=== PATIENT | male | born 1960 | race Caucasian/White ===

== ENCOUNTER 2016-07-10 14:58 | Inpatient (IN) | payer MEDICAID, OTHER ==
--- NOTE | 2016-07-10 15:39 | ER Document Report ---
ED Medical Screen (RME) - General Chief Complaint: General Weakness Stated Complaint: WEAKNESS Notes: warrant out for arrest so today at detention, collapsed, awake the entire time. witnessed by officer -h/i, -LOC COPD, h/o seizures on medications but has been noncompliant diarrhea for 7 days, no evidence of blood COPD: not on O2 at home but should be tobacco use, etoh use 40x2 daily EMS had to use a nasal airway vitals stable, 92% on room air stable I have greeted and performed a rapid initial assessment of this patient. A comprehensive ED assessment and evaluation of the patient, analysis of test results and completion of the medical decision making process will be conducted by additional ED providers. TRAVEL OUTSIDE OF THE [place] IN LAST 30 DAYS: No - Related Data Allergies/Adverse Reactions: albuterol Allergy (Verified 07/10/16 15:31) fluoxetine [From Prozac] Allergy (Verified 07/10/16 15:31) lisinopril Allergy (Verified 07/10/16 15:31) paliperidone [From Invega] Allergy (Verified 07/10/16 15:31) Past Medical History - Social History Chew tobacco use (# tins/day): Yes - 1 pk Frequency of alcohol use: Heavy Drug Abuse: None - Past Medical History Cardiac Medical History: Reports: Hx Hypertension Renal/ Medical History: Denies: Hx Peritoneal Dialysis Psychiatric Medical History: Reports: Hx Attention Deficit Hyperactivity Disorder, Hx Bipolar Disorder
--- NOTE | 2016-07-10 17:09 | ER Document Report ---
ED Seizure - General Mode of Arrival: Medic Information source: Patient, Law Enforcement - HPI Patient complains to provider of: History of seizures <VIVEK BIANCHI - Last Filed: 07/10/16 17:36> <JOSEF GALLEGO - Last Filed: 07/10/16 23:04> - General Chief Complaint: Probable Seizure Stated Complaint: possible seizure Notes: Patient is a 55 year old male, with a past medical history including bipolar disorder and seizures, who presents to the emergency department from senior living for a fall secondary to a possible seizure. Patient reports that he has been weak recently and falling a lot. Patient believes the fall today was due to a seizure. Patient reports he does take seizure medication and knows the dose is 60mg but does not recall the actual drug. Patient also complains of loss of appetite and low fluid intake. Patient is alcohol dependent and his last beverage was this morning. PCP: Dr. Gerber (VIVEK BIANCHI) - Related Data Allergies/Adverse Reactions: albuterol Allergy (Verified 07/10/16 15:31) fluoxetine [From Prozac] Allergy (Verified 07/10/16 15:31) lisinopril Allergy (Verified 07/10/16 15:31) paliperidone [From Invega] Allergy (Verified 07/10/16 15:31) Past Medical History - General Information source: Patient - Social History Smoking Status: Current Every Day Smoker Chew tobacco use (# tins/day): Yes - 1 pk Frequency of alcohol use: Heavy Drug Abuse: None Family History: Reviewed & Not Pertinent - Past Medical History Cardiac Medical History: Reports: Hx DVT, Hx Hypertension Neurological Medical History: Reports: Hx Seizures GI Medical History: Reports: Hx Cirrhosis Psychiatric Medical History: Reports: Hx Attention Deficit Hyperactivity Disorder, Hx Bipolar Disorder - Immunizations Hx Pneumococcal Vaccination: 06/07/13 <VIVEK BIANCHI - Last Filed: 07/10/16 17:36> Review of Systems - Review of Systems Constitutional: See HPI, Weakness EENT: No symptoms reported Cardiovascular: No symptoms reported Respiratory: No symptoms reported Gastrointestinal: See HPI, Poor appetite, Poor fluid intake Genitourinary: No symptoms reported Male Genitourinary: No symptoms reported Musculoskeletal: No symptoms reported Skin: No symptoms reported Hematologic/Lymphatic: No symptoms reported Neurological/Psychological: See HPI, Seizure - possible -: Yes All other systems reviewed and negative <VIVEK BIANCHI - Last Filed: 07/10/16 17:36> Physical Exam - Vital signs Interpretation: Tachypneic - General General appearance: Appears well, Alert - HEENT Head: Abrasions - 4cm linear abrasion that looks a day old over forehead Mouth/Lips: Other - Very poor dentition, missing top teeth. Ketone odor on breath - Respiratory Respiratory status: No respiratory distress, Tachypnea Chest status: Nontender Breath sounds: Rhonchi, Wheezing Chest palpation: Normal - Cardiovascular Rhythm: Regular Heart sounds: Normal auscultation Murmur: No - Abdominal Inspection: Other - Bruise on right upper quadrant of abdomen and inferior ribs going toward the right flank that appears a few days old Distension: No distension Bowel sounds: Normal Tenderness: Nontender Organomegaly: No organomegaly - Extremities General upper extremity: Normal inspection General lower extremity: Normal inspection. No: Edema - Neurological Neuro grossly intact: Yes Cognition: Normal Orientation: AAOx4 [place] Coma Scale Eye Opening: Spontaneous [place] Coma Scale Verbal: Oriented [place] Coma Scale Motor: Obeys Commands [place] Coma Scale Total: 15 Speech: Normal - Psychological Associated symptoms: Normal affect, Normal mood - Skin Skin Temperature: Warm Skin Moisture: Dry Skin Color: Normal <VIVEK BIANCHI - Last Filed: 07/10/16 17:36> Course - Laboratory Result Diagrams: 07/10/16 17:05 07/10/16 17:05 <VIVEK BIANCHI - Last Filed: 07/10/16 17:36> - Laboratory Result Diagrams: 07/10/16 20:34 07/10/16 17:05 - Diagnostic Test Radiology reviewed: Image reviewed, Reports reviewed - CT scan shows chronic maxillary sinusitis with left greater than right, no acute process. Chest x-ray shows some hyperinflation with no acute process. - EKG Interpretation by Md EKG shows normal: Sinus rhythm, [place], Intervals, QRS Complexes, ST-T Waves Rate: Tachycardia - 101 Napoleon/QRS: IVCD P Waves: ELSI - Consults Dr. Alford Time consulted: 23:00 Consulted provider: will come to ER <JOSEF GALLEGO - Last Filed: 07/10/16 23:04> - Re-evaluation Re-evalutation: 07/10/16 22:40 The patient reports he is feeling much better at this time. He is completely alert and requesting to be tested for hepatitis C. The patient's blood pressure has remained around the 90-100 systolic range. When he was here 3 years ago his blood pressure was in the 140-150 systolic range. (JOSEF GALLEGO) - Vital Signs Vital signs: Temp Pulse Resp BP Pulse Ox 98.8 F 106 H 19 99/61 L 97 07/10/16 22:00 07/10/16 17:00 07/10/16 22:01 07/10/16 22:01 07/10/16 22:01 (JOSEF GALLEGO) - Laboratory Laboratory results interpreted by ma: 07/10/16 07/10/16 07/10/16 17:05 17:05 17:05 WBC RBC Hgb Hct Plt Count Seg Neuts % (Manual) Band Neutrophils % Lymphocytes % (Manual) Abs Neuts (Manual) Abs Lymphs (Manual) VBG pH 7.25 L Sodium 132.0 L Chloride 86 L Anion Gap 23 H Calcium 8.0 L Total Bilirubin 3.5 H Direct Bilirubin 1.2 H AST 530 H ALT 196 H Alkaline Phosphatase 195 H Creatine Kinase 461 H CK-MB (CK-2) 14.80 H Albumin 3.2 L 07/10/16 20:34 WBC 14.4 H RBC 3.25 L Hgb 10.7 L Hct 31.7 L Plt Count 49 L Seg Neuts % (Manual) 80 H Band Neutrophils % 14 H Lymphocytes % (Manual) 0 L Abs Neuts (Manual) 13.5 H Abs Lymphs (Manual) 0.0 L VBG pH Sodium Chloride Anion Gap Calcium Total Bilirubin Direct Bilirubin AST ALT Alkaline Phosphatase Creatine Kinase CK-MB (CK-2) Albumin (JOSEF GALLEGO) Discharge <VIVEK BIANCHI - Last Filed: 07/10/16 17:36> - Discharge Admitting Provider: Hospitalist Unit Admitted: Telemetry <JOSEF GALLEGO - Last Filed: 07/10/16 23:04> - Discharge Condition: Good Disposition: ADMITTED OBSERVATION Scribe Documentation - Scribe Written by Scribe:: danny Hammer, 07/10/16, [id number] acting as scribe for :: Mini <VIVEK BIANCHI - Last Filed: 07/10/16 17:36>
[2016-07-10 17:27] LABS: ADD ON TESTING BLD IN LAB ACKNOWLEDGE
[2016-07-10 17:40] LABS: VENOUS BLOOD HCO3 24.3 mmol/L (20-32); VENOUS BLOOD PCO2 56.6 mmHg (35-63); VENOUS BLOOD PH 7.25 (7.30-7.42)
[2016-07-10 17:42] LABS: PROTHROMBIN TIME 13.4 SEC (11.4-15.4)
[2016-07-10 17:58] LABS: ALANINE AMINOTRANSFERASE 196 U/L (21-72); ALBUMIN 3.2 g/dL (3.5-5.0); ALKALINE PHOSPHATASE 195 U/L (38-126); ASPARTATE AMINO TRANSFERASE 530 U/L (17-59); BILIRUBIN,DIRECT 1.2 mg/dL (0.0-0.3); BILIRUBIN,TOTAL 3.5 mg/dL (0.2-1.3); BLOOD UREA NITROGEN 17 mg/dL (7-20); CREATINE KINASE 461 U/L (55-170); GLUCOSE 90 mg/dL (75-110); MAGNESIUM 2.3 mg/dL (1.6-2.3); TOTAL PROTEIN 6.3 g/dL (6.3-8.2)
[2016-07-10 18:00] LABS: ALCOHOL < 10 mg/dL (NONE DETECTED)
[2016-07-10 18:07] LABS: CARBON DIOXIDE 23 mmol/L (22-30); CHLORIDE 86 mmol/L (98-107); POTASSIUM 3.6 mmol/L (3.6-5.0)
[2016-07-10 18:09] LABS: CREATINE KINASE MB 14.8 ng/mL (<4.55)
[2016-07-10 18:13] LABS: ANION GAP 23 (5-19)
[2016-07-10 18:24] LABS: TROPONIN I 0.067 ng/mL
[2016-07-10] MEDS ORDERED: THIAMINE HCL INJ 200 MG/2 ML VIAL IV ONE (18:40)
[2016-07-10] MEDS ORDERED: DEXTROSE 5%-LACTATED RINGERS 1,000 ML IV ONE ×2 (18:41→22:41)
[2016-07-10] MEDS ORDERED: PHENYTOIN SODIUM INJ/PF 250 MG/5 ML SDV IV ONE (18:41)
[2016-07-10 20:46] LABS: HEMATOCRIT 31.7 % (37.9-51.0); HEMOGLOBIN 10.7 g/dL (13.5-17.0); HGB HCT DIFFERENCE 0.4; MEAN CORPUSCULAR HEMOGLOBIN 32.8 pg (27.0-33.4); MEAN CORPUSCULAR HGB CONC 33.6 g/dL (32.0-36.0); MEAN CORPUSCULAR VOLUME 97 fl (80-97); RED BLOOD COUNT 3.25 10^6/uL (4.35-5.55); WHITE BLOOD COUNT 14.4 10^3/uL (4.0-10.5)
[2016-07-10 21:26] LABS: BASOPHILS % (MANUAL) 0 % (0-2); EOSINOPHILS % (MANUAL) 0 % (0-6); LYMPHOCYTES % (MANUAL) 0 % (13-45); TOTAL CELLS COUNTED 100
[2016-07-10 21:29] LABS: TOXIC GRANULATION 3+
[2016-07-10 21:30] LABS: ANISOCYTOSIS SLIGHT; POLYCHROMASIA SLIGHT; SMUDGE CELLS PRESENT
[2016-07-10 21:38] LABS: BAND NEUTROPHILS % (MANUAL) 14 % (3-5)
[2016-07-10] MEDS ORDERED: NORMAL SALINE 1000 ML 1,000 ML IV ONE (21:41)
--- NOTE | 2016-07-10 21:49 | EKG REPORT ---
SEVERITY:- ABNORMAL ECG - SINUS TACHYCARDIA RIGHT ATRIAL ABNORMALITY NONSPECIFIC INTRAVENTRICULAR CONDUCTION DELAY : Confirmed by: Ericka Bennett 10-Jul-2016 21:48:08
[2016-07-10] MEDS ORDERED: IPRATROPIUM BROMIDE 0.02% NEB 0.5 MG/2.5 ML AMPUL NEB ONE (21:55)
[2016-07-10] MEDS ORDERED: CIPROFLOXACIN 400 MG/D5W RTU 400 MG/200 ML RTUPB IV ONE (23:00)
[2016-07-10] MEDS ORDERED: LORAZEPAM INJ 2 MG/1 ML VIAL IV PRN (23:26)
[2016-07-10] MEDS ORDERED: HYDRALAZINE HCL INJ/PF 20 MG/1 ML SDV IV PRN (23:28)
[2016-07-10] MEDS ORDERED: ACETAMINOPHEN 325 MG TABLET PO PRN (23:32)
[2016-07-10] MEDS ORDERED: IPRATROPIUM/ALBUTEROL 0.5-2.5 MG/3 ML AMPUL NEB PRN (23:32)
[2016-07-10] MEDS ORDERED: ATENOLOL 50 MG TABLET PO SCH (23:45)
[2016-07-10] MEDS ORDERED: NORMAL SALINE 1000 ML 1,000 ML IV SCH (23:45)
[2016-07-10] MEDS ORDERED: DILTIAZEM HCL 60 MG TABLET PO SCH (23:45)
[2016-07-11 00:50] LABS: CREATINE KINASE MB 55.6 ng/mL (<4.55)
[2016-07-11 00:54] LABS: TROPONIN I 0.029 ng/mL
[2016-07-11] MEDS ORDERED: LOPERAMIDE HCL 2 MG CAPSULE PO ONE (00:57)
[2016-07-11] MEDS: CIPROFLOXACIN 400 MG/D5W RTU 400 MG/200 ML RTUPB IV SCH ×2 (00:57→22:27)
[2016-07-11] MEDS: IPRATROPIUM/ALBUTEROL 0.5-2.5 MG/3 ML AMPUL NEB SCH ×4 (00:57→23:21)
[2016-07-11] MEDS ORDERED: NORMAL SALINE 1000 ML 1,000 ML IV ONE (01:27)
[2016-07-11] MEDS: LORAZEPAM INJ 2 MG/1 ML VIAL IV SCH ×2 (01:34→11:20)
[2016-07-11] MEDS: METRONIDAZOLE 500 MG TABLET PO SCH ×2 (02:33→06:37)
[2016-07-11] MEDS ORDERED: HEPARIN SOD (PORCINE) 5,000 UNIT/ML 1 ML SYRINGE SUBCUT SCH (06:00)
[2016-07-11 06:51] LABS: ALANINE AMINOTRANSFERASE 135 U/L (21-72); ALBUMIN 1.8 g/dL (3.5-5.0); ALKALINE PHOSPHATASE 132 U/L (38-126); ANION GAP 8 (5-19); ASPARTATE AMINO TRANSFERASE 305 U/L (17-59); BILIRUBIN,DIRECT 0.2 mg/dL (0.0-0.3); BILIRUBIN,TOTAL 2.1 mg/dL (0.2-1.3); BLOOD UREA NITROGEN 18 mg/dL (7-20); CARBON DIOXIDE 29 mmol/L (22-30); CHLORIDE 97 mmol/L (98-107); CREATINE KINASE 861 U/L (55-170); CREATININE RESULT 0.67 mg/dL (0.52-1.25); GLUCOSE 79 mg/dL (75-110); POTASSIUM 3.1 mmol/L (3.6-5.0); SODIUM 133.6 mmol/L (137-145); TOTAL PROTEIN 4.6 g/dL (6.3-8.2)
[2016-07-11 06:52] LABS: HEMATOCRIT 27.7 % (37.9-51.0); HEMOGLOBIN 9.4 g/dL (13.5-17.0); HGB HCT DIFFERENCE 0.5; MEAN CORPUSCULAR HEMOGLOBIN 33.2 pg (27.0-33.4); MEAN CORPUSCULAR HGB CONC 33.9 g/dL (32.0-36.0); MEAN CORPUSCULAR VOLUME 98 fl (80-97); RED BLOOD COUNT 2.83 10^6/uL (4.35-5.55); WHITE BLOOD COUNT 12.3 10^3/uL (4.0-10.5)
[2016-07-11 07:01] LABS: CREATINE KINASE MB 29.1 ng/mL (<4.55); TROPONIN I 0.036 ng/mL
[2016-07-11 07:18] LABS: CALCIUM 6.8 mg/dL (8.4-10.2)
[2016-07-11] MEDS ORDERED: FLUMAZENIL INJ 0.5 MG/5 ML VIAL IV ONE (07:37)
[2016-07-11] MEDS ORDERED: ALBUMIN HUMAN 100 ML IV ONE (07:37)
[2016-07-11] MEDS ORDERED: HYDROCORTISONE SOD SUCCINATE INJ/PF 100 MG/2 ML SDV ONE (07:45)
[2016-07-11 07:52] LABS: BASOPHILS % (MANUAL) 0 % (0-2); EOSINOPHILS % (MANUAL) 0 % (0-6); LYMPHOCYTES % (MANUAL) 8 % (13-45); TOTAL CELLS COUNTED 100
[2016-07-11 07:53] LABS: ANISOCYTOSIS SLIGHT; OVALOCYTES SLIGHT; TOXIC GRANULATION 1+
[2016-07-11] MEDS ORDERED: NOREPINEPHRINE BITARTRATE INJ/PF 4 MG/4 ML SDV IV ONE (08:08)
[2016-07-11] MEDS ORDERED: DEXTROSE 5%-WATER 250 ML with NOREPINEPHRINE BITARTRATE 4 MG IV PRN ×2 (08:20)
[2016-07-11] MEDS ORDERED: THIAMINE HCL 100 MG, FOLIC ACID 1 MG in NORMAL SALINE 50 ML IV SCH (10:00)
[2016-07-11] MEDS ORDERED: RIVAROXABAN 10 MG TABLET PO SCH (10:00)
[2016-07-11] MEDS ORDERED: PALIPERIDONE 9 MG PO SCH (10:00)
[2016-07-11] MEDS: NORMAL SALINE 1000 ML 1,000 ML IV PRN ×2 (10:21→16:24)
[2016-07-11] MEDS ORDERED: PHENYLEPHRINE HCL INJ/PF 10 MG/1 ML SDV ONE (10:50)
--- NOTE | 2016-07-11 11:02 | PDOC PROGRESS REPORT ---
Subjective Progress Note for:: 07/11/16 Subjective:: The patient was transferred from the emergency room to the [facility] [place] floor. Patient had received 4 mg of Ativan because of withdrawal seizures. The patient became unresponsive and a rapid response was called. The patient was noted to be hypotensive with blood pressure in the 70s as well as hypoxic. He was placed on nonrebreather and IV fluids were started. The patient was then given Romazicon 3 mg with improvement in his mental status but continued to have problems with hypotension. Because of this he was moved to the intensive care unit and was started on levofed. His pressures have failed to improve in spite of fluid boluses and is being started also on Anirudh-Synephrine. He will open his eyes when asked but otherwise is unresponsive. And he is being put on BiPAP to help with some apnea he is having. Physical Exam Vital Signs: Temp Pulse Resp BP Pulse Ox 97.6 F 59 L 18 88/66 L 97 07/11/16 10:32 07/11/16 10:32 07/11/16 10:32 07/11/16 10:32 07/11/16 10:32 General appearance: PRESENT: severe distress Eye exam: PRESENT: conjunctiva pink. ABSENT: scleral icterus Mouth exam: PRESENT: dry mucosa Neck exam: ABSENT: carotid bruit, JVD, lymphadenopathy, thyromegaly Respiratory exam: PRESENT: rhonchi - Course right lower lobe rhonchi. Cardiovascular exam: PRESENT: RRR. ABSENT: diastolic murmur, rubs, systolic murmur GI/Abdominal exam: PRESENT: normal bowel sounds, soft. ABSENT: distended, guarding, mass, organolmegaly, rebound, tenderness Extremities exam: ABSENT: calf tenderness, clubbing, pedal edema Neurological exam: PRESENT: other - Able to open his eyes to command but does not do anything else. Psychiatric exam: PRESENT: other - Unable to assess Skin exam: PRESENT: other - Multiple contusions on his upper and lower body. Results Laboratory Results: 07/11/16 06:16 07/11/16 06:16 07/11/16 07/11/16 07/11/16 00:09 06:16 06:16 WBC 12.3 H RBC 2.83 L Hgb 9.4 L Hct 27.7 L MCV 98 H MCH 33.2 MCHC 33.9 RDW 14.0 Plt Count 44 L Seg Neutrophils % Not Reportable Lymphocytes % Not Reportable Monocytes % Not Reportable Eosinophils % Not Reportable Basophils % Not Reportable Absolute Neutrophils Not Reportable Absolute Lymphocytes Not Reportable Absolute Monocytes Not Reportable Absolute Eosinophils Not Reportable Absolute Basophils Not Reportable Sodium 133.6 L Potassium 3.1 L Chloride 97 L Carbon Dioxide 29 Anion Gap 8 BUN 18 Creatinine 0.67 Est GFR ( Amer) > 60 Est GFR (Non-Af Amer) > 60 Glucose 79 Calcium 6.8 L* Phosphorus 3.0 Total Bilirubin 2.1 H AST 305 H ALT 135 H Alkaline Phosphatase 132 H Total Protein 4.6 L Albumin 1.8 L Lipase 265.2 07/11/16 07/11/16 07/11/16 00:09 00:09 06:16 Creatine Kinase 1054 H 861 H CK-MB (CK-2) 55.60 H Troponin I 0.029 07/11/16 06:16 Creatine Kinase CK-MB (CK-2) 29.10 H Troponin I 0.036 Impressions: Chest X-Ray 07/10/16 15:43 IMPRESSION: NO ACUTE RADIOGRAPHIC FINDING IN THE CHEST. Head CT 07/10/16 17:07 IMPRESSION: No acute intracranial findings. Chronic maxillary sinusitis, left greater than right. Assessment & Plan - Diagnosis (1) Alcohol withdrawal seizure with complication Is this a current diagnosis for this admission?: YesPlan: Patient was given Ativan emergency room and had difficulty respiratory tinoco. He was given Romazicon and improved and mental status however he did continue to have hypotension and was moved to the intensive care unit. The patient had a head CT at when he first presented and there was no evidence for any type of acute abnormality. (2) COPD with exacerbation Is this a current diagnosis for this admission?: YesPlan: Patient was given IV Solu-Medrol when he became hypotensive. We'll use nebulizers as needed. (3) Diverticulitis Is this a current diagnosis for this admission?: YesPlan: Patient had some abdominal pain when he presented. Patient is on Cipro and Flagyl. (4) Hypertension Is this a current diagnosis for this admission?: YesPlan: The patient has a history of hypertension but has been hypotensive for the last several hours. He has been getting IV fluids as well as levo fed and now we are adding on Anirudh-Synephrine. I'm concerned that this patient may have aspirated may have early sepsis as the cause for his hypotension. Patient is on Cipro and Flagyl. (5) DVT (deep venous thrombosis) Is this a current diagnosis for this admission?: YesPlan: Patient has been on Xarelto. He is unable to take any oral medications at this time and tomorrow we will start him on heparin drip. (6) Schizophrenia Is this a current diagnosis for this admission?: YesPlan: We'll give Haldol as needed. (7) Bipolar disorder Is this a current diagnosis for this admission?: YesPlan: This diagnosis is from a previous admission 2013. Continue with Haldol. (8) Respiratory failure Is this a current diagnosis for this admission?: YesPlan: The patient most likely has an aspiration on the right. We will continue with oxygen and we'll start him on a BiPAP for now. - Time Critical Time spent with patient: 25-34 minutes - Inpatient Certification Medical Necessity: Need Close Monitoring Due to Risk of Patient Decompensation, Need For IV Fluids, Need for IV Antibiotics - Plan Summary Plan Summary: Patient has been transferred to the intensive care unit.
[2016-07-11] MEDS: DEXTROSE 5%-WATER 250 ML with PHENYLEPHRINE HCL 40 MG IV PRN ×6 (11:12→19:50)
[2016-07-11] MEDS ORDERED: DEXTROSE 5%-WATER 250 ML with PHENYLEPHRINE HCL 40 MG IV PRN ×2 (11:15)
[2016-07-11] MEDS: DOCUSATE SODIUM 100 MG CAPSULE PO SCH ×2 (11:20→17:12)
[2016-07-11 11:52] LABS: APPEARANCE,URINE CLEAR; BILIRUBIN,URINE NEGATIVE (NEGATIVE); GLUCOSE, URINE NEGATIVE (NEGATIVE); KETONES,URINE 20 mg/dL (NEGATIVE); LEUKOCYTE ESTERASE,URINE NEGATIVE (NEGATIVE); NITRITE,URINE NEGATIVE (NEGATIVE); PROTEIN,URINE NEGATIVE (NEGATIVE); URINE SPECIFIC GRAVITY 1.008
[2016-07-11 12:28] LABS: URINE BARBITURATES SCREEN NEGATIVE; URINE METHADONE SCREEN NEGATIVE; URINE OPIATES LOW NEGATIVE; URINE PHENCYCLIDINE SCREEN NEGATIVE
[2016-07-11] MEDS: METRONIDAZOLE 500 MG/NS RTU 100 ML IV SCH ×3 (12:43→23:39)
[2016-07-11 13:23] LABS: CREATINE KINASE MB 21.4 ng/mL (<4.55); TROPONIN I 0.026 ng/mL
[2016-07-11 15:48] LABS: ARTERIAL BLOOD BASE EXCESS -0.4 mmol/L
[2016-07-11] MEDS: LORAZEPAM INJ 2 MG/1 ML VIAL IV PRN ×2 (16:24→22:00)
[2016-07-11] MEDS: THIAMINE HCL 100 MG, FOLIC ACID 1 MG in NORMAL SALINE 50 ML IV SCH ×2 (17:12→18:25)
[2016-07-11] MEDS: HALOPERIDOL LACTATE INJ 5 MG/1 ML VIAL IV PRN (19:26)
[2016-07-12] MEDS: HALOPERIDOL LACTATE INJ 5 MG/1 ML VIAL IV PRN ×4 (01:10→19:27)
[2016-07-12] MEDS: DEXTROSE 5%-WATER 250 ML with PHENYLEPHRINE HCL 40 MG IV PRN ×8 (03:51→19:59)
[2016-07-12] MEDS: LORAZEPAM INJ 2 MG/1 ML VIAL IV PRN ×4 (04:59→23:24)
[2016-07-12] MEDS: METRONIDAZOLE 500 MG/NS RTU 100 ML IV SCH ×4 (05:04→23:24)
[2016-07-12 05:18] LABS: HEMATOCRIT 33.1 % (37.9-51.0); HEMOGLOBIN 11.2 g/dL (13.5-17.0); HGB HCT DIFFERENCE 0.5; MEAN CORPUSCULAR HEMOGLOBIN 32.7 pg (27.0-33.4); MEAN CORPUSCULAR HGB CONC 33.8 g/dL (32.0-36.0); MEAN CORPUSCULAR VOLUME 97 fl (80-97); RED BLOOD COUNT 3.42 10^6/uL (4.35-5.55); RED CELL DISTRIBUTION WIDTH 13.8 % (11.5-14.0); WHITE BLOOD COUNT 11.9 10^3/uL (4.0-10.5)
[2016-07-12 05:25] LABS: ANION GAP 6 (5-19); BLOOD UREA NITROGEN 6 mg/dL (7-20); CALCIUM 7.1 mg/dL (8.4-10.2); CARBON DIOXIDE 36 mmol/L (22-30); CHLORIDE 94 mmol/L (98-107); CREATININE RESULT 0.49 mg/dL (0.52-1.25); GLUCOSE 117 mg/dL (75-110); SODIUM 136.2 mmol/L (137-145)
[2016-07-12 05:37] LABS: BAND NEUTROPHILS % (MANUAL) 8 % (3-5); BASOPHILS % (MANUAL) 0 % (0-2); EOSINOPHILS % (MANUAL) 0 % (0-6); LYMPHOCYTES % (MANUAL) 6 % (13-45); TOTAL CELLS COUNTED 100
[2016-07-12] MEDS ORDERED: POTASSIUM CHLORIDE 20 MEQ/15 ML UDCUP PO ONE (05:38)
[2016-07-12 05:41] LABS: POIKILOCYTOSIS SLIGHT; TARGET CELLS SLIGHT; TOXIC GRANULATION 1+; TOXIC VACUOLATION PRESENT
[2016-07-12] MEDS: POTASSI CL 20 MEQ/50 ML RIDER 20 MEQ/50 ML RTUPB IV SCH ×8 (06:04→23:23)
[2016-07-12] MEDS: IPRATROPIUM/ALBUTEROL 0.5-2.5 MG/3 ML AMPUL NEB SCH ×2 (07:58→15:48)
[2016-07-12] MEDS: CIPROFLOXACIN 400 MG/D5W RTU 400 MG/200 ML RTUPB IV SCH ×2 (09:04→21:00)
[2016-07-12] MEDS ORDERED: MAGNESIUM SULFATE 4 GM/100 ML RTUPB IV ONE (10:15)
--- NOTE | 2016-07-12 10:17 | PDOC PROGRESS REPORT ---
Subjective Progress Note for:: 07/12/16 Subjective:: The patient is confused and is in delirium tremens. His blood pressure has improved however he is still requiring Anirudh-Synephrine for blood pressure support. He has tested positive for Clostridium difficile. Physical Exam Vital Signs: Temp Pulse Resp BP Pulse Ox 99.2 F 91 24 H 118/89 H 100 07/12/16 09:35 07/12/16 09:35 07/12/16 09:35 07/12/16 09:35 07/12/16 09:35 Intake & Output 07/11/16 07/12/16 07/13/16 06:59 06:59 06:59 Intake Total 6202 Output Total 6740 795 Balance -518 -795 Weight 62.8 kg General appearance: PRESENT: mild distress Eye exam: PRESENT: conjunctiva pink. ABSENT: scleral icterus Mouth exam: PRESENT: moist, tongue midline Neck exam: ABSENT: JVD Respiratory exam: PRESENT: rhonchi - Coarse rhonchi bilaterally. Cardiovascular exam: PRESENT: RRR. ABSENT: diastolic murmur, rubs, systolic murmur GI/Abdominal exam: PRESENT: normal bowel sounds, soft. ABSENT: distended, guarding, mass, organolmegaly, rebound, tenderness Extremities exam: ABSENT: calf tenderness, clubbing, pedal edema Neurological exam: PRESENT: altered Psychiatric exam: PRESENT: agitated Results Laboratory Results: 07/12/16 04:31 07/12/16 04:31 07/11/16 07/11/16 07/12/16 11:36 15:20 04:31 WBC 11.9 H RBC 3.42 L Hgb 11.2 L Hct 33.1 L MCV 97 MCH 32.7 MCHC 33.8 RDW 13.8 Plt Count 88 L Seg Neutrophils % Not Reportable Lymphocytes % Not Reportable Monocytes % Not Reportable Eosinophils % Not Reportable Basophils % Not Reportable Absolute Neutrophils Not Reportable Absolute Lymphocytes Not Reportable Absolute Monocytes Not Reportable Absolute Eosinophils Not Reportable Absolute Basophils Not Reportable Carbonic Acid 1.13 HCO3/H2CO3 Ratio 21:1 ABG pH 7.42 ABG pCO2 37.6 ABG pO2 89.8 ABG HCO3 23.8 ABG O2 Saturation 97.0 ABG Base Excess -0.4 FiO2 30% Sodium Potassium Chloride Carbon Dioxide Anion Gap BUN Creatinine Est GFR ( Amer) Est GFR (Non-Af Amer) Glucose Calcium Magnesium Urine Color YELLOW Urine Appearance CLEAR Urine pH 6.0 Ur Specific [place] 1.008 Urine Protein NEGATIVE Urine Glucose (UA) NEGATIVE Urine Ketones 20 H Urine Blood SMALL H Urine Nitrite NEGATIVE Ur Leukocyte Esterase NEGATIVE Urine WBC (Auto) 1 Urine RBC (Auto) 0 07/12/16 07/12/16 04:31 04:31 WBC RBC Hgb Hct MCV MCH MCHC RDW Plt Count Seg Neutrophils % Lymphocytes % Monocytes % Eosinophils % Basophils % Absolute Neutrophils Absolute Lymphocytes Absolute Monocytes Absolute Eosinophils Absolute Basophils Carbonic Acid HCO3/H2CO3 Ratio ABG pH ABG pCO2 ABG pO2 ABG HCO3 ABG O2 Saturation ABG Base Excess FiO2 Sodium 136.2 L Potassium 2.0 L* D Chloride 94 L Carbon Dioxide 36 H Anion Gap 6 BUN 6 L Creatinine 0.49 L Est GFR ( Amer) > 60 Est GFR (Non-Af Amer) > 60 Glucose 117 H Calcium 7.1 L Magnesium 1.5 L Urine Color Urine Appearance Urine pH Ur Specific [place] Urine Protein Urine Glucose (UA) Urine Ketones Urine Blood Urine Nitrite Ur Leukocyte Esterase Urine WBC (Auto) Urine RBC (Auto) 07/11/16 07/11/16 07/11/16 00:09 00:09 06:16 Creatine Kinase 1054 H 861 H CK-MB (CK-2) 55.60 H Troponin I 0.029 07/11/16 07/11/16 07/11/16 06:16 12:35 12:35 Creatine Kinase 803 H CK-MB (CK-2) 29.10 H 21.40 H Troponin I 0.036 0.026 Impressions: Chest X-Ray 07/10/16 15:43 IMPRESSION: NO ACUTE RADIOGRAPHIC FINDING IN THE CHEST. Head CT 07/10/16 17:07 IMPRESSION: No acute intracranial findings. Chronic maxillary sinusitis, left greater than right. Assessment & Plan - Diagnosis (1) Alcohol withdrawal seizure with complication Is this a current diagnosis for this admission?: YesPlan: Patient is still confused. We'll continue with the Ativan when necessary. (2) COPD with exacerbation Is this a current diagnosis for this admission?: YesPlan: Patient was given IV Solu-Medrol initially. He is now positive for C. difficile hasn't to give any more steroids was necessary. We'll use nebulizers as needed. He is still requiring BiPAP. (3) Diverticulitis Is this a current diagnosis for this admission?: YesPlan: Patient had some abdominal pain when he presented. He now tests positive for C. difficile. Patient is on Cipro and Flagyl. (4) Hypertension Is this a current diagnosis for this admission?: YesPlan: The patient has a history of hypertension but has been hypotensive. He has been getting IV fluids as well as Anirudh-Synephrine he is no longer requiring levo fed.. I was initially concerned that this patient may have aspirated may have early sepsis as the cause for his hypotension however now that we have a positive C. difficile test that is most likely the cause for his sepsis.. Patient is on Cipro and Flagyl. (5) DVT (deep venous thrombosis) Is this a current diagnosis for this admission?: YesPlan: Patient has been on Xarelto previously. His platelets are however low and we will hold off on starting heparin at this time. (6) Schizophrenia Is this a current diagnosis for this admission?: YesPlan: We'll give Haldol as needed. (7) Bipolar disorder Is this a current diagnosis for this admission?: YesPlan: This diagnosis is from a previous admission 2013. Continue with Haldol. (8) Respiratory failure Is this a current diagnosis for this admission?: YesPlan: The patient most likely has an aspiration on the right. We will continue with oxygen and BiPAP for now. (9) Hypokalemia Is this a current diagnosis for this admission?: YesPlan: Patient is getting potassium replacement. We'll repeat a Chem-7 at 1400 today. (10) Hypomagnesemia Is this a current diagnosis for this admission?: YesPlan: We'll continue with IV replacement and monitor. - Time Time Spent with patient: 25-34 minutes - Inpatient Certification Medical Necessity: Need Close Monitoring Due to Risk of Patient Decompensation, Need For IV Fluids, Need for IV Antibiotics
[2016-07-12] MEDS: DOCUSATE SODIUM 100 MG CAPSULE PO SCH ×2 (10:38→19:29)
[2016-07-12] MEDS: NORMAL SALINE 1000 ML 1,000 ML IV PRN ×2 (14:35→17:39)
[2016-07-12 15:07] LABS: ANION GAP 7 (5-19); BLOOD UREA NITROGEN 3 mg/dL (7-20); CALCIUM 7.2 mg/dL (8.4-10.2); CARBON DIOXIDE 38 mmol/L (22-30); CHLORIDE 91 mmol/L (98-107); CREATININE RESULT 0.44 mg/dL (0.52-1.25); GLUCOSE 113 mg/dL (75-110); SODIUM 135.6 mmol/L (137-145)
[2016-07-12 15:13] LABS: POTASSIUM 2.2 mmol/L (3.6-5.0)
[2016-07-13] MEDS: HALOPERIDOL LACTATE INJ 5 MG/1 ML VIAL IV PRN ×4 (01:30→21:11)
[2016-07-13] MEDS: LORAZEPAM INJ 2 MG/1 ML VIAL IV PRN ×3 (04:15→20:22)
[2016-07-13 06:32] LABS: ABSOLUTE EOSINOPHILS # (AUTO) 0.1 10^3/uL (0.0-0.6); ABSOLUTE LYMPHOCYTES (AUTO) 0.8 10^3/uL (0.5-4.7); ABSOLUTE MONOCYTES (AUTO) 1.1 10^3/uL (0.1-1.4); ABSOLUTE NEUT (AUTO) 6.1 10^3/uL (1.7-8.2); BASOPHILS % (AUTO) 0.6 % (0-2); BLOOD UREA NITROGEN 2 mg/dL (7-20); CREATININE RESULT 0.36 mg/dL (0.52-1.25); EOSINOPHILS % (AUTO) 0.9 % (0-6); GLUCOSE 83 mg/dL (75-110); HEMATOCRIT 29.3 % (37.9-51.0); HGB HCT DIFFERENCE 0.7; LYMPHOCYTES % (AUTO) 9.9 % (13-45); MAGNESIUM 1.7 mg/dL (1.6-2.3); MEAN CORPUSCULAR HEMOGLOBIN 33.4 pg (27.0-33.4); MEAN CORPUSCULAR HGB CONC 34.3 g/dL (32.0-36.0); MEAN CORPUSCULAR VOLUME 97 fl (80-97); MONOCYTES % (AUTO) 13.4 % (3-13); RED BLOOD COUNT 3.01 10^6/uL (4.35-5.55); RED CELL DISTRIBUTION WIDTH 13.7 % (11.5-14.0); SEGMENTED NEUTROPHILS % (AUTO) 75.2 % (42-78); WHITE BLOOD COUNT 8.2 10^3/uL (4.0-10.5)
[2016-07-13] MEDS: METRONIDAZOLE 500 MG/NS RTU 100 ML IV SCH ×4 (06:47→23:11)
[2016-07-13 06:50] LABS: CARBON DIOXIDE 39 mmol/L (22-30); CHLORIDE 93 mmol/L (98-107); SODIUM 135.6 mmol/L (137-145)
[2016-07-13 06:53] LABS: ARTERIAL BLOOD BASE EXCESS 11.5 mmol/L; ARTERIAL BLOOD O2 SATURATION 95.6 % (94-98)
[2016-07-13 07:02] LABS: CALCIUM 7.1 mg/dL (8.4-10.2)
[2016-07-13 07:27] LABS: POTASSIUM 2.3 mmol/L (3.6-5.0)
[2016-07-13 07:28] LABS: ANION GAP 4 (5-19)
[2016-07-13] MEDS: IPRATROPIUM/ALBUTEROL 0.5-2.5 MG/3 ML AMPUL NEB SCH ×3 (08:17→16:30)
[2016-07-13] MEDS: NORMAL SALINE 1000 ML 1,000 ML IV PRN (08:58)
[2016-07-13] MEDS: CIPROFLOXACIN 400 MG/D5W RTU 400 MG/200 ML RTUPB IV SCH ×2 (09:00→21:11)
[2016-07-13] MEDS: POTASSI CL 20 MEQ/50 ML RIDER 50 ML IV SCH ×4 (09:01→15:46)
[2016-07-13] MEDS: DOCUSATE SODIUM 100 MG CAPSULE PO SCH ×2 (09:10→17:03)
--- NOTE | 2016-07-13 11:02 | PDOC PROGRESS REPORT ---
Subjective Progress Note for:: 07/13/16 Subjective:: 55-year-old alcoholic who presented with alcohol withdrawal seizure as well as abdominal pain felt to initially be diverticulitis. The patient since then was started on Cipro and Flagyl however has tested positive for C. difficile. The patient also was in early delirium tremens when he presented and was given Ativan IV and then he became unresponsive and apneic. The patient was given Romazicon with improvement in his respiratory status however he was hypotensive and was transferred to the intensive care unit. The patient may have aspirated during this episode as he did have some very coarse rhonchi on the right. Patient is felt to most likely have sepsis secondary to his C. difficile and that was the reason for his hypotension. The patient has improved and is currently just receiving Anirudh-Synephrine. He initially required both Anirudh- Synephrine and leave that. The patient's respiratory status has been stable on BiPAP. He also does have delirium tremens and is still confused. Patient today is unable to answer any questions. Physical Exam Vital Signs: Temp Pulse Resp BP Pulse Ox 98.3 F 76 19 98/63 L 97 07/13/16 06:00 07/13/16 08:17 07/13/16 08:17 07/13/16 06:30 07/13/16 08:17 Intake & Output 07/12/16 07/13/16 07/14/16 06:59 06:59 06:59 Intake Total 6202 4914 Output Total 6720 4965 Balance -518 -51 Weight 62.8 kg 62.7 kg General appearance: PRESENT: mild distress Eye exam: PRESENT: conjunctiva pink. ABSENT: scleral icterus Mouth exam: PRESENT: moist, tongue midline Neck exam: ABSENT: JVD Respiratory exam: PRESENT: rhonchi - Coarse rhonchi bilaterally. Cardiovascular exam: PRESENT: RRR. ABSENT: diastolic murmur, rubs, systolic murmur GI/Abdominal exam: PRESENT: normal bowel sounds, soft. ABSENT: distended, guarding, mass, organolmegaly, rebound, tenderness Extremities exam: ABSENT: calf tenderness, clubbing, pedal edema Neurological exam: PRESENT: altered, other - Patient is following all 4 extremities, But will not follow commands. Psychiatric exam: PRESENT: agitated Skin exam: PRESENT: vesicles - A she has vesicles on his perineum as well as up his back and sacral area. Results Laboratory Results: 07/13/16 05:35 07/13/16 05:35 07/12/16 07/13/16 07/13/16 14:03 05:35 05:35 WBC 8.2 RBC 3.01 L Hgb 10.0 L Hct 29.3 L MCV 97 MCH 33.4 MCHC 34.3 RDW 13.7 Plt Count 84 L Seg Neutrophils % 75.2 Lymphocytes % 9.9 L Monocytes % 13.4 H Eosinophils % 0.9 Basophils % 0.6 Absolute Neutrophils 6.1 Absolute Lymphocytes 0.8 Absolute Monocytes 1.1 Absolute Eosinophils 0.1 Absolute Basophils 0.0 Carbonic Acid HCO3/H2CO3 Ratio ABG pH ABG pCO2 ABG pO2 ABG HCO3 ABG O2 Saturation ABG Base Excess FiO2 Sodium 135.6 L 135.6 L Potassium 2.2 L* 2.3 L* Chloride 91 L 93 L Carbon Dioxide 38 H 39 H Anion Gap 7 4 L BUN 3 L 2 L Creatinine 0.44 L 0.36 L Est GFR ( Amer) > 60 > 60 Est GFR (Non-Af Amer) > 60 > 60 Glucose 113 H 83 Calcium 7.2 L 7.1 L Magnesium 1.7 07/13/16 06:40 WBC RBC Hgb Hct MCV MCH MCHC RDW Plt Count Seg Neutrophils % Lymphocytes % Monocytes % Eosinophils % Basophils % Absolute Neutrophils Absolute Lymphocytes Absolute Monocytes Absolute Eosinophils Absolute Basophils Carbonic Acid 1.63 H HCO3/H2CO3 Ratio 22:1 ABG pH 7.46 H ABG pCO2 54.0 H ABG pO2 76.2 L ABG HCO3 37.1 H ABG O2 Saturation 95.6 ABG Base Excess 11.5 FiO2 30% Sodium Potassium Chloride Carbon Dioxide Anion Gap BUN Creatinine Est GFR ( Amer) Est GFR (Non-Af Amer) Glucose Calcium Magnesium 07/11/16 07/11/16 07/11/16 00:09 00:09 06:16 Creatine Kinase 1054 H 861 H CK-MB (CK-2) 55.60 H Troponin I 0.029 07/11/16 07/11/16 07/11/16 06:16 12:35 12:35 Creatine Kinase 803 H CK-MB (CK-2) 29.10 H 21.40 H Troponin I 0.036 0.026 Impressions: Chest X-Ray 07/10/16 15:43 IMPRESSION: NO ACUTE RADIOGRAPHIC FINDING IN THE CHEST. Head CT 07/10/16 17:07 IMPRESSION: No acute intracranial findings. Chronic maxillary sinusitis, left greater than right. Assessment & Plan - Diagnosis (1) Alcohol withdrawal seizure with complication Is this a current diagnosis for this admission?: YesPlan: Patient is still confused. We'll continue with the Ativan when necessary. (2) COPD with exacerbation Is this a current diagnosis for this admission?: YesPlan: Patient was given IV Solu-Medrol initially. He is now positive for C. difficile and will try to avoid any more steroids unless necessary. He does not have much wheezing on exam today. We'll use nebulizers as needed. He is still requiring BiPAP. (3) Diverticulitis Is this a current diagnosis for this admission?: YesPlan: Patient had some abdominal pain when he presented. He now tests positive for C. difficile. Patient is on Cipro and Flagyl. Treating for presumptive C. difficile as well as possibly diverticulitis. (4) Hypertension Is this a current diagnosis for this admission?: YesPlan: The patient has a history of hypertension but has been hypotensive. He has been getting IV fluids as well as Anirudh-Synephrine. He has a positive C. difficile test and that is most likely the cause for his sepsis. Patient is on Cipro and Flagyl. (5) DVT (deep venous thrombosis) Is this a current diagnosis for this admission?: YesPlan: Patient has been on Xarelto previously. His platelets are however low and we will hold off on starting heparin at this time. (6) Schizophrenia Is this a current diagnosis for this admission?: YesPlan: We'll give Haldol as needed. (7) Bipolar disorder Is this a current diagnosis for this admission?: YesPlan: This diagnosis is from a previous admission 2013. Continue with Haldol. (8) Respiratory failure Is this a current diagnosis for this admission?: YesPlan: The patient most likely has an aspiration on the right. We will continue with oxygen and BiPAP for now. (9) Hypokalemia Is this a current diagnosis for this admission?: YesPlan: Patient is getting potassium replacement. (10) Hypomagnesemia Is this a current diagnosis for this admission?: YesPlan: Resolved. (11) Zoster Is this a current diagnosis for this admission?: YesPlan: The patient has some vesicle lesions on his perineum and back. I'm concerned that this may represent zoster. The patient rash is not entirely in a dermatomal pattern however. We will cover with IV acyclovir. - Time Time Spent with patient: 35 or more minutes - Inpatient Certification Medical Necessity: Need For IV Fluids, Need for IV Antibiotics
[2016-07-13 15:13] LABS: PATH REVIEW PATHOLOGIST REVIEWED
[2016-07-13] MEDS: ACYCLOVIR SODIUM 500 MG in NORMAL SALINE 100 ML IV SCH (17:02)
[2016-07-13] MEDS: THIAMINE HCL 100 MG, FOLIC ACID 1 MG in NORMAL SALINE 50 ML IV SCH (17:03)
[2016-07-13 20:50] LABS: ANION GAP 7 (5-19); BLOOD UREA NITROGEN 5 mg/dL (7-20); CALCIUM 7.2 mg/dL (8.4-10.2); CARBON DIOXIDE 36 mmol/L (22-30); CHLORIDE 92 mmol/L (98-107); CREATININE RESULT 0.36 mg/dL (0.52-1.25); GLUCOSE 69 mg/dL (75-110); POTASSIUM 3.1 mmol/L (3.6-5.0); SODIUM 135.4 mmol/L (137-145)
[2016-07-13] MEDS ORDERED: POTASSIUM CHLORIDE 20 MEQ/15 ML UDCUP PO ONE (21:30)
[2016-07-13] MEDS: POTASSI CL 20 MEQ/50 ML RIDER 20 MEQ/50 ML RTUPB IV SCH (21:43)
[2016-07-13] MEDS: MAGNESIUM SULFATE/D5W 1 GM/100 ML RTUPB IV SCH ×2 (21:46→23:11)
[2016-07-14] MEDS: IPRATROPIUM/ALBUTEROL 0.5-2.5 MG/3 ML AMPUL NEB SCH ×3 (00:21→15:59)
[2016-07-14] MEDS: POTASSI CL 20 MEQ/50 ML RIDER 20 MEQ/50 ML RTUPB IV SCH (00:31)
[2016-07-14] MEDS: POTASSI CL 20 MEQ/D5-1/2NS 1L 1,000 ML IV PRN ×2 (00:48→11:32)
[2016-07-14] MEDS: LORAZEPAM INJ 2 MG/1 ML VIAL IV PRN ×3 (00:51→18:17)
[2016-07-14] MEDS: ACYCLOVIR SODIUM 500 MG in NORMAL SALINE 100 ML IV SCH ×3 (03:54→17:59)
[2016-07-14 05:42] LABS: ANION GAP 6 (5-19); BLOOD UREA NITROGEN 5 mg/dL (7-20); CALCIUM 7.2 mg/dL (8.4-10.2); CARBON DIOXIDE 32 mmol/L (22-30); CHLORIDE 95 mmol/L (98-107); CREATININE RESULT 0.36 mg/dL (0.52-1.25); GLUCOSE 133 mg/dL (75-110); MAGNESIUM 2.1 mg/dL (1.6-2.3); POTASSIUM 3.5 mmol/L (3.6-5.0); SODIUM 133.4 mmol/L (137-145)
[2016-07-14 06:16] LABS: ABSOLUTE BASOPHILS # (AUTO) 0.1 10^3/uL (0.0-0.2); ABSOLUTE LYMPHOCYTES (AUTO) 0.7 10^3/uL (0.5-4.7); ABSOLUTE MONOCYTES (AUTO) 1.3 10^3/uL (0.1-1.4); ABSOLUTE NEUT (AUTO) 5.5 10^3/uL (1.7-8.2); BASOPHILS % (AUTO) 0.9 % (0-2); EOSINOPHILS % (AUTO) 0.5 % (0-6); HEMATOCRIT 30.1 % (37.9-51.0); HEMOGLOBIN 10.3 g/dL (13.5-17.0); HGB HCT DIFFERENCE 0.8; MEAN CORPUSCULAR HEMOGLOBIN 33.2 pg (27.0-33.4); MEAN CORPUSCULAR HGB CONC 34.3 g/dL (32.0-36.0); MEAN CORPUSCULAR VOLUME 97 fl (80-97); MONOCYTES % (AUTO) 16.6 % (3-13); RED CELL DISTRIBUTION WIDTH 13.5 % (11.5-14.0); WHITE BLOOD COUNT 7.6 10^3/uL (4.0-10.5)
[2016-07-14] MEDS: METRONIDAZOLE 500 MG/NS RTU 100 ML IV SCH ×4 (07:00→23:07)
[2016-07-14] MEDS: CIPROFLOXACIN 400 MG/D5W RTU 400 MG/200 ML RTUPB IV SCH (10:09)
[2016-07-14] MEDS: DOCUSATE SODIUM 100 MG CAPSULE PO SCH ×2 (10:15→18:00)
--- NOTE | 2016-07-14 11:12 | PDOC PROGRESS REPORT ---
Subjective Progress Note for:: 07/14/16 Subjective:: Patient still with altered mental status. Blood pressure has improved and off vasopressor. Patient BiPAP due to respiratory failure and hypoxia likely from aspiration. No reported temperature spikes or worsening respiratory distress. Has diarrhea that was positive for Clostridium difficile toxin. On restraints as the patient keeps him pulling IV off as well as the BiPAP. No reported seizure. Physical Exam Vital Signs: Temp Pulse Resp BP Pulse Ox 98.4 F 104 H 19 115/75 96 07/14/16 08:11 07/14/16 09:33 07/14/16 09:33 07/14/16 08:11 07/14/16 09:33 Intake & Output 07/13/16 07/14/16 07/15/16 06:59 06:59 06:59 Intake Total 4914 2347 Output Total 4902 2610 Balance -51 -263 Weight 62.7 kg 63.4 kg General appearance: PRESENT: no acute distress, other - on BiPAP Head exam: PRESENT: normocephalic Eye exam: PRESENT: conjunctiva pink Mouth exam: PRESENT: moist, neck supple Neck exam: ABSENT: JVD Respiratory exam: PRESENT: rhonchi - Right-sided on the lower lung stewart. ABSENT: wheezes Cardiovascular exam: PRESENT: RRR, +S1, +S2. ABSENT: gallop GI/Abdominal exam: PRESENT: hypoactive bowel sounds, soft. ABSENT: distended Extremities exam: ABSENT: pedal edema Neurological exam: PRESENT: altered Psychiatric exam: ABSENT: agitated Focused psych exam: ABSENT: restlessness Skin exam: PRESENT: dry, warm. ABSENT: cyanosis Results Laboratory Results: 07/14/16 04:31 07/14/16 04:31 07/13/16 07/14/16 07/14/16 20:25 04:31 04:31 WBC 7.6 RBC 3.10 L Hgb 10.3 L Hct 30.1 L MCV 97 MCH 33.2 MCHC 34.3 RDW 13.5 Plt Count 91 L Seg Neutrophils % 73.0 Lymphocytes % 9.0 L Monocytes % 16.6 H Eosinophils % 0.5 Basophils % 0.9 Absolute Neutrophils 5.5 Absolute Lymphocytes 0.7 Absolute Monocytes 1.3 Absolute Eosinophils 0.0 Absolute Basophils 0.1 Sodium 135.4 L 133.4 L Potassium 3.1 L 3.5 L Chloride 92 L 95 L Carbon Dioxide 36 H 32 H Anion Gap 7 6 BUN 5 L 5 L Creatinine 0.36 L 0.36 L Est GFR ( Amer) > 60 > 60 Est GFR (Non-Af Amer) > 60 > 60 Glucose 69 L 133 H Calcium 7.2 L 7.2 L Magnesium 2.1 07/11/16 07/11/16 07/11/16 00:09 00:09 06:16 Creatine Kinase 1054 H 861 H CK-MB (CK-2) 55.60 H Troponin I 0.029 07/11/16 07/11/16 07/11/16 06:16 12:35 12:35 Creatine Kinase 803 H CK-MB (CK-2) 29.10 H 21.40 H Troponin I 0.036 0.026 Impressions: Chest X-Ray 07/10/16 15:43 IMPRESSION: NO ACUTE RADIOGRAPHIC FINDING IN THE CHEST. Head CT 07/10/16 17:07 IMPRESSION: No acute intracranial findings. Chronic maxillary sinusitis, left greater than right. Assessment & Plan - Diagnosis (1) Respiratory failure Qualifiers: Chronicity: acute Respiratory failure complication: unspecified whether with hypoxia or hypercapnia Qualified Code(s): J96.00 - Acute respiratory failure, unspecified whether with hypoxia or hypercapnia Is this a current diagnosis for this admission?: Yes (2) Aspiration pneumonia Qualifiers: Aspiration pneumonia type: unspecified Lung location: unspecified part of lung Is this a current diagnosis for this admission?: Yes (3) Alcohol withdrawal seizure with complication Qualifiers: Complication of substance-induced condition: with unspecified complication Qualified Code(s): F10.239 - Alcohol dependence with withdrawal, unspecified; R56.9 - Unspecified convulsions Is this a current diagnosis for this admission?: Yes (4) COPD with exacerbation Is this a current diagnosis for this admission?: Yes (5) Diverticulitis Qualifiers: Diverticulitis site: unspecified part of intestinal tract Diverticulitis complication: without perforation or abscess Is this a current diagnosis for this admission?: Yes (6) Clostridium difficile colitis Is this a current diagnosis for this admission?: Yes (7) Zoster Qualifiers: Herpes zoster complications: without complications Qualified Code(s) : B02.9 - Zoster without complications Is this a current diagnosis for this admission?: Yes (8) Thrombocytopenia Is this a current diagnosis for this admission?: Yes (9) Hypokalemia Is this a current diagnosis for this admission?: Yes (10) Bipolar disorder Qualifiers: Active/Remission status: remission status unspecified Qualified Code (s): F31.9 - Bipolar disorder, unspecified Is this a current diagnosis for this admission?: Yes (11) DVT (deep venous thrombosis) Qualifiers: DVT location: lower extremity Affected thrombotic vein of extremity: unspecified vein of extremity Laterality: unspecified laterality Chronicity: chronic Qualified Code(s): I82.509 - Chronic embolism and thrombosis of unspecified deep veins of unspecified lower extremity Is this a current diagnosis for this admission?: Yes (12) Hypertension Qualifiers: Hypertension type: essential hypertension Qualified Code(s): I10 - Essential (primary) hypertension Is this a current diagnosis for this admission?: Yes (13) Schizophrenia Qualifiers: Schizophrenia type: unspecified Qualified Code(s): F20.9 - Schizophrenia, unspecified Is this a current diagnosis for this admission?: Yes - Time Time Spent with patient: 25-34 minutes - Plan Summary Plan Summary: We will add lactobacillus. Continue ventilatory support for now. Continue current intravenous antibiotic. Continue dextrose containing IV fluid with potassium supplement and discontinue normal saline. Continue antiviral medication as well. Continue supportive care. Monitor electrolytes.
[2016-07-14 14:36] LABS: ARTERIAL BLOOD BASE EXCESS 7.9 mmol/L
[2016-07-14] MEDS: LACTOBACILLUS ACIDOPHILUS 250 MG TAB PO SCH (18:00)
[2016-07-14] MEDS: THIAMINE HCL 100 MG, FOLIC ACID 1 MG in NORMAL SALINE 50 ML IV SCH (20:48)
[2016-07-15] MEDS: IPRATROPIUM/ALBUTEROL 0.5-2.5 MG/3 ML AMPUL NEB SCH ×2 (00:04→08:00)
[2016-07-15] MEDS: CIPROFLOXACIN 400 MG/D5W RTU 400 MG/200 ML RTUPB IV SCH ×2 (00:45→12:29)
[2016-07-15] MEDS: LORAZEPAM INJ 2 MG/1 ML VIAL IV PRN ×2 (00:46→04:52)
[2016-07-15] MEDS: ACYCLOVIR SODIUM 500 MG in NORMAL SALINE 100 ML IV SCH ×3 (02:00→20:59)
[2016-07-15] MEDS: POTASSI CL 20 MEQ/D5-1/2NS 1L 1,000 ML IV PRN ×2 (02:01→18:26)
[2016-07-15] MEDS: METRONIDAZOLE 500 MG/NS RTU 100 ML IV SCH ×3 (05:46→20:58)
[2016-07-15 06:51] LABS: ARTERIAL BLOOD BASE EXCESS 2.8 mmol/L; ARTERIAL BLOOD O2 SATURATION 96.8 % (94-98)
[2016-07-15 08:03] LABS: ABSOLUTE BASOPHILS # (AUTO) 0.1 10^3/uL (0.0-0.2); ABSOLUTE EOSINOPHILS # (AUTO) 0.1 10^3/uL (0.0-0.6); ABSOLUTE LYMPHOCYTES (AUTO) 0.7 10^3/uL (0.5-4.7); ABSOLUTE MONOCYTES (AUTO) 1.8 10^3/uL (0.1-1.4); ABSOLUTE NEUT (AUTO) 6.5 10^3/uL (1.7-8.2); BASOPHILS % (AUTO) 0.8 % (0-2); EOSINOPHILS % (AUTO) 0.7 % (0-6); HEMATOCRIT 31.3 % (37.9-51.0); HEMOGLOBIN 10.7 g/dL (13.5-17.0); HGB HCT DIFFERENCE 0.8; LYMPHOCYTES % (AUTO) 8.1 % (13-45); MEAN CORPUSCULAR HEMOGLOBIN 33.3 pg (27.0-33.4); MEAN CORPUSCULAR HGB CONC 34.2 g/dL (32.0-36.0); MEAN CORPUSCULAR VOLUME 97 fl (80-97); MONOCYTES % (AUTO) 19.4 % (3-13); RED BLOOD COUNT 3.21 10^6/uL (4.35-5.55); RED CELL DISTRIBUTION WIDTH 13.8 % (11.5-14.0); WHITE BLOOD COUNT 9.1 10^3/uL (4.0-10.5)
[2016-07-15 08:25] LABS: ANION GAP 8 (5-19); BLOOD UREA NITROGEN 3 mg/dL (7-20); CALCIUM 7.4 mg/dL (8.4-10.2); CARBON DIOXIDE 28 mmol/L (22-30); CHLORIDE 96 mmol/L (98-107); CREATININE RESULT 0.39 mg/dL (0.52-1.25); GLUCOSE 84 mg/dL (75-110); MAGNESIUM 1.7 mg/dL (1.6-2.3); POTASSIUM 3.3 mmol/L (3.6-5.0); SODIUM 131.6 mmol/L (137-145)
[2016-07-15] MEDS ORDERED: LEVALBUTEROL HCL NEB 1.25 MG/3 ML AMPUL NEB PRN (10:11)
--- NOTE | 2016-07-15 10:26 | PDOC PROGRESS REPORT ---
Subjective Progress Note for:: 07/15/16 Subjective:: Patient still with altered mental status but more awake and responsive today. He is getting a little bit tachycardic. Patient BiPAP due to respiratory failure and hypoxia likely from aspiration. No reported temperature spikes or worsening respiratory distress. Has diarrhea that was positive for Clostridium difficile toxin. On restraints as the patient keeps him pulling IV off as well as the BiPAP. No reported seizure. Physical Exam Vital Signs: Temp Pulse Resp BP Pulse Ox 98.5 F 115 H 22 H 118/74 100 07/15/16 08:18 07/15/16 08:18 07/15/16 05:00 07/15/16 08:18 07/15/16 08:18 Intake & Output 07/14/16 07/15/16 07/16/16 06:59 06:59 06:59 Intake Total 2347 2670 Output Total 2610 3380 Balance -263 -710 Weight 63.4 kg 62.5 kg General appearance: PRESENT: no acute distress, cooperative, other - On BiPAP Head exam: PRESENT: normocephalic Eye exam: PRESENT: EOMI Mouth exam: PRESENT: moist, neck supple Neck exam: ABSENT: JVD Respiratory exam: PRESENT: rhonchi - Occasional, unlabored. ABSENT: wheezes Cardiovascular exam: PRESENT: RRR. ABSENT: gallop GI/Abdominal exam: PRESENT: soft. ABSENT: distended, tenderness Neurological exam: PRESENT: alert, awake Skin exam: PRESENT: dry, warm. ABSENT: cyanosis Results Laboratory Results: 07/15/16 07:27 07/15/16 07:27 07/14/16 07/15/16 07/15/16 14:10 06:25 07:27 WBC 9.1 RBC 3.21 L Hgb 10.7 L Hct 31.3 L MCV 97 MCH 33.3 MCHC 34.2 RDW 13.8 Plt Count 131 L Seg Neutrophils % 71.0 Lymphocytes % 8.1 L Monocytes % 19.4 H Eosinophils % 0.7 Basophils % 0.8 Absolute Neutrophils 6.5 Absolute Lymphocytes 0.7 Absolute Monocytes 1.8 H Absolute Eosinophils 0.1 Absolute Basophils 0.1 Carbonic Acid 1.27 1.09 HCO3/H2CO3 Ratio 25:1 24:1 ABG pH 7.50 H 7.48 H ABG pCO2 42.1 36.2 ABG pO2 74.9 L 82.2 ABG HCO3 31.9 H 26.3 H ABG O2 Saturation 96.0 96.8 ABG Base Excess 7.9 2.8 FiO2 28% 28% Sodium Potassium Chloride Carbon Dioxide Anion Gap BUN Creatinine Est GFR ( Amer) Est GFR (Non-Af Amer) Glucose Calcium Magnesium 07/15/16 07:27 WBC RBC Hgb Hct MCV MCH MCHC RDW Plt Count Seg Neutrophils % Lymphocytes % Monocytes % Eosinophils % Basophils % Absolute Neutrophils Absolute Lymphocytes Absolute Monocytes Absolute Eosinophils Absolute Basophils Carbonic Acid HCO3/H2CO3 Ratio ABG pH ABG pCO2 ABG pO2 ABG HCO3 ABG O2 Saturation ABG Base Excess FiO2 Sodium 131.6 L Potassium 3.3 L Chloride 96 L Carbon Dioxide 28 Anion Gap 8 BUN 3 L Creatinine 0.39 L Est GFR ( Amer) > 60 Est GFR (Non-Af Amer) > 60 Glucose 84 Calcium 7.4 L Magnesium 1.7 07/11/16 07/11/16 07/11/16 00:09 00:09 06:16 Creatine Kinase 1054 H 861 H CK-MB (CK-2) 55.60 H Troponin I 0.029 07/11/16 07/11/16 07/11/16 06:16 12:35 12:35 Creatine Kinase 803 H CK-MB (CK-2) 29.10 H 21.40 H Troponin I 0.036 0.026 Impressions: Chest X-Ray 07/10/16 15:43 IMPRESSION: NO ACUTE RADIOGRAPHIC FINDING IN THE CHEST. Head CT 07/10/16 17:07 IMPRESSION: No acute intracranial findings. Chronic maxillary sinusitis, left greater than right. Assessment & Plan - Diagnosis (1) Respiratory failure Qualifiers: Chronicity: acute Respiratory failure complication: unspecified whether with hypoxia or hypercapnia Qualified Code(s): J96.00 - Acute respiratory failure, unspecified whether with hypoxia or hypercapnia Is this a current diagnosis for this admission?: Yes (2) Aspiration pneumonia Qualifiers: Aspiration pneumonia type: unspecified Lung location: unspecified part of lung Is this a current diagnosis for this admission?: Yes (3) Alcohol withdrawal seizure with complication Qualifiers: Complication of substance-induced condition: with unspecified complication Qualified Code(s): F10.239 - Alcohol dependence with withdrawal, unspecified; R56.9 - Unspecified convulsions Is this a current diagnosis for this admission?: Yes (4) COPD with exacerbation Is this a current diagnosis for this admission?: Yes (5) Diverticulitis Qualifiers: Diverticulitis site: unspecified part of intestinal tract Diverticulitis complication: without perforation or abscess Is this a current diagnosis for this admission?: Yes (6) Clostridium difficile colitis Is this a current diagnosis for this admission?: Yes (7) Zoster Qualifiers: Herpes zoster complications: without complications Qualified Code(s) : B02.9 - Zoster without complications Is this a current diagnosis for this admission?: Yes (8) Thrombocytopenia Is this a current diagnosis for this admission?: Yes (9) Hypokalemia Is this a current diagnosis for this admission?: Yes (10) Bipolar disorder Qualifiers: Active/Remission status: remission status unspecified Qualified Code (s): F31.9 - Bipolar disorder, unspecified Is this a current diagnosis for this admission?: Yes (11) DVT (deep venous thrombosis) Qualifiers: DVT location: lower extremity Affected thrombotic vein of extremity: unspecified vein of extremity Laterality: unspecified laterality Chronicity: chronic Qualified Code(s): I82.509 - Chronic embolism and thrombosis of unspecified deep veins of unspecified lower extremity Is this a current diagnosis for this admission?: Yes (12) Hypertension Qualifiers: Hypertension type: essential hypertension Qualified Code(s): I10 - Essential (primary) hypertension Is this a current diagnosis for this admission?: Yes (13) Schizophrenia Qualifiers: Schizophrenia type: unspecified Qualified Code(s): F20.9 - Schizophrenia, unspecified Is this a current diagnosis for this admission?: Yes - Time Time Spent with patient: 25-34 minutes - Plan Summary Plan Summary: We will replace potassium and monitor electrolytes. We will restart his metoprolol back. We will discontinue albuterol and switch it to Xopenex. We will have speech therapy evaluate the patient for swallowing safety. We will wean the patient off from BiPAP. Continue other medications and supportive care.
[2016-07-15] MEDS: LACTOBACILLUS ACIDOPHILUS 250 MG TAB PO SCH ×2 (10:34→18:31)
[2016-07-15] MEDS: DOCUSATE SODIUM 100 MG CAPSULE PO SCH ×2 (10:35→18:31)
[2016-07-15] MEDS: POTASSI CL 20 MEQ/50 ML RIDER 20 MEQ/50 ML RTUPB IV SCH ×3 (13:41→18:27)
[2016-07-15] MEDS: METOPROLOL SUCCINATE 25 MG TAB.SR.24H PO SCH (14:00)
[2016-07-15] MEDS: IPRATROPIUM BROMIDE 0.02% NEB 0.5 MG/2.5 ML AMPUL NEB SCH (15:43)
[2016-07-15] MEDS: LEVALBUTEROL HCL NEB 1.25 MG/3 ML AMPUL NEB SCH (15:44)
[2016-07-15] MEDS: THIAMINE HCL 100 MG, FOLIC ACID 1 MG in NORMAL SALINE 50 ML IV SCH (18:31)
[2016-07-16] MEDS: METRONIDAZOLE 500 MG/NS RTU 100 ML IV SCH ×2 (00:06→05:16)
[2016-07-16] MEDS: IPRATROPIUM BROMIDE 0.02% NEB 0.5 MG/2.5 ML AMPUL NEB SCH ×3 (01:22→16:14)
[2016-07-16] MEDS: LEVALBUTEROL HCL NEB 1.25 MG/3 ML AMPUL NEB SCH ×3 (01:23→16:14)
[2016-07-16] MEDS: ACYCLOVIR SODIUM 500 MG in NORMAL SALINE 100 ML IV SCH ×3 (02:16→19:06)
[2016-07-16 06:48] LABS: ANION GAP 10 (5-19); BLOOD UREA NITROGEN 8 mg/dL (7-20); CALCIUM 7.2 mg/dL (8.4-10.2); CARBON DIOXIDE 25 mmol/L (22-30); CHLORIDE 100 mmol/L (98-107); CREATININE RESULT 0.42 mg/dL (0.52-1.25); GLUCOSE 91 mg/dL (75-110); POTASSIUM 3.9 mmol/L (3.6-5.0); SODIUM 134.6 mmol/L (137-145)
[2016-07-16] MEDS: LACTOBACILLUS ACIDOPHILUS 250 MG TAB PO SCH ×2 (10:33→17:54)
[2016-07-16] MEDS: DOCUSATE SODIUM 100 MG CAPSULE PO SCH ×2 (10:33→17:55)
[2016-07-16] MEDS ORDERED: TRAMADOL HCL 50 MG TABLET PO PRN (10:57)
--- NOTE | 2016-07-16 11:10 | PDOC PROGRESS REPORT ---
Subjective Progress Note for:: 07/16/16 Subjective:: Patient now more awake and responsive. Tachycardia improved. Tolerated nasal cannula oxygen well. No reported temperature spikes or worsening respiratory distress. Has diarrhea that was positive for Clostridium difficile toxin but diarrhea has improved. No seizure episode noted. Now able to swallow better. Speech therapy evaluated the patient. Physical Exam Vital Signs: Temp Pulse Resp BP Pulse Ox 98.7 F 113 H 18 104/68 100 07/16/16 04:26 07/16/16 08:00 07/16/16 08:00 07/16/16 04:26 07/16/16 08:00 Intake & Output 07/15/16 07/16/16 07/17/16 06:59 06:59 06:59 Intake Total 2670 6296 Output Total 3380 3120 Balance -710 3176 Weight 62.5 kg 63.5 kg General appearance: PRESENT: no acute distress, cooperative Head exam: PRESENT: normocephalic Eye exam: PRESENT: EOMI Mouth exam: PRESENT: moist, neck supple Neck exam: ABSENT: JVD Respiratory exam: PRESENT: clear to auscultation alexandrea, unlabored. ABSENT: rhonchi, wheezes Cardiovascular exam: PRESENT: RRR. ABSENT: gallop GI/Abdominal exam: PRESENT: normal bowel sounds, soft. ABSENT: distended, tenderness Extremities exam: ABSENT: pedal edema Neurological exam: PRESENT: alert, awake, oriented to situation Skin exam: PRESENT: dry, warm. ABSENT: cyanosis Results Laboratory Results: 07/15/16 07:27 07/16/16 05:37 07/16/16 05:37 Sodium 134.6 L Potassium 3.9 Chloride 100 Carbon Dioxide 25 Anion Gap 10 BUN 8 Creatinine 0.42 L Est GFR ( Amer) > 60 Est GFR (Non-Af Amer) > 60 Glucose 91 Calcium 7.2 L 07/11/16 10:20 Blood Blood Culture - Final NO GROWTH IN 5 DAYS 07/11/16 10:05 Blood Blood Culture - Final NO GROWTH IN 5 DAYS 07/11/16 07/11/16 07/11/16 00:09 00:09 06:16 Creatine Kinase 1054 H 861 H CK-MB (CK-2) 55.60 H Troponin I 0.029 07/11/16 07/11/16 07/11/16 06:16 12:35 12:35 Creatine Kinase 803 H CK-MB (CK-2) 29.10 H 21.40 H Troponin I 0.036 0.026 Impressions: Chest X-Ray 07/10/16 15:43 IMPRESSION: NO ACUTE RADIOGRAPHIC FINDING IN THE CHEST. Head CT 07/10/16 17:07 IMPRESSION: No acute intracranial findings. Chronic maxillary sinusitis, left greater than right. Assessment & Plan - Diagnosis (1) Respiratory failure Qualifiers: Chronicity: acute Respiratory failure complication: unspecified whether with hypoxia or hypercapnia Qualified Code(s): J96.00 - Acute respiratory failure, unspecified whether with hypoxia or hypercapnia Is this a current diagnosis for this admission?: Yes (2) Aspiration pneumonia Qualifiers: Aspiration pneumonia type: unspecified Lung location: unspecified part of lung Is this a current diagnosis for this admission?: Yes (3) Alcohol withdrawal seizure with complication Qualifiers: Complication of substance-induced condition: with unspecified complication Qualified Code(s): F10.239 - Alcohol dependence with withdrawal, unspecified; R56.9 - Unspecified convulsions Is this a current diagnosis for this admission?: Yes (4) COPD with exacerbation Is this a current diagnosis for this admission?: Yes (5) Diverticulitis Qualifiers: Diverticulitis site: unspecified part of intestinal tract Diverticulitis complication: without perforation or abscess Is this a current diagnosis for this admission?: Yes (6) Clostridium difficile colitis Is this a current diagnosis for this admission?: Yes (7) Zoster Qualifiers: Herpes zoster complications: without complications Qualified Code(s) : B02.9 - Zoster without complications Is this a current diagnosis for this admission?: Yes (8) Thrombocytopenia Is this a current diagnosis for this admission?: Yes (9) Hypokalemia Is this a current diagnosis for this admission?: Yes (10) Bipolar disorder Qualifiers: Active/Remission status: remission status unspecified Qualified Code (s): F31.9 - Bipolar disorder, unspecified Is this a current diagnosis for this admission?: Yes (11) DVT (deep venous thrombosis) Qualifiers: DVT location: lower extremity Affected thrombotic vein of extremity: unspecified vein of extremity Laterality: unspecified laterality Chronicity: chronic Qualified Code(s): I82.509 - Chronic embolism and thrombosis of unspecified deep veins of unspecified lower extremity Is this a current diagnosis for this admission?: Yes (12) Hypertension Qualifiers: Hypertension type: essential hypertension Qualified Code(s): I10 - Essential (primary) hypertension Is this a current diagnosis for this admission?: Yes (13) Schizophrenia Qualifiers: Schizophrenia type: unspecified Qualified Code(s): F20.9 - Schizophrenia, unspecified Is this a current diagnosis for this admission?: Yes - Time Time Spent with patient: 25-34 minutes - Plan Summary Plan Summary: We will decrease intravenous fluids. Begin diet. Switch to oral antibiotics over for Clostridium difficile colitis and aspiration pneumonia with Levaquin and Flagyl. We will begin physical therapy. Continue supportive care. Patient reports that he bruised his back several weeks ago prior to being admitted here and sometimes it hurts. We will try the patient on Ultram.
[2016-07-16] MEDS ORDERED: LEVOFLOXACIN 750 MG TABLET PO ONE (12:00)
[2016-07-16] MEDS: POTASSI CL 20 MEQ/D5-1/2NS 1L 1,000 ML IV PRN ×2 (12:28→22:41)
[2016-07-16] MEDS: METOPROLOL SUCCINATE 25 MG TAB.SR.24H PO SCH (14:12)
[2016-07-16] MEDS ORDERED: NORMAL SALINE 500 ML IV ONE (14:15)
[2016-07-16] MEDS: METRONIDAZOLE 500 MG TABLET PO SCH ×2 (14:16→22:37)
[2016-07-16] MEDS: THIAMINE HCL 100 MG, FOLIC ACID 1 MG in NORMAL SALINE 50 ML IV SCH (17:54)
[2016-07-17] MEDS: IPRATROPIUM BROMIDE 0.02% NEB 0.5 MG/2.5 ML AMPUL NEB SCH ×3 (00:07→16:26)
[2016-07-17] MEDS: LEVALBUTEROL HCL NEB 1.25 MG/3 ML AMPUL NEB SCH ×3 (00:07→16:27)
[2016-07-17] MEDS: ACYCLOVIR SODIUM 500 MG in NORMAL SALINE 100 ML IV SCH (02:32)
[2016-07-17] MEDS: METRONIDAZOLE 500 MG TABLET PO SCH ×3 (05:12→22:00)
--- NOTE | 2016-07-17 09:02 | PDOC PROGRESS REPORT ---
Subjective Progress Note for:: 07/17/16 Subjective:: Patient now more awake and responsive. Tolerated nasal cannula oxygen well. No reported temperature spikes or worsening respiratory distress. Still Has diarrhea but less. No seizure episode noted. Tolerating oral intake well. Speech therapy evaluated the patient. Physical Exam Vital Signs: Temp Pulse Resp BP Pulse Ox 98.9 F 101 H 16 93/51 L 100 07/17/16 05:47 07/17/16 08:15 07/17/16 08:15 07/17/16 05:47 07/17/16 08:15 Intake & Output 07/16/16 07/17/16 07/18/16 06:59 06:59 06:59 Intake Total 6296 3433 Output Total 3120 1300 Balance 3176 2133 Weight 63.5 kg 60.4 kg General appearance: PRESENT: no acute distress, cooperative Head exam: PRESENT: normocephalic Eye exam: PRESENT: EOMI Mouth exam: PRESENT: moist, neck supple Neck exam: ABSENT: JVD Respiratory exam: PRESENT: rhonchi - few on right, unlabored. ABSENT: wheezes Cardiovascular exam: PRESENT: RRR. ABSENT: gallop GI/Abdominal exam: PRESENT: hyperactive bowel sounds, soft. ABSENT: distended, tenderness Extremities exam: ABSENT: pedal edema Neurological exam: PRESENT: alert, awake, oriented to situation Skin exam: PRESENT: dry, warm. ABSENT: cyanosis Results Laboratory Results: 07/15/16 07:27 07/16/16 05:37 07/11/16 10:20 Blood Blood Culture - Final NO GROWTH IN 5 DAYS 07/11/16 10:05 Blood Blood Culture - Final NO GROWTH IN 5 DAYS 07/11/16 07/11/16 07/11/16 00:09 00:09 06:16 Creatine Kinase 1054 H 861 H CK-MB (CK-2) 55.60 H Troponin I 0.029 07/11/16 07/11/16 07/11/16 06:16 12:35 12:35 Creatine Kinase 803 H CK-MB (CK-2) 29.10 H 21.40 H Troponin I 0.036 0.026 Impressions: Chest X-Ray 07/10/16 15:43 IMPRESSION: NO ACUTE RADIOGRAPHIC FINDING IN THE CHEST. Head CT 07/10/16 17:07 IMPRESSION: No acute intracranial findings. Chronic maxillary sinusitis, left greater than right. Assessment & Plan - Diagnosis (1) Respiratory failure Qualifiers: Chronicity: acute Respiratory failure complication: unspecified whether with hypoxia or hypercapnia Qualified Code(s): J96.00 - Acute respiratory failure, unspecified whether with hypoxia or hypercapnia Is this a current diagnosis for this admission?: Yes (2) Aspiration pneumonia Qualifiers: Aspiration pneumonia type: unspecified Lung location: unspecified part of lung Is this a current diagnosis for this admission?: Yes (3) Alcohol withdrawal seizure with complication Qualifiers: Complication of substance-induced condition: with unspecified complication Qualified Code(s): F10.239 - Alcohol dependence with withdrawal, unspecified; R56.9 - Unspecified convulsions Is this a current diagnosis for this admission?: Yes (4) COPD with exacerbation Is this a current diagnosis for this admission?: Yes (5) Diverticulitis Qualifiers: Diverticulitis site: unspecified part of intestinal tract Diverticulitis complication: without perforation or abscess Is this a current diagnosis for this admission?: Yes (6) Clostridium difficile colitis Is this a current diagnosis for this admission?: Yes (7) Zoster Qualifiers: Herpes zoster complications: without complications Qualified Code(s) : B02.9 - Zoster without complications Is this a current diagnosis for this admission?: Yes (8) Thrombocytopenia Is this a current diagnosis for this admission?: Yes (9) Hypokalemia Is this a current diagnosis for this admission?: Yes (10) Bipolar disorder Qualifiers: Active/Remission status: remission status unspecified Qualified Code (s): F31.9 - Bipolar disorder, unspecified Is this a current diagnosis for this admission?: Yes (11) DVT (deep venous thrombosis) Qualifiers: DVT location: lower extremity Affected thrombotic vein of extremity: unspecified vein of extremity Laterality: unspecified laterality Chronicity: chronic Qualified Code(s): I82.509 - Chronic embolism and thrombosis of unspecified deep veins of unspecified lower extremity Is this a current diagnosis for this admission?: Yes (12) Hypertension Qualifiers: Hypertension type: essential hypertension Qualified Code(s): I10 - Essential (primary) hypertension Is this a current diagnosis for this admission?: Yes (13) Schizophrenia Qualifiers: Schizophrenia type: unspecified Qualified Code(s): F20.9 - Schizophrenia, unspecified Is this a current diagnosis for this admission?: Yes - Time Time Spent with patient: 15-24 minutes - Plan Summary Plan Summary: Discontinue Zovirax. Continue oral antibiotics. Continue supportive care. Discontinue Browne catheter. Increase mobility. If patient is stable possibly can be discharged in the morning.
[2016-07-17] MEDS: LEVOFLOXACIN 750 MG TABLET PO SCH (11:05)
[2016-07-17] MEDS: LACTOBACILLUS ACIDOPHILUS 250 MG TAB PO SCH ×2 (11:05→17:54)
[2016-07-17] MEDS: DOCUSATE SODIUM 100 MG CAPSULE PO SCH ×2 (11:05→17:55)
[2016-07-17] MEDS: METOPROLOL SUCCINATE 25 MG TAB.SR.24H PO SCH (11:07)
[2016-07-17] MEDS: VALACYCLOVIR HCL 500 MG TABLET PO SCH ×2 (13:57→22:00)
[2016-07-17] MEDS: THIAMINE HCL 100 MG, FOLIC ACID 1 MG in NORMAL SALINE 50 ML IV SCH (17:54)
[2016-07-18] MEDS: LEVALBUTEROL HCL NEB 1.25 MG/3 ML AMPUL NEB SCH (00:36)
[2016-07-18] MEDS: IPRATROPIUM BROMIDE 0.02% NEB 0.5 MG/2.5 ML AMPUL NEB SCH (00:36)
[2016-07-18] MEDS: POTASSI CL 20 MEQ/D5-1/2NS 1L 1,000 ML IV PRN (03:43)
[2016-07-18] MEDS: VALACYCLOVIR HCL 500 MG TABLET PO SCH (06:05)
[2016-07-18] MEDS: METRONIDAZOLE 500 MG TABLET PO SCH (06:05)
[2016-07-18] MEDS: DOCUSATE SODIUM 100 MG CAPSULE PO SCH (09:44)
[2016-07-18] MEDS: LEVOFLOXACIN 750 MG TABLET PO SCH (10:40)
[2016-07-18] MEDS: LACTOBACILLUS ACIDOPHILUS 250 MG TAB PO SCH (10:40)
[2016-07-18] MEDS: METOPROLOL SUCCINATE 25 MG TAB.SR.24H PO SCH (12:08)
[2016-07-18 12:43] VITALS: BP 112/65
--- NOTE | 2016-07-18 17:37 | PDOC DISCHARGE SUMMARY ---
General - Admit/Disc Date/PCP Admission Date/Primary Care Provider: 07/10/16 23:32 Discharge Date: 07/18/16 - Discharge Diagnosis (1) Respiratory failure Is this a current diagnosis for this admission?: Yes (2) Aspiration pneumonia Is this a current diagnosis for this admission?: Yes (3) Alcohol withdrawal seizure with complication Is this a current diagnosis for this admission?: Yes (4) COPD with exacerbation Is this a current diagnosis for this admission?: Yes (5) Diverticulitis Is this a current diagnosis for this admission?: Yes (6) Clostridium difficile colitis Is this a current diagnosis for this admission?: Yes (7) Zoster Is this a current diagnosis for this admission?: Yes (8) Thrombocytopenia Is this a current diagnosis for this admission?: Yes (9) Hypokalemia Is this a current diagnosis for this admission?: Yes (10) Bipolar disorder Is this a current diagnosis for this admission?: Yes (11) DVT (deep venous thrombosis) Is this a current diagnosis for this admission?: Yes (12) Hypertension Is this a current diagnosis for this admission?: Yes (13) Schizophrenia Is this a current diagnosis for this admission?: Yes - Additional Information Resuscitation Status: Full Code Home Medications: Albuterol Sulfate [Proair HFA Inhalation Aerosol 8.5 gm MDI] 1 inh PO ASDIR PRN 07/11/16 Aspirin [Aspirin 325 mg Tablet] 325 mg PO DAILY 07/11/16 Buspirone HCl [Buspar 10 mg Tablet] 10 mg PO TID PRN 07/11/16 Levalbuterol Tartrate [Xopenex Hfa] 1 inh PO BID 07/11/16 Lisinopril [Prinivil] 20 mg PO DAILY 07/11/16 Metoprolol Succinate [Toprol Xl 25 mg Tab.sr] 25 mg PO DAILY 07/11/16 Primidone [Mysoline 50 mg Tablet] 50 mg PO QHS 07/11/16 Acidoph/L.bulg/Bif.b/S.thermop [Bacid Caplet] 1 each PO BID #28 tablet 07/18/16 Metronidazole [Flagyl 500 mg Tablet] 500 mg PO Q8 #42 tablet 07/18/16 Valacyclovir HCl [Valtrex 500 mg Tablet] 1,000 mg PO Q8 #6 tablet 07/18/16 Additional Information: Patient left the hospital AGAINST MEDICAL ADVICE, prescription for lactobacillus , Flagyl, and Valtrex were given. History of Present Illness Patient complains of: Possible seizure History of Present Illness: DEO CORTÉS is a 55 year old male Hospital Course Hospital Course: The patient was admitted to telemetry. The patient seizure may be related to hold withdrawal. The patient was treated with as needed Ativan for withdrawal symptoms and supplemental vitamins with folic acid as well as thiamine. IV hydration with normal saline was given. His course was complicated by aspiration with mental status change, requiring BiPAP as well as antibiotic administration. Patient also was noted to have diarrhea for a Clostridium difficile toxin was positive. The patient was given Flagyl and lactobacillus. Bronchodilators were given. Eventually the patient was successfully weaned from the BiPAP. Patient's initial confusion resolved and was able to tolerate oral intake. Course was also noted for bruises and ecchymosis on the back and likewise rash with a possibility of zoster. Patient was tried initially on acyclovir intravenously and once patient's mental status improved and patient is awake it was shifted to oral Valtrex. During the course patient is also started to develop fever, although his diarrhea started to improve. He decided to leave the hospital AGAINST MEDICAL ADVICE. He was tried to be counseled but he refused. He stated that he has some bills to take care of and home issues that he has to address. He left the hospital AGAINST MEDICAL ADVICE. Physical Exam Vital Signs: Temp Pulse Resp BP Pulse Ox 98.1 F 93 18 112/65 94 07/18/16 11:05 07/18/16 11:05 07/18/16 11:05 07/18/16 11:05 07/18/16 11:05 Intake & Output 07/17/16 07/18/16 07/19/16 06:59 06:59 06:59 Intake Total 3433 2252 Output Total 1300 700 Balance 2133 1552 Weight 60.4 kg 60.5 kg Exam: Patient left the hospital AGAINST MEDICAL ADVICE Results Laboratory Results: 07/15/16 07:27 07/16/16 05:37 07/13/16 12:50 Blood Blood Culture - Final NO GROWTH IN 5 DAYS 07/13/16 11:50 Blood Blood Culture - Final NO GROWTH IN 5 DAYS 07/11/16 07/11/16 07/11/16 00:09 00:09 06:16 Creatine Kinase 1054 H 861 H CK-MB (CK-2) 55.60 H Troponin I 0.029 07/11/16 07/11/16 07/11/16 06:16 12:35 12:35 Creatine Kinase 803 H CK-MB (CK-2) 29.10 H 21.40 H Troponin I 0.036 0.026 Impressions: Chest X-Ray 07/10/16 15:43 IMPRESSION: NO ACUTE RADIOGRAPHIC FINDING IN THE CHEST. Head CT 07/10/16 17:07 IMPRESSION: No acute intracranial findings. Chronic maxillary sinusitis, left greater than right. Qualifiers PATEINT BEING DISCHARGED WITH ANY OF THE FOLLOWING DIAGNOSIS?: No Plan Discharge Plan: Patient left the hospital AGAINST MEDICAL ADVICE. He was told to see his primary physician as soon as possible. Time Spent: Less than 30 Minutes
--- NOTE | 2016-08-07 06:34 | PDOC H&P ---
History of Present Illness Admission Date/PCP: 07/10/16 23:32 Patient complains of: Seizure History of Present Illness: DEO CORTÉS is a 55 year old male alcohol dependence, alcohol withdrawal DTs , COPD, tobacco dependence, schizophrenia and polysubstance abuse. Who is been in his usual state of health until approximately, 1 hour prior to presentation. Patient had been incarcerated for 24 hours found by law enforcement with seizure activity and laceration to the left forehead and brought to the emergency room for evaluation. He is received Ativan as well as thiamine folate and loaded with Dilantin. He subsequently complains of left lower quadrant abdominal pain and diarrhea. His last seizure was within the last 6 months associated with alcohol withdrawal. Past Medical History Cardiac Medical History: Reports: DVT, Hypertension Pulmonary Medical History: Reports: Chronic Obstructive Pulmonary Disease (COPD) Neurological Medical History: Reports: Seizures GI Medical History: Reports: Cirrhosis Psychiatric Medical History: Reports: Alcohol Dependency, Attention Deficit Hyperactivity Disorder, Bipolar Disorder, Substance Abuse, Tobacco Dependency Social History Smoking Status: Current Every Day Smoker Cigarettes Packs Per Day: 1 Number of Years Smokin Frequency of Alcohol Use: Heavy Hx Recreational Drug Use: Yes Drugs: Cocaine, Marijuana Hx Prescription Drug Abuse: No - Advance Directive Resuscitation Status: Full Code Family History Family History: COPD, Hypertension Parental Family History Reviewed: Yes Children Family History Reviewed: Yes Sibling(s) Family History Reviewed.: Yes Medication/Allergy Home Medications: Bisoprolol Fumarate [Zebeta 10 mg Tablet] 10 mg PO DAILY 07/08/13 Doxepin HCl [Zonalon] 75 mg PO QHS 07/08/13 Fluoxetine HCl [Prozac 20 mg Capsule] 20 mg PO DAILY 07/08/13 Paliperidone [Invega] 9 mg PO DAILY 07/08/13 Rivaroxaban [Xarelto 10 mg Tablet] 20 mg PO DAILY 07/08/13 Allergies/Adverse Reactions: albuterol Allergy (Verified 07/10/16 15:31) fluoxetine [From Prozac] Allergy (Verified 07/10/16 15:31) lisinopril Allergy (Verified 07/10/16 15:31) paliperidone [From Invega] Allergy (Verified 07/10/16 15:31) rivaroxaban [From Xarelto] Allergy (Verified 07/11/16 01:11) Review of Systems ROS unobtainable: Due to mental status - Postictal Physical Exam Vital Signs: Temp Pulse Resp BP Pulse Ox 98.8 F 106 H 15 141/122 H 100 07/10/16 22:00 07/10/16 17:00 07/11/16 03:00 07/11/16 05:18 07/11/16 05:18 General appearance: PRESENT: cooperative, disheveled, mild distress, thin Head exam: PRESENT: other - Left forehead laceration without erythema or exudate Eye exam: PRESENT: conjunctiva pink, EOMI, PERRLA. ABSENT: scleral icterus Ear exam: PRESENT: normal external ear exam Mouth exam: PRESENT: dry mucosa Teeth exam: PRESENT: dental caries, poor dentation Neck exam: ABSENT: carotid bruit, JVD, lymphadenopathy, thyromegaly Respiratory exam: PRESENT: crackles, prolonged expiratory phas. ABSENT: accessory muscle use, rales, retraction, rhonchi, stridor, symmetrical, tachypnea Cardiovascular exam: PRESENT: RRR. ABSENT: diastolic murmur, rubs, systolic murmur Pulses: PRESENT: normal dorsalis pedis pul Vascular exam: PRESENT: normal capillary refill GI/Abdominal exam: PRESENT: distended, hyperactive bowel sounds, tenderness - Left lower quadrant. ABSENT: guarding, hernia, rebound Rectal exam: PRESENT: deferred Extremities exam: PRESENT: other - Severe peripheral vascular disease with chronic skin changes no open ulcer Neurological exam: PRESENT: altered, awake, oriented to person, oriented to place, oriented to time, oriented to situation, CN II-XII grossly intact, other - Postictal confusion. ABSENT: motor sensory deficit Psychiatric exam: PRESENT: anxious, unusual affect Focused psych exam: PRESENT: internal stimuli, restlessness Skin exam: PRESENT: dry. ABSENT: cyanosis, erythema, jaundice, petechiae Results Laboratory Results: 07/11/16 00:09 Lipase 265.2 07/11/16 07/11/16 00:09 00:09 Creatine Kinase 1054 H CK-MB (CK-2) 55.60 H Troponin I 0.029 Impressions: Chest X-Ray 07/10/16 15:43 IMPRESSION: NO ACUTE RADIOGRAPHIC FINDING IN THE CHEST. Head CT 07/10/16 17:07 IMPRESSION: No acute intracranial findings. Chronic maxillary sinusitis, left greater than right. Assessment & Plan - Diagnosis (1) Alcohol withdrawal seizure with complication Plan: Thiamine folate, Ativan and seizure precautions with supportive measures (2) COPD with exacerbation Plan: Albuterol Atrovent incentive spirometry (3) Diverticulitis Is this a current diagnosis for this admission?: YesPlan: IV fluids IV Cipro and Flagyl symptomatic management consider imaging if not improved follow-up labs (4) Schizophrenia Is this a current diagnosis for this admission?: YesPlan: Outpatient regiment of antipsychotic as tolerated
--- NOTE | 2016-08-11 08:16 | Progress Note ---
Provider Note Provider Note: Addendum to final diagnoses: Sepsis probably related to Clostridium difficile colitis.
== END 2016-07-18 13:11 | disposition left against medical advice (07) | DRG 871 ==
LOC: ER 14:58 → EH 23:31 → OBSVTOIN 23:31 → INTOOBSV 23:31 → UNDOADMOB 23:31 → OBSVTOIN 23:32 → EH 23:32 → 3S 07-11 07:11 → EH 07-11 07:59 → 4N 07-14 02:04
PROVIDERS: ADMIT Internal Medicine; ATTEND Internal Medicine
PROC: 5A09557 Assistance with Respiratory Ventilation, Greater than 96 Consecutive Hours, Continuous Positive Airway Pressure (ICD-10-PCS; 2016-07-10)
PROC: 5A09557 Assistance with Respiratory Ventilation, Greater than 96 Consecutive Hours, Continuous Positive Airway Pressure (ICD-10-PCS; principal; 2016-07-11)
DX: A41.9 Sepsis, unspecified organism (principal); J69.0 Pneumonitis due to inhalation of food and vomit; J96.01 Acute respiratory failure with hypoxia; F10.231 Alcohol dependence with withdrawal delirium; G40.509 Epileptic seizures related to external causes, not intractable, without status epilepticus; J44.1 Chronic obstructive pulmonary disease with (acute) exacerbation; A04.7 Enterocolitis due to Clostridium difficile; K57.92 Diverticulitis of intestine, part unspecified, without perforation or abscess without bleeding; F31.9 Bipolar disorder, unspecified; F17.210 Nicotine dependence, cigarettes, uncomplicated; Z86.718 Personal history of other venous thrombosis and embolism; F90.9 Attention-deficit hyperactivity disorder, unspecified type; B02.9 Zoster without complications; F19.10 Other psychoactive substance abuse, uncomplicated; E83.42 Hypomagnesemia; I10 Essential (primary) hypertension; D69.59 Other secondary thrombocytopenia; E87.6 Hypokalemia; F20.9 Schizophrenia, unspecified; S00.81XA Abrasion of other part of head, initial encounter; J44.9 Chronic obstructive pulmonary disease, unspecified; K74.60 Unspecified cirrhosis of liver; Z82.49 Family history of ischemic heart disease and other diseases of the circulatory system; Z88.8 Allergy status to other drugs, medicaments and biological substances; Z78.1 Physical restraint status; R29.6 Repeated falls; S30.0XXA Contusion of lower back and pelvis, initial encounter; S30.1XXA Contusion of abdominal wall, initial encounter; W19.XXXA Unspecified fall, initial encounter; Y92.89 Other specified places as the place of occurrence of the external cause; Z53.21 Procedure and treatment not carried out due to patient leaving prior to being seen by health care provider
CPT/HCPCS: 36415; 36600; 70450; 71010; 80048; 80053; 80307; 81001; 82550; 82553; 82803; 82962; 83605; 83690; 83735; 84100; 84484; 85025; 85610; 87040; 87493; 93005; 93010; 94640; 94660; 96361; 96365; 96366; 96367; 96375; 99285; J0133; J0744; J1165; J1630; J2060; J2370; J3411; J3475; J3480; J3490; J7030; J7040; J7060; J7620

== ENCOUNTER 2016-07-29 09:32 | Inpatient (IN) | payer MEDICAID, OTHER ==
[2016-07-29] MEDS ORDERED: NORMAL SALINE 1000 ML 1,000 ML IV PRN ×2 (10:16→12:13)
--- NOTE | 2016-07-29 10:23 | ER Document Report ---
ED General - General Chief Complaint: Diarrhea Stated Complaint: NAUSEA Time seen by provider: 10:23 Mode of Arrival: Medic Information source: Patient Notes: This is a 56-year-old man with a history of alcohol abuse, tobacco abuse and a recent hospitalization for acute alcohol which were all. That hospitalization was complicated by respiratory failure and the development of C. difficile colitis. The patient was sent home on oral Flagyl. He is brought in today by EMS because of increased weakness, fever, abdominal pain, worsening fecal incontinence, worsening diarrhea. The patient does state that he had recently fallen at home. TRAVEL OUTSIDE OF THE [place] IN LAST 30 DAYS: No - HPI Onset: Last week Onset/Duration: Gradual Quality of pain: Dull Severity: Moderate Pain Level: 3 Associated symptoms: Chills, Fever, Shortness of breath Exacerbated by: Denies Relieved by: Denies Similar symptoms previously: Yes Recently seen / treated by doctor: Yes - Related Data Allergies/Adverse Reactions: albuterol Allergy (Verified 07/29/16 10:06) fluoxetine [From Prozac] Allergy (Verified 07/29/16 10:06) lisinopril Allergy (Verified 07/29/16 10:06) paliperidone [From Invega] Allergy (Verified 07/29/16 10:06) rivaroxaban [From Xarelto] Allergy (Verified 07/29/16 10:06) Past Medical History - General Information source: Patient - Social History Smoking Status: Current Every Day Smoker Cigarette use (# per day): Yes Chew tobacco use (# tins/day): No - 1 pack per day Smoking Education Provided: Yes - 3-5 minutes Frequency of alcohol use: Heavy Drug Abuse: None Lives with: Family Family History: COPD, Hypertension - Past Medical History Cardiac Medical History: Reports: Hx DVT, Hx Hypertension Pulmonary Medical History: Reports: Hx COPD Neurological Medical History: Reports: Hx Seizures Renal/ Medical History: Denies: Hx Peritoneal Dialysis GI Medical History: Reports: Hx Cirrhosis Psychiatric Medical History: Reports: Hx Attention Deficit Hyperactivity Disorder, Hx Bipolar Disorder - Immunizations Hx Diphtheria, Pertussis, Tetanus Vaccination: - unk Hx Pneumococcal Vaccination: 06/07/13 Review of Systems - Review of Systems Constitutional: Chills, Fever, Weakness EENT: No symptoms reported Cardiovascular: No symptoms reported Respiratory: See HPI Gastrointestinal: See HPI Genitourinary: No symptoms reported Male Genitourinary: No symptoms reported Musculoskeletal: No symptoms reported Skin: See HPI Hematologic/Lymphatic: No symptoms reported Neurological/Psychological: No symptoms reported Physical Exam - Vital signs Vitals: Temp Pulse Resp BP Pulse Ox 99.7 F 125 H 18 101/64 93 07/29/16 10:00 07/29/16 10:00 07/29/16 10:00 07/29/16 10:00 07/29/16 10:00 Notes: Physical exam: GENERAL: 56-year-old man, alert and oriented 3, appears very weak, temperature 101.7 rectally. He is ill-appearing. HEAD: Atraumatic, normocephalic. EYES: Pupils equal round and reactive to light, extraocular movements intact, sclera anicteric, conjunctiva are normal. ENT: TMs normal, nares patent, oropharynx clear without exudates. Moist mucous membranes. NECK: Normal range of motion, supple without lymphadenopathy or JVD. LUNGS: Bilateral rhonchi and diffuse wheezing. HEART: Tachycardic. ABDOMEN: Soft, normoactive bowel sounds. He does have left lower quadrant tenderness without rebound or guarding. No masses appreciated. He does have left flank ecchymoses after a recent fall. Rectum: Patient has diffuse excoriation from repeated episodes of diarrhea. He does have some tenderness and induration in the right preineum concerning for early abscess. There is no pus drainage. The scrotum is mildly excoriated, without induration/tenderness/fluctuance or swelling. EXTREMITIES: Normal range of motion, no pitting or edema. No clubbing or cyanosis. NEUROLOGICAL: Cranial nerves II through XII grossly intact. Normal speech, normal gait. PSYCH: Normal mood, normal affect. SKIN: As mentioned above Course - Re-evaluation Re-evalutation: 07/29/16 13:47 I discussed case with Dr. Street of medicine. The patient is presenting with sepsis given his tachycardia, fever, elevated white count in the setting of C. difficile colitis. IV Flagyl, vancomycin have been initiated. The patient has received 30 mL of saline bolus. Lactic acid is pending at this time. There is an issue of early consolidation of the left lung but the patient has not had any cough. He does have some wheezing which cleared after albuterol nebulizers (he does have a significant smoking history). CT also shows a perirectal abscess. I have discussed with Dr. Ojeda of surgery for consultation. Obviously, the patient has a very complicated medical history and has multiple things going on. She has repeatedly left AMA in the past, therefore, at this point in time we will continue with supportive therapy, IV fluids, IV antibiotics, admission to the [facility] with surgery consultation. The patient has thus far agreed for admission here today. - Vital Signs Vital signs: Temp Pulse Resp BP Pulse Ox 98.5 F 125 H 23 H 109/67 98 07/29/16 17:01 07/29/16 10:00 07/29/16 18:05 07/29/16 18:05 07/29/16 18:21 - Laboratory Result Diagrams: 07/29/16 10:15 07/29/16 10:15 Laboratory results interpreted by me: 07/29/16 07/29/16 07/29/16 10:15 10:15 11:15 WBC 17.5 H RBC 3.10 L Hgb 10.4 L Hct 31.5 L MCV 102 H D MCH 33.6 H RDW 14.5 H Seg Neuts % (Manual) 89 H Lymphocytes % (Manual) 1 L Abs Neuts (Manual) 16.1 H Abs Lymphs (Manual) 0.4 L Sodium 135.4 L Potassium 2.5 L* Chloride 94 L Carbon Dioxide 33 H Creatinine 0.41 L Glucose 137 H Calcium 7.3 L Alkaline Phosphatase 143 H Total Protein 6.2 L Albumin 2.5 L Stool for White Cells MANY H - Diagnostic Test Radiology reviewed: Image reviewed, Reports reviewed - I discussed CAT scan findings with Dr. Schmid: He does have 2 rib fractures on the left side with some atelectasis underneath (possible early consolidation). He does have a diffuse colitis. He does have a perirectal abscess. Critical Care Note - Critical Care Note Total time excluding time spent on procedures (mins): 90 Discharge - Discharge Clinical Impression: sepsis, C. difficile colitis, perirectal abscess, early pneumonia, fractures status post fall Condition: Serious Disposition: ADMITTED INPATIENT Unit Admitted: [facility]
[2016-07-29 11:07] LABS: PROTHROMBIN TIME 14.9 SEC (11.4-15.4)
[2016-07-29 11:18] LABS: HEMATOCRIT 31.5 % (37.9-51.0); HEMOGLOBIN 10.4 g/dL (13.5-17.0); HGB HCT DIFFERENCE -0.3; MEAN CORPUSCULAR HEMOGLOBIN 33.6 pg (27.0-33.4); MEAN CORPUSCULAR HGB CONC 33.1 g/dL (32.0-36.0); RED CELL DISTRIBUTION WIDTH 14.5 % (11.5-14.0); WHITE BLOOD COUNT 17.5 10^3/uL (4.0-10.5)
[2016-07-29 11:24] LABS: ALANINE AMINOTRANSFERASE 23 U/L (21-72); ALBUMIN 2.5 g/dL (3.5-5.0); ALKALINE PHOSPHATASE 143 U/L (38-126); ANION GAP 8 (5-19); ASPARTATE AMINO TRANSFERASE 34 U/L (17-59); BILIRUBIN,TOTAL 1.1 mg/dL (0.2-1.3); BLOOD UREA NITROGEN 8 mg/dL (7-20); CALCIUM 7.3 mg/dL (8.4-10.2); CARBON DIOXIDE 33 mmol/L (22-30); CHLORIDE 94 mmol/L (98-107); CREATININE RESULT 0.41 mg/dL (0.52-1.25); GLUCOSE 137 mg/dL (75-110); SODIUM 135.4 mmol/L (137-145); TOTAL PROTEIN 6.2 g/dL (6.3-8.2)
[2016-07-29 11:27] LABS: POTASSIUM 2.5 mmol/L (3.6-5.0)
[2016-07-29 11:50] LABS: MEAN CORPUSCULAR VOLUME 102 fl (80-97)
[2016-07-29 11:59] LABS: BAND NEUTROPHILS % (MANUAL) 3 % (3-5); BASOPHILS % (MANUAL) 0 % (0-2); EOSINOPHILS % (MANUAL) 0 % (0-6); LYMPHOCYTES % (MANUAL) 1 % (13-45); TOTAL CELLS COUNTED 100
[2016-07-29 12:00] LABS: ANISOCYTOSIS SLIGHT; ROULEAUX 1+; TOXIC GRANULATION 1+; TOXIC VACUOLATION PRESENT
[2016-07-29] MEDS ORDERED: POTASSIUM CHLORIDE 20 MEQ/15 ML UDCUP PO ONE ×3 (12:14→13:19)
[2016-07-29] MEDS ORDERED: ACETAMINOPHEN 325 MG TABLET PO ONE (13:13)
[2016-07-29] MEDS ORDERED: METRONIDAZOLE 500 MG/NS RTU 100 ML IV ONE ×2 (13:17→22:00)
[2016-07-29] MEDS ORDERED: VANCOMYCIN HCL INJ 500 MG VIAL PO ONE (13:18)
[2016-07-29] MEDS ORDERED: VANCOMYCIN HCL INJ 1000 MG VIAL IV ONE (13:42)
[2016-07-29] MEDS ORDERED: ONDANSETRON 4 MG TAB.RAPDIS PO PRN (16:31)
[2016-07-29] MEDS ORDERED: ACETAMINOPHEN 325 MG TABLET PO PRN (16:31)
[2016-07-29] MEDS ORDERED: ENOXAPARIN SODIUM INJ 40 MG/0.4 ML DISP.SYRIN SUBCUT ONE (16:45)
--- NOTE | 2016-07-29 17:15 | PDOC H&P ---
History of Present Illness Admission Date/PCP: 07/29/16 15:23 Patient complains of: Generalized weakness History of Present Illness: DEO CORTÉS is a 56 year old male, with alcohol abuse who now drinks once every week apparently came to the hospital due to progressive generalized weakness. The patient was hospitalized earlier this month after the patient sustained a fall and had diarrhea. In the hospital the patient had alcohol withdrawal and alcohol related withdrawal seizures. The patient subsequently developed aspiration pneumonia and respiratory failure requiring BiPAP and broad -spectrum antibiotic. The initial diarrhea thought to be due to a diverticulitis but turned out to be Clostridium difficile colitis. Patient improved at that time and signed out AGAINST MEDICAL ADVICE as he had several errands to attend to at home. He was given prescriptions for Clostridium difficile colitis and to complete treatment for aspiration pneumonia. His course at that time was also noted for shingles. Overall since he left the hospital he feels generally weak and has not improved. He denies falling this time. His diarrhea persisted. He stated that he takes the medication but unable to comply regularly. He denies having fever. He denies any melena or hematochezia. He feels lightheaded but no dizziness. He has easy fatigability and shortness of breath on exertion and therefore he decides to come to the hospital where he was found to have pancolitis on CT scan with a question of a perirectal abscess. Likewise there is noted consolidation on the lower lobe questionable atelectasis versus infiltrate. The patient was then referred for admission. Past Medical History Past Medical History: Medication reconciliation pending verification from the patient's pharmacist Cardiac Medical History: Reports: DVT, Hypertension Pulmonary Medical History: Reports: Chronic Obstructive Pulmonary Disease (COPD) Neurological Medical History: Reports: Seizures GI Medical History: Reports: Cirrhosis Psychiatric Medical History: Reports: Attention Deficit Hyperactivity Disorder, Bipolar Disorder, Substance Abuse - Alcohol Infectious Medical History: Reports: Other - Shingles Past Surgical History Past Surgical History: Reports: None Social History Information Source: Patient Smoking Status: Current Every Day Smoker Frequency of Alcohol Use: Heavy Hx Recreational Drug Use: Yes Drugs: Cocaine, Marijuana Hx Prescription Drug Abuse: No Family History Family History: CAD, COPD, Hypertension, Other - Blood clots Parental Family History Reviewed: Yes Children Family History Reviewed: Yes Sibling(s) Family History Reviewed.: Yes Medication/Allergy Home Medications: Albuterol Sulfate [Proair HFA Inhalation Aerosol 8.5 gm MDI] 1 inh PO ASDIR PRN 07/11/16 Aspirin [Aspirin 325 mg Tablet] 325 mg PO DAILY 07/11/16 Acidoph/L.bulg/Bif.b/S.thermop [Bacid Caplet] 1 each PO BID #28 tablet 07/18/16 Metronidazole [Flagyl 500 mg Tablet] 500 mg PO Q8 #42 tablet 07/18/16 Valacyclovir HCl [Valtrex 500 mg Tablet] 1,000 mg PO Q8 #6 tablet 07/18/16 Allergies/Adverse Reactions: albuterol Allergy (Verified 07/29/16 10:06) fluoxetine [From Prozac] Allergy (Verified 07/29/16 10:06) lisinopril Allergy (Verified 07/29/16 10:06) paliperidone [From Invega] Allergy (Verified 07/29/16 10:06) rivaroxaban [From Xarelto] Allergy (Verified 07/29/16 10:06) Review of Systems Constitutional: PRESENT: weakness - Generalized, weight loss - Unquantified. ABSENT: chills, fever(s), headache(s), weight gain Eyes: ABSENT: visual disturbances Ears: ABSENT: hearing changes Nose, Mouth, and Throat: ABSENT: headache(s), mouth pain, sore throat Cardiovascular: PRESENT: dyspnea on exertion. ABSENT: chest pain, edema, orthropnea, palpitations Respiratory: PRESENT: cough - Intermittently but not worse. ABSENT: hemoptysis , sputum Gastrointestinal: PRESENT: abdominal pain - Crampy, diarrhea. ABSENT: constipation, dysphagia, hematemesis, hematochezia, melena, nausea, vomiting Genitourinary: ABSENT: difficulty urinating, dysuria, hematuria Musculoskeletal: ABSENT: joint swelling Integumentary: PRESENT: rash - Improved on the back. ABSENT: pruritus, wounds Neurological: ABSENT: abnormal gait, abnormal speech, confusion, dizziness, focal weakness, syncope Psychiatric: ABSENT: anxiety, depression, homidical ideation, suicidal ideation Endocrine: ABSENT: cold intolerance, heat intolerance, polydipsia, polyuria Hematologic/Lymphatic: ABSENT: easy bleeding, easy bruising Physical Exam Vital Signs: Temp Pulse Resp BP Pulse Ox 99.7 F 125 H 17 107/73 100 07/29/16 10:00 07/29/16 10:00 07/29/16 16:02 07/29/16 16:02 07/29/16 16:02 General appearance: PRESENT: no acute distress, cooperative, thin Head exam: PRESENT: atraumatic, normocephalic Eye exam: PRESENT: conjunctiva pale, EOMI, PERRLA. ABSENT: scleral icterus Ear exam: PRESENT: normal external ear exam. ABSENT: drainage Mouth exam: PRESENT: dry mucosa, neck supple, tongue midline Throat exam: ABSENT: post pharyngeal erythema, tonsillar erythema Neck exam: ABSENT: carotid bruit, JVD, lymphadenopathy, thyromegaly Respiratory exam: PRESENT: clear to auscultation alexandrea, rhonchi - Scattered bilateral, unlabored, wheezes - Mild bilateral. ABSENT: rales Cardiovascular exam: PRESENT: RRR, +S1, +S2. ABSENT: diastolic murmur, gallop, rubs, systolic murmur Pulses: PRESENT: normal dorsalis pedis pul Vascular exam: PRESENT: normal capillary refill GI/Abdominal exam: PRESENT: hyperactive bowel sounds, soft, tenderness - Minimal diffusely. ABSENT: distended, guarding, mass, organolmegaly, rebound Rectal exam: PRESENT: deferred Extremities exam: PRESENT: full ROM, other - Mild edema on the left. ABSENT: calf tenderness, clubbing Neurological exam: PRESENT: alert, awake, oriented to person, oriented to place , oriented to time, oriented to situation Psychiatric exam: PRESENT: appropriate affect, normal mood. ABSENT: homicidal ideation, suicidal ideation Focused psych exam: ABSENT: restlessness Skin exam: PRESENT: dry, intact - But with redness noted on the sacrum and buttocks. Previous ecchymosis and rash on the chest wall on the left significantly improved., warm. ABSENT: cyanosis, rash Results Impressions: Abdomen/Pelvis CT 07/29/16 12:15 IMPRESSION: Pancolitis Perirectal abscess Left lower lobe consolidation atelectasis versus pneumonia. Adjacent posterior left 9th and 10th ribs acute fractures. Assessment & Plan - Diagnosis (1) Clostridium difficile colitis Is this a current diagnosis for this admission?: Yes (2) COPD with exacerbation Is this a current diagnosis for this admission?: Yes (3) Hypokalemia Is this a current diagnosis for this admission?: Yes (4) Perirectal abscess Is this a current diagnosis for this admission?: Yes (5) Rib fractures Qualifiers: Encounter type: initial encounter Rib fracture type: multiple ribs Fracture type: closed Laterality: left Qualified Code(s): S22.42XA - Multiple fractures of ribs, left side, initial encounter for closed fracture Is this a current diagnosis for this admission?: Yes (6) Hypertension Qualifiers: Hypertension type: essential hypertension Qualified Code(s): I10 - Essential (primary) hypertension Is this a current diagnosis for this admission?: Yes (7) Schizophrenia Qualifiers: Schizophrenia type: unspecified Qualified Code(s): F20.9 - Schizophrenia, unspecified Is this a current diagnosis for this admission?: Yes (8) Zoster Qualifiers: Herpes zoster complications: without complications Qualified Code(s) : B02.9 - Zoster without complications Is this a current diagnosis for this admission?: No (9) Anemia of chronic disease Is this a current diagnosis for this admission?: Yes (10) Bipolar 1 disorder Is this a current diagnosis for this admission?: Yes (11) Alcohol abuse Is this a current diagnosis for this admission?: Yes (12) Fatty liver Is this a current diagnosis for this admission?: Yes - Time Time Spent: 50 to 70 Minutes - Inpatient Certification Based on my medical assessment, after consideration of the patient's comorbidities, presenting symptoms, or acuity I expect that the services needed warrant INPATIENT care.: Yes I certify that my determination is in accordance with my understanding of Medicare's requirements for reasonable and necessary INPATIENT services [42 CFR 412.3e].: Yes Medical Necessity: Significant Comorbidiites Make Outpatient Treatment Too Risky , Need Close Monitoring Due to Risk of Patient Decompensation, Need For IV Fluids, Risk of Complication if Not Cared For in Hospital, Risk of Diagnosis Which Will Require Inpatient Eval/Care/Monitoring Post Hospital Care: D/C Clinical Program Consultant Documentation - Plan Summary Plan Summary: The patient will be admitted to [facility]. We will hydrate the patient with normal saline replace electrolytes and monitor. We will begin intravenous Flagyl and lactobacillus. In the meantime the perirectal abscess may just be related to his current condition. We will hold any broad-spectrum antibiotic at this time and consult surgery for further evaluation and management. We will begin intravenous steroids and bronchodilators. DVT prophylaxis with Lovenox will be given. Patient will be on supplemental oxygen. Further testing depends on the initial evaluation and per specialty recommendation as outlined above.
[2016-07-29] MEDS: LANSOPRAZOLE 30 MG TAB.RAP.DR PO SCH (17:31)
[2016-07-29] MEDS: LACTOBACILLUS ACIDOPHILUS 250 MG TAB PO SCH (17:31)
[2016-07-29] MEDS: TRAMADOL HCL 50 MG TABLET PO PRN (17:37)
[2016-07-29] MEDS ORDERED: METRONIDAZOLE 500 MG/NS RTU 100 ML IV SCH (18:00)
[2016-07-29] MEDS: LORAZEPAM INJ 2 MG/1 ML VIAL IV PRN (18:00)
[2016-07-29] MEDS: METHYLPREDNISOLONE INJ 125 MG/2 ML SDV IV SCH (18:00)
[2016-07-29] MEDS: POTASSI CL 20 MEQ/50 ML RIDER 20 MEQ/50 ML RTUPB IV SCH ×2 (18:27→21:55)
[2016-07-29] MEDS: LEVALBUTEROL HCL NEB 1.25 MG/3 ML AMPUL NEB SCH (20:52)
[2016-07-29] MEDS: IPRATROPIUM BROMIDE 0.02% NEB 0.5 MG/2.5 ML AMPUL NEB SCH (20:52)
[2016-07-29] MEDS ORDERED: LIDOCAINE 1% INJ-PF (10 MG/ML) 30 ML SDV ONE (23:08)
--- NOTE | 2016-07-30 00:37 | PDOC CONSULTATION ---
History of Present Illness Admission Date/PCP: 07/29/16 16:26 History of Present Illness: 56-year-old white male with history of alcohol abuse, tobacco abuse, 2 hospitalizations earlier this month, both of which he left AMA. Poor historian , some history is gleaned from the medical record. He was admitted on 2016 after having a fall and suffering seizures. He signed out the next day, , AGAINST MEDICAL ADVICE (AMA). He was then readmitted on 07/10/2016. This time thought he had a seizure which then caused him to fall. At that time also had respiratory failure was placed on BiPAP. He was also diagnosed with C. difficile colitis as well as shingles. He signed out AMA on the 07/18/2016. He presents this time with dizziness ever since his last discharge, diarrhea of one months duration, no strength for 2 weeks, pneumonia, having fallen again today, having tremors, reports bumps on his anus of unknown duration, mild epigastric pain of unknown duration. He had a CT scan which showed broken displaced left lower ribs 9 and 10,, left lower lobe pneumonia, diffusely inflamed colon consistent with pancolitis, perianal abscess. He reports his abdominal pain is intermittent, minimal/mild in severity, achy in nature, unknown induration. He reports the 'bumps' on his anus do not causing significant pain. He is unsure when they first appeared. After being informed that he has a perianal abscess, he reports that he had one before and drained it himself after came to a head. Reports he has fecal incontinence and urinary incontinence and has been wearing diapers 'for a long time'. Review of systems: Psoriasis rash, chronic. Cough, present for years. Dizziness since previous discharge on 07/18/2016. Diarrhea one month. No strength/fatigue 2 weeks. Pneumonia unknown duration. Multiple falls recently. Tremors, worse in his right arm. Bumps on anus unknown duration. Mild epigastric pain intermittently, unknown duration. Previous left leg DVT with subsequent left lower leg swelling, occurred years ago. Denies blood in stools, blood in urine. The chart list multiple allergies. The patient reports only an allergy to Xarelto. He reports that he is currently taking several of the other medications listed as allergies; I suspect some of these have been entered erroneously. Although he is a poor historian, he seems to report this accurately. Past Medical History Cardiac Medical History: Reports: DVT, Hypertension Pulmonary Medical History: Reports: Chronic Obstructive Pulmonary Disease (COPD) Neurological Medical History: Reports: Seizures GI Medical History: Reports: Other - Early stage liver disease, paraphrasing, he 'does not have cirrhosis yet but it is headed that way.' Skin Medical History: Reports: Psoriasis Psychiatric Medical History: Reports: Alcohol Dependency, Attention Deficit Hyperactivity Disorder, Bipolar Disorder, Schizoaffective Disorder, Tobacco Dependency Infectious Medical History: Reports: Other - Shingles Past Surgical History Past Surgical History: Reports: None Social History Information Source: Patient Smoking Status: Current Every Day Smoker Cigarettes Packs Per Day: 1 Frequency of Alcohol Use: Heavy Hx Recreational Drug Use: Yes - denies drug use to me, but chart reports earlier drug use. Drugs: Cocaine, Marijuana Hx Prescription Drug Abuse: No - Advance Directive Resuscitation Status: Full Code Family History Family History: CAD, DM, Other - Alcohol abuse Parental Family History Reviewed: Yes Children Family History Reviewed: Yes Sibling(s) Family History Reviewed.: Yes Medication/Allergy Home Medications: Albuterol Sulfate [Proair HFA Inhalation Aerosol 8.5 gm MDI] 1 inh PO ASDIR PRN 07/11/16 Aspirin [Aspirin 325 mg Tablet] 325 mg PO DAILY 07/11/16 Acidoph/L.bulg/Bif.b/S.thermop [Bacid Caplet] 1 each PO BID #28 tablet 07/18/16 Metronidazole [Flagyl 500 mg Tablet] 500 mg PO Q8 #42 tablet 07/18/16 Valacyclovir HCl [Valtrex 500 mg Tablet] 1,000 mg PO Q8 #6 tablet 07/18/16 Allergies/Adverse Reactions: albuterol Allergy (Verified 07/29/16 10:06) fluoxetine [From Prozac] Allergy (Verified 07/29/16 10:06) lisinopril Allergy (Verified 07/29/16 10:06) paliperidone [From Invega] Allergy (Verified 07/29/16 10:06) rivaroxaban [From Xarelto] Allergy (Verified 07/29/16 10:06) Review of Systems All systems: reviewed and no additional remarkable complaints except as stated Physical Exam Vital Signs: Temp Pulse Resp BP Pulse Ox 98.5 F 93 22 H 109/67 98 07/29/16 17:01 07/29/16 20:52 07/29/16 20:52 07/29/16 18:05 07/29/16 20:52 General appearance: PRESENT: no acute distress, disheveled, thin Head exam: PRESENT: atraumatic Eye exam: PRESENT: EOMI Mouth exam: PRESENT: moist, tongue midline Teeth exam: PRESENT: other - Edentulous on the uppers, very poor dentition lowers. Neck exam: ABSENT: JVD, lymphadenopathy, tenderness, thyromegaly Respiratory exam: PRESENT: other - Coarse breath sounds bilaterally Cardiovascular exam: PRESENT: RRR GI/Abdominal exam: PRESENT: distended - Mild distention, soft, other - Surprisingly, his abdomen and his left flank are not tender, despite C. difficile colitis and 2 broken ribs on the left. His left flank and back have bruising. However, his right flank is very tender. This is in the area of his shingles rash.. ABSENT: guarding, rebound, tenderness Rectal exam: PRESENT: tenderness, other - Perianal abscess, on the right side, at least 4-5 cm in the anterior-posterior dimension, approximately 2 cm in the radial dimension. Also appears to extend proximally on the CT scan although this is not well appreciated on rectal exam. His entire anal margin, perineum and genitals are erythematous and he is having active liquid, mucousy, incontinent diarrhea.. ABSENT: black stool, bloody stool, fecal impaction, hemorrhoids, mass Gentrourinary exam: PRESENT: other - see 'other' in rectal exam section Extremities exam: PRESENT: pedal edema - On the left. Neurological exam: PRESENT: awake, oriented to person, other - Some confusion about timing or duration of the events and symptoms. Tremor. Psychiatric exam: PRESENT: unusual affect Skin exam: ABSENT: jaundice Results Impressions: Abdomen/Pelvis CT 07/29/16 12:15 IMPRESSION: Pancolitis Perirectal abscess Left lower lobe consolidation atelectasis versus pneumonia. Adjacent posterior left 9th and 10th ribs acute fractures. Status: Image reviewed by me Assessment & Plan - Diagnosis (1) Diverticulosis Qualifiers: Diverticulosis site: diverticulosis of large intestine Diverticulosis bleeding: diverticulosis without bleeding Qualified Code(s): K57.30 - Diverticulosis of large intestine without perforation or abscess without bleeding Is this a current diagnosis for this admission?: YesPlan: Diverticulosis without signs of diverticulitis. (2) Perianal abscess Is this a current diagnosis for this admission?: YesPlan: We discussed incision and drainage of a perianal abscess. We discussed the procedure including risks, benefits and alternatives. Risks discussed included but not limited to bleeding, infection, damage to surrounding structures, recurrence, reaction to local anesthetic. We did discussed the risk of incontinence, but I pointed out the fact that he is already incontinent feces and urine. Understands and wishes to proceed. The antimicrobial coverage for his C. difficile colitis should provide reasonable coverage for his perianal abscess. In any case, the primary treatment is I&D which we will proceed with. (3) Alcohol abuse Is this a current diagnosis for this admission?: Yes (4) Anemia of chronic disease Is this a current diagnosis for this admission?: Yes (5) Fatty liver Is this a current diagnosis for this admission?: YesPlan: I discussed the CT scan results and discussed fatty liver/early liver disease with him. I offered him a copy of the CT scan results, which he said he did not want. (6) Perirectal abscess Is this a current diagnosis for this admission?: Yes (7) Rib fractures Qualifiers: Encounter type: initial encounter Rib fracture type: multiple ribs Fracture type: closed Laterality: left Qualified Code(s): S22.42XA - Multiple fractures of ribs, left side, initial encounter for closed fracture Is this a current diagnosis for this admission?: YesPlan: Recommend pain control and pulmonary toilet. (8) Alcohol withdrawal seizure with complication Qualifiers: Complication of substance-induced condition: with unspecified complication Qualified Code(s): F10.239 - Alcohol dependence with withdrawal, unspecified; R56.9 - Unspecified convulsions Is this a current diagnosis for this admission?: Yes (9) Aspiration pneumonia Qualifiers: Aspiration pneumonia type: unspecified Laterality: left Lung location: lower lobe of lung Qualified Code(s): J69.0 - Pneumonitis due to inhalation of food and vomit Is this a current diagnosis for this admission?: YesPlan: Pneumonia of the left lower lobe. Presumed to be aspiration given his history of alcoholism and falls. May be multifactorial, also related to his lower left side rib fractures. per medicine. (10) Bipolar disorder Qualifiers: Active/Remission status: remission status unspecified Qualified Code (s): F31.9 - Bipolar disorder, unspecified Is this a current diagnosis for this admission?: Yes (11) COPD with exacerbation Is this a current diagnosis for this admission?: Yes (12) Clostridium difficile colitis Is this a current diagnosis for this admission?: YesPlan: Agree with vancomycin and Flagyl. (13) DVT (deep venous thrombosis) Qualifiers: DVT location: lower extremity Affected thrombotic vein of extremity: unspecified vein of extremity Laterality: left Chronicity: chronic Qualified Code(s): I82.502 - Chronic embolism and thrombosis of unspecified deep veins of left lower extremity Is this a current diagnosis for this admission?: Yes (14) Hypertension Qualifiers: Hypertension type: essential hypertension Qualified Code(s): I10 - Essential (primary) hypertension Is this a current diagnosis for this admission?: Yes (15) Hypokalemia Is this a current diagnosis for this admission?: Yes (16) Schizophrenia Qualifiers: Schizophrenia type: unspecified Qualified Code(s): F20.9 - Schizophrenia, unspecified Is this a current diagnosis for this admission?: Yes (17) Zoster Qualifiers: Herpes zoster complications: without complications Qualified Code(s) : B02.9 - Zoster without complications Is this a current diagnosis for this admission?: YesPlan: Per medicine.
--- NOTE | 2016-07-30 00:42 | Operative Report ---
Operative Report DATE OF SURGERY: 07/29/16 PREOPERATIVE DIAGNOSIS: Perianal abscess POSTOPERATIVE DIAGNOSIS: Perianal abscess OPERATION: Incision and drainage of perianal abscess SURGEON: MIRANDA DIEGO ANESTHESIA: Local TISSUE REMOVED OR ALTERED: Purulent fluid from the abscess cavity sent for culture/micro-biology. COMPLICATIONS: None noted ESTIMATED BLOOD LOSS: minimal INTRAOPERATIVE FINDINGS: Right-sided perianal abscess. Patient was incontinent of mucousy liquid diarrhea multiple before, during and after the procedure. PROCEDURE: Time out was performed. The patient was prepped and draped in the normal sterile fashion. He continued to be incontinent of mucousy, liquid diarrhea before, during and after the procedure. The skin over the abscess cavity was infiltrated with local anesthetic. A 15 blade was used to excise a modoc of skin. There was copious return of purulent material. A culture was taken and sent to lab for analysis. The cavity was probed with swabs as well as a finger. The tract anteriorly posteriorly and proximally. It was irrigated with copious amount of hydrogen peroxide . The cavity was packed with quarter- inch iodoform gauze. Dressing was placed over that. Patient tolerated the procedure well. All sharps were counted for and disposed of properly.
[2016-07-30] MEDS ORDERED: NORMAL SALINE 1000 ML 1,000 ML IV ONE (00:52)
[2016-07-30] MEDS ORDERED: LIDOCAINE 1% INJ (10 MG/ML) 10 ML MDV INJ ONE (01:00)
[2016-07-30] MEDS: NORMAL SALINE 1000 ML 1,000 ML with POTASSIUM CHLORIDE 20 MEQ, MAGNESIUM SULFATE 8 MEQ,... IV PRN ×5 (01:08)
--- NOTE | 2016-07-30 01:22 | Progress Note ---
Provider Note Provider Note: Was called by Dr. Rodarte, informing me that the nurse had called him about Mr. Jones with a low blood pressure. Systolic was in the 70s. The I&D had progressed uneventfully. After getting off the phone with Dr. Rodarte, I went upstairs and assessed the patient. He was sleeping but easily arousable. He was in his normal mental state, unable to relate to me where he grew up, what his father did for a living, etc. He denied any pain, lightheadedness, shortness of breath. His I&D site has minimal drainage. His abdomen is nontender. He is receiving a bolus of crystalloid as well as a banana bag. His pressures had improved to systolic in the 80s. I will defer further management to Dr. Rodarte.
[2016-07-30] MEDS: LEVALBUTEROL HCL NEB 1.25 MG/3 ML AMPUL NEB SCH ×4 (02:29→20:34)
[2016-07-30] MEDS: IPRATROPIUM BROMIDE 0.02% NEB 0.5 MG/2.5 ML AMPUL NEB SCH ×4 (02:29→20:34)
[2016-07-30] MEDS: METHYLPREDNISOLONE INJ 125 MG/2 ML SDV IV SCH ×3 (02:30→18:55)
[2016-07-30] MEDS: METRONIDAZOLE 500 MG/NS RTU 100 ML IV SCH ×4 (03:53→23:49)
[2016-07-30] MEDS: NORMAL SALINE 1000 ML 1,000 ML IV PRN (03:54)
[2016-07-30] MEDS: LANSOPRAZOLE 30 MG TAB.RAP.DR PO SCH ×2 (05:55→18:54)
[2016-07-30 08:03] LABS: HEMATOCRIT 26.7 % (37.9-51.0); HEMOGLOBIN 8.9 g/dL (13.5-17.0); MEAN CORPUSCULAR HEMOGLOBIN 33.8 pg (27.0-33.4); MEAN CORPUSCULAR HGB CONC 33.1 g/dL (32.0-36.0); MEAN CORPUSCULAR VOLUME 102 fl (80-97); RED BLOOD COUNT 2.62 10^6/uL (4.35-5.55); RED CELL DISTRIBUTION WIDTH 14.2 % (11.5-14.0); WHITE BLOOD COUNT 7.7 10^3/uL (4.0-10.5)
[2016-07-30 08:20] LABS: ANION GAP 7 (5-19); BLOOD UREA NITROGEN 3 mg/dL (7-20); CARBON DIOXIDE 28 mmol/L (22-30); CHLORIDE 101 mmol/L (98-107); GLUCOSE 128 mg/dL (75-110); MAGNESIUM 1.6 mg/dL (1.6-2.3); PHOSPHORUS 2.3 mg/dL (2.5-4.5); SODIUM 135.5 mmol/L (137-145)
[2016-07-30 08:29] LABS: CALCIUM 6.8 mg/dL (8.4-10.2)
[2016-07-30 08:30] LABS: POTASSIUM 2.5 mmol/L (3.6-5.0)
[2016-07-30 08:38] LABS: BASOPHILS % (MANUAL) 0 % (0-2); EOSINOPHILS % (MANUAL) 0 % (0-6); LYMPHOCYTES % (MANUAL) 5 % (13-45); TOTAL CELLS COUNTED 100
[2016-07-30 08:41] LABS: ANISOCYTOSIS 1+; HYPOCHROMASIA 1+; POIKILOCYTOSIS SLIGHT; POLYCHROMASIA SLIGHT; TARGET CELLS SLIGHT
[2016-07-30] MEDS: ENOXAPARIN SODIUM INJ 40 MG/0.4 ML DISP.SYRIN SUBCUT SCH (09:45)
[2016-07-30] MEDS: LACTOBACILLUS ACIDOPHILUS 250 MG TAB PO SCH ×2 (09:46→18:54)
[2016-07-30] MEDS: POTASSIUM CHLORIDE 20 MEQ/50 ML RTU IV SCH ×2 (09:46→13:47)
--- NOTE | 2016-07-30 10:20 | PDOC PROGRESS REPORT ---
Subjective Progress Note for:: 07/30/16 Subjective:: Patient feels much better after undergoing drainage of perianal abscess. Patient is having A lot of loose stools Physical Exam Vital Signs: Temp Pulse Resp BP Pulse Ox 98.2 F 95 18 101/64 98 07/30/16 07:29 07/30/16 08:51 07/30/16 08:51 07/30/16 07:29 07/30/16 08:51 Intake & Output 07/29/16 07/30/16 07/31/16 06:59 06:59 06:59 Intake Total 2350 Balance 2350 Weight 56.8 kg General appearance: PRESENT: no acute distress Rectal exam: PRESENT: other - Patient examined in the left lateral Cubist position. He is actively stooling liquid feces. The right role perianal abscess cavity is examined, all packing removed. There is no foul smell or drainage. Skin is intact. Wound irrigated and repacked with a small portion of gauze. Results Laboratory Results: 07/30/16 07:36 07/30/16 07:36 07/30/16 07/30/16 07:36 07:36 WBC 7.7 RBC 2.62 L Hgb 8.9 L Hct 26.7 L MCV 102 H MCH 33.8 H MCHC 33.1 RDW 14.2 H Plt Count 132 L Seg Neutrophils % Not Reportable Lymphocytes % Not Reportable Monocytes % Not Reportable Eosinophils % Not Reportable Basophils % Not Reportable Absolute Neutrophils Not Reportable Absolute Lymphocytes Not Reportable Absolute Monocytes Not Reportable Absolute Eosinophils Not Reportable Absolute Basophils Not Reportable Sodium 135.5 L Potassium 2.5 L* Chloride 101 Carbon Dioxide 28 Anion Gap 7 BUN 3 L Creatinine 0.30 L Est GFR ( Amer) > 60 Est GFR (Non-Af Amer) > 60 Glucose 128 H Calcium 6.8 L* Phosphorus 2.3 L Magnesium 1.6 Impressions: Abdomen/Pelvis CT 07/29/16 12:15 IMPRESSION: Pancolitis Perirectal abscess Left lower lobe consolidation atelectasis versus pneumonia. Adjacent posterior left 9th and 10th ribs acute fractures. Assessment & Plan - Diagnosis (1) Perianal abscess Is this a current diagnosis for this admission?: YesPlan: One day status post operative drainage with excellent postoperative. Plan: 1. Repack wound-done today 2. Agree with dual control bag and drainage system per nursing staff to deploy 3. We'll check wound tomorrow, likely remove packing and start sitz baths. (2) Alcohol withdrawal seizure with complication Qualifiers: Complication of substance-induced condition: with unspecified complication Qualified Code(s): F10.239 - Alcohol dependence with withdrawal, unspecified; R56.9 - Unspecified convulsions Is this a current diagnosis for this admission?: Yes
--- NOTE | 2016-07-30 12:27 | PDOC PROGRESS REPORT ---
Subjective Progress Note for:: 07/30/16 Subjective:: The patient reports feeling better in terms of diarrhea and abdominal discomfort. Denies any chills or fever. Status post incision and drainage of perirectal abscess. Patient started to develop some tremors. No agitation reported nor respiratory distress. Patient denies any chest pain or shortness of breath. Physical Exam Vital Signs: Temp Pulse Resp BP Pulse Ox 98.2 F 95 18 101/64 98 07/30/16 07:29 07/30/16 08:51 07/30/16 08:51 07/30/16 07:29 07/30/16 08:51 Intake & Output 07/29/16 07/30/16 07/31/16 06:59 06:59 06:59 Intake Total 2350 Balance 2350 Weight 56.8 kg General appearance: PRESENT: no acute distress, cooperative Head exam: PRESENT: normocephalic Eye exam: PRESENT: EOMI Mouth exam: PRESENT: moist, neck supple Respiratory exam: PRESENT: clear to auscultation alexandrea Cardiovascular exam: PRESENT: RRR. ABSENT: gallop GI/Abdominal exam: PRESENT: hyperactive bowel sounds, soft Extremities exam: ABSENT: pedal edema Neurological exam: PRESENT: alert, awake, other - Positive tremors bilaterally Psychiatric exam: ABSENT: agitated Focused psych exam: ABSENT: restlessness Skin exam: PRESENT: dry, warm. ABSENT: cyanosis Results Laboratory Results: 07/30/16 07:36 07/30/16 07:36 07/30/16 07/30/16 07:36 07:36 WBC 7.7 RBC 2.62 L Hgb 8.9 L Hct 26.7 L MCV 102 H MCH 33.8 H MCHC 33.1 RDW 14.2 H Plt Count 132 L Seg Neutrophils % Not Reportable Lymphocytes % Not Reportable Monocytes % Not Reportable Eosinophils % Not Reportable Basophils % Not Reportable Absolute Neutrophils Not Reportable Absolute Lymphocytes Not Reportable Absolute Monocytes Not Reportable Absolute Eosinophils Not Reportable Absolute Basophils Not Reportable Sodium 135.5 L Potassium 2.5 L* Chloride 101 Carbon Dioxide 28 Anion Gap 7 BUN 3 L Creatinine 0.30 L Est GFR ( Amer) > 60 Est GFR (Non-Af Amer) > 60 Glucose 128 H Calcium 6.8 L* Phosphorus 2.3 L Magnesium 1.6 Impressions: Abdomen/Pelvis CT 07/29/16 12:15 IMPRESSION: Pancolitis Perirectal abscess Left lower lobe consolidation atelectasis versus pneumonia. Adjacent posterior left 9th and 10th ribs acute fractures. Assessment & Plan - Diagnosis (1) Clostridium difficile colitis Is this a current diagnosis for this admission?: Yes (2) COPD with exacerbation Is this a current diagnosis for this admission?: Yes (3) Hypokalemia Is this a current diagnosis for this admission?: Yes (4) Perirectal abscess Is this a current diagnosis for this admission?: Yes (5) Alcohol withdrawal Qualifiers: Complication of substance-induced condition: with unspecified complication Qualified Code(s): F10.239 - Alcohol dependence with withdrawal, unspecified Is this a current diagnosis for this admission?: Yes (6) Rib fractures Qualifiers: Encounter type: initial encounter Rib fracture type: multiple ribs Fracture type: closed Laterality: left Qualified Code(s): S22.42XA - Multiple fractures of ribs, left side, initial encounter for closed fracture Is this a current diagnosis for this admission?: Yes (7) Hypertension Qualifiers: Hypertension type: essential hypertension Qualified Code(s): I10 - Essential (primary) hypertension Is this a current diagnosis for this admission?: Yes (8) Schizophrenia Qualifiers: Schizophrenia type: unspecified Qualified Code(s): F20.9 - Schizophrenia, unspecified Is this a current diagnosis for this admission?: Yes (9) Zoster Qualifiers: Herpes zoster complications: without complications Qualified Code(s) : B02.9 - Zoster without complications Is this a current diagnosis for this admission?: Yes (10) Anemia of chronic disease Is this a current diagnosis for this admission?: Yes (11) Bipolar 1 disorder Is this a current diagnosis for this admission?: Yes (12) Alcohol abuse Is this a current diagnosis for this admission?: Yes (13) Fatty liver Is this a current diagnosis for this admission?: Yes - Time Time Spent with patient: 25-34 minutes - Plan Summary Plan Summary: We are going to begin scheduled Ativan. Continue the when necessary Ativan. Continue current antibiotics, blood culture growing some gram positive cocci in chains, we will add intravenous vancomycin to the treatment regimen.
[2016-07-30] MEDS ORDERED: LORAZEPAM 1 MG TABLET PO ONE (13:15)
[2016-07-30] MEDS: LORAZEPAM INJ 2 MG/1 ML VIAL IV PRN (13:41)
[2016-07-30] MEDS ORDERED: VANCOMYCIN HCL 1,000 MG in DEXTROSE 5%-WATER 250 ML IV ONE (14:00)
[2016-07-30] MEDS: LORAZEPAM 1 MG TABLET PO SCH ×2 (18:54→23:50)
[2016-07-30] MEDS ORDERED: POTASSIUM CHLORIDE 20 MEQ/50 ML RTU IV ONE (21:45)
[2016-07-30] MEDS: VANCOMYCIN HCL 750 MG in DEXTROSE 5%-WATER 250 ML IV SCH (22:51)
[2016-07-31] MEDS: METHYLPREDNISOLONE INJ 125 MG/2 ML SDV IV SCH ×3 (01:16→18:38)
[2016-07-31] MEDS: LORAZEPAM INJ 2 MG/1 ML VIAL IV PRN ×3 (01:16→13:38)
[2016-07-31] MEDS: LEVALBUTEROL HCL NEB 1.25 MG/3 ML AMPUL NEB SCH ×4 (01:34→20:21)
[2016-07-31] MEDS: IPRATROPIUM BROMIDE 0.02% NEB 0.5 MG/2.5 ML AMPUL NEB SCH ×4 (01:34→20:21)
[2016-07-31] MEDS: METRONIDAZOLE 500 MG/NS RTU 100 ML IV SCH ×4 (04:51→20:25)
[2016-07-31 06:59] LABS: HEMATOCRIT 26.8 % (37.9-51.0); HEMOGLOBIN 8.9 g/dL (13.5-17.0); HGB HCT DIFFERENCE -0.1; MEAN CORPUSCULAR HEMOGLOBIN 33.9 pg (27.0-33.4); MEAN CORPUSCULAR HGB CONC 33.2 g/dL (32.0-36.0); MEAN CORPUSCULAR VOLUME 102 fl (80-97); RED BLOOD COUNT 2.63 10^6/uL (4.35-5.55); RED CELL DISTRIBUTION WIDTH 14.5 % (11.5-14.0); WHITE BLOOD COUNT 6.7 10^3/uL (4.0-10.5)
[2016-07-31] MEDS: VANCOMYCIN HCL 750 MG in DEXTROSE 5%-WATER 250 ML IV SCH ×3 (07:05→22:34)
[2016-07-31] MEDS: LORAZEPAM 1 MG TABLET PO SCH ×4 (07:06→23:57)
[2016-07-31] MEDS: LANSOPRAZOLE 30 MG TAB.RAP.DR PO SCH ×2 (07:07→18:36)
[2016-07-31 07:21] LABS: ANION GAP 6 (5-19); BLOOD UREA NITROGEN 4 mg/dL (7-20); CALCIUM 7.6 mg/dL (8.4-10.2); CARBON DIOXIDE 28 mmol/L (22-30); CHLORIDE 101 mmol/L (98-107); CREATININE RESULT 0.33 mg/dL (0.52-1.25); GLUCOSE 125 mg/dL (75-110); SODIUM 135.4 mmol/L (137-145)
[2016-07-31] MEDS ORDERED: DOPAMINE HCL/DEXTROSE 5%-WATER 800 MG/250 ML RTUINJ IV ONE (08:22)
[2016-07-31] MEDS: ENOXAPARIN SODIUM INJ 40 MG/0.4 ML DISP.SYRIN SUBCUT SCH (08:25)
[2016-07-31] MEDS: LACTOBACILLUS ACIDOPHILUS 250 MG TAB PO SCH ×2 (08:26→18:37)
[2016-07-31] MEDS ORDERED: VANCOMYCIN HCL INJ 1000 MG VIAL IV SCH (10:00)
[2016-07-31] MEDS: TRAMADOL HCL 50 MG TABLET PO PRN (13:40)
[2016-07-31] MEDS: NORMAL SALINE 1000 ML 1,000 ML with POTASSIUM CHLORIDE 20 MEQ, MAGNESIUM SULFATE 8 MEQ,... IV PRN ×5 (13:41)
--- NOTE | 2016-07-31 15:50 | PDOC PROGRESS REPORT ---
Subjective Progress Note for:: 07/31/16 Subjective:: The patient continues to feel better in terms of diarrhea and abdominal discomfort. Denies any chills or fever. Status post incision and drainage of perirectal abscess. Patient started to develop some tremors yesterday but less today. No agitation reported nor respiratory distress. Patient denies any chest pain or shortness of breath. Physical Exam Vital Signs: Temp Pulse Resp BP Pulse Ox 98.3 F 89 20 113/73 99 07/31/16 11:42 07/31/16 14:02 07/31/16 14:02 07/31/16 11:42 07/31/16 14:02 Intake & Output 07/30/16 07/31/16 08/01/16 06:59 06:59 06:59 Intake Total 2350 6419 480 Output Total 150 Balance 2350 6269 480 Weight 56.8 kg 61 kg General appearance: PRESENT: no acute distress, cooperative Head exam: PRESENT: normocephalic Eye exam: PRESENT: EOMI Mouth exam: PRESENT: moist, neck supple Neck exam: ABSENT: JVD Respiratory exam: PRESENT: clear to auscultation alexandrea Cardiovascular exam: PRESENT: RRR. ABSENT: gallop GI/Abdominal exam: PRESENT: soft. ABSENT: distended, tenderness Extremities exam: ABSENT: pedal edema Neurological exam: PRESENT: alert, awake, oriented to situation Skin exam: PRESENT: dry, warm. ABSENT: cyanosis Results Laboratory Results: 07/31/16 06:42 07/31/16 06:42 07/31/16 07/31/16 06:42 06:42 WBC 6.7 RBC 2.63 L Hgb 8.9 L Hct 26.8 L MCV 102 H MCH 33.9 H MCHC 33.2 RDW 14.5 H Plt Count 147 L Sodium 135.4 L Potassium 3.0 L* Chloride 101 Carbon Dioxide 28 Anion Gap 6 BUN 4 L Creatinine 0.33 L Est GFR ( Amer) > 60 Est GFR (Non-Af Amer) > 60 Glucose 125 H Calcium 7.6 L Impressions: Abdomen/Pelvis CT 07/29/16 12:15 IMPRESSION: Pancolitis Perirectal abscess Left lower lobe consolidation atelectasis versus pneumonia. Adjacent posterior left 9th and 10th ribs acute fractures. Assessment & Plan - Diagnosis (1) Clostridium difficile colitis Is this a current diagnosis for this admission?: Yes (2) COPD with exacerbation Is this a current diagnosis for this admission?: Yes (3) Hypokalemia Is this a current diagnosis for this admission?: Yes (4) Perirectal abscess Is this a current diagnosis for this admission?: Yes (5) Alcohol withdrawal Qualifiers: Complication of substance-induced condition: with unspecified complication Qualified Code(s): F10.239 - Alcohol dependence with withdrawal, unspecified Is this a current diagnosis for this admission?: Yes (6) Rib fractures Qualifiers: Encounter type: initial encounter Rib fracture type: multiple ribs Fracture type: closed Laterality: left Qualified Code(s): S22.42XA - Multiple fractures of ribs, left side, initial encounter for closed fracture Is this a current diagnosis for this admission?: Yes (7) Hypertension Qualifiers: Hypertension type: essential hypertension Qualified Code(s): I10 - Essential (primary) hypertension Is this a current diagnosis for this admission?: Yes (8) Schizophrenia Qualifiers: Schizophrenia type: unspecified Qualified Code(s): F20.9 - Schizophrenia, unspecified Is this a current diagnosis for this admission?: Yes (9) Zoster Qualifiers: Herpes zoster complications: without complications Qualified Code(s) : B02.9 - Zoster without complications Is this a current diagnosis for this admission?: Yes (10) Anemia of chronic disease Is this a current diagnosis for this admission?: Yes (11) Bipolar 1 disorder Is this a current diagnosis for this admission?: Yes (12) Alcohol abuse Is this a current diagnosis for this admission?: Yes (13) Fatty liver Is this a current diagnosis for this admission?: Yes - Time Time Spent with patient: 25-34 minutes - Plan Summary Plan Summary: Continue IV fluids. Wound culture growing gram-negative rods. We will add Invanz. Continue Flagyl and vancomycin for now. Follow culture. Monitor electrolytes and replace potassium.
[2016-07-31] MEDS ORDERED: ERTAPENEM SODIUM INJ 1 GM VIAL IV SCH (16:00)
[2016-07-31] MEDS ORDERED: POTASSIUM CHLORIDE 10 MEQ TABLET.SA PO ONE ×2 (16:30→20:30)
[2016-07-31] MEDS ORDERED: FUROSEMIDE INJ/PF 40 MG/4 ML SDV IV ONE (17:45)
[2016-07-31] MEDS ORDERED: ERTAPENEM SODIUM 1 GM in NORMAL SALINE 50 ML IV SCH (18:00)
[2016-07-31] MEDS ORDERED: ERTAPENEM SODIUM 0.5 GM in NORMAL SALINE 50 ML IV SCH (18:00)
[2016-08-01] MEDS: METHYLPREDNISOLONE INJ 125 MG/2 ML SDV IV SCH ×2 (01:47→10:13)
[2016-08-01] MEDS: IPRATROPIUM BROMIDE 0.02% NEB 0.5 MG/2.5 ML AMPUL NEB SCH ×4 (02:46→20:51)
[2016-08-01] MEDS: LEVALBUTEROL HCL NEB 1.25 MG/3 ML AMPUL NEB SCH ×4 (02:46→20:51)
[2016-08-01] MEDS: METRONIDAZOLE 500 MG/NS RTU 100 ML IV SCH ×4 (03:22→20:56)
[2016-08-01] MEDS: LORAZEPAM 1 MG TABLET PO SCH ×4 (06:31→23:30)
[2016-08-01] MEDS: VANCOMYCIN HCL 750 MG in DEXTROSE 5%-WATER 250 ML IV SCH ×2 (06:31→14:42)
[2016-08-01] MEDS: LANSOPRAZOLE 30 MG TAB.RAP.DR PO SCH ×2 (06:31→17:13)
[2016-08-01 07:45] LABS: ANION GAP 11 (5-19); BLOOD UREA NITROGEN 4 mg/dL (7-20); CALCIUM 7.5 mg/dL (8.4-10.2); CARBON DIOXIDE 30 mmol/L (22-30); CHLORIDE 93 mmol/L (98-107); CREATININE RESULT 0.34 mg/dL (0.52-1.25); GLUCOSE 160 mg/dL (75-110); POTASSIUM 3.3 mmol/L (3.6-5.0); SODIUM 133.8 mmol/L (137-145)
[2016-08-01] MEDS: TRAMADOL HCL 50 MG TABLET PO PRN ×2 (07:57→20:56)
[2016-08-01] MEDS: ENOXAPARIN SODIUM INJ 40 MG/0.4 ML DISP.SYRIN SUBCUT SCH (07:58)
[2016-08-01] MEDS: NORMAL SALINE 1000 ML 1,000 ML IV PRN (08:40)
[2016-08-01] MEDS: LACTOBACILLUS ACIDOPHILUS 250 MG TAB PO SCH ×2 (10:13→17:13)
--- NOTE | 2016-08-01 10:40 | PDOC PROGRESS REPORT ---
Subjective Progress Note for:: 08/01/16 Subjective:: The patient continues to feel better in terms of diarrhea and abdominal discomfort but still with loose bowel movement on the rectal tube noted. Denies any chills or fever. Status post incision and drainage of perirectal abscess. No agitation reported nor respiratory distress. Patient denies any chest pain or shortness of breath. Patient has chronic tremors and reportedly does not resolve after drinking. Physical Exam Vital Signs: Temp Pulse Resp BP Pulse Ox 98.4 F 92 18 122/81 96 08/01/16 07:16 08/01/16 08:38 08/01/16 08:38 08/01/16 07:16 08/01/16 08:38 Intake & Output 07/31/16 08/01/16 08/02/16 06:59 06:59 06:59 Intake Total 6419 4381 Output Total 150 Balance 6269 4381 Weight 61 kg 59.8 kg General appearance: PRESENT: no acute distress, cooperative Head exam: PRESENT: normocephalic Eye exam: PRESENT: EOMI Mouth exam: PRESENT: moist, neck supple Neck exam: ABSENT: JVD Respiratory exam: PRESENT: clear to auscultation alexandrea. ABSENT: rhonchi, wheezes Cardiovascular exam: PRESENT: RRR. ABSENT: gallop GI/Abdominal exam: PRESENT: hyperactive bowel sounds, soft. ABSENT: distended Extremities exam: ABSENT: pedal edema Neurological exam: PRESENT: alert, awake, oriented to situation Skin exam: PRESENT: dry, warm. ABSENT: cyanosis Results Laboratory Results: 07/31/16 06:42 08/01/16 07:04 08/01/16 07:04 Sodium 133.8 L Potassium 3.3 L Chloride 93 L Carbon Dioxide 30 Anion Gap 11 BUN 4 L Creatinine 0.34 L Est GFR ( Amer) > 60 Est GFR (Non-Af Amer) > 60 Glucose 160 H Calcium 7.5 L Impressions: Abdomen/Pelvis CT 07/29/16 12:15 IMPRESSION: Pancolitis Perirectal abscess Left lower lobe consolidation atelectasis versus pneumonia. Adjacent posterior left 9th and 10th ribs acute fractures. Assessment & Plan - Diagnosis (1) Clostridium difficile colitis Is this a current diagnosis for this admission?: Yes (2) COPD with exacerbation Is this a current diagnosis for this admission?: Yes (3) Hypokalemia Is this a current diagnosis for this admission?: Yes (4) Perirectal abscess Is this a current diagnosis for this admission?: Yes (5) Alcohol withdrawal Qualifiers: Complication of substance-induced condition: with unspecified complication Qualified Code(s): F10.239 - Alcohol dependence with withdrawal, unspecified Is this a current diagnosis for this admission?: Yes (6) Rib fractures Qualifiers: Encounter type: initial encounter Rib fracture type: multiple ribs Fracture type: closed Laterality: left Qualified Code(s): S22.42XA - Multiple fractures of ribs, left side, initial encounter for closed fracture Is this a current diagnosis for this admission?: Yes (7) Hypertension Qualifiers: Hypertension type: essential hypertension Qualified Code(s): I10 - Essential (primary) hypertension Is this a current diagnosis for this admission?: Yes (8) Schizophrenia Qualifiers: Schizophrenia type: unspecified Qualified Code(s): F20.9 - Schizophrenia, unspecified Is this a current diagnosis for this admission?: Yes (9) Zoster Qualifiers: Herpes zoster complications: without complications Qualified Code(s) : B02.9 - Zoster without complications Is this a current diagnosis for this admission?: Yes (10) Anemia of chronic disease Is this a current diagnosis for this admission?: Yes (11) Bipolar 1 disorder Is this a current diagnosis for this admission?: Yes (12) Alcohol abuse Is this a current diagnosis for this admission?: Yes (13) Fatty liver Is this a current diagnosis for this admission?: Yes - Time Time Spent with patient: 25-34 minutes - Plan Summary Plan Summary: We will continue intravenous Flagyl for now. Continue the vancomycin pending culture results. We will discontinue Invanz and put him on ceftriaxone instead. We will discontinue steroids as patient's COPD has already significantly improved, we will maintain him on nebulizers. Continue supportive care. Follow culture report. Replace electrolytes and recheck in the morning.
[2016-08-01] MEDS ORDERED: POTASSI CL 20 MEQ/50 ML RIDER 20 MEQ/50 ML RTUPB IV SCH (12:30)
[2016-08-01] MEDS ORDERED: POTASSIUM CHLORIDE 10 MEQ TABLET.SA PO ONE ×2 (13:00→17:00)
[2016-08-01] MEDS: CEFTRIAXONE 1 GM/D5W RTU 1 GM/50 ML RTUPB IV SCH (13:17)
[2016-08-01] MEDS: NORMAL SALINE 1000 ML 1,000 ML with POTASSIUM CHLORIDE 20 MEQ, MAGNESIUM SULFATE 8 MEQ,... IV PRN ×5 (14:42)
[2016-08-01] MEDS: VANCOMYCIN HCL 1,250 MG in DEXTROSE 5%-WATER 250 ML IV SCH (21:58)
[2016-08-02] MEDS: LEVALBUTEROL HCL NEB 1.25 MG/3 ML AMPUL NEB SCH ×4 (02:22→20:39)
[2016-08-02] MEDS: IPRATROPIUM BROMIDE 0.02% NEB 0.5 MG/2.5 ML AMPUL NEB SCH ×4 (02:22→20:39)
[2016-08-02] MEDS: METRONIDAZOLE 500 MG/NS RTU 100 ML IV SCH ×2 (02:54→08:10)
[2016-08-02 04:53] LABS: ANION GAP 7 (5-19); BLOOD UREA NITROGEN 7 mg/dL (7-20); CALCIUM 7.7 mg/dL (8.4-10.2); CARBON DIOXIDE 30 mmol/L (22-30); CHLORIDE 99 mmol/L (98-107); CREATININE RESULT 0.41 mg/dL (0.52-1.25); GLUCOSE 90 mg/dL (75-110); POTASSIUM 3.7 mmol/L (3.6-5.0)
[2016-08-02] MEDS: LORAZEPAM 1 MG TABLET PO SCH ×4 (05:47→23:47)
[2016-08-02] MEDS: LANSOPRAZOLE 30 MG TAB.RAP.DR PO SCH ×2 (05:47→17:55)
[2016-08-02] MEDS: ENOXAPARIN SODIUM INJ 40 MG/0.4 ML DISP.SYRIN SUBCUT SCH (08:11)
[2016-08-02] MEDS: MULTIVITAMIN TABLET PO SCH (09:02)
[2016-08-02] MEDS: LACTOBACILLUS ACIDOPHILUS 250 MG TAB PO SCH ×2 (09:02→17:54)
[2016-08-02] MEDS: FOLIC ACID 1 MG TABLET PO SCH (09:02)
[2016-08-02] MEDS: THIAMINE HCL 100 MG TABLET PO SCH (09:02)
[2016-08-02] MEDS: VANCOMYCIN HCL 1,250 MG in DEXTROSE 5%-WATER 250 ML IV SCH ×2 (09:05→21:45)
--- NOTE | 2016-08-02 10:18 | PDOC PROGRESS REPORT ---
Subjective Progress Note for:: 08/02/16 Subjective:: Patient is feeling much better. Shortness of breath or wheezing. No tremors were noted. Patient however still having diarrhea noted on the rectal tube. Denies any shortness of breath or coughing. Denies any chest pain or pleurisy. Physical Exam Vital Signs: Temp Pulse Resp BP Pulse Ox 98.1 F 100 18 113/81 96 08/02/16 07:33 08/02/16 08:35 08/02/16 08:35 08/02/16 07:33 08/02/16 08:35 Intake & Output 08/01/16 08/02/16 08/03/16 06:59 06:59 06:59 Intake Total 4381 4825 Balance 4381 4825 Weight 59.8 kg 59.9 kg General appearance: PRESENT: no acute distress, cooperative, thin Head exam: PRESENT: normocephalic Eye exam: PRESENT: EOMI Mouth exam: PRESENT: moist, neck supple Neck exam: ABSENT: JVD Respiratory exam: PRESENT: clear to auscultation alexandrea. ABSENT: rhonchi, wheezes Cardiovascular exam: PRESENT: RRR. ABSENT: gallop GI/Abdominal exam: PRESENT: hyperactive bowel sounds, soft. ABSENT: distended Extremities exam: ABSENT: pedal edema Neurological exam: PRESENT: alert, awake, oriented to situation Skin exam: PRESENT: dry, warm. ABSENT: cyanosis Results Laboratory Results: 07/31/16 06:42 08/02/16 04:12 08/02/16 04:12 Sodium 136.0 L Potassium 3.7 Chloride 99 Carbon Dioxide 30 Anion Gap 7 BUN 7 Creatinine 0.41 L Est GFR ( Amer) > 60 Est GFR (Non-Af Amer) > 60 Glucose 90 Calcium 7.7 L Impressions: Abdomen/Pelvis CT 07/29/16 12:15 IMPRESSION: Pancolitis Perirectal abscess Left lower lobe consolidation atelectasis versus pneumonia. Adjacent posterior left 9th and 10th ribs acute fractures. Assessment & Plan - Diagnosis (1) Clostridium difficile colitis Is this a current diagnosis for this admission?: Yes (2) COPD with exacerbation Is this a current diagnosis for this admission?: Yes (3) Hypokalemia Is this a current diagnosis for this admission?: Yes (4) Perirectal abscess Is this a current diagnosis for this admission?: Yes (5) Alcohol withdrawal Qualifiers: Complication of substance-induced condition: with unspecified complication Qualified Code(s): F10.239 - Alcohol dependence with withdrawal, unspecified Is this a current diagnosis for this admission?: Yes (6) Rib fractures Qualifiers: Encounter type: initial encounter Rib fracture type: multiple ribs Fracture type: closed Laterality: left Qualified Code(s): S22.42XA - Multiple fractures of ribs, left side, initial encounter for closed fracture Is this a current diagnosis for this admission?: Yes (7) Hypertension Qualifiers: Hypertension type: essential hypertension Qualified Code(s): I10 - Essential (primary) hypertension Is this a current diagnosis for this admission?: Yes (8) Schizophrenia Qualifiers: Schizophrenia type: unspecified Qualified Code(s): F20.9 - Schizophrenia, unspecified Is this a current diagnosis for this admission?: Yes (9) Zoster Qualifiers: Herpes zoster complications: without complications Qualified Code(s) : B02.9 - Zoster without complications Is this a current diagnosis for this admission?: Yes (10) Anemia of chronic disease Is this a current diagnosis for this admission?: Yes (11) Bipolar 1 disorder Is this a current diagnosis for this admission?: Yes (12) Alcohol abuse Is this a current diagnosis for this admission?: Yes (13) Fatty liver Is this a current diagnosis for this admission?: Yes - Time Time Spent with patient: 25-34 minutes - Plan Summary Plan Summary: I will keep the patient on the vancomycin intravenously for the enterococcus due to the Clostridium difficile colitis that has been persistent. In the meantime I will switch the Flagyl to oral. Continue lactobacillus. Unfortunately one of the organization of the abscess is Escherichia coli and the patient may need to stay on broader antibiotic again. We will try to limit coverage with ceftriaxone. Invanz has been discontinued. We will continue to monitor.
[2016-08-02] MEDS: CEFTRIAXONE 1 GM/D5W RTU 1 GM/50 ML RTUPB IV SCH (12:16)
[2016-08-02] MEDS: METRONIDAZOLE 500 MG TABLET PO SCH ×2 (14:41→21:45)
[2016-08-02] MEDS: NORMAL SALINE 1000 ML 1,000 ML IV PRN (19:34)
[2016-08-03] MEDS: IPRATROPIUM BROMIDE 0.02% NEB 0.5 MG/2.5 ML AMPUL NEB SCH ×4 (02:15→20:01)
[2016-08-03] MEDS: LEVALBUTEROL HCL NEB 1.25 MG/3 ML AMPUL NEB SCH ×4 (02:15→20:02)
[2016-08-03] MEDS: METRONIDAZOLE 500 MG TABLET PO SCH ×4 (03:06→21:49)
[2016-08-03] MEDS: LORAZEPAM 1 MG TABLET PO SCH ×3 (05:25→21:49)
[2016-08-03] MEDS: LANSOPRAZOLE 30 MG TAB.RAP.DR PO SCH ×2 (05:25→17:37)
[2016-08-03 06:06] LABS: HEMATOCRIT 33.5 % (37.9-51.0); HGB HCT DIFFERENCE -0.5; MEAN CORPUSCULAR HEMOGLOBIN 33.5 pg (27.0-33.4); MEAN CORPUSCULAR HGB CONC 32.8 g/dL (32.0-36.0); MEAN CORPUSCULAR VOLUME 102 fl (80-97); RED BLOOD COUNT 3.27 10^6/uL (4.35-5.55); RED CELL DISTRIBUTION WIDTH 14.6 % (11.5-14.0); WHITE BLOOD COUNT 5.8 10^3/uL (4.0-10.5)
[2016-08-03 06:27] LABS: ANION GAP 7 (5-19); BLOOD UREA NITROGEN 6 mg/dL (7-20); CALCIUM 7.9 mg/dL (8.4-10.2); CARBON DIOXIDE 30 mmol/L (22-30); CHLORIDE 97 mmol/L (98-107); CREATININE RESULT 0.44 mg/dL (0.52-1.25); GLUCOSE 92 mg/dL (75-110); POTASSIUM 3.8 mmol/L (3.6-5.0); SODIUM 134.4 mmol/L (137-145)
[2016-08-03] MEDS: ENOXAPARIN SODIUM INJ 40 MG/0.4 ML DISP.SYRIN SUBCUT SCH (08:44)
[2016-08-03] MEDS: LACTOBACILLUS ACIDOPHILUS 250 MG TAB PO SCH ×2 (09:51→17:37)
[2016-08-03] MEDS: VANCOMYCIN HCL 1,250 MG in DEXTROSE 5%-WATER 250 ML IV SCH (09:51)
[2016-08-03] MEDS: FOLIC ACID 1 MG TABLET PO SCH (09:52)
[2016-08-03] MEDS: THIAMINE HCL 100 MG TABLET PO SCH (09:52)
[2016-08-03] MEDS: MULTIVITAMIN TABLET PO SCH (09:52)
[2016-08-03] MEDS: CEFTRIAXONE 1 GM/D5W RTU 1 GM/50 ML RTUPB IV SCH (13:17)
[2016-08-03] MEDS ORDERED: VANCOMYCIN HCL 1,250 MG in DEXTROSE 5%-WATER 250 ML IV ONE (15:00)
--- NOTE | 2016-08-03 16:08 | PDOC PROGRESS REPORT ---
Subjective Progress Note for:: 08/03/16 Subjective:: Patient continues to improve. No more withdrawal symptoms noted. Shaking and tremors a lot better. Patient remained in the rectal tube and still having significant diarrhea. No chills or fever. No nausea or vomiting. No abdominal pain. Physical Exam Vital Signs: Temp Pulse Resp BP Pulse Ox 99.1 F 120 H 16 93/66 L 98 08/03/16 13:43 08/03/16 13:45 08/03/16 13:45 08/03/16 13:43 08/03/16 13:45 Intake & Output 08/02/16 08/03/16 08/04/16 06:59 06:59 06:59 Intake Total 4825 2988 550 Output Total 1400 Balance 4825 2988 -850 Weight 59.9 kg 57.7 kg General appearance: PRESENT: no acute distress, cooperative Head exam: PRESENT: normocephalic Eye exam: PRESENT: EOMI Mouth exam: PRESENT: moist, neck supple Neck exam: ABSENT: JVD Respiratory exam: PRESENT: clear to auscultation alexandrea. ABSENT: rhonchi, wheezes Cardiovascular exam: PRESENT: RRR. ABSENT: gallop GI/Abdominal exam: PRESENT: soft. ABSENT: distended, tenderness Extremities exam: ABSENT: pedal edema Neurological exam: PRESENT: alert, awake, oriented to situation Skin exam: PRESENT: dry, warm. ABSENT: cyanosis Results Laboratory Results: 08/03/16 05:34 08/03/16 05:34 08/03/16 08/03/16 05:34 05:34 WBC 5.8 RBC 3.27 L Hgb 11.0 L D Hct 33.5 L MCV 102 H MCH 33.5 H MCHC 32.8 RDW 14.6 H Plt Count 142 L Sodium 134.4 L Potassium 3.8 Chloride 97 L Carbon Dioxide 30 Anion Gap 7 BUN 6 L Creatinine 0.44 L Est GFR ( Amer) > 60 Est GFR (Non-Af Amer) > 60 Glucose 92 Calcium 7.9 L 07/29/16 23:30 Perirectal Gram Stain - Final 07/29/16 23:30 Perirectal Wound Culture - Final Escherichia Coli Enterococcus Faecalis(Group D) Corynebacterium Species No Anaerobic Organisms Impressions: Abdomen/Pelvis CT 07/29/16 12:15 IMPRESSION: Pancolitis Perirectal abscess Left lower lobe consolidation atelectasis versus pneumonia. Adjacent posterior left 9th and 10th ribs acute fractures. Assessment & Plan - Diagnosis (1) Clostridium difficile colitis Is this a current diagnosis for this admission?: Yes (2) COPD with exacerbation Is this a current diagnosis for this admission?: Yes (3) Hypokalemia Is this a current diagnosis for this admission?: Yes (4) Perirectal abscess Is this a current diagnosis for this admission?: Yes (5) Alcohol withdrawal Qualifiers: Complication of substance-induced condition: with unspecified complication Qualified Code(s): F10.239 - Alcohol dependence with withdrawal, unspecified Is this a current diagnosis for this admission?: Yes (6) Rib fractures Qualifiers: Encounter type: initial encounter Rib fracture type: multiple ribs Fracture type: closed Laterality: left Qualified Code(s): S22.42XA - Multiple fractures of ribs, left side, initial encounter for closed fracture Is this a current diagnosis for this admission?: Yes (7) Hypertension Qualifiers: Hypertension type: essential hypertension Qualified Code(s): I10 - Essential (primary) hypertension Is this a current diagnosis for this admission?: Yes (8) Schizophrenia Qualifiers: Schizophrenia type: unspecified Qualified Code(s): F20.9 - Schizophrenia, unspecified Is this a current diagnosis for this admission?: Yes (9) Zoster Qualifiers: Herpes zoster complications: without complications Qualified Code(s) : B02.9 - Zoster without complications Is this a current diagnosis for this admission?: Yes (10) Anemia of chronic disease Is this a current diagnosis for this admission?: Yes (11) Bipolar 1 disorder Is this a current diagnosis for this admission?: Yes (12) Alcohol abuse Is this a current diagnosis for this admission?: Yes (13) Fatty liver Is this a current diagnosis for this admission?: Yes - Time Time Spent with patient: 25-34 minutes - Plan Summary Plan Summary: We will continue the patient on Flagyl and lactobacillus. We will add oral vancomycin. I will put the patient on Zyvox for the enterococcal infection in the blood and on the abscess. Likewise continue ceftriaxone. Continue to decrease the Ativan dose. Patient off steroids for COPD. Continue supportive care.
[2016-08-03] MEDS: VANCOMYCIN HCL INJ 500 MG VIAL PO SCH ×2 (17:36→23:51)
[2016-08-03] MEDS: LINEZOLID 300 ML IV SCH (21:49)
[2016-08-03] MEDS: NORMAL SALINE 1000 ML 1,000 ML IV PRN (21:57)
[2016-08-03] MEDS ORDERED: VANCOMYCIN HCL 1,250 MG in DEXTROSE 5%-WATER 250 ML IV SCH (22:00)
[2016-08-04] MEDS: IPRATROPIUM BROMIDE 0.02% NEB 0.5 MG/2.5 ML AMPUL NEB SCH ×4 (01:55→20:34)
[2016-08-04] MEDS: LEVALBUTEROL HCL NEB 1.25 MG/3 ML AMPUL NEB SCH ×4 (01:55→20:34)
[2016-08-04] MEDS: METRONIDAZOLE 500 MG TABLET PO SCH ×4 (03:48→21:59)
[2016-08-04] MEDS: VANCOMYCIN HCL INJ 500 MG VIAL PO SCH ×3 (05:10→18:12)
[2016-08-04] MEDS: LORAZEPAM 1 MG TABLET PO SCH ×3 (05:10→21:59)
[2016-08-04] MEDS: LANSOPRAZOLE 30 MG TAB.RAP.DR PO SCH ×2 (05:11→18:12)
[2016-08-04] MEDS: ENOXAPARIN SODIUM INJ 40 MG/0.4 ML DISP.SYRIN SUBCUT SCH (08:14)
[2016-08-04] MEDS: LINEZOLID 300 ML IV SCH ×2 (09:23→21:59)
[2016-08-04] MEDS: THIAMINE HCL 100 MG TABLET PO SCH (09:24)
[2016-08-04] MEDS: MULTIVITAMIN TABLET PO SCH (09:24)
[2016-08-04] MEDS: LACTOBACILLUS ACIDOPHILUS 250 MG TAB PO SCH ×2 (09:24→18:13)
[2016-08-04] MEDS: FOLIC ACID 1 MG TABLET PO SCH (09:24)
--- NOTE | 2016-08-04 12:18 | PROGRESS NOTE E ---
Progress Note NAME: DEO CORTÉS : 1960 AGE: 56Y DATE: 08/04/2016 ROOM: [facility] SUBJECTIVE: The patient is a 56-year-old gentleman with C. difficile who has a rectal stool collection device in place. He underwent incision and drainage of a perianal abscess on 07/29 and was seen in followup for 2 days and then Surgery Service had signed off. I was asked to see him again because of concern for the wound in the perianal region. The gentleman is alert and appropriate, though weak as previously documented. His wound is inspected and is without evidence of acute infection. It measures approximately 3 cm and is approximately 1.5 cm deep. It is very close to the perianal region and the stool collection device is keeping stool from the wound. However, I think that this stool collection device may be removed shortly because his stool was thickening. When this device is removed he will have stool in the vicinity of his wound and the only way to manage this is to have him wash in the shower or the bathtub after every bowel movement. He states that he is able to do this at home. If he is not able to do this at home he will need nursing care management for essential stool management and wound care. Again, the wound should simply be managed by soap and water and covered with dry gauze. We will sign off. Again, if there is any further need, please reconsult the Surgery Service. DICTATING PHYSICIAN: NANCY LANG M.D. [id number] PHY#: [id number] ID: [id number] JOB#: [id number] ACCT: [id number] cc: >
[2016-08-04] MEDS: CEFTRIAXONE 1 GM/D5W RTU 1 GM/50 ML RTUPB IV SCH (12:39)
--- NOTE | 2016-08-04 16:15 | PDOC PROGRESS REPORT ---
Subjective Progress Note for:: 08/04/16 Subjective:: Patient reports that his diarrhea is improving. He would like to have his rectal tube removed if possible. Physical Exam Vital Signs: Temp Pulse Resp BP Pulse Ox 98.9 F 111 H 20 112/82 100 08/04/16 11:48 08/04/16 14:00 08/04/16 13:50 08/04/16 11:48 08/04/16 13:50 Intake & Output 08/03/16 08/04/16 08/05/16 06:59 06:59 06:59 Intake Total 2988 3089 1310 Output Total 1400 Balance 2988 1689 1310 Weight 57.7 kg 58.1 kg General appearance: PRESENT: no acute distress Eye exam: PRESENT: conjunctiva pink. ABSENT: scleral icterus Mouth exam: PRESENT: moist, tongue midline Neck exam: ABSENT: JVD Respiratory exam: PRESENT: clear to auscultation alexandrea. ABSENT: rales, rhonchi, wheezes Cardiovascular exam: PRESENT: RRR. ABSENT: diastolic murmur, rubs, systolic murmur GI/Abdominal exam: PRESENT: normal bowel sounds, soft. ABSENT: distended, guarding, mass, organolmegaly, rebound, tenderness Extremities exam: ABSENT: calf tenderness, clubbing, pedal edema Neurological exam: PRESENT: alert, awake, oriented to person, oriented to place , oriented to time Psychiatric exam: PRESENT: appropriate affect Skin exam: PRESENT: dry, intact, warm. ABSENT: cyanosis, rash Results Laboratory Results: 08/03/16 05:34 08/03/16 05:34 Impressions: Abdomen/Pelvis CT 07/29/16 12:15 IMPRESSION: Pancolitis Perirectal abscess Left lower lobe consolidation atelectasis versus pneumonia. Adjacent posterior left 9th and 10th ribs acute fractures. Assessment & Plan - Diagnosis (1) C. difficile colitis Is this a current diagnosis for this admission?: YesPlan: The patient has had improvement in his diarrhea. He still has a rectal tube in hopefully we can remove this the next day or so. We'll continue with the oral Flagyl and vancomycin. (2) Perianal abscess Is this a current diagnosis for this admission?: Yes (3) Alcohol abuse Is this a current diagnosis for this admission?: YesPlan: Patient is alert and oriented. No evidence for delirium tremens at this time. (4) Anemia of chronic disease Is this a current diagnosis for this admission?: Yes (5) Bipolar 1 disorder Is this a current diagnosis for this admission?: Yes (6) Hypertension Qualifiers: Hypertension type: essential hypertension Qualified Code(s): I10 - Essential (primary) hypertension Is this a current diagnosis for this admission?: Yes (7) Schizophrenia Qualifiers: Schizophrenia type: unspecified Qualified Code(s): F20.9 - Schizophrenia, unspecified Is this a current diagnosis for this admission?: YesPlan: Patient is alert and oriented currently. (8) Thrombocytopenia Is this a current diagnosis for this admission?: YesPlan: Patient platelets have decreased somewhat and we'll need to monitor in light of his Lovenox therapy. (9) Zoster Qualifiers: Herpes zoster complications: without complications Qualified Code(s) : B02.9 - Zoster without complications Is this a current diagnosis for this admission?: Yes - Time Time Spent with patient: 25-34 minutes - Inpatient Certification Medical Necessity: Need Close Monitoring Due to Risk of Patient Decompensation
[2016-08-04] MEDS: NORMAL SALINE 1000 ML 1,000 ML IV PRN (20:25)
[2016-08-05] MEDS: VANCOMYCIN HCL INJ 500 MG VIAL PO SCH ×4 (00:21→17:17)
[2016-08-05] MEDS: IPRATROPIUM BROMIDE 0.02% NEB 0.5 MG/2.5 ML AMPUL NEB SCH ×3 (02:44→14:13)
[2016-08-05] MEDS: LEVALBUTEROL HCL NEB 1.25 MG/3 ML AMPUL NEB SCH ×3 (02:44→14:13)
[2016-08-05] MEDS: METRONIDAZOLE 500 MG TABLET PO SCH ×4 (02:58→21:42)
[2016-08-05] MEDS: LORAZEPAM 1 MG TABLET PO SCH ×3 (06:35→21:42)
[2016-08-05] MEDS: LANSOPRAZOLE 30 MG TAB.RAP.DR PO SCH ×2 (06:35→17:18)
[2016-08-05 07:29] LABS: ABSOLUTE EOSINOPHILS # (AUTO) 0.3 10^3/uL (0.0-0.6); ABSOLUTE LYMPHOCYTES (AUTO) 1.1 10^3/uL (0.5-4.7); ABSOLUTE NEUT (AUTO) 4.7 10^3/uL (1.7-8.2); BASOPHILS % (AUTO) 0.7 % (0-2); EOSINOPHILS % (AUTO) 3.7 % (0-6); HEMATOCRIT 31.3 % (37.9-51.0); HEMOGLOBIN 10.4 g/dL (13.5-17.0); HGB HCT DIFFERENCE -0.1; LYMPHOCYTES % (AUTO) 15.3 % (13-45); MEAN CORPUSCULAR HEMOGLOBIN 33.9 pg (27.0-33.4); MEAN CORPUSCULAR HGB CONC 33.1 g/dL (32.0-36.0); MEAN CORPUSCULAR VOLUME 103 fl (80-97); MONOCYTES % (AUTO) 14.2 % (3-13); RED BLOOD COUNT 3.05 10^6/uL (4.35-5.55); RED CELL DISTRIBUTION WIDTH 15.1 % (11.5-14.0); SEGMENTED NEUTROPHILS % (AUTO) 66.1 % (42-78); WHITE BLOOD COUNT 7.1 10^3/uL (4.0-10.5)
[2016-08-05 07:45] LABS: ANION GAP 5 (5-19); BLOOD UREA NITROGEN 6 mg/dL (7-20); CALCIUM 8.4 mg/dL (8.4-10.2); CARBON DIOXIDE 30 mmol/L (22-30); CHLORIDE 101 mmol/L (98-107); CREATININE RESULT 0.41 mg/dL (0.52-1.25); GLUCOSE 97 mg/dL (75-110); POTASSIUM 4.2 mmol/L (3.6-5.0); SODIUM 136.2 mmol/L (137-145)
[2016-08-05] MEDS: ENOXAPARIN SODIUM INJ 40 MG/0.4 ML DISP.SYRIN SUBCUT SCH (08:37)
[2016-08-05] MEDS: MULTIVITAMIN TABLET PO SCH (10:07)
[2016-08-05] MEDS: FOLIC ACID 1 MG TABLET PO SCH (10:07)
[2016-08-05] MEDS: LINEZOLID 300 ML IV SCH ×2 (10:07→21:42)
[2016-08-05] MEDS: THIAMINE HCL 100 MG TABLET PO SCH (10:07)
[2016-08-05] MEDS: LACTOBACILLUS ACIDOPHILUS 250 MG TAB PO SCH ×2 (10:08→17:18)
--- NOTE | 2016-08-05 11:50 | PDOC PROGRESS REPORT ---
Subjective Progress Note for:: 08/05/16 Subjective:: Patient reports that his diarrhea is improving. He would like to have his rectal tube removed if possible. Physical Exam Vital Signs: Temp Pulse Resp BP Pulse Ox 98.6 F 101 H 16 136/89 H 99 08/05/16 06:56 08/05/16 07:00 08/05/16 06:56 08/05/16 06:56 08/05/16 06:56 Intake & Output 08/04/16 08/05/16 08/06/16 06:59 06:59 06:59 Intake Total 3089 4903 Output Total 1400 Balance 1689 4903 Weight 58.1 kg 57.9 kg General appearance: PRESENT: no acute distress Eye exam: PRESENT: conjunctiva pink. ABSENT: scleral icterus Mouth exam: PRESENT: moist, tongue midline Neck exam: ABSENT: JVD Respiratory exam: PRESENT: clear to auscultation alexandrea. ABSENT: rales, rhonchi, wheezes Cardiovascular exam: PRESENT: RRR. ABSENT: diastolic murmur, rubs, systolic murmur GI/Abdominal exam: PRESENT: normal bowel sounds, soft. ABSENT: distended, guarding, mass, organolmegaly, rebound, tenderness Extremities exam: ABSENT: calf tenderness, clubbing, pedal edema Neurological exam: PRESENT: alert, awake, oriented to person, oriented to place , oriented to time, oriented to situation Psychiatric exam: PRESENT: appropriate affect Skin exam: PRESENT: dry, intact, warm. ABSENT: cyanosis, rash Results Laboratory Results: 08/05/16 07:06 08/05/16 07:06 08/05/16 08/05/16 07:06 07:06 WBC 7.1 RBC 3.05 L Hgb 10.4 L Hct 31.3 L MCV 103 H MCH 33.9 H MCHC 33.1 RDW 15.1 H Plt Count 195 Seg Neutrophils % 66.1 Lymphocytes % 15.3 Monocytes % 14.2 H Eosinophils % 3.7 Basophils % 0.7 Absolute Neutrophils 4.7 Absolute Lymphocytes 1.1 Absolute Monocytes 1.0 Absolute Eosinophils 0.3 Absolute Basophils 0.0 Sodium 136.2 L Potassium 4.2 Chloride 101 Carbon Dioxide 30 Anion Gap 5 BUN 6 L Creatinine 0.41 L Est GFR ( Amer) > 60 Est GFR (Non-Af Amer) > 60 Glucose 97 Calcium 8.4 Impressions: Abdomen/Pelvis CT 07/29/16 12:15 IMPRESSION: Pancolitis Perirectal abscess Left lower lobe consolidation atelectasis versus pneumonia. Adjacent posterior left 9th and 10th ribs acute fractures. Assessment & Plan - Diagnosis (1) C. difficile colitis Is this a current diagnosis for this admission?: YesPlan: The patient has had improvement in his diarrhea. He still has a rectal tube in hopefully we can remove this today. We'll continue with the oral Flagyl and vancomycin. (2) Perianal abscess Is this a current diagnosis for this admission?: Yes (3) Alcohol abuse Is this a current diagnosis for this admission?: YesPlan: Patient is alert and oriented. No evidence for delirium tremens at this time. (4) Anemia of chronic disease Is this a current diagnosis for this admission?: Yes (5) Bipolar 1 disorder Is this a current diagnosis for this admission?: Yes (6) Hypertension Qualifiers: Hypertension type: essential hypertension Qualified Code(s): I10 - Essential (primary) hypertension Is this a current diagnosis for this admission?: Yes (7) Schizophrenia Qualifiers: Schizophrenia type: unspecified Qualified Code(s): F20.9 - Schizophrenia, unspecified Is this a current diagnosis for this admission?: YesPlan: Patient is alert and oriented currently. (8) Thrombocytopenia Is this a current diagnosis for this admission?: YesPlan: Patient platelets have decreased somewhat and we'll need to monitor in light of his Lovenox therapy. (9) Zoster Qualifiers: Herpes zoster complications: without complications Qualified Code(s) : B02.9 - Zoster without complications Is this a current diagnosis for this admission?: Yes - Time Time Spent with patient: 25-34 minutes - Plan Summary Plan Summary: Patient will have the rectal tube removed today and we will continue with the antibiotics.
[2016-08-05] MEDS: CEFTRIAXONE 1 GM/D5W RTU 1 GM/50 ML RTUPB IV SCH (13:05)
[2016-08-05] MEDS ORDERED: LEVALBUTEROL HCL NEB 1.25 MG/3 ML AMPUL NEB PRN (20:38)
[2016-08-05] MEDS ORDERED: IPRATROPIUM BROMIDE 0.02% NEB 0.5 MG/2.5 ML AMPUL NEB PRN (20:39)
[2016-08-06] MEDS: VANCOMYCIN HCL INJ 500 MG VIAL PO SCH ×5 (01:15→23:53)
[2016-08-06] MEDS: METRONIDAZOLE 500 MG TABLET PO SCH ×4 (02:12→21:08)
[2016-08-06 04:29] LABS: ABSOLUTE EOSINOPHILS # (AUTO) 0.2 10^3/uL (0.0-0.6); ABSOLUTE LYMPHOCYTES (AUTO) 1.1 10^3/uL (0.5-4.7); ABSOLUTE MONOCYTES (AUTO) 1.1 10^3/uL (0.1-1.4); ABSOLUTE NEUT (AUTO) 5.9 10^3/uL (1.7-8.2); BASOPHILS % (AUTO) 0.4 % (0-2); EOSINOPHILS % (AUTO) 2.6 % (0-6); HEMATOCRIT 30.5 % (37.9-51.0); HGB HCT DIFFERENCE -0.5; LYMPHOCYTES % (AUTO) 13.1 % (13-45); MEAN CORPUSCULAR HEMOGLOBIN 33.8 pg (27.0-33.4); MEAN CORPUSCULAR HGB CONC 32.8 g/dL (32.0-36.0); MEAN CORPUSCULAR VOLUME 103 fl (80-97); MONOCYTES % (AUTO) 12.8 % (3-13); RED BLOOD COUNT 2.96 10^6/uL (4.35-5.55); RED CELL DISTRIBUTION WIDTH 14.9 % (11.5-14.0); SEGMENTED NEUTROPHILS % (AUTO) 71.1 % (42-78); WHITE BLOOD COUNT 8.3 10^3/uL (4.0-10.5)
[2016-08-06 04:59] LABS: ANION GAP 9 (5-19); BLOOD UREA NITROGEN 6 mg/dL (7-20); CALCIUM 8.1 mg/dL (8.4-10.2); CARBON DIOXIDE 26 mmol/L (22-30); CHLORIDE 100 mmol/L (98-107); CREATININE RESULT 0.52 mg/dL (0.52-1.25); GLUCOSE 107 mg/dL (75-110); SODIUM 134.6 mmol/L (137-145)
[2016-08-06] MEDS: LORAZEPAM 1 MG TABLET PO SCH ×3 (06:39→21:09)
[2016-08-06] MEDS: LANSOPRAZOLE 30 MG TAB.RAP.DR PO SCH ×2 (06:39→16:20)
[2016-08-06] MEDS: ENOXAPARIN SODIUM INJ 40 MG/0.4 ML DISP.SYRIN SUBCUT SCH (07:52)
[2016-08-06] MEDS: THIAMINE HCL 100 MG TABLET PO SCH (09:46)
[2016-08-06] MEDS: FOLIC ACID 1 MG TABLET PO SCH (09:46)
[2016-08-06] MEDS: MULTIVITAMIN TABLET PO SCH (09:46)
[2016-08-06] MEDS: LACTOBACILLUS ACIDOPHILUS 250 MG TAB PO SCH ×2 (09:47→17:10)
[2016-08-06] MEDS: LINEZOLID 300 ML IV SCH ×2 (09:48→21:08)
[2016-08-06] MEDS: CEFTRIAXONE 1 GM/D5W RTU 1 GM/50 ML RTUPB IV SCH (11:34)
--- NOTE | 2016-08-06 11:42 | PDOC PROGRESS REPORT ---
Subjective Progress Note for:: 08/06/16 Subjective:: Patient reports that his diarrhea continues to improve. He is able to get up to the bathroom by himself. Physical Exam Vital Signs: Temp Pulse Resp BP Pulse Ox 98.4 F 98 20 129/67 H 97 08/06/16 08:08 08/06/16 08:08 08/06/16 08:08 08/06/16 08:08 08/06/16 08:08 Intake & Output 08/05/16 08/06/16 08/07/16 06:59 06:59 06:59 Intake Total 4903 5155 Balance 4903 5155 Weight 57.9 kg 57.5 kg General appearance: PRESENT: no acute distress Eye exam: PRESENT: conjunctiva pink. ABSENT: scleral icterus Mouth exam: PRESENT: moist, tongue midline Neck exam: ABSENT: carotid bruit, JVD, lymphadenopathy, thyromegaly Respiratory exam: PRESENT: clear to auscultation alexandrea. ABSENT: rales, rhonchi, wheezes Cardiovascular exam: PRESENT: RRR. ABSENT: diastolic murmur, rubs, systolic murmur GI/Abdominal exam: PRESENT: normal bowel sounds, soft. ABSENT: distended, guarding, mass, organolmegaly, rebound, tenderness Extremities exam: ABSENT: calf tenderness, clubbing, pedal edema Neurological exam: PRESENT: alert, awake, oriented to person, oriented to place , oriented to time, oriented to situation Psychiatric exam: PRESENT: appropriate affect Skin exam: PRESENT: dry, intact, warm. ABSENT: cyanosis, rash Results Laboratory Results: 08/06/16 04:12 08/06/16 04:12 08/06/16 08/06/16 04:12 04:12 WBC 8.3 RBC 2.96 L Hgb 10.0 L Hct 30.5 L MCV 103 H MCH 33.8 H MCHC 32.8 RDW 14.9 H Plt Count 207 Seg Neutrophils % 71.1 Lymphocytes % 13.1 Monocytes % 12.8 Eosinophils % 2.6 Basophils % 0.4 Absolute Neutrophils 5.9 Absolute Lymphocytes 1.1 Absolute Monocytes 1.1 Absolute Eosinophils 0.2 Absolute Basophils 0.0 Sodium 134.6 L Potassium 4.0 Chloride 100 Carbon Dioxide 26 Anion Gap 9 BUN 6 L Creatinine 0.52 Est GFR ( Amer) > 60 Est GFR (Non-Af Amer) > 60 Glucose 107 Calcium 8.1 L Impressions: Abdomen/Pelvis CT 07/29/16 12:15 IMPRESSION: Pancolitis Perirectal abscess Left lower lobe consolidation atelectasis versus pneumonia. Adjacent posterior left 9th and 10th ribs acute fractures. Assessment & Plan - Diagnosis (1) C. difficile colitis Is this a current diagnosis for this admission?: YesPlan: The patient has had improvement in his diarrhea. We'll continue with the oral Flagyl and vancomycin. If he continues to improve can hopefully discharge home tomorrow. (2) Perianal abscess Is this a current diagnosis for this admission?: YesPlan: Patient has been seen by surgery and they're recommending to wash after each bowel movement in the shower or tub when he goes home. (3) Alcohol abuse Is this a current diagnosis for this admission?: YesPlan: Patient is alert and oriented. No evidence for delirium tremens at this time. (4) Anemia of chronic disease Is this a current diagnosis for this admission?: Yes (5) Bipolar 1 disorder Is this a current diagnosis for this admission?: Yes (6) Hypertension Qualifiers: Hypertension type: essential hypertension Qualified Code(s): I10 - Essential (primary) hypertension Is this a current diagnosis for this admission?: Yes (7) Schizophrenia Qualifiers: Schizophrenia type: unspecified Qualified Code(s): F20.9 - Schizophrenia, unspecified Is this a current diagnosis for this admission?: YesPlan: Patient is alert and oriented currently. (8) Thrombocytopenia Is this a current diagnosis for this admission?: YesPlan: Patient platelets have decreased somewhat and we'll need to monitor in light of his Lovenox therapy. (9) Zoster Qualifiers: Herpes zoster complications: without complications Qualified Code(s) : B02.9 - Zoster without complications Is this a current diagnosis for this admission?: Yes (10) Bacteremia due to Enterococcus Is this a current diagnosis for this admission?: YesPlan: The patient has been getting Zyvox for the bacteremia. - Time Time Spent with patient: 25-34 minutes - Inpatient Certification Medical Necessity: Need for IV Antibiotics - Plan Summary Plan Summary: If he continues to improve we will hopefully discharge home tomorrow.
[2016-08-06] MEDS: NORMAL SALINE 1000 ML 1,000 ML IV PRN (16:23)
[2016-08-07] MEDS: METRONIDAZOLE 500 MG TABLET PO SCH ×2 (04:00→08:27)
[2016-08-07] MEDS: LORAZEPAM 1 MG TABLET PO SCH (05:55)
[2016-08-07] MEDS: LANSOPRAZOLE 30 MG TAB.RAP.DR PO SCH (05:55)
[2016-08-07] MEDS: VANCOMYCIN HCL INJ 500 MG VIAL PO SCH ×2 (05:55→11:22)
[2016-08-07 06:34] LABS: ABSOLUTE BASOPHILS # (AUTO) 0.1 10^3/uL (0.0-0.2); ABSOLUTE EOSINOPHILS # (AUTO) 0.2 10^3/uL (0.0-0.6); ABSOLUTE LYMPHOCYTES (AUTO) 1.1 10^3/uL (0.5-4.7); ABSOLUTE NEUT (AUTO) 4.9 10^3/uL (1.7-8.2); EOSINOPHILS % (AUTO) 2.4 % (0-6); HEMATOCRIT 30.1 % (37.9-51.0); HGB HCT DIFFERENCE -0.1; LYMPHOCYTES % (AUTO) 15.4 % (13-45); MEAN CORPUSCULAR HEMOGLOBIN 34.2 pg (27.0-33.4); MEAN CORPUSCULAR HGB CONC 33.3 g/dL (32.0-36.0); MEAN CORPUSCULAR VOLUME 103 fl (80-97); MONOCYTES % (AUTO) 13.3 % (3-13); RED BLOOD COUNT 2.93 10^6/uL (4.35-5.55); RED CELL DISTRIBUTION WIDTH 14.5 % (11.5-14.0); SEGMENTED NEUTROPHILS % (AUTO) 67.9 % (42-78); WHITE BLOOD COUNT 7.3 10^3/uL (4.0-10.5)
[2016-08-07 06:59] LABS: ANION GAP 6 (5-19); BLOOD UREA NITROGEN 8 mg/dL (7-20); CALCIUM 8.5 mg/dL (8.4-10.2); CARBON DIOXIDE 29 mmol/L (22-30); CHLORIDE 102 mmol/L (98-107); CREATININE RESULT 0.48 mg/dL (0.52-1.25); GLUCOSE 106 mg/dL (75-110); POTASSIUM 3.6 mmol/L (3.6-5.0); SODIUM 137.3 mmol/L (137-145)
[2016-08-07] MEDS: ENOXAPARIN SODIUM INJ 40 MG/0.4 ML DISP.SYRIN SUBCUT SCH (07:30)
[2016-08-07 08:09] VITALS: BP 134/87
[2016-08-07] MEDS: THIAMINE HCL 100 MG TABLET PO SCH (09:01)
[2016-08-07] MEDS: FOLIC ACID 1 MG TABLET PO SCH (09:01)
[2016-08-07] MEDS: LINEZOLID 300 ML IV SCH (09:01)
[2016-08-07] MEDS: MULTIVITAMIN TABLET PO SCH (09:01)
[2016-08-07] MEDS: LACTOBACILLUS ACIDOPHILUS 250 MG TAB PO SCH (09:02)
[2016-08-07] MEDS: CEFTRIAXONE 1 GM/D5W RTU 1 GM/50 ML RTUPB IV SCH (11:21)
--- NOTE | 2016-08-07 15:45 | PDOC DISCHARGE SUMMARY ---
General - Admit/Disc Date/PCP Admission Date/Primary Care Provider: 07/29/16 16:26 Discharge Date: 08/07/16 - Discharge Diagnosis (1) C. difficile colitis Is this a current diagnosis for this admission?: YesSummary: Patient is being sent home on by mouth vancomycin and Flagyl. (2) Perianal abscess Is this a current diagnosis for this admission?: YesSummary: Patient had surgical drainage of this. Treatment is to wash after every bowel movement and cover with a clean gauze. (3) Alcohol abuse Is this a current diagnosis for this admission?: Yes (4) Anemia of chronic disease Is this a current diagnosis for this admission?: Yes (5) Bipolar 1 disorder Is this a current diagnosis for this admission?: Yes (6) Hypertension Is this a current diagnosis for this admission?: Yes (7) Schizophrenia Is this a current diagnosis for this admission?: Yes (8) Thrombocytopenia Is this a current diagnosis for this admission?: Yes (9) Zoster Is this a current diagnosis for this admission?: Yes (10) Bacteremia due to Enterococcus Is this a current diagnosis for this admission?: YesSummary: Patient has completed 6 days of Zyvox for enterococcus bacteremia - Additional Information Resuscitation Status: Full Code Discharge Diet: Regular Discharge Activity: Activity As Tolerated Home Medications: Albuterol Sulfate [Proair HFA Inhalation Aerosol 8.5 gm MDI] 1 inh PO ASDIR PRN 07/11/16 Aspirin [Aspirin 325 mg Tablet] 325 mg PO DAILY 07/11/16 Acidoph/L.bulg/Bif.b/S.thermop [Bacid Caplet] 1 each PO BID #28 tablet 07/18/16 Valacyclovir HCl [Valtrex 500 mg Tablet] 1,000 mg PO Q8 #6 tablet 07/18/16 Lorazepam [Ativan 1 mg Tablet] 1 mg PO Q8 PRN #20 tablet 08/07/16 Metronidazole [Flagyl 500 mg Tablet] 500 mg PO Q8 #42 tablet 08/07/16 Vancomycin HCl [Vancocin HCl] 250 mg PO Q6 #56 capsule 08/07/16 History of Present Illness History of Present Illness: DEO CORTÉS is a 56 year old male who has a history of alcohol abuse who presented with progressive generalized weakness. The patient also had had complaints of diarrhea. The patient had previously been hospitalized after getting aspiration pneumonia and was treated with broad-spectrum antibiotics. The patient signed out AGAINST MEDICAL ADVICE during the previous hospitalization and presented back with general has weakness and worsening diarrhea. Patient was found to have pancolitis on CT scan with a perianal abscess and Clostridium difficile. Patient is admitted for treatment of the colitis, C. difficile, perianal abscess. Hospital Course Hospital Course: 56-year-old male with history of alcohol abuse who presented with diarrhea and generalized weakness. Patient was found to have pancolitis with Clostridium difficile. Patient also was noted have a perianal abscess that was evaluated by surgery and it was opened up. The patient initially had explosive watery diarrhea and had a rectal tube placed. As his diarrhea improved with treatment directed to was removed and he was able to move his bowels without difficulty. His perianal abscess was treated with I&D. Surgery has recommended that the patient wash this area after every bowel movement in place dry gauze over it until it heals up. The patient also does have a positive blood culture with enterococcus and he did receive Zyvox while here. Patient has completed a course of Zyvox for treatment of his enterococcus bacteremia. The patient is to complete 2 additional weeks of antibiotics for treatment of this cluster to penicillin the form of by mouth vancomycin and Flagyl. Physical Exam Vital Signs: Temp Pulse Resp BP Pulse Ox 98.6 F 92 16 134/87 H 96 08/07/16 11:51 08/07/16 12:44 08/07/16 12:44 08/07/16 11:51 08/07/16 11:51 Intake & Output 08/06/16 08/07/16 08/08/16 06:59 06:59 06:59 Intake Total 5155 4420 823 Balance 5155 4420 823 Weight 57.5 kg 56.9 kg General appearance: PRESENT: no acute distress Eye exam: PRESENT: conjunctiva pink Mouth exam: PRESENT: moist, tongue midline Neck exam: ABSENT: JVD Respiratory exam: PRESENT: clear to auscultation alexandrea. ABSENT: rales, rhonchi, wheezes Cardiovascular exam: PRESENT: RRR. ABSENT: diastolic murmur, rubs, systolic murmur GI/Abdominal exam: PRESENT: normal bowel sounds, soft. ABSENT: distended, guarding, mass, organolmegaly, rebound, tenderness Extremities exam: ABSENT: calf tenderness, clubbing, pedal edema Neurological exam: PRESENT: alert, awake, oriented to person, oriented to place , oriented to time, oriented to situation Psychiatric exam: PRESENT: appropriate affect Skin exam: PRESENT: dry, intact, warm. ABSENT: cyanosis, rash Results Laboratory Results: 08/07/16 06:19 08/07/16 06:19 08/07/16 08/07/16 06:19 06:19 WBC 7.3 RBC 2.93 L Hgb 10.0 L Hct 30.1 L MCV 103 H MCH 34.2 H MCHC 33.3 RDW 14.5 H Plt Count 234 Seg Neutrophils % 67.9 Lymphocytes % 15.4 Monocytes % 13.3 H Eosinophils % 2.4 Basophils % 1.0 Absolute Neutrophils 4.9 Absolute Lymphocytes 1.1 Absolute Monocytes 1.0 Absolute Eosinophils 0.2 Absolute Basophils 0.1 Sodium 137.3 Potassium 3.6 Chloride 102 Carbon Dioxide 29 Anion Gap 6 BUN 8 Creatinine 0.48 L Est GFR ( Amer) > 60 Est GFR (Non-Af Amer) > 60 Glucose 106 Calcium 8.5 Impressions: Abdomen/Pelvis CT 07/29/16 12:15 IMPRESSION: Pancolitis Perirectal abscess Left lower lobe consolidation atelectasis versus pneumonia. Adjacent posterior left 9th and 10th ribs acute fractures. Qualifiers PATEINT BEING DISCHARGED WITH ANY OF THE FOLLOWING DIAGNOSIS?: No Plan Discharge Plan: Patient is discharged home and will follow primary care in 1 week. He was offered home health for dressing changes although he refused this. He reports that his brother he lives with we'll do his dressing changes. Time Spent: Greater than 30 Minutes
== END 2016-08-07 13:04 | disposition home or self-care (01) | DRG 344 ==
LOC: ER 09:32 → EH 15:23 → UNDOADMIN 15:23 → EH 16:26 → 3S 21:24
PROC: 0D9P0ZX Drainage of Rectum, Open Approach, Diagnostic (ICD-10-PCS; principal; 2016-07-29)
DX: A04.7 Enterocolitis due to Clostridium difficile (principal); J69.0 Pneumonitis due to inhalation of food and vomit; K61.1 Rectal abscess; J44.1 Chronic obstructive pulmonary disease with (acute) exacerbation; S22.42XA Multiple fractures of ribs, left side, initial encounter for closed fracture; F10.239 Alcohol dependence with withdrawal, unspecified; K70.30 Alcoholic cirrhosis of liver without ascites; K70.0 Alcoholic fatty liver; E87.6 Hypokalemia; K57.30 Diverticulosis of large intestine without perforation or abscess without bleeding; R56.9 Unspecified convulsions; D63.8 Anemia in other chronic diseases classified elsewhere; I10 Essential (primary) hypertension; F31.9 Bipolar disorder, unspecified; F90.9 Attention-deficit hyperactivity disorder, unspecified type; F20.9 Schizophrenia, unspecified; B96.20 Unspecified Escherichia coli [E. coli] as the cause of diseases classified elsewhere; B95.2 Enterococcus as the cause of diseases classified elsewhere; D69.6 Thrombocytopenia, unspecified; B02.9 Zoster without complications; F17.210 Nicotine dependence, cigarettes, uncomplicated; Y90.9 Presence of alcohol in blood, level not specified; W19.XXXA Unspecified fall, initial encounter; Y93.9 Activity, unspecified; Y92.9 Unspecified place or not applicable; Z86.718 Personal history of other venous thrombosis and embolism
CPT/HCPCS: 36415; 74177; 80048; 80053; 80202; 82272; 83605; 83735; 84100; 85025; 85027; 85610; 87040; 87070; 87075; 87077; 87186; 87205; 87493; 89055; 96361; 96365; 99291; 99292; 99406; J0696; J1335; J1650; J1940; J2020; J2060; J2930; J3370; J3411; J3475; J3480; J3490; J7030; J7060

== ENCOUNTER 2016-08-19 10:15 | Emergency (ER) | payer MEDICAID ==
[2016-08-19] MEDS ORDERED: NORMAL SALINE 1000 ML 1,000 ML IV ONE ×2 (10:29→15:29)
--- NOTE | 2016-08-19 10:39 | ER Document Report ---
ED General - General Time seen by provider: 10:25 Mode of Arrival: Medic Information source: Emergency Med Personnel, [facility] Records TRAVEL OUTSIDE OF THE [place] IN LAST 30 DAYS: No - HPI Onset: Other - see HPI note <DALLAS ORDONEZ - Last Filed: 08/19/16 10:39> <JOSEF GALLEGO - Last Filed: 08/19/16 16:04> - General Stated Complaint: WEAKNESS Notes: Patient is a 56 year old male presenting to the emergency department for weakness and a fall. Patient's brother was not able to get the patient up so EMS was called. EMS states that the patient has been drinking EtOH. Patient smells of wood burning fire and EMS states the house had a fireplace. Patient was recently admitted to the hospital multiple times. On 07/10-07/28 patient was admitted for EtOH withdrawal seizures. Patient had a prescription for flagyl and it was filled on 07/20; however only 7 tablets are missing. On 07/29-08/07 patient was admitted for C-Diff. Patient had a prescription for vancomycin on 08/07 but it has not been filled. On 08/14-08/18 patient was admitted for hypoxia, respiratory failure, and lung collapse. Patient is very drowsy and does not provide information; information has primarily come from EMS and [facility] records. ( DALLAS ORDONEZ) This 56-year-old male patient brought to emergency room by EMS after falling on the floor, being too weak to get up. He is found have low blood pressure. He was discharged from the hospital yesterday after being admitted for ongoing C. difficile diarrhea and left lower lung collapse with respiratory failure. He was admitted on 07/10/2016 for 9 days for alcohol withdrawal and seizures. He was found to have C. difficile diarrhea and was prescribed Flagyl which she is not taking. The prescription bottle was found with it being filled on 2016, and 35 of 42 tablets still present. He was readmitted on 07/29/2016 through 08/07/2016 for C. difficile infection. He was discharged with vancomycin prescription and did not fill this due to cost. He was readmitted on 08/14/2016 and respiratory distress and found to have complete left lower lobe lung collapse. He was discharged yesterday with another prescription for Flagyl that was sent electronically to the pharmacy. He did not fill this prescription. Today his alcohol level is 222 mg%. When I asked the patient why he did not ever take his original metronidazole prescription, he did not have an explanation. When I mentioned that he is just getting drunk all the time not taking his medicine, he states that he does not get drunk. This despite an alcohol level of 222 mg%. (OJSEF GALLEGO) - Related Data Allergies/Adverse Reactions: rivaroxaban [From Xarelto] Adverse Reaction (Verified 08/15/16 12:29) warfarin [From Coumadin] Adverse Reaction (Verified 08/15/16 12:29) Past Medical History - General Information source: Patient - Social History Smoking Status: Current Every Day Smoker Frequency of alcohol use: Heavy Family History: CAD, DM, Other - Past Medical History Cardiac Medical History: Reports: Hx DVT - History of; reportedly allergic to a number of systemic anticoagulants., Hx Hypertension Pulmonary Medical History: Reports: Hx COPD Neurological Medical History: Reports: Hx Seizures - EtOH withdrawal seizures GI Medical History: Reports: Hx Cirrhosis Skin Medical History: Reports Hx Psoriasis Psychiatric Medical History: Reports: Hx Attention Deficit Hyperactivity Disorder, Hx Bipolar Disorder, Hx Schizoaffective Disorder Infectious Medical History: Reports: Hx C-Diff - Recent hospital stay for same Past Surgical History: Reports: Other - Nasal surgery - Immunizations Hx Diphtheria, Pertussis, Tetanus Vaccination: - unk Hx Pneumococcal Vaccination: 06/07/13 <DALLAS ORDONEZ - Last Filed: 08/19/16 10:39> Review of Systems - Review of Systems Constitutional: See HPI, Weakness EENT: No symptoms reported Cardiovascular: No symptoms reported Respiratory: No symptoms reported Gastrointestinal: No symptoms reported Genitourinary: No symptoms reported Male Genitourinary: No symptoms reported Musculoskeletal: No symptoms reported Skin: No symptoms reported Hematologic/Lymphatic: No symptoms reported Neurological/Psychological: See HPI -: Yes All other systems reviewed and negative <DALLAS ORDONEZ - Last Filed: 08/19/16 10:39> Physical Exam - Vital signs Interpretation: Hypotensive - 87/60 - General General appearance: Other - patient is quite drowsy and has a wood fire smell to his clothing In distress: Mild - HEENT Head: Normocephalic, Atraumatic Eyes: Normal Pupils: PERRL Mucous membranes: Moist - Respiratory Respiratory status: No respiratory distress Chest status: Nontender Breath sounds: Normal Chest palpation: Normal - Cardiovascular Rhythm: Regular Heart sounds: Normal auscultation Murmur: No - Abdominal Inspection: Normal Distension: No distension Bowel sounds: Normal Tenderness: Nontender Organomegaly: No organomegaly - Back Back: Normal, Nontender - Extremities General upper extremity: Normal inspection, Normal ROM, Normal strength General lower extremity: Normal inspection, Normal ROM, Normal strength - Neurological Neuro grossly intact: Yes Cognition: Normal - Psychological Associated symptoms: Normal affect, Normal mood - Skin Skin Temperature: Warm Skin Moisture: Dry <DALLAS ORDONEZ - Last Filed: 08/19/16 10:39> <JOSEF GALLEGO - Last Filed: 08/19/16 16:04> - Vital signs Vitals: Temp Pulse Resp BP Pulse Ox 97.4 F 94 20 87/60 L 94 08/19/16 10:40 08/19/16 10:40 08/19/16 10:40 08/19/16 10:40 08/19/16 10:40 - Rectal Notes: Patient is having diarrhea, consistent with his diagnosis of C-Diff (DALLAS ORDONEZ) Course <DALLAS ORDONEZ - Last Filed: 08/19/16 10:39> - Laboratory Result Diagrams: 08/19/16 11:20 08/19/16 11:20 - EKG Interpretation by Ct EKG shows normal: Sinus rhythm, QRS Complexes. abnormal: Welda, Intervals - Prolonged QT interval, ST-T Waves - Borderline lateral T abnormalities Rate: Normal - 94 Rhythm: NSR Welda/QRS: Right axis deviation P Waves: LAE When compared to previous EKG there are: No significant change <JOSEF GALLEGO - Last Filed: 08/19/16 16:04> - Re-evaluation Re-evalutation: 08/19/16 14:25 The patient continues to have loose stools requiring assistance in getting cleaned up. (JOSEF GALLEGO) - Vital Signs Vital signs: Temp Pulse Resp BP Pulse Ox 97.4 F 94 19 101/67 94 08/19/16 10:40 08/19/16 10:40 08/19/16 12:52 08/19/16 12:52 08/19/16 10:40 - Laboratory Laboratory results interpreted by me: 08/19/16 08/19/16 11:20 11:20 RBC 4.00 L Hgb 13.0 L MCV 102 H RDW 14.5 H Potassium 5.3 H Creatinine 0.41 L AST 99 H Creatine Kinase 22 L Discharge <DALLAS ORDONEZ - Last Filed: 08/19/16 10:39> <JOSEF GALLEGO - Last Filed: 08/19/16 16:04> - Discharge Clinical Impression: Clostridium difficile diarrhea, Hx of medication noncompliance Acute alcohol intoxication Qualifiers: Complication of substance-induced condition: uncomplicated Qualified Code(s): F10.120 - Alcohol abuse with intoxication, uncomplicated Condition: Stable Disposition: HOME, SELF-CARE Additional Instructions: Take the metronidazole you have to treat your Clostridium difficile bowel infection. Stop drinking alcohol. Drink plenty of fluids and eat nutritious meals. Follow-up with your doctor in the next several days for recheck. RETURN TO THE EMERGENCY ROOM IF ANY NEW OR WORSENING SYMPTOMS. Referrals: CORBIN GONZALEZ MD [Primary Care Provider] - Follow up as needed Scribe Attestation: 08/19/16 16:04 I personally performed the services described in the documentation, reviewed and edited the documentation which was dictated to the scribe in my presence, and it accurately records my words and actions. (JOSEF GALLEGO) Scribe Documentation - Scribe Written by Scrrandell:: Dallas Ordonez 08/19/16 11:00 acting as scribe for :: Mini <DALLAS ORDONEZ - Last Filed: 08/19/16 10:39>
[2016-08-19] MEDS ORDERED: DEXTROSE 5%-LACTATED RINGERS 1,000 ML IV ONE (11:27)
[2016-08-19] MEDS ORDERED: THIAMINE HCL INJ 200 MG/2 ML VIAL IV ONE (11:27)
[2016-08-19 11:40] LABS: ABSOLUTE BASOPHILS # (AUTO) 0.1 10^3/uL (0.0-0.2); ABSOLUTE EOSINOPHILS # (AUTO) 0.2 10^3/uL (0.0-0.6); ABSOLUTE LYMPHOCYTES (AUTO) 1.4 10^3/uL (0.5-4.7); ABSOLUTE MONOCYTES (AUTO) 0.6 10^3/uL (0.1-1.4); ABSOLUTE NEUT (AUTO) 3.1 10^3/uL (1.7-8.2); BASOPHILS % (AUTO) 0.9 % (0-2); EOSINOPHILS % (AUTO) 3.7 % (0-6); HEMATOCRIT 40.6 % (37.9-51.0); HGB HCT DIFFERENCE -1.6; LYMPHOCYTES % (AUTO) 26.8 % (13-45); MEAN CORPUSCULAR HEMOGLOBIN 32.5 pg (27.0-33.4); MEAN CORPUSCULAR VOLUME 102 fl (80-97); RED CELL DISTRIBUTION WIDTH 14.5 % (11.5-14.0); SEGMENTED NEUTROPHILS % (AUTO) 57.6 % (42-78); WHITE BLOOD COUNT 5.3 10^3/uL (4.0-10.5)
[2016-08-19 12:19] LABS: ALANINE AMINOTRANSFERASE 70 U/L (21-72); ALBUMIN 3.8 g/dL (3.5-5.0); ALCOHOL 222 mg/dL (NONE DETECTED); ALKALINE PHOSPHATASE 98 U/L (38-126); ANION GAP 13 (5-19); ASPARTATE AMINO TRANSFERASE 99 U/L (17-59); BILIRUBIN,TOTAL 0.5 mg/dL (0.2-1.3); BLOOD UREA NITROGEN 12 mg/dL (7-20); CALCIUM 9.5 mg/dL (8.4-10.2); CARBON DIOXIDE 28 mmol/L (22-30); CHLORIDE 103 mmol/L (98-107); CREATINE KINASE 22 U/L (55-170); CREATININE RESULT 0.41 mg/dL (0.52-1.25); GLUCOSE 86 mg/dL (75-110); POTASSIUM 5.3 mmol/L (3.6-5.0); TOTAL PROTEIN 7.2 g/dL (6.3-8.2)
[2016-08-19 12:25] LABS: CREATINE KINASE MB < 0.22 ng/mL (<4.55); TROPONIN I < 0.012 ng/mL
[2016-08-19 15:05] LABS: APPEARANCE,URINE CLEAR; BILIRUBIN,URINE NEGATIVE (NEGATIVE); GLUCOSE, URINE NEGATIVE (NEGATIVE); KETONES,URINE NEGATIVE (NEGATIVE); LEUKOCYTE ESTERASE,URINE NEGATIVE (NEGATIVE); NITRITE,URINE NEGATIVE (NEGATIVE); PROTEIN,URINE NEGATIVE (NEGATIVE); URINE SPECIFIC GRAVITY 1.005; UROBILINOGEN,URINE NEGATIVE mg/dL (<2.0)
[2016-08-19 17:03] VITALS: BP 106/68
--- NOTE | 2016-08-20 11:19 | EKG REPORT ---
SEVERITY:- ABNORMAL ECG - SINUS RHYTHM PROBABLE LEFT ATRIAL ABNORMALITY BORDERLINE RIGHT AXIS DEVIATION BORDERLINE T ABNORMALITIES, LATERAL LEADS PROLONGED QT INTERVAL : Confirmed by: Ericka Bennett 20-Aug-2016 11:19:26
== END 2016-08-19 17:15 | disposition home or self-care (01) ==
LOC: ER 10:15
DX: A04.7 Enterocolitis due to Clostridium difficile (principal); F10.120 Alcohol abuse with intoxication, uncomplicated; R53.1 Weakness; F17.200 Nicotine dependence, unspecified, uncomplicated; Z91.14 Patient's other noncompliance with medication regimen
CPT/HCPCS: 93005; 99285; 96361; 96375; 96365; 36415; 87040; 82553; 80307; 82550; 85025; 80053; 81001; 84484; 83605; 71010; 93010; J3411; J7030

== ENCOUNTER 2016-08-22 20:14 | Emergency (ER) | payer MEDICAID ==
[2016-08-22] MEDS ORDERED: IPRATROPIUM/ALBUTEROL 0.5-2.5 MG/3 ML AMPUL NEB ONE (20:24)
--- NOTE | 2016-08-22 20:37 | ER Document Report ---
ED General - General Chief Complaint: ETOH Abuse Stated Complaint: Etoh Abuse Notes: Patient is a 56-year-old male who presents by EMS because he was apparently drinking. Patient states he does not wish to be here in the emergency room and he denies any complaints. States his brother called EMS because he found him to be drinking hard liquor today which he has been instructed not to do. EMS report also reviewed, this corroborates the patient's history that he had no symptoms whatsoever and was transported per the brother's request due to his alcohol use. He denies any shortness of breath, chest pain, nausea or vomiting. He was apparently watching TV, resting calmly at the time of EMS arrival. He was just discharged from the hospital yesterday. TRAVEL OUTSIDE OF THE [place] IN LAST 30 DAYS: No - Related Data Allergies/Adverse Reactions: rivaroxaban [From Xarelto] Adverse Reaction (Verified 08/15/16 12:29) warfarin [From Coumadin] Adverse Reaction (Verified 08/15/16 12:29) Past Medical History - General Information source: Patient - Social History Smoking Status: Current Every Day Smoker Frequency of alcohol use: Heavy Drug Abuse: None Lives with: Family Family History: CAD, DM, Other - Past Medical History Cardiac Medical History: Reports: Hx Congestive Heart Failure, Hx DVT - History of; reportedly allergic to a number of systemic anticoagulants., Hx Hypertension Denies: Hx Hypercholesterolemia Pulmonary Medical History: Reports: Hx COPD Neurological Medical History: Reports: Hx Seizures - EtOH withdrawal seizures Endocrine Medical History: Denies: Hx Diabetes Mellitus Type 1, Hx Diabetes Mellitus Type 2, Hx Hyperthyroidism, Hx Hypothyroidism Renal/ Medical History: Denies: Hx Peritoneal Dialysis GI Medical History: Reports: Hx Cirrhosis. Denies: Hx Hepatitis Skin Medical History: Reports Hx Psoriasis Psychiatric Medical History: Reports: Hx Attention Deficit Hyperactivity Disorder, Hx Bipolar Disorder, Hx Schizoaffective Disorder Infectious Medical History: Reports: Hx C-Diff - Recent hospital stay for same. Denies: Hx Hepatitis Past Surgical History: Reports: Other - Nasal surgery - Immunizations Hx Diphtheria, Pertussis, Tetanus Vaccination: - unk Hx Pneumococcal Vaccination: 06/07/13 Review of Systems - Review of Systems Notes: Constitutional: Negative for fever. HENT: Negative for sore throat. Eyes: Negative for visual changes. Cardiovascular: Negative for chest pain. Respiratory: Negative for shortness of breath. Gastrointestinal: Negative for abdominal pain, vomiting or diarrhea. Genitourinary: Negative for dysuria. Musculoskeletal: Negative for back pain. Skin: Negative for rash. Neurological: Negative for headaches, weakness or numbness. 10 point ROS negative except as marked above and in HPI. Physical Exam - Vital signs Vitals: Pulse Resp BP Pulse Ox 111 H 16 118/66 99 08/22/16 20:15 08/22/16 20:15 08/22/16 20:15 08/22/16 20:15 Of note, review patient's prior medical records demonstrates that he has tachycardia at baseline Interpretation: Tachycardic Notes: PHYSICAL EXAMINATION: GENERAL: Appears older than stated age, somewhat disheveled but no acute distress HEAD: Atraumatic, normocephalic. EYES: Pupils equal round and reactive to light, extraocular movements intact, sclera anicteric, conjunctiva are normal. ENT: nares patent, oropharynx clear without exudates. Moist mucous membranes. NECK: Normal range of motion, supple without lymphadenopathy LUNGS: Breath sounds clear to auscultation bilaterally and equal. No wheezes rales or rhonchi. HEART: Regular rate and rhythm without murmurs ABDOMEN: Soft, nontender, normoactive bowel sounds. No guarding, no rebound. No masses appreciated. EXTREMITIES: Normal range of motion, no pitting or edema. No cyanosis. NEUROLOGICAL: No focal neurological deficits. Moves all extremities spontaneously and on command. PSYCH: Mildly intoxicated but speaking clear sentences. SKIN: Warm, Dry, normal turgor, no rashes or lesions noted. Course - Re-evaluation Re-evalutation: 08/22/16 20:35 Patient presents with acute alcohol intoxication without any additional acute complaints. Admits to heavy alcohol use today. No evidence of trauma on exam. Patient is able to talk in complete sentence and walking a straight line at time of arrival. He is brought in by EMS apparently because his brother was upset that he was drinking alcohol but the patient did not want to come. Patient denies any additional symptoms including shortness of breath. Tolerating oral intake without difficulty. The patient has been instructed to seek help for alcohol detoxification. Will discharge and return precautions and follow-up recommendations. - Vital Signs Vital signs: Temp Pulse Resp BP Pulse Ox 98.4 F 108 H 20 130/78 H 95 08/22/16 21:30 08/22/16 21:30 08/22/16 21:30 08/22/16 21:30 08/22/16 21:30 Discharge - Discharge Clinical Impression: Acute alcohol intoxication Qualifiers: Complication of substance-induced condition: uncomplicated Qualified Code(s): F10.120 - Alcohol abuse with intoxication, uncomplicated Condition: Good Disposition: HOME, SELF-CARE Additional Instructions: You were seen in the emergency department today for being drunk. Being seen in the emergency department after drinking alcohol is a serious indicator that you have a problem with alcohol. You should seek help with the attached resources for your problem drinking. Please return to the emergency room immediately if you experience any concerning symptoms including high fevers, severe headache, chest pain, difficulty breathing, abdominal pain, slurred speech, numbness or weakness in your arms or legs, or any other symptom that concerns you.
[2016-08-22 21:53] VITALS: BP 130/78
== END 2016-08-22 21:34 | disposition home or self-care (01) ==
LOC: ER 20:14
DX: F10.120 Alcohol abuse with intoxication, uncomplicated (principal); F17.200 Nicotine dependence, unspecified, uncomplicated; I50.9 Heart failure, unspecified; I11.0 Hypertensive heart disease with heart failure; J44.9 Chronic obstructive pulmonary disease, unspecified; Z86.718 Personal history of other venous thrombosis and embolism
CPT/HCPCS: 99284

== ENCOUNTER 2016-08-24 02:02 | Emergency (ER) | payer MEDICAID ==
[2016-08-24] MEDS ORDERED: NYSTATIN OINTMENT 15 GM TUBE TP ONE (04:35)
[2016-08-24] MEDS ORDERED: ZINC OXIDE 20% OINTMENT 28.35 GM TP ONE (04:37)
--- NOTE | 2016-08-24 04:37 | ER Document Report ---
ED Dizziness/Weakness - General Chief Complaint: Weakness Stated Complaint: WEAKNESS Time seen by provider: 03:52 Mode of Arrival: Medic Information source: Patient Notes: 56 yo male in by ems due to weakness in legs. Fell 1 month ago. Daily etoh since teenager. Normal to have tremors. Hx incontinence of urine and stool for months, wears a diaper that he puts on himself. Lives with brother who cares for him. When I walked into the room he was tremulous, awake, and told me that he stooled on himself and the sheet was saturated in urine. I proceded to clean him up. He had from of legs, able to stand with assistance and walk to the chair to sit while bed was changed. TRAVEL OUTSIDE OF THE [place] IN LAST 30 DAYS: No - Related Data Allergies/Adverse Reactions: rivaroxaban [From Xarelto] Adverse Reaction (Verified 08/24/16 02:15) warfarin [From Coumadin] Adverse Reaction (Verified 08/24/16 02:15) Past Medical History - General Information source: Patient - Social History Smoking Status: Current Every Day Smoker Chew tobacco use (# tins/day): No Frequency of alcohol use: Heavy Drug Abuse: None Lives with: Family - brother Family History: CAD, DM, Other - Past Medical History Cardiac Medical History: Reports: Hx Congestive Heart Failure, Hx DVT - History of; reportedly allergic to a number of systemic anticoagulants., Hx Hypertension Pulmonary Medical History: Reports: Hx COPD Neurological Medical History: Reports: Hx Seizures - EtOH withdrawal seizures Renal/ Medical History: Denies: Hx Peritoneal Dialysis GI Medical History: Reports: Hx Cirrhosis Skin Medical History: Reports Hx Psoriasis Psychiatric Medical History: Reports: Hx Attention Deficit Hyperactivity Disorder, Hx Bipolar Disorder, Hx Schizoaffective Disorder Infectious Medical History: Reports: Hx C-Diff - Recent hospital stay for same Past Surgical History: Reports: Other - Nasal surgery - Immunizations Hx Diphtheria, Pertussis, Tetanus Vaccination: - unk Hx Pneumococcal Vaccination: 06/07/13 Review of Systems - Review of Systems Constitutional: No symptoms reported EENT: No symptoms reported Cardiovascular: No symptoms reported Respiratory: No symptoms reported Gastrointestinal: No symptoms reported Genitourinary: No symptoms reported Male Genitourinary: No symptoms reported Musculoskeletal: No symptoms reported Skin: No symptoms reported Hematologic/Lymphatic: No symptoms reported Neurological/Psychological: See HPI Physical Exam - Vital signs Vitals: Temp Pulse Resp BP Pulse Ox 99.0 F 121 H 18 142/103 H 94 08/24/16 02:16 08/24/16 02:16 08/24/16 02:16 08/24/16 02:16 08/24/16 02:16 Interpretation: Tachycardic - General General appearance: Alert, Other - chronically ill appearing - HEENT Head: Normocephalic, Atraumatic Eyes: Normal Conjunctiva: No: Icteric Pupils: PERRL Mucous membranes: Dry Neck: Supple - Respiratory Respiratory status: No respiratory distress Chest status: Nontender Breath sounds: Normal Chest palpation: Normal - Cardiovascular Rhythm: Regular Heart sounds: Normal auscultation Murmur: No - Abdominal Inspection: Normal Distension: No distension Bowel sounds: Normal Tenderness: Nontender. No: Tender Organomegaly: No organomegaly - Genitourinary Inspection: Other - groin red rash, penile distal shart with bleeding excoriated skin when diaper removed Tenderness: Nontender Scrotum: Redness - rash - Back Back: Normal, Nontender. No: CVA tenderness - Extremities General upper extremity: Normal inspection, Nontender, Normal color, Normal ROM , Normal temperature General lower extremity: Normal inspection, Nontender, Normal color, Normal ROM , Normal temperature, Normal weight bearing. No: Nilo's sign - Neurological Neuro grossly intact: Yes Cognition: Normal Orientation: AAOx4 Essie Coma Scale Eye Opening: Spontaneous Essie Coma Scale Verbal: Oriented Sameer Coma Scale Motor: Obeys Commands Sameer Coma Scale Total: 15 Speech: Normal Motor strength normal: LUE, RUE, LLE, RLE Sensory: Normal - Psychological Associated symptoms: Normal affect, Normal mood - Skin Skin Temperature: Warm Skin Moisture: Dry Skin Color: Normal Notes: see above Course - Re-evaluation Re-evalutation: 08/24/16 06:07 Patient was less tremulous with 1 mg Ativan given. The nystatin and zinc oxide has been applied to the diaper rash. with the patient being discharged home. Pt has been drinking liquids, no vomiting. Patient did ambulate to the chair with assistance. I will be writing a prescription for a walker so he will be more steady. vitals are stable 08/24/16 06:11 - Vital Signs Vital signs: Temp Pulse Resp BP Pulse Ox 99.0 F 99 20 142/85 H 96 08/24/16 05:53 08/24/16 05:53 08/24/16 05:53 08/24/16 05:53 08/24/16 05:53 - Laboratory Result Diagrams: 08/24/16 04:28 08/24/16 04:28 Laboratory results interpreted by me: 08/24/16 08/24/16 04:28 04:28 RBC 3.60 L Hgb 11.9 L Hct 35.6 L MCV 99 H RDW 14.1 H Creatinine 0.34 L Magnesium 1.5 L AST 91 H ALT 82 H Alkaline Phosphatase 212 H Discharge - Discharge Clinical Impression: daily alcohol consumption, chronic tremors, Unsteady gait, genitalia rash Condition: Stable Disposition: HOME, SELF-CARE Instructions: Dizziness ([facility]), Chronic Alcoholism ([facility]) Additional Instructions: see your doctor for follow up use the walker for stability use the cream to you groin rash stop drinking alcohol Please complete the patient satisfaction survey if you get one, and return it.. If you do not receive a survey, then you can go to the [facility] website, [email or web address] and place your comments about your very good care. Thank you very much. It was a pleasure being your medical provider today. Prescriptions: Walker [Folding Walker] 1 each MC ASDIR PRN #1 each PRN Reason:
[2016-08-24 04:38] LABS: ABSOLUTE BASOPHILS # (AUTO) 0.1 10^3/uL (0.0-0.2); ABSOLUTE EOSINOPHILS # (AUTO) 0.2 10^3/uL (0.0-0.6); ABSOLUTE LYMPHOCYTES (AUTO) 1.5 10^3/uL (0.5-4.7); ABSOLUTE MONOCYTES (AUTO) 1.2 10^3/uL (0.1-1.4); ABSOLUTE NEUT (AUTO) 6.8 10^3/uL (1.7-8.2); BASOPHILS % (AUTO) 1.1 % (0-2); EOSINOPHILS % (AUTO) 2.5 % (0-6); HEMATOCRIT 35.6 % (37.9-51.0); HEMOGLOBIN 11.9 g/dL (13.5-17.0); HGB HCT DIFFERENCE 0.1; LYMPHOCYTES % (AUTO) 15.3 % (13-45); MEAN CORPUSCULAR HGB CONC 33.3 g/dL (32.0-36.0); MEAN CORPUSCULAR VOLUME 99 fl (80-97); MONOCYTES % (AUTO) 12.3 % (3-13); RED CELL DISTRIBUTION WIDTH 14.1 % (11.5-14.0); SEGMENTED NEUTROPHILS % (AUTO) 68.8 % (42-78); WHITE BLOOD COUNT 9.9 10^3/uL (4.0-10.5)
[2016-08-24] MEDS ORDERED: ZINC OXIDE 20% OINTMENT 28.35 GM ONE (04:40)
[2016-08-24 04:58] LABS: ALANINE AMINOTRANSFERASE 82 U/L (21-72); ALBUMIN 3.6 g/dL (3.5-5.0); ALCOHOL < 10 mg/dL (NONE DETECTED); ALKALINE PHOSPHATASE 212 U/L (38-126); ANION GAP 11 (5-19); ASPARTATE AMINO TRANSFERASE 91 U/L (17-59); BILIRUBIN,TOTAL 1.3 mg/dL (0.2-1.3); BLOOD UREA NITROGEN 11 mg/dL (7-20); CALCIUM 9.3 mg/dL (8.4-10.2); CARBON DIOXIDE 29 mmol/L (22-30); CHLORIDE 104 mmol/L (98-107); CREATININE RESULT 0.34 mg/dL (0.52-1.25); GLUCOSE 106 mg/dL (75-110); MAGNESIUM 1.5 mg/dL (1.6-2.3); SODIUM 143.7 mmol/L (137-145); TOTAL PROTEIN 6.7 g/dL (6.3-8.2)
[2016-08-24] MEDS ORDERED: LORAZEPAM 1 MG TABLET PO ONE (05:25)
[2016-08-24] MEDS ORDERED: NYSTATIN OINTMENT 15 GM TUBE ONE (05:28)
[2016-08-24 05:56] VITALS: BP 142/85
== END 2016-08-24 06:39 | disposition home or self-care (01) ==
LOC: ER 02:02
DX: R25.1 Tremor, unspecified (principal); R26.81 Unsteadiness on feet; L22 Diaper dermatitis; Z72.89 Other problems related to lifestyle; R53.1 Weakness; Z91.81 History of falling; R32 Unspecified urinary incontinence; R15.9 Full incontinence of feces; R00.0 Tachycardia, unspecified; I10 Essential (primary) hypertension; J44.9 Chronic obstructive pulmonary disease, unspecified; F17.200 Nicotine dependence, unspecified, uncomplicated; Z86.718 Personal history of other venous thrombosis and embolism
CPT/HCPCS: 99285; 36415; 80307; 83735; 85025; 80053; J3490 ×2

== ENCOUNTER 2016-10-13 09:21 | Inpatient (IN) | payer MEDICAID ==
[2016-10-13 11:17] LABS: PROTHROMBIN TIME 13.1 SEC (11.4-15.4)
[2016-10-13] MEDS ORDERED: NORMAL SALINE 1000 ML 1,000 ML IV ONE (11:17)
[2016-10-13 11:20] LABS: VENOUS BLOOD BASE EXCESS -5.7 mmol/L; VENOUS BLOOD HCO3 20.8 mmol/L (20-32); VENOUS BLOOD PCO2 44.1 mmHg (35-63); VENOUS BLOOD PH 7.29 (7.30-7.42)
[2016-10-13 11:27] LABS: APPEARANCE,URINE CLEAR; BILIRUBIN,URINE NEGATIVE (NEGATIVE); GLUCOSE, URINE NEGATIVE (NEGATIVE); KETONES,URINE 80 mg/dL (NEGATIVE); LEUKOCYTE ESTERASE,URINE NEGATIVE (NEGATIVE); NITRITE,URINE NEGATIVE (NEGATIVE); PROTEIN,URINE 30 mg/dL (NEGATIVE); URINE SPECIFIC GRAVITY 1.024
[2016-10-13 11:42] LABS: ALANINE AMINOTRANSFERASE 89 U/L (21-72); ALBUMIN 3.5 g/dL (3.5-5.0); ALKALINE PHOSPHATASE 173 U/L (38-126); ASPARTATE AMINO TRANSFERASE 165 U/L (17-59); BILIRUBIN,DIRECT 1.1 mg/dL (0.0-0.4); BILIRUBIN,TOTAL 1.5 mg/dL (0.2-1.3); BLOOD UREA NITROGEN 34 mg/dL (7-20); CALCIUM 9.1 mg/dL (8.4-10.2); CREATININE RESULT 0.55 mg/dL (0.52-1.25); GLUCOSE 76 mg/dL (75-110); TOTAL PROTEIN 7.1 g/dL (6.3-8.2)
[2016-10-13 11:53] LABS: CARBON DIOXIDE 17 mmol/L (22-30); CHLORIDE 96 mmol/L (98-107); SODIUM 140.2 mmol/L (137-145)
[2016-10-13 11:54] LABS: ANION GAP 27 (5-19)
[2016-10-13] MEDS ORDERED: POTASSIUM CHLORIDE 10 MEQ TABLET.SA PO ONE (12:46)
--- NOTE | 2016-10-13 12:58 | ER Document Report ---
ED General - General Chief Complaint: Altered Mental Status Stated Complaint: ALTERED MENTAL STATUS Time Seen by Provider: 10/13/16 09:34 Mode of Arrival: Medic Information source: Patient Notes: 56-year-old male alcoholic presents from home found down for unknown amount of time, patient noted to be covered in feces. Denies any fevers or chills nausea vomiting or diarrhea TRAVEL OUTSIDE OF THE [place] IN LAST 30 DAYS: No - HPI Onset: Other Onset/Duration: Persistent Quality of pain: No pain Severity: Moderate Pain Level: Denies Associated symptoms: Weakness, Other Exacerbated by: Denies Relieved by: Denies Similar symptoms previously: Yes Recently seen / treated by doctor: Yes - Related Data Allergies/Adverse Reactions: rivaroxaban [From Xarelto] Adverse Reaction (Verified 08/24/16 02:15) warfarin [From Coumadin] Adverse Reaction (Verified 08/24/16 02:15) Past Medical History - Social History Smoking Status: Current Every Day Smoker Cigarette use (# per day): Yes Chew tobacco use (# tins/day): No Smoking Education Provided: No Frequency of alcohol use: Heavy Family History: CAD, DM, Other Patient has suicidal ideation: No Patient has homicidal ideation: No - Past Medical History Cardiac Medical History: Reports: Hx Congestive Heart Failure, Hx DVT - History of; reportedly allergic to a number of systemic anticoagulants., Hx Hypertension Denies: Hx Hypercholesterolemia Pulmonary Medical History: Reports: Hx COPD Neurological Medical History: Reports: Hx Seizures - EtOH withdrawal seizures Endocrine Medical History: Denies: Hx Diabetes Mellitus Type 1, Hx Diabetes Mellitus Type 2, Hx Hyperthyroidism, Hx Hypothyroidism Renal/ Medical History: Denies: Hx Peritoneal Dialysis GI Medical History: Reports: Hx Cirrhosis. Denies: Hx Hepatitis Skin Medical History: Reports Hx Psoriasis Psychiatric Medical History: Reports: Hx Attention Deficit Hyperactivity Disorder, Hx Bipolar Disorder, Hx Schizoaffective Disorder Infectious Medical History: Reports: Hx C-Diff - Recent hospital stay for same. Denies: Hx Hepatitis Past Surgical History: Reports: Other - Nasal surgery - Immunizations Hx Diphtheria, Pertussis, Tetanus Vaccination: - unk Hx Pneumococcal Vaccination: 06/07/13 Review of Systems - Review of Systems Notes: PHYSICAL EXAMINATION: GENERAL: Cachectic appearing male older then stated age HEAD: Atraumatic, normocephalic. EYES: Pupils equal round and reactive to light, extraocular movements intact, sclera anicteric, conjunctiva are normal. ENT: Nares patent, oropharynx clear without exudates. Moist mucous membranes. NECK: Normal range of motion, supple without lymphadenopathy LUNGS: Breath sounds clear to auscultation bilaterally and equal. No wheezes rales or rhonchi. HEART: Tachycardic ABDOMEN: Soft, nontender, nondistended abdomen. No guarding, no rebound. No masses appreciated. Musculoskeletal: Patient has multiple areas of ecchymosis of the knees chest wall abdomen NEUROLOGICAL: Cranial nerves grossly intact. Normal speech, normal gait. Normal sensory, motor exams PSYCH: Normal mood, normal affect. SKIN: Covered in feces Physical Exam - Vital signs Vitals: Resp 22 H 10/13/16 09:50 Course - Re-evaluation Re-evalutation: 10/13/16 12:58 Potassium is 3.0, white count is pending at this time. Patient is noted to be hypotensive 10/13/16 14:22 Patient was given IV fluids hypotension is resolved 10/13/16 14:26 CT of the chest is consistent with pneumonia, patient will be admitted, Levaquin has been ordered hospitalist service has been contacted - Vital Signs Vital signs: Temp Pulse Resp BP Pulse Ox 97.6 F 23 H 110/81 96 10/13/16 12:46 10/13/16 12:46 10/13/16 12:46 10/13/16 12:46 - Laboratory Result Diagrams: 10/13/16 12:26 10/13/16 10:42 Laboratory results interpreted by me: 10/13/16 10/13/16 10/13/16 10:42 10:42 11:10 WBC RBC MCV RDW Plt Count Seg Neuts % (Manual) Band Neutrophils % Monocytes % (Manual) Abs Neuts (Manual) VBG pH 7.29 L Potassium 3.0 L* Chloride 96 L Carbon Dioxide 17 L Anion Gap 27 H BUN 34 H Total Bilirubin 1.5 H Direct Bilirubin 1.1 H AST 165 H ALT 89 H Alkaline Phosphatase 173 H Urine Protein 30 H Urine Ketones 80 H Urine Urobilinogen 4.0 H 10/13/16 12:26 WBC 3.3 L RBC 4.31 L MCV 99 H RDW 15.3 H Plt Count 101 L Seg Neuts % (Manual) 33 L Band Neutrophils % 14 H Monocytes % (Manual) 28 H Abs Neuts (Manual) 1.6 L VBG pH Potassium Chloride Carbon Dioxide Anion Gap BUN Total Bilirubin Direct Bilirubin AST ALT Alkaline Phosphatase Urine Protein Urine Ketones Urine Urobilinogen - Diagnostic Test Radiology reviewed: Image reviewed, Reports reviewed - Pneumonia Discharge - Discharge Clinical Impression: Alcohol dependency Qualifiers: Substance use status: with intoxication Complication of substance-induced condition: with unspecified complication Qualified Code(s): F10.229 - Alcohol dependence with intoxication, unspecified Fall Qualifiers: Encounter type: initial encounter Qualified Code(s): W19.XXXA - Unspecified fall, initial encounter Pneumonia Qualifiers: Pneumonia type: due to unspecified organism Laterality: right Lung location: upper lobe of lung Qualified Code(s): J18.1 - Lobar pneumonia, unspecified organism Hypotension Qualifiers: Hypotension type: unspecified hypotension type Qualified Code(s): I95.9 - Hypotension, unspecified Condition: Stable Disposition: ADMITTED INPATIENT Admitting Provider: Hospitalist Unit Admitted: Telemetry
[2016-10-13 13:02] LABS: HEMATOCRIT 42.4 % (37.9-51.0); HEMOGLOBIN 14.1 g/dL (13.5-17.0); HGB HCT DIFFERENCE -0.1; MEAN CORPUSCULAR HEMOGLOBIN 32.8 pg (27.0-33.4); MEAN CORPUSCULAR HGB CONC 33.3 g/dL (32.0-36.0); MEAN CORPUSCULAR VOLUME 99 fl (80-97); RED BLOOD COUNT 4.31 10^6/uL (4.35-5.55); RED CELL DISTRIBUTION WIDTH 15.3 % (11.5-14.0); WHITE BLOOD COUNT 3.3 10^3/uL (4.0-10.5)
[2016-10-13] MEDS: NORMAL SALINE 1000 ML 1,000 ML IV PRN ×3 (13:12→19:10)
[2016-10-13 13:24] LABS: BASOPHILS % (MANUAL) 0 % (0-2); EOSINOPHILS % (MANUAL) 1 % (0-6); LYMPHOCYTES % (MANUAL) 22 % (13-45); TOTAL CELLS COUNTED 100
[2016-10-13 13:25] LABS: BAND NEUTROPHILS % (MANUAL) 14 % (3-5)
[2016-10-13 13:26] LABS: ANISOCYTOSIS SLIGHT; TOXIC GRANULATION 1+
[2016-10-13 13:27] LABS: OVALOCYTES 1+; POIKILOCYTOSIS 1+; POLYCHROMASIA SLIGHT
[2016-10-13] MEDS ORDERED: LEVOFLOXACIN 750 MG/D5W RTU 150 ML IV ONE (14:19)
[2016-10-13] MEDS ORDERED: ONDANSETRON HCL INJ/PF 4 MG/2 ML SDV IV PRN (15:27)
[2016-10-13] MEDS ORDERED: ETOMIDATE INJ/PF 20 MG/10 ML SDV IV ONE ×2 (16:22→18:02)
[2016-10-13] MEDS ORDERED: NOREPINEPHRINE BITARTRATE INJ/PF 4 MG/4 ML SDV IV ONE (16:34)
[2016-10-13] MEDS ORDERED: PROPOFOL 100 ML IV ONE (16:36)
[2016-10-13] MEDS: DEXTROSE 5%-WATER 250 ML with NOREPINEPHRINE BITARTRATE 4 MG IV PRN ×4 (16:54→22:34)
[2016-10-13] MEDS ORDERED: ENOXAPARIN SODIUM INJ 40 MG/0.4 ML DISP.SYRIN SUBCUT ONE (17:00)
--- NOTE | 2016-10-13 17:02 | EKG REPORT ---
SEVERITY:- ABNORMAL ECG - SINUS TACHYCARDIA RIGHT ATRIAL ABNORMALITY NONSPECIFIC INTRAVENTRICULAR CONDUCTION DELAY ST DEPRESSION, CONSIDER ISCHEMIA, INF LEADS : Confirmed by: Ericka Bennett 13-Oct-2016 17:01:17
--- NOTE | 2016-10-13 17:43 | PDOC H&P ---
History of Present Illness Admission Date/PCP: 10/13/16 14:49 found down at home covered in feces unresponsive History of Present Illness: DEO JONES is a 56 year old male with a past medical history of alcohol abuse who presents to the service after being found down covered in his feces. Apparently his brother found him and called for emergency services to take him to the hospital. At the bedside the patient tells me that he does not want to be admitted to the hospital. I explained to him that his blood pressure was low when he came in and that his heart rate is high and his respiratory rate is high and that his oxygen levels are dropping. I advised him that he needed to stay here in the hospital. The patient insisted that he wanted to go home and that he would take his chance knowing full well that he could . In my conversation with the patient he was able to tell me the date who the president is, where he is, why he was brought here. I informed the emergency room physician of the patient wishes and we called his brother who talked to him by phone and convinced him to stay. I then spoke to the brother by phone and told him that I recommended that the patient stay and that he was at risk of if he left the hospital. The patient's brother was in agreement. I also spoke to the patient's brother and told him that the patient was in his right mind and could in fact leave the hospital at any point but that I recommended that he did not. Ultimately the patient decided to stay and be admitted. In the emergency room the patient was noted to be hypotensive with a systolic blood pressure down to 70 he was given a 3L bolus of IV fluids which brought his blood pressure up to 110/81. He was also found to have ketones in his urine and a potassium of 3.0. CT scan of the chest was done which showed pneumonia and the patient was started on Levaquin. In my conversation with the patient he was able to tell me that he does consume 2 40 ounce beers a day. His last consumption was the day before yesterday. He admits to having blackouts spells and being found them particularly her places. He is covered in head to toe bruises and when questioned about this he tells me that he fell out of bed yesterday. He says that he thinks he was running in his sleep. During the time that I was speaking to his brother, from the patient's heart rate I went up to the one-teens, his respiratory rate went up to 35, his blood pressure went back down to the 90s. 20 minutes later I was paged by the emergency room to let me know that the patient had become unresponsive and that he became bradycardic down to the 40s with systolic blood pressure down in the 50s. The patient underwent rapid sequence intubation as well as placement of CVL. This was done by the emergency room physician. I contacted the brother and had an extensive conversation about the patient's current status. During this conversation and his brother told me that the patient was and was from his for years and that in his opinion his wouldn't care about what's going on. He told me that he thinks his brother wants to and would be best for him if he did. I explained twice withdrawal from mechanical ventilation that I explained in detail that it includes discontinuation of the ventilator, no resuscitative efforts to include CPR or defibrillation. We discussed comfort care measures versus continued care with a DO NOT RESUSCITATE status. The patient's brother, Mr. Jaden Jones, opted to make him comfort care. This seemed to be in direct contrast to a previous discussion that we had on the phone with making his brother stay in the hospital and get as much care as he could while he was here. At this point the patient was already intubated with a central venous line in on propofol. He required high FiO2 to keep his sats up. At one point his sats were down as low as 87% on 70% FiO2. At this point we are going to leave him ventilated and receiving a full support as these were the patient wishes 20 minutes prior to this episode and I need to clarify who was acting in this patient's best interest when making medical decisions. I tried calling the brother again to find out the contact information for his estranged spouse but without success. Past Medical History Cardiac Medical History: Reports: Congestive Heart Failure, DVT - History of; reportedly allergic to a number of systemic anticoagulants., Hypertension Denies: Hyperlipidema Pulmonary Medical History: Reports: Chronic Obstructive Pulmonary Disease (COPD) Neurological Medical History: Reports: Seizures - EtOH withdrawal seizures Endocrine Medical History: Denies: Diabetes Mellitus Type 1, Diabetes Mellitus Type 2, Hyperthyroidism, Hypothyroidism GI Medical History: Reports: Cirrhosis Denies: Hepatitis Skin Medical History: Reports: Psoriasis Psychiatric Medical History: Reports: Attention Deficit Hyperactivity Disorder, Bipolar Disorder, Schizoaffective Disorder Infectious Medical History: Reports: Clostridium Difficile - Recent hospital stay for same Past Surgical History Past Surgical History: Reports: Other - Nasal surgery Social History Information Source: Patient, Relative, [facility] Records Lives with: Family Smoking Status: Current Every Day Smoker Frequency of Alcohol Use: Heavy Hx Recreational Drug Use: Yes - denies drug use to me, but chart reports earlier drug use. Drugs: None Hx Prescription Drug Abuse: No Family History Family History: CAD, DM, Other Parental Family History Reviewed: Yes Children Family History Reviewed: Yes Sibling(s) Family History Reviewed.: Yes Medication/Allergy Home Medications: Albuterol Sulfate [Proair HFA Inhalation Aerosol 8.5 gm MDI] 2 puff IH Q6HP PRN 10/13/16 Benzonatate [Tessalon Perles 100 mg Capsule] 100 mg PO Q8HP PRN 10/13/16 Cyanocobalamin (Vitamin B-12) [Vitamin B-12] 1,000 mcg PO DAILY 10/13/16 Fluticasone/Salmeterol [Advair 250-50 Diskus 14 Dose/Diskus] 1 puff IH Q12 10/13 Folic Acid [Folvite 1 mg Tablet] 1 mg PO DAILY 10/13/16 Lactobacillus Acidophilus [Florajen] 460 mg PO BID 10/13/16 Lisinopril [Prinivil] 20 mg PO DAILY 10/13/16 Lorazepam [Ativan 1 mg Tablet] 1 mg PO Q8 10/13/16 Metronidazole [Flagyl 500 mg Tablet] 500 mg PO Q6H 10/13/16 Primidone [Mysoline 50 mg Tablet] 50 mg PO QHS 10/13/16 Thiamine HCl [Vitamin B-1] 100 mg PO DAILY 10/13/16 Valacyclovir HCl [Valtrex 500 mg Tablet] 1,000 mg PO Q8H 10/13/16 Allergies/Adverse Reactions: rivaroxaban [From Xarelto] Adverse Reaction (Verified 08/24/16 02:15) warfarin [From Coumadin] Adverse Reaction (Verified 08/24/16 02:15) Review of Systems Review of Systems: Review of systems is as noted in the history of present illness in addition to this the patient denies any chest pain, shortness of breath, nausea vomiting, diarrhea, constipation, weight gain, heat or cold intolerance, abdominal pain. Physical Exam Vital Signs: Temp Pulse Resp BP Pulse Ox 97.1 F 20 93/66 L 89 L 10/13/16 15:32 10/13/16 15:32 10/13/16 15:32 10/13/16 15:32 Physical exam: Gen. this is a well-developed undernourished disheveled appearing white male resting in bed initially not in any acute distress HEENT: Normocephalic atraumatic. Trachea is midline no submandibular lymphadenopathy. Pupils reactive. Poor dentition. Heart: Tachycardic at the bedside. No murmurs rubs or gallops Lungs: From the anterior perspective the patient sounds clear. Diminished at the bases bilaterally. Abdomen: Soft nontender nondistended with decreased bowel sounds. Extremities: smaller caliber with muscle wasting. 1+ peripheral pulses no clubbing cyanosis or edema Neuro: Awake alert oriented 3 the patient is able to tell me where he is an that his brother sent him here. Heis strong. He knows the year is 2016 and that he is in [facility]. Skin: Multiple ecchymoses on the face the bridge of the nose, raccoon eyes on the left. Ecchymoses on both knees Physical exam 20 minutes later: General: This is a well-developed undernourished disheveled appearing white male resting in bed appearing in respiratory distress Heart: Regular rate and rhythm no murmurs rubs or gallops. Lungs: Slightly coarse from anterior perspective after intubation. O2 sats at 87% intubated. Results Impressions: Abdomen/Pelvis CT 10/13/16 12:58 IMPRESSION: Colon wall thickening along the ascending colon, hepatic flexure, and sigmoid colon. Findings are nonspecific, worrisome for colitis. Profound fatty infiltration of the liver Question early or developing left lower lobe airspace disease Chest CT 10/13/16 12:58 IMPRESSION: Patchy airspace disease in the posterior left lower lobe worrisome for early or developing pneumonia. Assessment & Plan - Diagnosis (1) Acute hypoxemic respiratory failure Plan: Patient is status post intubation and on the ventilator. His he is currently satting at 100% on 100% FiO2. We release him ventilated overnight until we can straighten out exactly who is making medical decisions for him. The patient did want to be full code just before he coded. (2) Severe sepsis with septic shock Plan: Patient is status post placement of a CVL. Orders for Levaquin that have been placed. Titrate map of greater than 65. Likely the patient is septic secondary to underlying pneumonia. Patient also has a history of underlying alcohol abuse and certainly could be in DTs. Check random cortisol level. (3) Fall Qualifiers: Encounter type: initial encounter Qualified Code(s): W19.XXXA - Unspecified fall, initial encounter (4) Alcohol dependency Qualifiers: Substance use status: with intoxication Complication of substance- induced condition: with unspecified complication Qualified Code(s): F10.229 - Alcohol dependence with intoxication, unspecified Plan: Alcohol cessation is recommended. Precautions for alcohol withdrawal. We'll give rally pack. (5) Pneumonia Qualifiers: Pneumonia type: aspiration pneumonia Laterality: right Lung location: upper lobe of lung Plan: I do have concern for aspiration in this patient. He was found unresponsive covered in his own feces. And has had blackout spells in the past which may or may not be related to sleepwalking. 3 broad-spectrum antibiotic coverage with vancomycin and Levaquin. (6) High anion gap metabolic acidosis Plan: PH status post intubation shows a 7.1. Will check lactic acid. We'll start bicarbonate drip. (7) Abnormal liver function tests Plan: Repeat tests in the morning. I suspect this is due to a combination of his underlying alcohol abuse as well as what is likely the beginning of shock liver secondary to his hypotension. - Time Critical Time spent with patient: 35 or more minutes - Inpatient Certification Based on my medical assessment, after consideration of the patient's comorbidities, presenting symptoms, or acuity I expect that the services needed warrant INPATIENT care.: Yes Medical Necessity: Need Close Monitoring Due to Risk of Patient Decompensation, Need For IV Fluids, Need For Continuous Telemetry Monitoring, Need for Nebulizer Therapy and Monitoring of Response, Need for Neurological Checks
[2016-10-13] MEDS ORDERED: PIPERACILLIN/TAZOBACTAM 3.375 GM VIAL IV ONE (17:47)
[2016-10-13] MEDS ORDERED: SUCCINYLCHOLINE CHLORIDE INJ 200 MG/10 ML VIAL IV ONE (18:03)
[2016-10-13] MEDS ORDERED: PROPOFOL 100 ML IV PRN (18:08)
[2016-10-13 18:27] LABS: ARTERIAL BLOOD BASE EXCESS -11.1 mmol/L; ARTERIAL BLOOD O2 SATURATION 99.6 % (94-98)
[2016-10-13] MEDS ORDERED: VANCOMYCIN HCL INJ 1000 MG VIAL IV ONE (18:42)
[2016-10-13] MEDS ORDERED: POTASSI CL 20 MEQ/50 ML RIDER 50 ML IV ONE (18:43)
[2016-10-13] MEDS: IPRATROPIUM/ALBUTEROL 0.5-2.5 MG/3 ML AMPUL NEB SCH (19:38)
[2016-10-13] MEDS ORDERED: THIAMINE HCL 100 MG, FOLIC ACID 1 MG in NORMAL SALINE 50 ML IV SCH (19:45)
[2016-10-13] MEDS ORDERED: SUCCINYLCHOLINE CHLORIDE INJ 200 MG/10 ML VIAL ONE (19:58)
[2016-10-13] MEDS: PIPERACILLIN SODIUM/TAZOBACTAM 3.375 GM in NORMAL SALINE 100 ML IV SCH (20:27)
[2016-10-13] MEDS ORDERED: NORMAL SALINE 1000 ML 2,000 ML IV ONE (20:30)
[2016-10-13 20:32] LABS: ARTERIAL BLOOD BASE EXCESS -10.9 mmol/L; ARTERIAL BLOOD O2 SATURATION 98.2 % (94-98)
[2016-10-13] MEDS: POTASSI CL 20 MEQ/50 ML RIDER 20 MEQ/50 ML RTUPB IV SCH ×2 (20:33→22:37)
[2016-10-13 20:45] LABS: MAGNESIUM 1.5 mg/dL (1.6-2.3); PHOSPHORUS 3.9 mg/dL (2.5-4.5)
[2016-10-13 20:46] LABS: URINE BARBITURATES SCREEN NEGATIVE; URINE METHADONE SCREEN NEGATIVE; URINE OPIATES LOW NEGATIVE; URINE PHENCYCLIDINE SCREEN NEGATIVE
[2016-10-13] MEDS ORDERED: HYDROCORTISONE SOD SUCCINATE INJ/PF 100 MG/2 ML SDV ONE (21:00)
[2016-10-13 21:05] LABS: CREATINE KINASE MB 8.31 ng/mL (<4.55); TROPONIN I 0.119 ng/mL
[2016-10-13] MEDS: THIAMINE HCL 100 MG, FOLIC ACID 1 MG in NORMAL SALINE 50 ML IV SCH (21:09)
[2016-10-13] MEDS: PANTOPRAZOLE SODIUM 40 MG VIAL IV SCH (21:10)
[2016-10-13] MEDS: MAGNESIUM SULFATE 1 GM/D5W 100 ML IV SCH ×2 (21:40→22:36)
[2016-10-13] MEDS: VANCOMYCIN HCL 1,000 MG in DEXTROSE 5%-WATER 250 ML IV SCH (21:41)
[2016-10-13] MEDS ORDERED: HYDROCORTISONE SOD SUCCINATE INJ/PF 100 MG/2 ML SDV IV ONE (22:00)
[2016-10-13] MEDS ORDERED: FENTANYL CITRATE INJ/PF 100 MCG/2 ML AMPUL ONE (22:54)
[2016-10-13] MEDS: VANCOMYCIN HCL INJ 500 MG VIAL PO SCH (23:00)
[2016-10-14] MEDS: IPRATROPIUM/ALBUTEROL 0.5-2.5 MG/3 ML AMPUL NEB SCH ×4 (01:49→20:57)
[2016-10-14] MEDS: FENTANYL CITRATE INJ/PF 100 MCG/2 ML AMPUL IV PRN (02:02)
[2016-10-14] MEDS: HYDROCORTISONE SOD SUCCINATE INJ/PF 100 MG/2 ML SDV IV SCH ×3 (02:02→17:04)
[2016-10-14] MEDS: PIPERACILLIN SODIUM/TAZOBACTAM 3.375 GM in NORMAL SALINE 100 ML IV SCH ×4 (02:02→21:15)
[2016-10-14 02:17] LABS: CREATINE KINASE MB 6.31 ng/mL (<4.55); TROPONIN I 0.031 ng/mL
[2016-10-14] MEDS ORDERED: ACETAMINOPHEN 325 MG TABLET ONE (02:44)
[2016-10-14] MEDS ORDERED: LORAZEPAM 24 MG/240 ML BAG IV ONE (02:44)
[2016-10-14] MEDS ORDERED: ACETAMINOPHEN SOLN 325 MG/10.15 ML UDCUP NG PRN (02:51)
[2016-10-14] MEDS ORDERED: NORMAL SALINE 1000 ML 1,000 ML IV ONE (03:00)
[2016-10-14] MEDS: DEXTROSE 5%-WATER 250 ML with NOREPINEPHRINE BITARTRATE 4 MG IV PRN ×4 (04:51→18:34)
[2016-10-14] MEDS: VANCOMYCIN HCL INJ 500 MG VIAL PO SCH ×4 (05:19→23:31)
[2016-10-14] MEDS ORDERED: LANSOPRAZOLE 30 MG TAB.RAP.DR PO SCH (06:00)
[2016-10-14 06:01] LABS: ARTERIAL BLOOD BASE EXCESS -5.8 mmol/L; ARTERIAL BLOOD O2 SATURATION 97.6 % (94-98)
[2016-10-14 06:04] LABS: HEMATOCRIT 31.1 % (37.9-51.0); HGB HCT DIFFERENCE 0.7; MEAN CORPUSCULAR HGB CONC 34.1 g/dL (32.0-36.0); MEAN CORPUSCULAR VOLUME 97 fl (80-97); RED BLOOD COUNT 3.21 10^6/uL (4.35-5.55); RED CELL DISTRIBUTION WIDTH 15.7 % (11.5-14.0)
[2016-10-14 06:22] LABS: ALANINE AMINOTRANSFERASE 56 U/L (21-72); ALBUMIN 1.6 g/dL (3.5-5.0); ALKALINE PHOSPHATASE 86 U/L (38-126); ANION GAP 11 (5-19); ASPARTATE AMINO TRANSFERASE 68 U/L (17-59); BILIRUBIN,DIRECT 0.8 mg/dL (0.0-0.4); CARBON DIOXIDE 19 mmol/L (22-30); CHLORIDE 112 mmol/L (98-107); CREATININE RESULT 0.43 mg/dL (0.52-1.25); GLUCOSE 226 mg/dL (75-110); MAGNESIUM 1.6 mg/dL (1.6-2.3); SODIUM 142.3 mmol/L (137-145); TOTAL PROTEIN 3.6 g/dL (6.3-8.2)
[2016-10-14 06:25] LABS: HEMOGLOBIN 10.6 g/dL (13.5-17.0); WHITE BLOOD COUNT 6.8 10^3/uL (4.0-10.5)
[2016-10-14 06:31] LABS: BASOPHILS % (MANUAL) 0 % (0-2); EOSINOPHILS % (MANUAL) 0 % (0-6); LYMPHOCYTES % (MANUAL) 6 % (13-45); TOTAL CELLS COUNTED 100
[2016-10-14 06:32] LABS: TOXIC VACUOLATION PRESENT
[2016-10-14 06:33] LABS: ANISOCYTOSIS 1+; BURR CELLS 1+; POIKILOCYTOSIS 1+; TARGET CELLS 1+; TOXIC GRANULATION SLIGHT
[2016-10-14 06:34] LABS: BAND NEUTROPHILS % (MANUAL) 49 % (3-5)
[2016-10-14 06:36] LABS: BLOOD UREA NITROGEN 10 mg/dL (7-20)
[2016-10-14 06:38] LABS: CALCIUM 5.9 mg/dL (8.4-10.2); POTASSIUM 2.5 mmol/L (3.6-5.0)
[2016-10-14] MEDS ORDERED: CALCIUM GLUCONATE 1000 MG/10 ML INJ IV PRN (06:52)
[2016-10-14] MEDS ORDERED: POTASSIUM CHLORIDE 20 MEQ/15 ML UDCUP PO ONE (07:00)
[2016-10-14] MEDS ORDERED: MAGNESIUM SULFATE/D5W 1 GM/100 ML RTUPB IV SCH (07:00)
[2016-10-14] MEDS: DEXTROSE 5%-WATER 1000 ML 1,000 ML with SODIUM BICARBONATE 100 MEQ IV PRN ×4 (07:05→18:34)
[2016-10-14] MEDS: POTASSI CL 20 MEQ/50 ML RIDER 20 MEQ/50 ML RTUPB IV SCH ×2 (07:24→09:16)
[2016-10-14] MEDS: LORAZEPAM 24 MG/ D5W 240 ML IV PRN ×4 (07:28→22:19)
[2016-10-14] MEDS ORDERED: CALCIUM GLUCONATE 1,000 MG in DEXTROSE 5%-WATER 50 ML IV ONE (07:30)
--- NOTE | 2016-10-14 07:30 | PDOC CONSULTATION ---
Consultation Consult Date: 10/13/16 Attending physician:: PIETER Consult reason:: RESP FAILURE History of Present Illness Admission Date/PCP: 10/13/16 15:28 MOHAMUD FERNANDEZ MD History of Present Illness: DEO CORTÉS is a 56 year old male with a past medical history of alcohol abuse who presented by way of EMS hypotensive and was subsequent intubated and a vasopressor was initiated.He is profoudly acidotic,leukopenic with a left shift abnormal CXR and hx of alcohol abuse. Past Medical History Cardiac Medical History: Reports: Congestive Heart Failure, DVT - History of; reportedly allergic to a number of systemic anticoagulants., Hypertension Denies: Hyperlipidema Pulmonary Medical History: Reports: Chronic Obstructive Pulmonary Disease (COPD) Neurological Medical History: Reports: Seizures - EtOH withdrawal seizures Endocrine Medical History: Denies: Diabetes Mellitus Type 1, Diabetes Mellitus Type 2, Hyperthyroidism, Hypothyroidism GI Medical History: Reports: Cirrhosis Denies: Hepatitis Skin Medical History: Reports: Psoriasis Psychiatric Medical History: Reports: Attention Deficit Hyperactivity Disorder, Bipolar Disorder, Schizoaffective Disorder Infectious Medical History: Reports: Clostridium Difficile - Recent hospital stay for same Past Surgical History Past Surgical History: Reports: Other - Nasal surgery Social History Information Source: [facility] Records Lives with: Family Smoking Status: Current Every Day Smoker Frequency of Alcohol Use: Heavy Hx Recreational Drug Use: Yes Drugs: None Hx Prescription Drug Abuse: No Family History Family History: CAD, DM, Other Parental Family History Reviewed: No Children Family History Reviewed: No Sibling(s) Family History Reviewed.: No Medication/Allergy Home Medications: Albuterol Sulfate [Proair HFA Inhalation Aerosol 8.5 gm MDI] 2 puff IH Q6HP PRN 10/13/16 Benzonatate [Tessalon Perles 100 mg Capsule] 100 mg PO Q8HP PRN 10/13/16 Cyanocobalamin (Vitamin B-12) [Vitamin B-12] 1,000 mcg PO DAILY 10/13/16 Fluticasone/Salmeterol [Advair 250-50 Diskus 14 Dose/Diskus] 1 puff IH Q12 10/13 Folic Acid [Folvite 1 mg Tablet] 1 mg PO DAILY 10/13/16 Lactobacillus Acidophilus [Florajen] 460 mg PO BID 10/13/16 Lisinopril [Prinivil] 20 mg PO DAILY 10/13/16 Lorazepam [Ativan 1 mg Tablet] 1 mg PO Q8 10/13/16 Metronidazole [Flagyl 500 mg Tablet] 500 mg PO Q6H 10/13/16 Primidone [Mysoline 50 mg Tablet] 50 mg PO QHS 10/13/16 Thiamine HCl [Vitamin B-1] 100 mg PO DAILY 10/13/16 Valacyclovir HCl [Valtrex 500 mg Tablet] 1,000 mg PO Q8H 10/13/16 Allergies/Adverse Reactions: rivaroxaban [From Xarelto] Adverse Reaction (Verified 08/24/16 02:15) warfarin [From Coumadin] Adverse Reaction (Verified 08/24/16 02:15) Review of Systems ROS unobtainable: Due to endotracheal tube Physical Exam Vital Signs: Temp Pulse Resp BP Pulse Ox 96.3 F L 19 102/66 100 10/13/16 17:24 10/13/16 17:24 10/13/16 17:24 10/13/16 17:24 General appearance: PRESENT: no acute distress, disheveled, well-developed, well -nourished Head exam: PRESENT: atraumatic, normocephalic Eye exam: PRESENT: conjunctiva pale Mouth exam: PRESENT: dry mucosa, neck supple, other - ET tube Neck exam: ABSENT: carotid bruit, JVD, lymphadenopathy, thyromegaly Respiratory exam: PRESENT: decreased breath sounds, prolonged expiratory phas, rales, rhonchi, symmetrical, unlabored Cardiovascular exam: PRESENT: RRR, +S1, +S2 Pulses: PRESENT: normal radial pulses GI/Abdominal exam: PRESENT: ascites Rectal exam: PRESENT: deferred Gentrourinary exam: PRESENT: indwelling catheter Musculoskeletal exam: PRESENT: normal inspection Skin exam: PRESENT: dry, warm, other - ingunal eryrthena;exoriations and abrasions to knees and chest Results Laboratory Results: 10/13/16 18:10 Carbonic Acid 1.63 H HCO3/H2CO3 Ratio 11:1 ABG pH 7.14 L* ABG pCO2 54.0 H ABG pO2 322.1 H ABG HCO3 18.1 L ABG O2 Saturation 99.6 H ABG Base Excess -11.1 FiO2 80% Impressions: Chest X-Ray 10/13/16 00:00 IMPRESSION: Status post insertion of endotracheal tube and central line as noted above. No pneumothorax is seen. Other findings as noted above Abdomen/Pelvis CT 10/13/16 12:58 IMPRESSION: Colon wall thickening along the ascending colon, hepatic flexure, and sigmoid colon. Findings are nonspecific, worrisome for colitis. Profound fatty infiltration of the liver Question early or developing left lower lobe airspace disease Chest CT 10/13/16 12:58 IMPRESSION: Patchy airspace disease in the posterior left lower lobe worrisome for early or developing pneumonia. Assessment & Plan - Diagnosis (1) Acute hypoxemic respiratory failure Is this a current diagnosis for this admission?: Yes (2) Pneumonia Qualifiers: Pneumonia type: aspiration pneumonia Laterality: right Lung location: upper lobe of lung Is this a current diagnosis for this admission?: Yes (3) Hypotension Qualifiers: Hypotension type: unspecified hypotension type Qualified Code(s): I95.9 - Hypotension, unspecified Is this a current diagnosis for this admission?: Yes (4) High anion gap metabolic acidosis Is this a current diagnosis for this admission?: Yes (5) Abnormal liver function tests Is this a current diagnosis for this admission?: Yes (6) Tobacco dependency Is this a current diagnosis for this admission?: Yes (7) COPD (chronic obstructive pulmonary disease) Qualifiers: COPD type: unspecified COPD Qualified Code(s): J44.9 - Chronic obstructive pulmonary disease, unspecified Is this a current diagnosis for this admission?: Yes (8) History of DVT (deep vein thrombosis) Is this a current diagnosis for this admission?: No
[2016-10-14] MEDS ORDERED: CALCIUM GLUCONATE 1000 MG/10 ML INJ IV ONE (07:45)
[2016-10-14 08:52] LABS: APPEARANCE,URINE CLEAR; BILIRUBIN,URINE NEGATIVE (NEGATIVE); GLUCOSE, URINE NEGATIVE (NEGATIVE); KETONES,URINE TRACE mg/dL (NEGATIVE); LEUKOCYTE ESTERASE,URINE NEGATIVE (NEGATIVE); NITRITE,URINE NEGATIVE (NEGATIVE); PROTEIN,URINE NEGATIVE (NEGATIVE); UROBILINOGEN,URINE NEGATIVE mg/dL (<2.0)
[2016-10-14] MEDS: ENOXAPARIN SODIUM INJ 40 MG/0.4 ML DISP.SYRIN SUBCUT SCH (09:16)
[2016-10-14] MEDS: PANTOPRAZOLE SODIUM 40 MG VIAL IV SCH ×2 (09:18→21:14)
[2016-10-14 09:19] LABS: CREATINE KINASE MB 4.54 ng/mL (<4.55); TROPONIN I 0.019 ng/mL
--- NOTE | 2016-10-14 09:26 | PDOC PROGRESS REPORT ---
Subjective Progress Note for:: 10/14/16 Physical Exam Vital Signs: Temp Pulse Resp BP Pulse Ox 100.2 F 103 H 26 H 94/63 L 100 10/14/16 08:00 10/14/16 08:00 10/14/16 08:00 10/14/16 08:00 10/14/16 08:00 Intake & Output 10/13/16 10/14/16 10/15/16 06:59 06:59 06:59 Intake Total 3604 Output Total 2000 300 Balance 1604 -300 Weight 57.7 kg Physical exam: Ventilator: SIMV. Respiratory rate: 26. PEEP 8. Tidal volume 400 Lines: Right IJ Drips: Levophed, propofol, bicarbonate General: Well-developed, malnourished, cachectic appearing white male resting in bed on the ventilator HEENT: Normocephalic/atraumatic. Sclera anicteric Heart: Regular rate and rhythm no murmurs rubs or gallops. Lungs: Clear from the anterior perspective bilaterally. Patient is currently on ventilator. OG tube is present. Abdomen: Soft nontender nondistended hypoactive bowel sounds. Extremities: Muscle wasting is evident. No clubbing cyanosis or edema. Warm and dry. Neuro: Sedated. : Browne catheter is present with gume urine draining. Skin: Multiple ecchymoses present. Left raccoon eye. Results Laboratory Results: 10/14/16 05:50 10/14/16 05:50 10/13/16 10/13/16 10/13/16 18:10 20:15 20:15 WBC RBC Hgb Hct MCV MCH MCHC RDW Plt Count Seg Neutrophils % Lymphocytes % Monocytes % Eosinophils % Basophils % Absolute Neutrophils Absolute Lymphocytes Absolute Monocytes Absolute Eosinophils Absolute Basophils Carbonic Acid 1.63 H HCO3/H2CO3 Ratio 11:1 ABG pH 7.14 L* ABG pCO2 54.0 H ABG pO2 322.1 H ABG HCO3 18.1 L ABG O2 Saturation 99.6 H ABG Base Excess -11.1 FiO2 80% Sodium Potassium Chloride Carbon Dioxide Anion Gap BUN Creatinine Est GFR ( Amer) Est GFR (Non-Af Amer) Glucose Lactic Acid Calcium Phosphorus 3.9 Magnesium 1.5 L Cancelled Total Bilirubin AST ALT Alkaline Phosphatase Total Protein Albumin TSH Urine Color Urine Appearance Urine pH Ur Specific [place] Urine Protein Urine Glucose (UA) Urine Ketones Urine Blood Urine Nitrite Ur Leukocyte Esterase Urine WBC (Auto) 10/13/16 10/13/16 10/14/16 20:15 20:15 05:50 WBC RBC Hgb Hct MCV MCH MCHC RDW Plt Count Seg Neutrophils % Lymphocytes % Monocytes % Eosinophils % Basophils % Absolute Neutrophils Absolute Lymphocytes Absolute Monocytes Absolute Eosinophils Absolute Basophils Carbonic Acid 1.29 0.83 L HCO3/H2CO3 Ratio 12:1 21:1 ABG pH 7.20 L* 7.42 ABG pCO2 42.9 27.7 L ABG pO2 136.5 H 97.0 ABG HCO3 16.5 L 17.5 L ABG O2 Saturation 98.2 H 97.6 ABG Base Excess -10.9 -5.8 FiO2 65% 35% Sodium Potassium Chloride Carbon Dioxide Anion Gap BUN Creatinine Est GFR ( Amer) Est GFR (Non-Af Amer) Glucose Lactic Acid 0.8 Calcium Phosphorus Magnesium Total Bilirubin AST ALT Alkaline Phosphatase Total Protein Albumin TSH Urine Color Urine Appearance Urine pH Ur Specific [place] Urine Protein Urine Glucose (UA) Urine Ketones Urine Blood Urine Nitrite Ur Leukocyte Esterase Urine WBC (Auto) 10/14/16 10/14/16 10/14/16 05:50 05:50 05:50 WBC 6.8 D RBC 3.21 L Hgb 10.6 L D Hct 31.1 L MCV 97 MCH 33.0 MCHC 34.1 RDW 15.7 H Plt Count 103 L Seg Neutrophils % Not Reportable Lymphocytes % Not Reportable Monocytes % Not Reportable Eosinophils % Not Reportable Basophils % Not Reportable Absolute Neutrophils Not Reportable Absolute Lymphocytes Not Reportable Absolute Monocytes Not Reportable Absolute Eosinophils Not Reportable Absolute Basophils Not Reportable Carbonic Acid HCO3/H2CO3 Ratio ABG pH ABG pCO2 ABG pO2 ABG HCO3 ABG O2 Saturation ABG Base Excess FiO2 Sodium 142.3 Potassium 2.5 L* Chloride 112 H Carbon Dioxide 19 L Anion Gap 11 BUN 10 D Creatinine 0.43 L Est GFR ( Amer) > 60 Est GFR (Non-Af Amer) > 60 Glucose 226 H Lactic Acid 2.1 Calcium 5.9 L* Phosphorus Magnesium 1.6 Total Bilirubin 1.0 AST 68 H ALT 56 Alkaline Phosphatase 86 Total Protein 3.6 L Albumin 1.6 L TSH Urine Color Urine Appearance Urine pH Ur Specific [place] Urine Protein Urine Glucose (UA) Urine Ketones Urine Blood Urine Nitrite Ur Leukocyte Esterase Urine WBC (Auto) 10/14/16 10/14/16 05:50 08:20 WBC RBC Hgb Hct MCV MCH MCHC RDW Plt Count Seg Neutrophils % Lymphocytes % Monocytes % Eosinophils % Basophils % Absolute Neutrophils Absolute Lymphocytes Absolute Monocytes Absolute Eosinophils Absolute Basophils Carbonic Acid HCO3/H2CO3 Ratio ABG pH ABG pCO2 ABG pO2 ABG HCO3 ABG O2 Saturation ABG Base Excess FiO2 Sodium Potassium Chloride Carbon Dioxide Anion Gap BUN Creatinine Est GFR ( Amer) Est GFR (Non-Af Amer) Glucose Lactic Acid Calcium Phosphorus Magnesium Total Bilirubin AST ALT Alkaline Phosphatase Total Protein Albumin TSH 0.88 Urine Color YELLOW Urine Appearance CLEAR Urine pH 5.0 Ur Specific [place] 1.010 Urine Protein NEGATIVE Urine Glucose (UA) NEGATIVE Urine Ketones TRACE H Urine Blood NEGATIVE Urine Nitrite NEGATIVE Ur Leukocyte Esterase NEGATIVE Urine WBC (Auto) 0 10/13/16 10/13/16 10/13/16 20:15 20:15 20:22 Creatine Kinase 235 H Cancelled CK-MB (CK-2) 8.31 H Troponin I 0.119 10/14/16 10/14/16 01:45 01:45 Creatine Kinase 189 H CK-MB (CK-2) 6.31 H Troponin I 0.031 Impressions: Abdomen/Pelvis CT 10/13/16 12:58 IMPRESSION: Colon wall thickening along the ascending colon, hepatic flexure, and sigmoid colon. Findings are nonspecific, worrisome for colitis. Profound fatty infiltration of the liver Question early or developing left lower lobe airspace disease Chest CT 10/13/16 12:58 IMPRESSION: Patchy airspace disease in the posterior left lower lobe worrisome for early or developing pneumonia. Chest X-Ray 10/14/16 08:00 IMPRESSION: New left lower lobar atelectasis/ pneumonia. Lines and tubes. Assessment & Plan - Diagnosis (1) Acute hypoxemic respiratory failure Is this a current diagnosis for this admission?: YesPlan: Patient is status post intubation and on the ventilator. His he is currently satting at 100% on 30% FiO2. Continue chemical ventilation until I can speak with family members. (2) Severe sepsis with septic shock Plan: This is multifactorial due to colitis, pneumonia, and DTs. There is also some question as to whether or not the patient has consumed substances such as ethylene glycol. Patient's blood pressure still remains low. Systolic of 80s now up to 90s. With a map of 67. Continue Levophed. Will get an a line placed. His pressures are truly less than 90, We will likely have to add another agent. Cortisol level was low and steroids were added. We will continue this. (3) Pneumonia Qualifiers: Pneumonia type: aspiration pneumonia Laterality: right Lung location: upper lobe of lung Is this a current diagnosis for this admission?: YesPlan: I do have concern for aspiration in this patient. He was found unresponsive covered in his own feces. And has had blackout spells in the past which may or may not be related to sleepwalking. Chest x-ray this morning shows a new retrocardiac infiltrate. Continue vancomycin, Levaquin and Zosyn. We'll try to obtain aspirate for culture. (4) High anion gap metabolic acidosis Is this a current diagnosis for this admission?: YesPlan: Lactic acid was normal. His gap acidosis could be due to use of ethylene glycol. There was a blue substance noted in the back of his throat down in the ER and again here in the ICU with lavage of his stomach. We'll order ethylene glycol. She has had respiratory compensation. Gap has closed. We'll check an acetaminophen level. (5) Alcohol dependency Qualifiers: Substance use status: with intoxication Complication of substance- induced condition: with unspecified complication Qualified Code(s): F10.229 - Alcohol dependence with intoxication, unspecified Plan: Alcohol cessation is highly recommended. This was discussed minimally before the patient failed in the ER. (6) Abnormal liver function tests Is this a current diagnosis for this admission?: YesPlan: These have resolved overnight. (7) Fall Qualifiers: Encounter type: initial encounter Qualified Code(s): W19.XXXA - Unspecified fall, initial encounter Plan: Fall precautions once awake. (8) Hypokalemia Plan: Replaced day. (9) Hypocalcemia Plan: Ionized calcium pending. Replacement forthcoming. (10) Severe malnutrition Plan: Patient is nothing by mouth for now as he is on the ventilator. Will consult dietary for tube feed needs. (11) DTs (delirium tremens) Plan: Patient is currently intubated and will be allowed to go through withdrawal. I do have concerns that he is ingested ethylene glycol as we have found a blue substance in the back of his throat and his stomach. (12) Anemia of chronic disease Plan: Stable. Likely secondary to underlying excessive alcohol consumption of multiple comorbid problems (13) C. difficile colitis Plan: I received a call from the lab stating that PCR was positive for C. difficile colitis. Vancomycin by mouth was already started yesterday. (14) Pancytopenia Plan: Likely secondary to sepsis as well as alcohol consumption. - Time Critical Time spent with patient: 35 or more minutes - Inpatient Certification Medical Necessity: Significant Comorbidiites Make Outpatient Treatment Too Risky , Need Close Monitoring Due to Risk of Patient Decompensation, Need For IV Fluids, Need for IV Antibiotics
--- NOTE | 2016-10-14 10:33 | OPERATIVE REPORT E ---
Operative Report NAME: DEO CORTÉS : 1960 AGE: 56Y DATE OF SURGERY: 10/14/2016 ROOM: 607 PREOPERATIVE DIAGNOSIS: Patient on vent for respiratory failure, needed arterial line for blood gas monitoring and blood pressure monitoring. POSTOPERATIVE DIAGNOSIS: Patient on vent for respiratory failure, needed arterial line for blood gas monitoring and blood pressure monitoring. PROCEDURE: Insertion of arterial line through the right radial artery. SURGEON: TAMARA MALCOLM M.D. ANESTHESIA: Local. DESCRIPTION OF PROCEDURE: The right wrist was prepped and draped in the usual sterile fashion. Local anesthesia infiltrated over the palpable pulse and right radial pulse was then punctured and blood flow noted and the catheter subsequently advanced through the guidewire. Guidewire was removed and there was good arterial flow. This then anchored to the skin with 3-0 Prolene. It was then connected to monitoring line. Sterile dressings placed over the operative site. The patient tolerated the procedure well. DICTATING PHYSICIAN: TAMARA MALCOLM M.D. [id number] PHY#: [id number] ID: [id number] JOB#: [id number] ACCT: [id number] cc:TAMARA MALCOLM M.D. >
[2016-10-14] MEDS: VANCOMYCIN HCL 1,000 MG in DEXTROSE 5%-WATER 250 ML IV SCH ×2 (11:15→21:15)
--- NOTE | 2016-10-14 11:57 | PDOC PROGRESS REPORT ---
Subjective Progress Note for:: 10/14/16 Subjective:: Intubated and sedated Physical Exam Vital Signs: Temp Pulse Resp BP Pulse Ox 100.2 F 95 26 H 134/69 H 100 10/14/16 10:00 10/14/16 10:00 10/14/16 10:00 10/14/16 10:00 10/14/16 10:00 Intake & Output 10/13/16 10/14/16 10/15/16 06:59 06:59 06:59 Intake Total 3604 Output Total 2000 450 Balance 1604 -450 Weight 57.7 kg General appearance: PRESENT: no acute distress, disheveled, thin Head exam: PRESENT: atraumatic, normocephalic Eye exam: PRESENT: conjunctiva pale Mouth exam: PRESENT: dry mucosa, neck supple, other - Endotracheal tube in place Neck exam: ABSENT: carotid bruit, JVD, lymphadenopathy, thyromegaly Respiratory exam: PRESENT: crackles, decreased breath sounds, prolonged expiratory phas, rhonchi, symmetrical, unlabored, wheezes Cardiovascular exam: PRESENT: irregular rhythm, +S1, +S2 Pulses: PRESENT: normal radial pulses GI/Abdominal exam: PRESENT: normal bowel sounds, soft. ABSENT: distended, guarding, mass, organolmegaly, rebound, tenderness Rectal exam: PRESENT: deferred Gentrourinary exam: PRESENT: indwelling catheter, other - Erythema in the inguinal area genitalia and suprapubic areas Musculoskeletal exam: PRESENT: other - Excoriations bruises sclera knees bilaterally as well as chest Skin exam: PRESENT: dry, warm Results Laboratory Results: 10/14/16 05:50 10/14/16 05:50 10/13/16 10/13/16 10/13/16 18:10 20:15 20:15 WBC RBC Hgb Hct MCV MCH MCHC RDW Plt Count Seg Neutrophils % Lymphocytes % Monocytes % Eosinophils % Basophils % Absolute Neutrophils Absolute Lymphocytes Absolute Monocytes Absolute Eosinophils Absolute Basophils Carbonic Acid 1.63 H HCO3/H2CO3 Ratio 11:1 ABG pH 7.14 L* ABG pCO2 54.0 H ABG pO2 322.1 H ABG HCO3 18.1 L ABG O2 Saturation 99.6 H ABG Base Excess -11.1 FiO2 80% Sodium Potassium Chloride Carbon Dioxide Anion Gap BUN Creatinine Est GFR ( Amer) Est GFR (Non-Af Amer) Glucose Lactic Acid Calcium Ionized Calcium [place] Phosphorus 3.9 Magnesium 1.5 L Cancelled Total Bilirubin AST ALT Alkaline Phosphatase Total Protein Albumin TSH Urine Color Urine Appearance Urine pH Ur Specific [place] Urine Protein Urine Glucose (UA) Urine Ketones Urine Blood Urine Nitrite Ur Leukocyte Esterase Urine WBC (Auto) 10/13/16 10/13/16 10/14/16 20:15 20:15 05:50 WBC RBC Hgb Hct MCV MCH MCHC RDW Plt Count Seg Neutrophils % Lymphocytes % Monocytes % Eosinophils % Basophils % Absolute Neutrophils Absolute Lymphocytes Absolute Monocytes Absolute Eosinophils Absolute Basophils Carbonic Acid 1.29 0.83 L HCO3/H2CO3 Ratio 12:1 21:1 ABG pH 7.20 L* 7.42 ABG pCO2 42.9 27.7 L ABG pO2 136.5 H 97.0 ABG HCO3 16.5 L 17.5 L ABG O2 Saturation 98.2 H 97.6 ABG Base Excess -10.9 -5.8 FiO2 65% 35% Sodium Potassium Chloride Carbon Dioxide Anion Gap BUN Creatinine Est GFR ( Amer) Est GFR (Non-Af Amer) Glucose Lactic Acid 0.8 Calcium Ionized Calcium [place] Phosphorus Magnesium Total Bilirubin AST ALT Alkaline Phosphatase Total Protein Albumin TSH Urine Color Urine Appearance Urine pH Ur Specific [place] Urine Protein Urine Glucose (UA) Urine Ketones Urine Blood Urine Nitrite Ur Leukocyte Esterase Urine WBC (Auto) 10/14/16 10/14/16 10/14/16 05:50 05:50 05:50 WBC 6.8 D RBC 3.21 L Hgb 10.6 L D Hct 31.1 L MCV 97 MCH 33.0 MCHC 34.1 RDW 15.7 H Plt Count 103 L Seg Neutrophils % Not Reportable Lymphocytes % Not Reportable Monocytes % Not Reportable Eosinophils % Not Reportable Basophils % Not Reportable Absolute Neutrophils Not Reportable Absolute Lymphocytes Not Reportable Absolute Monocytes Not Reportable Absolute Eosinophils Not Reportable Absolute Basophils Not Reportable Carbonic Acid HCO3/H2CO3 Ratio ABG pH ABG pCO2 ABG pO2 ABG HCO3 ABG O2 Saturation ABG Base Excess FiO2 Sodium 142.3 Potassium 2.5 L* Chloride 112 H Carbon Dioxide 19 L Anion Gap 11 BUN 10 D Creatinine 0.43 L Est GFR ( Amer) > 60 Est GFR (Non-Af Amer) > 60 Glucose 226 H Lactic Acid 2.1 Calcium 5.9 L* Ionized Calcium [place] Phosphorus Magnesium 1.6 Total Bilirubin 1.0 AST 68 H ALT 56 Alkaline Phosphatase 86 Total Protein 3.6 L Albumin 1.6 L TSH Urine Color Urine Appearance Urine pH Ur Specific [place] Urine Protein Urine Glucose (UA) Urine Ketones Urine Blood Urine Nitrite Ur Leukocyte Esterase Urine WBC (Auto) 10/14/16 10/14/16 10/14/16 05:50 08:20 09:03 WBC RBC Hgb Hct MCV MCH MCHC RDW Plt Count Seg Neutrophils % Lymphocytes % Monocytes % Eosinophils % Basophils % Absolute Neutrophils Absolute Lymphocytes Absolute Monocytes Absolute Eosinophils Absolute Basophils Carbonic Acid HCO3/H2CO3 Ratio ABG pH ABG pCO2 ABG pO2 ABG HCO3 ABG O2 Saturation ABG Base Excess FiO2 Sodium Potassium Chloride Carbon Dioxide Anion Gap BUN Creatinine Est GFR ( Amer) Est GFR (Non-Af Amer) Glucose Lactic Acid Calcium Ionized Calcium [place] Cancelled Phosphorus Magnesium Total Bilirubin AST ALT Alkaline Phosphatase Total Protein Albumin TSH 0.88 Urine Color YELLOW Urine Appearance CLEAR Urine pH 5.0 Ur Specific [place] 1.010 Urine Protein NEGATIVE Urine Glucose (UA) NEGATIVE Urine Ketones TRACE H Urine Blood NEGATIVE Urine Nitrite NEGATIVE Ur Leukocyte Esterase NEGATIVE Urine WBC (Auto) 0 10/13/16 10/13/16 10/13/16 20:15 20:15 20:22 Creatine Kinase 235 H Cancelled CK-MB (CK-2) 8.31 H Troponin I 0.119 10/14/16 10/14/16 10/14/16 01:45 01:45 08:20 Creatine Kinase 189 H 153 CK-MB (CK-2) 6.31 H Troponin I 0.031 10/14/16 08:20 Creatine Kinase CK-MB (CK-2) 4.54 Troponin I 0.019 Impressions: Abdomen/Pelvis CT 10/13/16 12:58 IMPRESSION: Colon wall thickening along the ascending colon, hepatic flexure, and sigmoid colon. Findings are nonspecific, worrisome for colitis. Profound fatty infiltration of the liver Question early or developing left lower lobe airspace disease Chest CT 10/13/16 12:58 IMPRESSION: Patchy airspace disease in the posterior left lower lobe worrisome for early or developing pneumonia. Chest X-Ray 10/14/16 08:00 IMPRESSION: New left lower lobar atelectasis/ pneumonia. Lines and tubes. Assessment & Plan - Diagnosis (1) Acute hypoxemic respiratory failure Is this a current diagnosis for this admission?: YesPlan: Stable at this time (2) Pneumonia Qualifiers: Pneumonia type: aspiration pneumonia Laterality: right Lung location: upper lobe of lung Is this a current diagnosis for this admission?: YesPlan: Retrocardiac opacification (3) Hypotension Qualifiers: Hypotension type: unspecified hypotension type Qualified Code(s): I95.9 - Hypotension, unspecified Is this a current diagnosis for this admission?: YesPlan: Stable (4) High anion gap metabolic acidosis Is this a current diagnosis for this admission?: Yes (5) Abnormal liver function tests Is this a current diagnosis for this admission?: Yes (6) Tobacco dependency Is this a current diagnosis for this admission?: Yes (7) COPD (chronic obstructive pulmonary disease) Qualifiers: COPD type: unspecified COPD Qualified Code(s): J44.9 - Chronic obstructive pulmonary disease, unspecified Is this a current diagnosis for this admission?: Yes (8) History of DVT (deep vein thrombosis) Is this a current diagnosis for this admission?: No - Time Critical Time spent with patient: 35 or more minutes - 50 minutes
[2016-10-14] MEDS: METRONIDAZOLE 500 MG/NS RTU 100 ML IV SCH ×2 (14:26→21:16)
[2016-10-14 15:21] LABS: ARTERIAL BLOOD BASE EXCESS -1.8 mmol/L; ARTERIAL BLOOD O2 SATURATION 97.8 % (94-98)
[2016-10-14 15:37] LABS: ANION GAP 8 (5-19); BLOOD UREA NITROGEN 7 mg/dL (7-20); CARBON DIOXIDE 22 mmol/L (22-30); CHLORIDE 107 mmol/L (98-107); CREATININE RESULT 0.38 mg/dL (0.52-1.25); MAGNESIUM 2.1 mg/dL (1.6-2.3)
[2016-10-14 15:46] LABS: CALCIUM 6.4 mg/dL (8.4-10.2); GLUCOSE 403 mg/dL (75-110)
[2016-10-14 15:47] LABS: POTASSIUM 2.9 mmol/L (3.6-5.0)
[2016-10-14] MEDS ORDERED: GLUCAGON,HUMAN RECOMB 1 MG INJ IM PRN (16:33)
[2016-10-14] MEDS ORDERED: DEXTROSE 50%-WATER 25 GM/50 ML DISP.SYRIN IV PRN ×2 (16:33)
[2016-10-14] MEDS ORDERED: DEXTROSE 40% GEL 15 GM TUBE PO PRN ×2 (16:33)
[2016-10-14] MEDS: POTASSIUM CHLORIDE 20 MEQ/50 ML RTU IV SCH ×3 (17:03→21:15)
[2016-10-14] MEDS: INSULIN REG, HUMAN 100 UNIT/ML 3 ML VIAL (PYX) SUBCUT PRN ×2 (17:04→23:54)
[2016-10-14] MEDS: THIAMINE HCL 100 MG, FOLIC ACID 1 MG in NORMAL SALINE 50 ML IV SCH (21:15)
[2016-10-15 00:10] LABS: ANION GAP 7 (5-19); BLOOD UREA NITROGEN 6 mg/dL (7-20); CARBON DIOXIDE 24 mmol/L (22-30); CHLORIDE 105 mmol/L (98-107); CREATININE RESULT 0.35 mg/dL (0.52-1.25); GLUCOSE 338 mg/dL (75-110); POTASSIUM 3.4 mmol/L (3.6-5.0); SODIUM 135.6 mmol/L (137-145)
[2016-10-15 00:21] LABS: CALCIUM 6.4 mg/dL (8.4-10.2)
[2016-10-15] MEDS: POTASSIUM CHLORIDE 20 MEQ/50 ML RTU IV SCH ×4 (01:59→13:53)
[2016-10-15] MEDS: HYDROCORTISONE SOD SUCCINATE INJ/PF 100 MG/2 ML SDV IV SCH ×3 (01:59→17:40)
[2016-10-15] MEDS: PIPERACILLIN SODIUM/TAZOBACTAM 3.375 GM in NORMAL SALINE 100 ML IV SCH ×4 (02:10→20:01)
[2016-10-15] MEDS: IPRATROPIUM/ALBUTEROL 0.5-2.5 MG/3 ML AMPUL NEB SCH ×4 (02:36→20:00)
[2016-10-15] MEDS: METRONIDAZOLE 500 MG/NS RTU 100 ML IV SCH ×3 (05:03→21:19)
[2016-10-15] MEDS: PROPOFOL 100 ML IV PRN (05:03)
[2016-10-15] MEDS: DEXTROSE 5%-WATER 250 ML with NOREPINEPHRINE BITARTRATE 4 MG IV PRN ×4 (05:04→20:01)
[2016-10-15] MEDS: VANCOMYCIN HCL INJ 500 MG VIAL PO SCH ×4 (05:05→23:49)
[2016-10-15] MEDS: NORMAL SALINE 1000 ML 1,000 ML IV PRN (05:05)
[2016-10-15] MEDS: DEXTROSE 5%-WATER 1000 ML 1,000 ML with SODIUM BICARBONATE 100 MEQ IV PRN ×2 (05:05)
[2016-10-15 05:15] LABS: ARTERIAL BLOOD BASE EXCESS 1.4 mmol/L; ARTERIAL BLOOD O2 SATURATION 95.4 % (94-98)
[2016-10-15 05:26] LABS: HEMATOCRIT 28.5 % (37.9-51.0); HEMOGLOBIN 9.6 g/dL (13.5-17.0); HGB HCT DIFFERENCE 0.3; MEAN CORPUSCULAR HEMOGLOBIN 32.7 pg (27.0-33.4); MEAN CORPUSCULAR HGB CONC 33.9 g/dL (32.0-36.0); MEAN CORPUSCULAR VOLUME 96 fl (80-97); RED BLOOD COUNT 2.95 10^6/uL (4.35-5.55); RED CELL DISTRIBUTION WIDTH 15.9 % (11.5-14.0); WHITE BLOOD COUNT 12.6 10^3/uL (4.0-10.5)
[2016-10-15 05:34] LABS: ALANINE AMINOTRANSFERASE 50 U/L (21-72); ALBUMIN 1.5 g/dL (3.5-5.0); ALKALINE PHOSPHATASE 82 U/L (38-126); ANION GAP 8 (5-19); ASPARTATE AMINO TRANSFERASE 29 U/L (17-59); BILIRUBIN,DIRECT 0.4 mg/dL (0.0-0.4); BILIRUBIN,TOTAL 0.6 mg/dL (0.2-1.3); BLOOD UREA NITROGEN 5 mg/dL (7-20); CARBON DIOXIDE 24 mmol/L (22-30); CHLORIDE 105 mmol/L (98-107); CREATININE RESULT 0.35 mg/dL (0.52-1.25); GLUCOSE 297 mg/dL (75-110); MAGNESIUM 1.8 mg/dL (1.6-2.3); POTASSIUM 3.6 mmol/L (3.6-5.0); SODIUM 136.7 mmol/L (137-145); TOTAL PROTEIN 3.4 g/dL (6.3-8.2)
[2016-10-15 05:36] LABS: BAND NEUTROPHILS % (MANUAL) 35 % (3-5); BASOPHILS % (MANUAL) 0 % (0-2); EOSINOPHILS % (MANUAL) 0 % (0-6); LYMPHOCYTES % (MANUAL) 5 % (13-45); TOTAL CELLS COUNTED 100
[2016-10-15 05:37] LABS: ANISOCYTOSIS SLIGHT; OVALOCYTES SLIGHT; TARGET CELLS SLIGHT; TOXIC GRANULATION 1+; TOXIC VACUOLATION PRESENT
[2016-10-15 05:44] LABS: CALCIUM 6.4 mg/dL (8.4-10.2)
[2016-10-15] MEDS: INSULIN REG, HUMAN 100 UNIT/ML 3 ML VIAL (PYX) SUBCUT PRN (06:14)
[2016-10-15] MEDS: ENOXAPARIN SODIUM INJ 40 MG/0.4 ML DISP.SYRIN SUBCUT SCH (08:19)
[2016-10-15 08:52] LABS: PATH REVIEW PATHOLOGIST REVIEWED
--- NOTE | 2016-10-15 09:09 | PDOC PROGRESS REPORT ---
Subjective Progress Note for:: 10/15/16 Subjective:: Patient seen today at the bedside. He remains intubated. Review of systems cannot be obtained. No acute events overnight. Family visitors yesterday and none at the bedside presently. Physical Exam Vital Signs: Temp Pulse Resp BP Pulse Ox 99.0 F 88 26 H 91/62 L 94 10/15/16 06:00 10/15/16 02:36 10/15/16 06:00 10/15/16 06:15 10/15/16 06:00 Intake & Output 10/14/16 10/15/16 10/16/16 06:59 06:59 06:59 Intake Total 3604 7462 Output Total 1999 2190 Balance 1604 5272 Weight 57.7 kg 64 kg Physical exam: Ventilator: SIMV. Respiratory rate: 20. PEEP 8. Tidal volume 400 Lines: Right IJ, right A-line Drips: Levophed, propofol, bicarbonate, Ativan General: Well-developed, malnourished, cachectic appearing white male resting in bed on the ventilator. Patient has been scrubbed out for the third time and looks much better. HEENT: Normocephalic/traumatic. Heart: Regular rate and rhythm no murmurs rubs or gallops. Lungs: Clear from the anterior perspective bilaterally. Posteriorly the patient is diminished at the bases. He is breathing shallow. Patient is currently on ventilator. OG tube is present. Abdomen: Soft nontender nondistended hypoactive bowel sounds. Patient has a very dark bowel movement occurring during exam. It is a pasty consistency Extremities: Muscle wasting is evident. No clubbing cyanosis or edema. Warm and dry. Neuro: Sedated. : Browne catheter is present with gume urine draining. Skin: Multiple ecchymoses present. Left raccoon eye looks better today. Cigarette burn in the suprapubic area. Stage I sacral decubitus ulcer. Results Laboratory Results: 10/15/16 05:00 10/15/16 05:00 10/14/16 10/14/16 10/14/16 08:20 09:03 14:40 WBC RBC Hgb Hct MCV MCH MCHC RDW Plt Count Seg Neutrophils % Lymphocytes % Monocytes % Eosinophils % Basophils % Absolute Neutrophils Absolute Lymphocytes Absolute Monocytes Absolute Eosinophils Absolute Basophils Carbonic Acid HCO3/H2CO3 Ratio ABG pH ABG pCO2 ABG pO2 ABG HCO3 ABG O2 Saturation ABG Base Excess FiO2 Sodium 137.0 Potassium 2.9 L* Chloride 107 Carbon Dioxide 22 Anion Gap 8 BUN 7 Creatinine 0.38 L Est GFR ( Amer) > 60 Est GFR (Non-Af Amer) > 60 Glucose 403 H* Calcium 6.4 L* Ionized Calcium Dioni Cancelled Magnesium 2.1 Total Bilirubin AST ALT Alkaline Phosphatase Total Protein Albumin Urine Color YELLOW Urine Appearance CLEAR Urine pH 5.0 Ur Specific [place] 1.010 Urine Protein NEGATIVE Urine Glucose (UA) NEGATIVE Urine Ketones TRACE H Urine Blood NEGATIVE Urine Nitrite NEGATIVE Ur Leukocyte Esterase NEGATIVE Urine WBC (Auto) 0 10/14/16 10/14/16 10/14/16 15:10 23:45 23:45 WBC RBC Hgb Hct MCV MCH MCHC RDW Plt Count Seg Neutrophils % Lymphocytes % Monocytes % Eosinophils % Basophils % Absolute Neutrophils Absolute Lymphocytes Absolute Monocytes Absolute Eosinophils Absolute Basophils Carbonic Acid 0.92 L HCO3/H2CO3 Ratio 23:1 ABG pH 7.46 H ABG pCO2 30.7 L ABG pO2 97.9 ABG HCO3 21.3 ABG O2 Saturation 97.8 ABG Base Excess -1.8 FiO2 30% Sodium 135.6 L Potassium 3.4 L Chloride 105 Carbon Dioxide 24 Anion Gap 7 BUN 6 L Creatinine 0.35 L Est GFR ( Amer) > 60 Est GFR (Non-Af Amer) > 60 Glucose 338 H Calcium 6.4 L* Ionized Calcium Dioni Magnesium Total Bilirubin AST ALT Alkaline Phosphatase Total Protein Albumin 1.5 L Urine Color Urine Appearance Urine pH Ur Specific [place] Urine Protein Urine Glucose (UA) Urine Ketones Urine Blood Urine Nitrite Ur Leukocyte Esterase Urine WBC (Auto) 10/15/16 10/15/16 10/15/16 05:00 05:00 05:00 WBC 12.6 H RBC 2.95 L Hgb 9.6 L Hct 28.5 L MCV 96 MCH 32.7 MCHC 33.9 RDW 15.9 H Plt Count 104 L Seg Neutrophils % Not Reportable Lymphocytes % Not Reportable Monocytes % Not Reportable Eosinophils % Not Reportable Basophils % Not Reportable Absolute Neutrophils Not Reportable Absolute Lymphocytes Not Reportable Absolute Monocytes Not Reportable Absolute Eosinophils Not Reportable Absolute Basophils Not Reportable Carbonic Acid 0.84 L HCO3/H2CO3 Ratio 27:1 ABG pH 7.54 H ABG pCO2 28.0 L ABG pO2 66.5 L ABG HCO3 23.3 ABG O2 Saturation 95.4 ABG Base Excess 1.4 FiO2 30% Sodium 136.7 L Potassium 3.6 Chloride 105 Carbon Dioxide 24 Anion Gap 8 BUN 5 L Creatinine 0.35 L Est GFR ( Amer) > 60 Est GFR (Non-Af Amer) > 60 Glucose 297 H Calcium 6.4 L* Ionized Calcium Dioni Magnesium 1.8 Total Bilirubin 0.6 AST 29 ALT 50 Alkaline Phosphatase 82 Total Protein 3.4 L Albumin 1.5 L Urine Color Urine Appearance Urine pH Ur Specific [place] Urine Protein Urine Glucose (UA) Urine Ketones Urine Blood Urine Nitrite Ur Leukocyte Esterase Urine WBC (Auto) 10/13/16 10/13/16 10/13/16 20:15 20:15 20:22 Creatine Kinase 235 H Cancelled CK-MB (CK-2) 8.31 H Troponin I 0.119 10/14/16 10/14/16 10/14/16 01:45 01:45 08:20 Creatine Kinase 189 H 153 CK-MB (CK-2) 6.31 H Troponin I 0.031 10/14/16 08:20 Creatine Kinase CK-MB (CK-2) 4.54 Troponin I 0.019 Impressions: Abdomen/Pelvis CT 10/13/16 12:58 IMPRESSION: Colon wall thickening along the ascending colon, hepatic flexure, and sigmoid colon. Findings are nonspecific, worrisome for colitis. Profound fatty infiltration of the liver Question early or developing left lower lobe airspace disease Chest CT 10/13/16 12:58 IMPRESSION: Patchy airspace disease in the posterior left lower lobe worrisome for early or developing pneumonia. Chest X-Ray 10/15/16 06:00 IMPRESSION: Stable. Lines and tubes. Assessment & Plan - Diagnosis (1) Acute hypoxemic respiratory failure Is this a current diagnosis for this admission?: YesPlan: Patient is status post intubation and on the ventilator. His he is currently satting at 100% on 30% FiO2. He had a decrease in his O2 sats down to 87%. This occurred after being rolled for inspection of his back. His FiO2 was temporarily increased up to 100%. His oxygen sats came up to 95%. (2) Severe sepsis with septic shock Plan: This is multifactorial due to colitis, pneumonia, and DTs. There is also some question as to whether or not the patient has consumed substances such as ethylene glycol. Blood pressures are much better assessed with the a line that is in. Blood pressures are running in the low 100s. This is more than satisfactory. (3) Pneumonia Qualifiers: Pneumonia type: aspiration pneumonia Laterality: right Lung location: upper lobe of lung Is this a current diagnosis for this admission?: YesPlan: I do have concern for aspiration in this patient. He was found unresponsive covered in his own feces. And has had blackout spells in the past which may or may not be related to sleepwalking. Infiltrate is present. Continue vancomycin , Levaquin and Zosyn. We'll try to obtain aspirate for culture. (4) High anion gap metabolic acidosis Is this a current diagnosis for this admission?: YesPlan: Lactic acid was normal. His gap acidosis could be due to use of ethylene glycol. There was a blue substance noted in the back of his throat down in the ER and again here in the ICU with lavage of his stomach. Ethylene glycol level pending. She has had respiratory compensation. Gap has closed. Acetaminophen level was normal. Patient is currently on a bicarbonate drip. Will change him to lactated Ringer's. (5) Alcohol dependency Qualifiers: Substance use status: with intoxication Complication of substance- induced condition: with unspecified complication Qualified Code(s): F10.229 - Alcohol dependence with intoxication, unspecified Plan: Alcohol cessation is highly recommended. This was discussed minimally before the patient failed in the ER. (6) Abnormal liver function tests Is this a current diagnosis for this admission?: YesPlan: Resolved and likely from sepsis with hypotension. (7) Hypokalemia Plan: Replace per protocol. (8) Hypocalcemia Plan: Improved with replacement. Continue to replace as per protocol. (9) Severe malnutrition Plan: Patient is nothing by mouth for now as he is on the ventilator. Will consult dietary for tube feed needs. Await their recommendations. (10) DTs (delirium tremens) Plan: Patient is currently intubated and will be allowed to go through withdrawal. I do have concerns that he is ingested ethylene glycol as we have found a blue substance in the back of his throat and his stomach. Ethylene glycol analysis is pending. Continue propofol and Ativan. (11) Anemia of chronic disease Plan: Stable. Likely secondary to underlying excessive alcohol consumption of multiple comorbid problems. (12) C. difficile colitis Plan: CT shows colitis. Patient is having multiple pasty bowel movements. Continue by mouth vancomycin as well as IV Flagyl. Will convert to by mouth Flagyl as the patient's status improves. At this point I don't think a rectal tube will be appropriate because his stools are not liquidy enough. Should they become more liquid rectal tube can be placed in order to avoid contamination of his sacral decubitus ulcer. (13) Pancytopenia Plan: Likely secondary to sepsis as well as alcohol consumption. White blood cell count is currently elevated. It is now up from 3 to12. Anemia stable. Thrombocytopenia is likely secondary to sepsis and alcohol consumption and is stable. Continue to monitor. (14) Sacral decubitus ulcer, stage II Plan: Present on admission. The patient is having multiple bowel movements secondary to C. difficile colitis. The area should be kept covered as to avoid any fecal material entering into the wound. Continue wound care. (15) Fall Qualifiers: Encounter type: initial encounter Qualified Code(s): W19.XXXA - Unspecified fall, initial encounter Plan: Fall precautions once awake. Patient had a fall the day prior to admission. It is uncertain as to whether or not this is mechanical versus tuberous state from intoxication. - Time Critical Time spent with patient: 35 or more minutes - Inpatient Certification Medical Necessity: Need Close Monitoring Due to Risk of Patient Decompensation, Need For IV Fluids, Need for IV Antibiotics - Plan Summary Plan Summary: Socially this patient has multiple issues. He initially wanted to be full code. Once he decompensated decision making fell to his brother. He is from . I don't have any contact information for her. My previous conversation with his brother he initially wanted everything done but when the patient failed he felt to be best if he simply . Patient remains on a ventilator until we can sort out as best able to make decisions for him. At this point he remains full code.
[2016-10-15] MEDS: VANCOMYCIN HCL 1,000 MG in DEXTROSE 5%-WATER 250 ML IV SCH ×2 (09:53→17:29)
[2016-10-15] MEDS: RINGERS SOLUTION,LACTATED 1,000 ML IV PRN (09:53)
[2016-10-15] MEDS: PANTOPRAZOLE SODIUM 40 MG VIAL IV SCH ×2 (09:53→21:20)
[2016-10-15 10:50] LABS: ANION GAP 8 (5-19); BLOOD UREA NITROGEN 5 mg/dL (7-20); CARBON DIOXIDE 25 mmol/L (22-30); CHLORIDE 105 mmol/L (98-107); CREATININE RESULT 0.38 mg/dL (0.52-1.25); GLUCOSE 237 mg/dL (75-110); POTASSIUM 3.3 mmol/L (3.6-5.0); SODIUM 138.3 mmol/L (137-145)
[2016-10-15 11:05] LABS: CALCIUM 6.7 mg/dL (8.4-10.2)
--- NOTE | 2016-10-15 11:37 | Physician Advisory Note ---
Physician Advisor ProgressNote .: Pursuant to the plan for [facility], I have reviewed the medical record for this patient. Physician Advisor Statement: Very nice documentation of the septic shock & acute hypoxemic resp failure due to PNA in this pt with bipolar d/o, schizoaffective d/o, alcoholism, tobacco dependence with suprapubic cigarette burn. Possible documentation opportunities if attending agrees: 1. "Acute high anion gap metab acidosis likely due to ...." 2. "Acute hyponatremia, likely due to " 3. "suspected severe protein-calorie malnutrition with BMI 21.5, albumin 1.5, Cr 0.35, ____[?wt loss, ?appetite loss, ]" [if possible, give specifics on intake, wt loss, loss of SQ fat & muscle mass, diminished hand technical support technician strength, & clinical importance such as (A) nutritional assessment ordered (done), (B) modified diet or supplements ordered (done), (C ) additional labs ordered, (D) prolonged wound healing time, (E) delayed infxn clearance] As always, if concerned about any unstable VS or abnormal labs, please comment on them & note what doing about them, & please document each day the potential clinical problems you are concerned could occur if pt not kept in hospital for tx at this time. Thanks for your help with documentation accuracy/specificity improvement! Althea Huggins MD [facility] Physician Advisor, Fellow of Hospital Medicine
--- NOTE | 2016-10-15 12:10 | PDOC PROGRESS REPORT ---
Subjective Progress Note for:: 10/15/16 Subjective:: Intubated and sedated unchanged Physical Exam Vital Signs: Temp Pulse Resp BP Pulse Ox 99.0 F 88 26 H 91/62 L 94 10/15/16 06:00 10/15/16 02:36 10/15/16 06:00 10/15/16 06:15 10/15/16 06:00 Intake & Output 10/14/16 10/15/16 10/16/16 06:59 06:59 06:59 Intake Total 3604 7461 Output Total 1999 219 Balance 1604 5272 Weight 57.7 kg 64 kg General appearance: PRESENT: no acute distress, disheveled, thin Head exam: PRESENT: atraumatic, normocephalic Eye exam: PRESENT: conjunctiva pale Mouth exam: PRESENT: dry mucosa, neck supple, other - ET tube in place Teeth exam: PRESENT: poor dentation Neck exam: ABSENT: carotid bruit, JVD, lymphadenopathy, thyromegaly Respiratory exam: PRESENT: decreased breath sounds, prolonged expiratory phas, rhonchi, symmetrical, unlabored Cardiovascular exam: PRESENT: RRR, +S1, systolic murmur Pulses: PRESENT: normal radial pulses GI/Abdominal exam: PRESENT: normal bowel sounds, soft. ABSENT: distended, guarding, mass, organolmegaly, rebound, tenderness Rectal exam: PRESENT: deferred Gentrourinary exam: PRESENT: indwelling catheter Results Laboratory Results: 10/15/16 05:00 10/15/16 05:00 10/14/16 10/14/16 10/14/16 08:20 09:03 14:40 WBC RBC Hgb Hct MCV MCH MCHC RDW Plt Count Seg Neutrophils % Lymphocytes % Monocytes % Eosinophils % Basophils % Absolute Neutrophils Absolute Lymphocytes Absolute Monocytes Absolute Eosinophils Absolute Basophils Carbonic Acid HCO3/H2CO3 Ratio ABG pH ABG pCO2 ABG pO2 ABG HCO3 ABG O2 Saturation ABG Base Excess FiO2 Sodium 137.0 Potassium 2.9 L* Chloride 107 Carbon Dioxide 22 Anion Gap 8 BUN 7 Creatinine 0.38 L Est GFR ( Amer) > 60 Est GFR (Non-Af Amer) > 60 Glucose 403 H* Calcium 6.4 L* Ionized Calcium Dioni Cancelled Magnesium 2.1 Total Bilirubin AST ALT Alkaline Phosphatase Total Protein Albumin Urine Color YELLOW Urine Appearance CLEAR Urine pH 5.0 Ur Specific [place] 1.010 Urine Protein NEGATIVE Urine Glucose (UA) NEGATIVE Urine Ketones TRACE H Urine Blood NEGATIVE Urine Nitrite NEGATIVE Ur Leukocyte Esterase NEGATIVE Urine WBC (Auto) 0 10/14/16 10/14/16 10/14/16 15:10 23:45 23:45 WBC RBC Hgb Hct MCV MCH MCHC RDW Plt Count Seg Neutrophils % Lymphocytes % Monocytes % Eosinophils % Basophils % Absolute Neutrophils Absolute Lymphocytes Absolute Monocytes Absolute Eosinophils Absolute Basophils Carbonic Acid 0.92 L HCO3/H2CO3 Ratio 23:1 ABG pH 7.46 H ABG pCO2 30.7 L ABG pO2 97.9 ABG HCO3 21.3 ABG O2 Saturation 97.8 ABG Base Excess -1.8 FiO2 30% Sodium 135.6 L Potassium 3.4 L Chloride 105 Carbon Dioxide 24 Anion Gap 7 BUN 6 L Creatinine 0.35 L Est GFR ( Amer) > 60 Est GFR (Non-Af Amer) > 60 Glucose 338 H Calcium 6.4 L* Ionized Calcium Dioni Magnesium Total Bilirubin AST ALT Alkaline Phosphatase Total Protein Albumin 1.5 L Urine Color Urine Appearance Urine pH Ur Specific [place] Urine Protein Urine Glucose (UA) Urine Ketones Urine Blood Urine Nitrite Ur Leukocyte Esterase Urine WBC (Auto) 10/15/16 10/15/16 10/15/16 05:00 05:00 05:00 WBC 12.6 H RBC 2.95 L Hgb 9.6 L Hct 28.5 L MCV 96 MCH 32.7 MCHC 33.9 RDW 15.9 H Plt Count 104 L Seg Neutrophils % Not Reportable Lymphocytes % Not Reportable Monocytes % Not Reportable Eosinophils % Not Reportable Basophils % Not Reportable Absolute Neutrophils Not Reportable Absolute Lymphocytes Not Reportable Absolute Monocytes Not Reportable Absolute Eosinophils Not Reportable Absolute Basophils Not Reportable Carbonic Acid 0.84 L HCO3/H2CO3 Ratio 27:1 ABG pH 7.54 H ABG pCO2 28.0 L ABG pO2 66.5 L ABG HCO3 23.3 ABG O2 Saturation 95.4 ABG Base Excess 1.4 FiO2 30% Sodium 136.7 L Potassium 3.6 Chloride 105 Carbon Dioxide 24 Anion Gap 8 BUN 5 L Creatinine 0.35 L Est GFR ( Amer) > 60 Est GFR (Non-Af Amer) > 60 Glucose 297 H Calcium 6.4 L* Ionized Calcium Dioni Magnesium 1.8 Total Bilirubin 0.6 AST 29 ALT 50 Alkaline Phosphatase 82 Total Protein 3.4 L Albumin 1.5 L Urine Color Urine Appearance Urine pH Ur Specific [place] Urine Protein Urine Glucose (UA) Urine Ketones Urine Blood Urine Nitrite Ur Leukocyte Esterase Urine WBC (Auto) 10/13/16 10/13/16 10/13/16 20:15 20:15 20:22 Creatine Kinase 235 H Cancelled CK-MB (CK-2) 8.31 H Troponin I 0.119 10/14/16 10/14/16 10/14/16 01:45 01:45 08:20 Creatine Kinase 189 H 153 CK-MB (CK-2) 6.31 H Troponin I 0.031 10/14/16 08:20 Creatine Kinase CK-MB (CK-2) 4.54 Troponin I 0.019 Impressions: Abdomen/Pelvis CT 10/13/16 12:58 IMPRESSION: Colon wall thickening along the ascending colon, hepatic flexure, and sigmoid colon. Findings are nonspecific, worrisome for colitis. Profound fatty infiltration of the liver Question early or developing left lower lobe airspace disease Chest CT 10/13/16 12:58 IMPRESSION: Patchy airspace disease in the posterior left lower lobe worrisome for early or developing pneumonia. Chest X-Ray 10/15/16 06:00 IMPRESSION: Stable. Lines and tubes. Assessment & Plan - Diagnosis (1) Acute hypoxemic respiratory failure Is this a current diagnosis for this admission?: Yes (2) Pneumonia Qualifiers: Pneumonia type: aspiration pneumonia Laterality: right Lung location: upper lobe of lung Is this a current diagnosis for this admission?: Yes (3) Hypotension Qualifiers: Hypotension type: unspecified hypotension type Qualified Code(s): I95.9 - Hypotension, unspecified Is this a current diagnosis for this admission?: No (4) High anion gap metabolic acidosis Is this a current diagnosis for this admission?: No (5) Abnormal liver function tests Is this a current diagnosis for this admission?: Yes (6) Tobacco dependency Is this a current diagnosis for this admission?: Yes (7) COPD (chronic obstructive pulmonary disease) Qualifiers: COPD type: unspecified COPD Qualified Code(s): J44.9 - Chronic obstructive pulmonary disease, unspecified Is this a current diagnosis for this admission?: Yes - Time Critical Time spent with patient: 35 or more minutes
[2016-10-15] MEDS: THIAMINE HCL 100 MG, FOLIC ACID 1 MG in NORMAL SALINE 50 ML IV SCH (21:20)
[2016-10-15] MEDS: FENTANYL CITRATE INJ/PF 100 MCG/2 ML AMPUL IV PRN (23:48)
[2016-10-16] MEDS: PROPOFOL 100 ML IV PRN ×2 (01:20→16:03)
[2016-10-16] MEDS: VANCOMYCIN HCL 1,000 MG in DEXTROSE 5%-WATER 250 ML IV SCH (01:24)
[2016-10-16] MEDS: INSULIN REG, HUMAN 100 UNIT/ML 3 ML VIAL (PYX) SUBCUT PRN (01:27)
[2016-10-16] MEDS: HYDROCORTISONE SOD SUCCINATE INJ/PF 100 MG/2 ML SDV IV SCH ×3 (01:27→17:39)
[2016-10-16] MEDS: IPRATROPIUM/ALBUTEROL 0.5-2.5 MG/3 ML AMPUL NEB SCH ×4 (01:58→20:49)
[2016-10-16] MEDS: PIPERACILLIN SODIUM/TAZOBACTAM 3.375 GM in NORMAL SALINE 100 ML IV SCH ×2 (03:24→08:13)
[2016-10-16] MEDS: VANCOMYCIN HCL INJ 500 MG VIAL PO SCH ×3 (05:23→17:39)
[2016-10-16] MEDS: RINGERS SOLUTION,LACTATED 1,000 ML IV PRN (05:23)
[2016-10-16] MEDS: METRONIDAZOLE 500 MG/NS RTU 100 ML IV SCH ×3 (05:23→22:25)
[2016-10-16 05:53] LABS: ARTERIAL BLOOD BASE EXCESS 4.3 mmol/L; ARTERIAL BLOOD O2 SATURATION 95.5 % (94-98)
[2016-10-16 05:57] LABS: HEMATOCRIT 28.6 % (37.9-51.0); HEMOGLOBIN 9.7 g/dL (13.5-17.0); HGB HCT DIFFERENCE 0.5; MEAN CORPUSCULAR HEMOGLOBIN 32.5 pg (27.0-33.4); MEAN CORPUSCULAR HGB CONC 33.9 g/dL (32.0-36.0); MEAN CORPUSCULAR VOLUME 96 fl (80-97); RED BLOOD COUNT 2.98 10^6/uL (4.35-5.55); RED CELL DISTRIBUTION WIDTH 15.8 % (11.5-14.0); WHITE BLOOD COUNT 12.3 10^3/uL (4.0-10.5)
[2016-10-16 06:20] LABS: BLOOD UREA NITROGEN 8 mg/dL (7-20); CALCIUM 7.1 mg/dL (8.4-10.2); CREATININE RESULT 0.38 mg/dL (0.52-1.25); GLUCOSE 135 mg/dL (75-110); MAGNESIUM 1.9 mg/dL (1.6-2.3)
[2016-10-16 06:37] LABS: BAND NEUTROPHILS % (MANUAL) 6 % (3-5); BASOPHILS % (MANUAL) 0 % (0-2); EOSINOPHILS % (MANUAL) 0 % (0-6); LYMPHOCYTES % (MANUAL) 2 % (13-45); TOTAL CELLS COUNTED 100
[2016-10-16 06:39] LABS: TOXIC GRANULATION 1+
[2016-10-16 06:40] LABS: ANISOCYTOSIS SLIGHT; POIKILOCYTOSIS SLIGHT; TARGET CELLS 1+
[2016-10-16 06:41] LABS: ANION GAP 6 (5-19); CARBON DIOXIDE 28 mmol/L (22-30); CHLORIDE 107 mmol/L (98-107); POTASSIUM 3.5 mmol/L (3.6-5.0); SODIUM 140.7 mmol/L (137-145)
[2016-10-16] MEDS: ENOXAPARIN SODIUM INJ 40 MG/0.4 ML DISP.SYRIN SUBCUT SCH (08:06)
--- NOTE | 2016-10-16 09:02 | PDOC PROGRESS REPORT ---
Subjective Progress Note for:: 10/16/16 Subjective:: Patient seen today at the bedside. He remains intubated. Review of systems cannot be obtained. No acute events overnight. No Family visitors yesterday and none at the bedside presently. Physical Exam Vital Signs: Temp Pulse Resp BP Pulse Ox 99.0 F 80 20 87/66 L 97 10/16/16 06:09 10/16/16 02:00 10/16/16 06:09 10/16/16 06:09 10/16/16 06:09 Intake & Output 10/15/16 10/16/16 10/17/16 06:59 06:59 06:59 Intake Total 7462 3717 Output Total 2190 2760 Balance 5272 957 Weight 64 kg 65 kg Physical exam: Ventilator: SIMV. Respiratory rate: 20. PEEP 8. Tidal volume 500 Lines: Right IJ, right A-line Drips: Levophed, propofol, Ativan Antibiotics: Vancomycin, Zosyn, Flagyl, by mouth vancomycin General: Well-developed, malnourished, cachectic appearing white male resting in bed on the ventilator. HEENT: Normocephalic/traumatic. Heart: Regular rate and rhythm no murmurs rubs or gallops. Lungs: Clear from the anterior perspective bilaterally. Patient is currently on ventilator. OG tube is present. Abdomen: Soft, minimal grimace with palpation, nondistended hypoactive bowel sounds. Stools are now liquid and brown with rectal tube in place. Extremities: Muscle wasting is evident. No clubbing cyanosis or edema. Warm and dry. 2+ dorsalis pedis pulses. Right upper extremity is swollen. The left upper extremity has a cockup and bandage in place to support his A-line, But it does not appear swollen Neuro: Sedated. : Browne catheter is present with gume urine draining. Skin: Multiple ecchymoses present. Left raccoon eye looks better today and is nearly resolved. Cigarette burn in the suprapubic area. Stage II sacral decubitus ulcer not inspected today. Results Laboratory Results: 10/16/16 05:35 10/16/16 05:35 10/14/16 10/15/16 10/16/16 05:50 10:15 05:35 WBC 6.8 D RBC 3.21 L Hgb 10.6 L D Hct 31.1 L MCV 97 MCH 33.0 MCHC 34.1 RDW 15.7 H Plt Count 103 L Seg Neutrophils % Lymphocytes % Monocytes % Eosinophils % Basophils % Absolute Neutrophils Absolute Lymphocytes Absolute Monocytes Absolute Eosinophils Absolute Basophils Carbonic Acid 0.95 L HCO3/H2CO3 Ratio 28:1 ABG pH 7.55 H ABG pCO2 31.4 L ABG pO2 67.0 L ABG HCO3 26.6 H ABG O2 Saturation 95.5 ABG Base Excess 4.3 FiO2 30% Sodium 138.3 Potassium 3.3 L Chloride 105 Carbon Dioxide 25 Anion Gap 8 BUN 5 L Creatinine 0.38 L Est GFR ( Amer) > 60 Est GFR (Non-Af Amer) > 60 Glucose 237 H Calcium 6.7 L* Magnesium 10/16/16 10/16/16 05:35 05:35 WBC 12.3 H RBC 2.98 L Hgb 9.7 L Hct 28.6 L MCV 96 MCH 32.5 MCHC 33.9 RDW 15.8 H Plt Count 124 L Seg Neutrophils % Not Reportable Lymphocytes % Not Reportable Monocytes % Not Reportable Eosinophils % Not Reportable Basophils % Not Reportable Absolute Neutrophils Not Reportable Absolute Lymphocytes Not Reportable Absolute Monocytes Not Reportable Absolute Eosinophils Not Reportable Absolute Basophils Not Reportable Carbonic Acid HCO3/H2CO3 Ratio ABG pH ABG pCO2 ABG pO2 ABG HCO3 ABG O2 Saturation ABG Base Excess FiO2 Sodium 140.7 Potassium 3.5 L Chloride 107 Carbon Dioxide 28 Anion Gap 6 BUN 8 Creatinine 0.38 L Est GFR ( Amer) > 60 Est GFR (Non-Af Amer) > 60 Glucose 135 H Calcium 7.1 L Magnesium 1.9 10/14/16 14:41 Tracheal Aspirate Gram Stain - Final 10/14/16 14:41 Tracheal Aspirate Sputum Culture - Final Escherichia Coli C.albicans/C.dubliniensis Normal Soheila Absent 10/13/16 10/13/16 10/13/16 20:15 20:15 20:22 Creatine Kinase 235 H Cancelled CK-MB (CK-2) 8.31 H Troponin I 0.119 10/14/16 10/14/16 10/14/16 01:45 01:45 08:20 Creatine Kinase 189 H 153 CK-MB (CK-2) 6.31 H Troponin I 0.031 10/14/16 08:20 Creatine Kinase CK-MB (CK-2) 4.54 Troponin I 0.019 Impressions: Abdomen/Pelvis CT 10/13/16 12:58 IMPRESSION: Colon wall thickening along the ascending colon, hepatic flexure, and sigmoid colon. Findings are nonspecific, worrisome for colitis. Profound fatty infiltration of the liver Question early or developing left lower lobe airspace disease Chest CT 10/13/16 12:58 IMPRESSION: Patchy airspace disease in the posterior left lower lobe worrisome for early or developing pneumonia. Chest X-Ray 10/16/16 06:00 IMPRESSION: STABLE APPEARANCE OF THE CHEST. NO CHANGE. Assessment & Plan - Diagnosis (1) Acute hypoxemic respiratory failure Is this a current diagnosis for this admission?: YesPlan: Patient is status post intubation and on the ventilator. Management per pulmonary service. Continue weaning trials as appropriate. (2) Severe sepsis with septic shock Plan: This is multifactorial due to colitis, pneumonia, and DTs and now strep bacteremia.. There is also some question as to whether or not the patient has consumed substances such as ethylene glycol. Blood pressures are in the low 100s. Levophed at was resumed at a very low dose. (3) Pneumonia Qualifiers: Pneumonia type: aspiration pneumonia Laterality: right Lung location: upper lobe of lung Is this a current diagnosis for this admission?: YesPlan: I do have concern for aspiration in this patient. He was found unresponsive, covered in his own feces. he has had blackout spells in the past which may or may not be related to sleepwalking. Infiltrate is present. Tracheal aspirate is growing out to candidal species and Escherichia coli. Going to add Diflucan on to the patient's regimen. I think at this point we can discontinue vancomycin. Discontinue Zosyn. Unasyn will cover for both the Escherichia coli as well as the strep in the blood. (4) High anion gap metabolic acidosis Is this a current diagnosis for this admission?: YesPlan: Lactic acid was normal. His gap acidosis could be due to use of ethylene glycol. There was a blue substance noted in the back of his throat down in the ER and again here in the ICU with lavage of his stomach. Ethylene glycol level pending. Gap has closed. Acetaminophen level was normal. Patient is currently off bicarbonate drip. Continue lactated Ringer's until tube feeds are at goal on with free water flushes. (5) Alcohol dependency Qualifiers: Substance use status: with intoxication Complication of substance- induced condition: with unspecified complication Qualified Code(s): F10.229 - Alcohol dependence with intoxication, unspecified Plan: Alcohol cessation is highly recommended. This was discussed minimally before the patient failed in the ER. (6) Abnormal liver function tests Is this a current diagnosis for this admission?: YesPlan: Resolved and likely from sepsis with hypotension. (7) Hypokalemia Plan: Replace per protocol. (8) Hypocalcemia Plan: Improved with replacement. Continue to replace as per protocol. (9) Severe malnutrition Plan: Patient is nothing by mouth for now as he is on the ventilator. Will consult dietary for tube feed needs. Await their recommendations. At this point I don' t know why the patient is so severely malnourished. We did not have an opportunity to discuss this before he failed in the ER. Albumin is currently 1.5. Will give some albumin today. (10) DTs (delirium tremens) Plan: Patient is currently intubated and will be allowed to go through withdrawal. I do have concerns that he is ingested ethylene glycol as we have found a blue substance in the back of his throat and his stomach. Ethylene glycol analysis is pending. Continue propofol and Ativan. (11) Anemia of chronic disease Plan: Stable. Likely secondary to underlying excessive alcohol consumption of multiple comorbid problems. (12) C. difficile colitis Plan: CT shows colitis. C. difficile is positive. Stools are liquid. Continue rectal tube. Continue by mouth flank and IV Flagyl for now. He will need at least 14 day course. (13) Pancytopenia Plan: Likely secondary to sepsis as well as alcohol consumption. White blood cell count is currently elevated. It is now up from 3 to12. Anemia stable. Thrombocytopenia is likely secondary to sepsis and alcohol consumption and is stable. Continue to monitor. (14) Sacral decubitus ulcer, stage II Plan: Present on admission. The patient is having multiple bowel movements secondary to C. difficile colitis. The area should be kept covered as to avoid any fecal material entering into the wound. Continue wound care. (15) Fall Qualifiers: Encounter type: initial encounter Qualified Code(s): W19.XXXA - Unspecified fall, initial encounter Plan: Fall precautions once awake. Patient had a fall the day prior to admission. It is uncertain as to whether or not this is mechanical versus stuporous state from intoxication. (16) Bacteremia Plan: Strep is growing in the patient's blood in 1 out of 2 bottles. We'll change him to Unasyn and discontinue the Zosyn. This should cover for both strep and Escherichia coli. (17) Left upper extremity swelling Plan: This appears asymmetric to me. Unknown etiology. There've been no IVs or lines on that side. Will check upper extremity Doppler. - Time Critical Time spent with patient: 35 or more minutes - Inpatient Certification Medical Necessity: Need Close Monitoring Due to Risk of Patient Decompensation, Need For IV Fluids, Need for IV Antibiotics
[2016-10-16] MEDS: PANTOPRAZOLE SODIUM 40 MG VIAL IV SCH (10:10)
[2016-10-16] MEDS: FLUCONAZOLE 200 MG/NS RTU 100 ML IV SCH (10:11)
[2016-10-16] MEDS: ALBUMIN HUMAN 50 ML IV SCH ×2 (10:12→10:13)
[2016-10-16] MEDS ORDERED: CEFAZOLIN 1 GM/D5W RTU 1 GM/50 ML RTUPB IV ONE (11:00)
[2016-10-16] MEDS: CEFAZOLIN 1 GM/D5W RTU 1 GM/50 ML RTUPB IV SCH (17:39)
[2016-10-16] MEDS: THIAMINE HCL 100 MG, FOLIC ACID 1 MG in NORMAL SALINE 50 ML IV SCH (22:25)
[2016-10-17] MEDS: VANCOMYCIN HCL INJ 500 MG VIAL PO SCH ×4 (00:02→18:00)
[2016-10-17] MEDS: IPRATROPIUM/ALBUTEROL 0.5-2.5 MG/3 ML AMPUL NEB SCH ×4 (02:00→19:34)
[2016-10-17] MEDS: CEFAZOLIN 1 GM/D5W RTU 1 GM/50 ML RTUPB IV SCH ×3 (03:23→17:56)
[2016-10-17] MEDS: HYDROCORTISONE SOD SUCCINATE INJ/PF 100 MG/2 ML SDV IV SCH ×3 (03:23→17:57)
[2016-10-17] MEDS: PROPOFOL 100 ML IV PRN ×3 (03:24→18:47)
[2016-10-17] MEDS: METRONIDAZOLE 500 MG/NS RTU 100 ML IV SCH ×3 (05:43→21:44)
[2016-10-17 08:30] LABS: ARTERIAL BLOOD BASE EXCESS 6.7 mmol/L; ARTERIAL BLOOD O2 SATURATION 95.7 % (94-98)
[2016-10-17 08:32] LABS: HEMATOCRIT 30.5 % (37.9-51.0); HEMOGLOBIN 10.3 g/dL (13.5-17.0); HGB HCT DIFFERENCE 0.4; MEAN CORPUSCULAR HEMOGLOBIN 32.3 pg (27.0-33.4); MEAN CORPUSCULAR HGB CONC 33.7 g/dL (32.0-36.0); MEAN CORPUSCULAR VOLUME 96 fl (80-97); RED BLOOD COUNT 3.18 10^6/uL (4.35-5.55); RED CELL DISTRIBUTION WIDTH 16.1 % (11.5-14.0); WHITE BLOOD COUNT 10.2 10^3/uL (4.0-10.5)
[2016-10-17 08:55] LABS: BAND NEUTROPHILS % (MANUAL) 3 % (3-5); BASOPHILS % (MANUAL) 0 % (0-2); EOSINOPHILS % (MANUAL) 0 % (0-6); LYMPHOCYTES % (MANUAL) 2 % (13-45); TOTAL CELLS COUNTED 100
[2016-10-17 08:57] LABS: ANISOCYTOSIS 1+; HYPOCHROMASIA 1+; POIKILOCYTOSIS SLIGHT; POLYCHROMASIA SLIGHT; TARGET CELLS SLIGHT; TOXIC GRANULATION SLIGHT
--- NOTE | 2016-10-17 09:02 | PDOC PROGRESS REPORT ---
Subjective Progress Note for:: 10/17/16 Subjective:: Patient seen today at the bedside. He remains intubated. Review of systems cannot be obtained. No acute events overnight. No Family visitors yesterday and none at the bedside presently. Physical Exam Vital Signs: Temp Pulse Resp BP Pulse Ox 98.8 F 83 20 154/78 H 97 10/17/16 07:49 10/17/16 07:49 10/17/16 07:49 10/17/16 07:49 10/17/16 07:49 Intake & Output 10/16/16 10/17/16 10/18/16 06:59 06:59 06:59 Intake Total 3717 3034 Output Total 2760 4045 375 Balance 957 -1011 -375 Weight 65 kg 63.6 kg Physical exam: Ventilator: SIMV. Respiratory rate: 20. PEEP 8. Tidal volume 500 Lines: Right IJ, right A-line Drips: Levophed off, propofol, Ativan Antibiotics: Vancomycin, Zosyn, Flagyl, by mouth vancomycin General: Well-developed, malnourished, cachectic appearing white male resting in bed on the ventilator. HEENT: Normocephalic/traumatic. Heart: Regular rate and rhythm no murmurs rubs or gallops. Lungs: Clear from the anterior perspective bilaterally. Posteriorly the patient has diminished breath sounds at the bases bilaterally. Patient is currently on ventilator. OG tube is present. At the bedside his O2 sats dropped as low as 82%. The patient was suctioned and given a burst of oxygen. His sats came up to the 90s with time. Abdomen: Soft, nontender nondistended hypoactive bowel sounds. Stools are now liquid and brown with rectal tube in place. Extremities: Muscle wasting is evident. No clubbing cyanosis or edema. Warm and dry. 1+ dorsalis pedis pulses. Right upper extremity is swollen. The left upper extremity has a cockup and bandage in place to support his A-line, But it does not appear swollen Neuro: Sedated. Moans when turned in bed. : Browne catheter is present with gume urine draining. Skin: Multiple ecchymoses present. Left raccoon eye nearly resolved. Cigarette appearing burn in the suprapubic area. Stage II sacral decubitus ulcer clean Results Laboratory Results: 10/17/16 10/17/16 08:10 08:10 Carbonic Acid 0.84 L HCO3/H2CO3 Ratio 33:1 ABG pH 7.62 H* ABG pCO2 28.0 L ABG pO2 63.4 L ABG HCO3 27.9 H ABG O2 Saturation 95.7 ABG Base Excess 6.7 FiO2 30% Magnesium 1.9 10/14/16 14:41 Tracheal Aspirate Gram Stain - Final 10/14/16 14:41 Tracheal Aspirate Sputum Culture - Final Escherichia Coli C.albicans/C.dubliniensis Normal Soheila Absent 10/13/16 10/13/16 10/13/16 20:15 20:15 20:22 Creatine Kinase 235 H Cancelled CK-MB (CK-2) 8.31 H Troponin I 0.119 10/14/16 10/14/16 10/14/16 01:45 01:45 08:20 Creatine Kinase 189 H 153 CK-MB (CK-2) 6.31 H Troponin I 0.031 10/14/16 08:20 Creatine Kinase CK-MB (CK-2) 4.54 Troponin I 0.019 Impressions: Abdomen/Pelvis CT 10/13/16 12:58 IMPRESSION: Colon wall thickening along the ascending colon, hepatic flexure, and sigmoid colon. Findings are nonspecific, worrisome for colitis. Profound fatty infiltration of the liver Question early or developing left lower lobe airspace disease Chest CT 10/13/16 12:58 IMPRESSION: Patchy airspace disease in the posterior left lower lobe worrisome for early or developing pneumonia. Venous Doppler Study 10/16/16 00:00 IMPRESSION: NO EVIDENCE DVT OR SVT IN THE LEFT ARM. Assessment & Plan - Diagnosis (1) Acute hypoxemic respiratory failure Is this a current diagnosis for this admission?: YesPlan: Patient is status post intubation and on the ventilator. Management per pulmonary service. Continue weaning trials as appropriate. PH is 7.6. Will need to slow patient's respirations. (2) Severe sepsis with septic shock Plan: This is multifactorial due to colitis, pneumonia, and DTs and now strep bacteremia.. There is also some question as to whether or not the patient has consumed substances such as ethylene glycol. Blood pressures are in the 150s. Levophed off. Shock is resolved. (3) Pneumonia Qualifiers: Pneumonia type: aspiration pneumonia Laterality: right Lung location: upper lobe of lung Is this a current diagnosis for this admission?: YesPlan: I do have concern for aspiration in this patient. He was found unresponsive, covered in his own feces. he has had blackout spells in the past which may or may not be related to sleepwalking. Infiltrate is present. Tracheal aspirate is growing out to candidal species and Escherichia coli. Continue Diflucan and Ancef. This will cover for both the Escherichia coli as well as the strep in the blood. (4) High anion gap metabolic acidosis Is this a current diagnosis for this admission?: YesPlan: Lactic acid was normal. His gap acidosis could be due to use of ethylene glycol. There was a blue substance noted in the back of his throat down in the ER and again here in the ICU with lavage of his stomach. Ethylene glycol level pending. Gap has closed. Acetaminophen level was normal. Patient is currently off bicarbonate drip. Continue lactated Ringer's until tube feeds are at goal on with free water flushes. Chem-7 pending this morning (5) Alcohol dependency Qualifiers: Substance use status: with intoxication Complication of substance- induced condition: with unspecified complication Qualified Code(s): F10.229 - Alcohol dependence with intoxication, unspecified Plan: Alcohol cessation is highly recommended. This was discussed minimally before the patient failed in the ER. (6) Abnormal liver function tests Is this a current diagnosis for this admission?: YesPlan: Resolved and likely from sepsis with hypotension. (7) Hypokalemia Plan: Replace per protocol. (8) Hypocalcemia Plan: Improved with replacement. Continue to replace as per protocol. (9) Severe malnutrition Plan: Patient is nothing by mouth for now as he is on the ventilator. Will consult dietary for tube feed needs. Await their recommendations. At this point I don' t know why the patient is so severely malnourished. We did not have an opportunity to discuss this before he failed in the ER. Albumin is currently 1.5. Status post 25 g of albumin yesterday. (10) DTs (delirium tremens) Plan: Patient is currently intubated and will be allowed to go through withdrawal. I do have concerns that he is ingested ethylene glycol as we have found a blue substance in the back of his throat and his stomach. Ethylene glycol analysis is pending. Continue propofol and Ativan. (11) Anemia of chronic disease Plan: Stable. Likely secondary to underlying excessive alcohol consumption of multiple comorbid problems. (12) C. difficile colitis Plan: CT shows colitis. C. difficile is positive. Stools are liquid. Continue rectal tube. Continue by mouth flank and IV Flagyl for now. He will need at least 14 day course. (13) Pancytopenia Plan: Likely secondary to sepsis as well as alcohol consumption. White blood cell count is currently elevated. It is now up from 3 to12. Anemia stable. Thrombocytopenia is likely secondary to sepsis and alcohol consumption and is stable. Continue to monitor. (14) Sacral decubitus ulcer, stage II Plan: Present on admission. The patient is having multiple bowel movements secondary to C. difficile colitis. The area should be kept covered as to avoid any fecal material entering into the wound. Continue wound care. (15) Fall Qualifiers: Encounter type: initial encounter Qualified Code(s): W19.XXXA - Unspecified fall, initial encounter Plan: Fall precautions once awake. Patient had a fall the day prior to admission. It is uncertain as to whether or not this is mechanical versus stuporous state from intoxication. (16) Bacteremia Plan: Strep is growing in the patient's blood in 1 out of 2 bottles. Continue Ancef. Await identification and susceptibilities. This should cover for both strep and Escherichia coli. (17) Left upper extremity swelling Plan: This appears asymmetric to me. Upper extremity Doppler was negative for acute DVT or SVT. - Time Critical Time spent with patient: 25-34 minutes - Inpatient Certification Medical Necessity: Need Close Monitoring Due to Risk of Patient Decompensation, Need For IV Fluids, Need for IV Antibiotics
--- NOTE | 2016-10-17 09:15 | PDOC PROGRESS REPORT ---
Subjective Progress Note for:: 10/17/16 Subjective:: Intubated and sedated unchanged Physical Exam Vital Signs: Temp Pulse Resp BP Pulse Ox 98.8 F 83 20 154/78 H 97 10/17/16 07:49 10/17/16 07:49 10/17/16 07:49 10/17/16 07:49 10/17/16 07:49 Intake & Output 10/16/16 10/17/16 10/18/16 06:59 06:59 06:59 Intake Total 3717 3034 Output Total 3443 4047 375 Balance 957 -1011 -375 Weight 65 kg 63.6 kg General appearance: PRESENT: no acute distress, disheveled, obese, well- developed Head exam: PRESENT: atraumatic, normocephalic Eye exam: PRESENT: conjunctiva pale Mouth exam: PRESENT: moist, other - ET tube Neck exam: ABSENT: carotid bruit, JVD, lymphadenopathy, thyromegaly Respiratory exam: PRESENT: decreased breath sounds, prolonged expiratory phas, rales, rhonchi, symmetrical, unlabored Cardiovascular exam: PRESENT: RRR, +S1, +S2 Pulses: PRESENT: normal radial pulses GI/Abdominal exam: PRESENT: normal bowel sounds, soft. ABSENT: distended, guarding, mass, organolmegaly, rebound, tenderness Rectal exam: PRESENT: deferred Gentrourinary exam: PRESENT: indwelling catheter Skin exam: PRESENT: dry, warm Results Laboratory Results: 10/17/16 08:10 10/17/16 10/17/16 10/17/16 08:10 08:10 08:10 WBC 10.2 RBC 3.18 L Hgb 10.3 L Hct 30.5 L MCV 96 MCH 32.3 MCHC 33.7 RDW 16.1 H Plt Count 112 L Seg Neutrophils % Not Reportable Lymphocytes % Not Reportable Monocytes % Not Reportable Eosinophils % Not Reportable Basophils % Not Reportable Absolute Neutrophils Not Reportable Absolute Lymphocytes Not Reportable Absolute Monocytes Not Reportable Absolute Eosinophils Not Reportable Absolute Basophils Not Reportable Carbonic Acid 0.84 L HCO3/H2CO3 Ratio 33:1 ABG pH 7.62 H* ABG pCO2 28.0 L ABG pO2 63.4 L ABG HCO3 27.9 H ABG O2 Saturation 95.7 ABG Base Excess 6.7 FiO2 30% Magnesium 1.9 10/14/16 14:41 Tracheal Aspirate Gram Stain - Final 10/14/16 14:41 Tracheal Aspirate Sputum Culture - Final Escherichia Coli C.albicans/C.dubliniensis Normal Soheila Absent 10/13/16 10/13/16 10/13/16 20:15 20:15 20:22 Creatine Kinase 235 H Cancelled CK-MB (CK-2) 8.31 H Troponin I 0.119 10/14/16 10/14/16 10/14/16 01:45 01:45 08:20 Creatine Kinase 189 H 153 CK-MB (CK-2) 6.31 H Troponin I 0.031 10/14/16 08:20 Creatine Kinase CK-MB (CK-2) 4.54 Troponin I 0.019 Impressions: Abdomen/Pelvis CT 10/13/16 12:58 IMPRESSION: Colon wall thickening along the ascending colon, hepatic flexure, and sigmoid colon. Findings are nonspecific, worrisome for colitis. Profound fatty infiltration of the liver Question early or developing left lower lobe airspace disease Chest CT 10/13/16 12:58 IMPRESSION: Patchy airspace disease in the posterior left lower lobe worrisome for early or developing pneumonia. Venous Doppler Study 10/16/16 00:00 IMPRESSION: NO EVIDENCE DVT OR SVT IN THE LEFT ARM. Assessment & Plan - Diagnosis (1) Acute hypoxemic respiratory failure Is this a current diagnosis for this admission?: Yes (2) Pneumonia Qualifiers: Pneumonia type: aspiration pneumonia Laterality: right Lung location: upper lobe of lung Is this a current diagnosis for this admission?: Yes (3) Hypotension Qualifiers: Hypotension type: unspecified hypotension type Qualified Code(s): I95.9 - Hypotension, unspecified Is this a current diagnosis for this admission?: No (4) High anion gap metabolic acidosis Is this a current diagnosis for this admission?: Yes (5) Abnormal liver function tests Is this a current diagnosis for this admission?: Yes (6) Tobacco dependency Is this a current diagnosis for this admission?: Yes (7) COPD (chronic obstructive pulmonary disease) Qualifiers: COPD type: unspecified COPD Qualified Code(s): J44.9 - Chronic obstructive pulmonary disease, unspecified Is this a current diagnosis for this admission?: Yes - Time Critical Time spent with patient: 35 or more minutes
--- NOTE | 2016-10-17 09:17 | PDOC PROGRESS REPORT ---
Subjective Progress Note for:: 10/15/16 Subjective:: Intubated and sedated unchanged Physical Exam Vital Signs: Temp Pulse Resp BP Pulse Ox 98.8 F 83 20 154/78 H 97 10/17/16 07:49 10/17/16 07:49 10/17/16 07:49 10/17/16 07:49 10/17/16 07:49 Intake & Output 10/16/16 10/17/16 10/18/16 06:59 06:59 06:59 Intake Total 3717 3034 Output Total 2768 4048 375 Balance 957 -1011 -375 Weight 65 kg 63.6 kg General appearance: PRESENT: no acute distress, disheveled, thin, well-developed Head exam: PRESENT: atraumatic, normocephalic Eye exam: PRESENT: conjunctiva pale Mouth exam: PRESENT: dry mucosa, neck supple, other - ET tube Teeth exam: PRESENT: poor dentation Neck exam: ABSENT: carotid bruit, JVD, lymphadenopathy, thyromegaly Respiratory exam: PRESENT: decreased breath sounds, prolonged expiratory phas, rhonchi, symmetrical, unlabored Cardiovascular exam: PRESENT: RRR, +S1, +S2 Pulses: PRESENT: normal radial pulses GI/Abdominal exam: PRESENT: normal bowel sounds, soft. ABSENT: distended, guarding, mass, organolmegaly, rebound, tenderness Rectal exam: PRESENT: deferred Gentrourinary exam: PRESENT: indwelling catheter Musculoskeletal exam: PRESENT: normal inspection Skin exam: PRESENT: dry, warm Results Laboratory Results: 10/17/16 08:10 10/17/16 10/17/16 10/17/16 08:10 08:10 08:10 WBC 10.2 RBC 3.18 L Hgb 10.3 L Hct 30.5 L MCV 96 MCH 32.3 MCHC 33.7 RDW 16.1 H Plt Count 112 L Seg Neutrophils % Not Reportable Lymphocytes % Not Reportable Monocytes % Not Reportable Eosinophils % Not Reportable Basophils % Not Reportable Absolute Neutrophils Not Reportable Absolute Lymphocytes Not Reportable Absolute Monocytes Not Reportable Absolute Eosinophils Not Reportable Absolute Basophils Not Reportable Carbonic Acid 0.84 L HCO3/H2CO3 Ratio 33:1 ABG pH 7.62 H* ABG pCO2 28.0 L ABG pO2 63.4 L ABG HCO3 27.9 H ABG O2 Saturation 95.7 ABG Base Excess 6.7 FiO2 30% Magnesium 1.9 10/14/16 14:41 Tracheal Aspirate Gram Stain - Final 10/14/16 14:41 Tracheal Aspirate Sputum Culture - Final Escherichia Coli C.albicans/C.dubliniensis Normal Soheila Absent 10/13/16 10/13/16 10/13/16 20:15 20:15 20:22 Creatine Kinase 235 H Cancelled CK-MB (CK-2) 8.31 H Troponin I 0.119 10/14/16 10/14/16 10/14/16 01:45 01:45 08:20 Creatine Kinase 189 H 153 CK-MB (CK-2) 6.31 H Troponin I 0.031 10/14/16 08:20 Creatine Kinase CK-MB (CK-2) 4.54 Troponin I 0.019 Impressions: Abdomen/Pelvis CT 10/13/16 12:58 IMPRESSION: Colon wall thickening along the ascending colon, hepatic flexure, and sigmoid colon. Findings are nonspecific, worrisome for colitis. Profound fatty infiltration of the liver Question early or developing left lower lobe airspace disease Chest CT 10/13/16 12:58 IMPRESSION: Patchy airspace disease in the posterior left lower lobe worrisome for early or developing pneumonia. Venous Doppler Study 10/16/16 00:00 IMPRESSION: NO EVIDENCE DVT OR SVT IN THE LEFT ARM. Assessment & Plan - Diagnosis (1) Acute hypoxemic respiratory failure Is this a current diagnosis for this admission?: YesPlan: decrease rr (2) Pneumonia Qualifiers: Pneumonia type: aspiration pneumonia Laterality: right Lung location: upper lobe of lung Is this a current diagnosis for this admission?: Yes (3) Hypotension Qualifiers: Hypotension type: unspecified hypotension type Qualified Code(s): I95.9 - Hypotension, unspecified Is this a current diagnosis for this admission?: No (4) High anion gap metabolic acidosis Is this a current diagnosis for this admission?: Yes (5) Abnormal liver function tests Is this a current diagnosis for this admission?: Yes (6) Tobacco dependency Is this a current diagnosis for this admission?: Yes (7) COPD (chronic obstructive pulmonary disease) Qualifiers: COPD type: unspecified COPD Qualified Code(s): J44.9 - Chronic obstructive pulmonary disease, unspecified Is this a current diagnosis for this admission?: Yes - Time Critical Time spent with patient: 35 or more minutes
[2016-10-17] MEDS: FLUCONAZOLE 200 MG/NS RTU 100 ML IV SCH (09:19)
[2016-10-17] MEDS: ENOXAPARIN SODIUM INJ 40 MG/0.4 ML DISP.SYRIN SUBCUT SCH (09:34)
[2016-10-17 10:09] LABS: ANION GAP 7 (5-19); BLOOD UREA NITROGEN 10 mg/dL (7-20); CALCIUM 7.4 mg/dL (8.4-10.2); CARBON DIOXIDE 33 mmol/L (22-30); CHLORIDE 103 mmol/L (98-107); CREATININE RESULT 0.39 mg/dL (0.52-1.25); GLUCOSE 131 mg/dL (75-110); SODIUM 143.2 mmol/L (137-145)
[2016-10-17 10:18] LABS: POTASSIUM 2.1 mmol/L (3.6-5.0)
[2016-10-17] MEDS ORDERED: POTASSI CL 20 MEQ/50 ML RIDER 20 MEQ/50 ML RTUPB IV ONE (10:51)
[2016-10-17] MEDS ORDERED: POTASSIUM CHLORIDE 20 MEQ/50 ML RTU IV SCH (11:00)
[2016-10-17 12:23] LABS: ARTERIAL BLOOD BASE EXCESS 9.3 mmol/L; ARTERIAL BLOOD O2 SATURATION 86.7 % (94-98)
[2016-10-17] MEDS: POTASSIUM CHLORIDE 20 MEQ/50 ML RTU IV SCH ×6 (12:24→20:14)
[2016-10-17] MEDS: FENTANYL CITRATE INJ/PF 100 MCG/2 ML AMPUL IV PRN (15:09)
[2016-10-17 15:44] LABS: ARTERIAL BLOOD BASE EXCESS 5.3 mmol/L; ARTERIAL BLOOD O2 SATURATION 94.9 % (94-98)
[2016-10-17] MEDS: RINGERS SOLUTION,LACTATED 1,000 ML IV PRN (16:55)
[2016-10-17 17:29] LABS: ANION GAP 7 (5-19); BLOOD UREA NITROGEN 11 mg/dL (7-20); CALCIUM 7.3 mg/dL (8.4-10.2); CARBON DIOXIDE 32 mmol/L (22-30); CHLORIDE 104 mmol/L (98-107); CREATININE RESULT 0.41 mg/dL (0.52-1.25); GLUCOSE 109 mg/dL (75-110); SODIUM 143.3 mmol/L (137-145)
[2016-10-17 17:34] LABS: POTASSIUM 2.5 mmol/L (3.6-5.0)
[2016-10-17] MEDS: PANTOPRAZOLE SODIUM 40 MG VIAL IV SCH (17:57)
[2016-10-17] MEDS: THIAMINE HCL 100 MG, FOLIC ACID 1 MG in NORMAL SALINE 50 ML IV SCH (21:43)
[2016-10-18] MEDS: VANCOMYCIN HCL INJ 500 MG VIAL PO SCH ×5 (00:53→23:25)
[2016-10-18] MEDS: IPRATROPIUM/ALBUTEROL 0.5-2.5 MG/3 ML AMPUL NEB SCH ×4 (01:07→20:17)
[2016-10-18] MEDS: HYDROCORTISONE SOD SUCCINATE INJ/PF 100 MG/2 ML SDV IV SCH ×3 (02:01→17:15)
[2016-10-18] MEDS: CEFAZOLIN 1 GM/D5W RTU 1 GM/50 ML RTUPB IV SCH ×3 (02:01→17:13)
[2016-10-18] MEDS: POTASSIUM CHLORIDE 20 MEQ/50 ML RTU IV SCH ×6 (03:20→15:48)
[2016-10-18] MEDS: PROPOFOL 100 ML IV PRN ×4 (04:23→23:26)
[2016-10-18] MEDS: METRONIDAZOLE 500 MG/NS RTU 100 ML IV SCH ×3 (05:33→22:07)
[2016-10-18] MEDS: PANTOPRAZOLE SODIUM 40 MG VIAL IV SCH ×2 (05:34→17:15)
[2016-10-18 05:55] LABS: ARTERIAL BLOOD BASE EXCESS 12.1 mmol/L; ARTERIAL BLOOD O2 SATURATION 96.2 % (94-98)
[2016-10-18 06:22] LABS: ANION GAP 6 (5-19); BLOOD UREA NITROGEN 13 mg/dL (7-20); CALCIUM 7.1 mg/dL (8.4-10.2); CARBON DIOXIDE 31 mmol/L (22-30); CHLORIDE 104 mmol/L (98-107); CREATININE RESULT 0.27 mg/dL (0.52-1.25); GLUCOSE 159 mg/dL (75-110); MAGNESIUM 1.7 mg/dL (1.6-2.3); POTASSIUM 3.1 mmol/L (3.6-5.0); SODIUM 141.1 mmol/L (137-145)
[2016-10-18 07:06] LABS: HEMATOCRIT 28.4 % (37.9-51.0); HEMOGLOBIN 9.5 g/dL (13.5-17.0); HGB HCT DIFFERENCE 0.1; MEAN CORPUSCULAR HEMOGLOBIN 32.5 pg (27.0-33.4); MEAN CORPUSCULAR HGB CONC 33.4 g/dL (32.0-36.0); MEAN CORPUSCULAR VOLUME 97 fl (80-97); RED BLOOD COUNT 2.92 10^6/uL (4.35-5.55); RED CELL DISTRIBUTION WIDTH 16.3 % (11.5-14.0); WHITE BLOOD COUNT 12.3 10^3/uL (4.0-10.5)
[2016-10-18 07:24] LABS: BASOPHILS % (MANUAL) 0 % (0-2); EOSINOPHILS % (MANUAL) 0 % (0-6); LYMPHOCYTES % (MANUAL) 4 % (13-45); TOTAL CELLS COUNTED 100
[2016-10-18 07:29] LABS: ANISOCYTOSIS 1+; HYPOCHROMASIA 2+; POIKILOCYTOSIS 1+; TOXIC GRANULATION 1+
[2016-10-18] MEDS: ENOXAPARIN SODIUM INJ 40 MG/0.4 ML DISP.SYRIN SUBCUT SCH (07:52)
--- NOTE | 2016-10-18 09:15 | PDOC PROGRESS REPORT ---
Subjective Progress Note for:: 10/18/16 Subjective:: Patient seen today at the bedside. He remains intubated. Review of systems cannot be obtained. No acute events overnight. No Family visitors yesterday and none at the bedside presently. The patient is awake on the ventilator today. I spoke with his brother on the phone yesterday prior to leaving for the day. He states that he came in to see his brother on Wednesday. He did not have an opportunity to speak with the nurse. He said he left soon after he got here. We discussed trying to locate the patient's . His brother, Mr. Jaden Jones, has agreed to try and contact her today. He is also agreed to try notify the nursing staff of his conversation. We agreed that if I hadn't heard from him by the end of today that I'll call him tomorrow and see what he found out. In his opinion he still feels that the patient should be made comfortable and taken off of life support. Physical Exam Vital Signs: Temp Pulse Resp BP Pulse Ox 98.6 F 85 25 H 157/95 H 95 10/18/16 07:57 10/18/16 07:57 10/18/16 07:57 10/18/16 07:57 10/18/16 07:57 Intake & Output 10/17/16 10/18/16 10/19/16 06:59 06:59 06:59 Intake Total 3034 2933 Output Total 4045 3885 80 Balance -1011 -952 -80 Weight 63.6 kg 63.1 kg Physical exam: Ventilator: CPAP mode Respiratory rate: 15. PEEP 6. Lines: Right IJ, right A-line Drips: Levophed off, propofol decrease, Ativan decrease Antibiotics: Zosyn, Flagyl, by mouth vancomycin General: Well-developed, malnourished, cachectic appearing white male resting in bed on the ventilator. HEENT: Normocephalic/traumatic. Ecchymoses are resolving Heart: Mildly tachycardic. no murmurs rubs or gallops. Lungs: Clear from the anterior perspective bilaterally. Patient is currently on ventilator. He is on CPAP mode. And seems to be doing well. OG tube is present. Abdomen: Soft, nontender nondistended hypoactive bowel sounds. Stools are now liquid and brown with rectal tube in place. Tube feeds are running at 50 mL per hour Extremities: Muscle wasting is evident. No clubbing cyanosis. 1+ ankle edema. Warm and dry. 1+ dorsalis pedis pulses. Right upper extremity is less swollen. The left upper extremity has a cockup and bandage in place to support his A-line, But it does not appear swollen Neuro: Sleeping but easily awakened with light touch. Once awake the patient begins to fight the tube. His interests back off to sleep. : Browne catheter is present with gume urine draining. Skin: Multiple ecchymoses present. Left raccoon eye nearly resolved. Cigarette appearing burn in the suprapubic area. Stage II sacral decubitus ulcer not examined today. Bilateral heels are elevated Results Laboratory Results: 10/18/16 06:50 10/18/16 05:40 10/17/16 10/17/16 10/17/16 08:10 09:20 12:10 WBC RBC Hgb Hct MCV MCH MCHC RDW Plt Count Seg Neutrophils % Lymphocytes % Monocytes % Eosinophils % Basophils % Absolute Neutrophils Absolute Lymphocytes Absolute Monocytes Absolute Eosinophils Absolute Basophils Carbonic Acid 1.10 HCO3/H2CO3 Ratio 29:1 ABG pH 7.56 H ABG pCO2 36.5 ABG pO2 44.5 L ABG HCO3 32.0 H ABG O2 Saturation 86.7 L ABG Base Excess 9.3 FiO2 30% Sodium Cancelled 143.2 Potassium Cancelled 2.1 L* Chloride Cancelled 103 Carbon Dioxide Cancelled 33 H Anion Gap Cancelled 7 BUN Cancelled 10 Creatinine Cancelled 0.39 L Est GFR ( Amer) Cancelled > 60 Est GFR (Non-Af Amer) Cancelled > 60 Glucose Cancelled 131 H Calcium Cancelled 7.4 L Magnesium 10/17/16 10/17/16 10/18/16 15:20 16:45 00:50 WBC RBC Hgb Hct MCV MCH MCHC RDW Plt Count Seg Neutrophils % Lymphocytes % Monocytes % Eosinophils % Basophils % Absolute Neutrophils Absolute Lymphocytes Absolute Monocytes Absolute Eosinophils Absolute Basophils Carbonic Acid 1.13 HCO3/H2CO3 Ratio 25:1 ABG pH 7.50 H ABG pCO2 37.4 ABG pO2 67.0 L ABG HCO3 28.6 H ABG O2 Saturation 94.9 ABG Base Excess 5.3 FiO2 40% Sodium 143.3 Potassium 2.5 L* 2.8 L* Chloride 104 Carbon Dioxide 32 H Anion Gap 7 BUN 11 Creatinine 0.41 L Est GFR ( Amer) > 60 Est GFR (Non-Af Amer) > 60 Glucose 109 Calcium 7.3 L Magnesium 10/18/16 10/18/16 10/18/16 00:50 05:40 05:40 WBC RBC Hgb Hct MCV MCH MCHC RDW Plt Count Seg Neutrophils % Lymphocytes % Monocytes % Eosinophils % Basophils % Absolute Neutrophils Absolute Lymphocytes Absolute Monocytes Absolute Eosinophils Absolute Basophils Carbonic Acid 1.35 HCO3/H2CO3 Ratio 26:1 ABG pH 7.52 H ABG pCO2 45.0 ABG pO2 75.4 L ABG HCO3 36.2 H ABG O2 Saturation 96.2 ABG Base Excess 12.1 FiO2 40% Sodium 141.1 Potassium 3.1 L Chloride 104 Carbon Dioxide 31 H Anion Gap 6 BUN 13 Creatinine 0.27 L Est GFR ( Amer) > 60 Est GFR (Non-Af Amer) > 60 Glucose 159 H Calcium 7.1 L Magnesium 1.8 1.7 10/18/16 10/18/16 05:40 06:50 WBC Cancelled 12.3 H RBC Cancelled 2.92 L Hgb Cancelled 9.5 L Hct Cancelled 28.4 L MCV Cancelled 97 MCH Cancelled 32.5 MCHC Cancelled 33.4 RDW Cancelled 16.3 H Plt Count Cancelled 82 L Seg Neutrophils % Cancelled Not Reportable Lymphocytes % Cancelled Not Reportable Monocytes % Cancelled Not Reportable Eosinophils % Cancelled Not Reportable Basophils % Cancelled Not Reportable Absolute Neutrophils Cancelled Not Reportable Absolute Lymphocytes Cancelled Not Reportable Absolute Monocytes Cancelled Not Reportable Absolute Eosinophils Cancelled Not Reportable Absolute Basophils Cancelled Not Reportable Carbonic Acid HCO3/H2CO3 Ratio ABG pH ABG pCO2 ABG pO2 ABG HCO3 ABG O2 Saturation ABG Base Excess FiO2 Sodium Potassium Chloride Carbon Dioxide Anion Gap BUN Creatinine Est GFR ( Amer) Est GFR (Non-Af Amer) Glucose Calcium Magnesium 10/13/16 10/13/16 10/13/16 20:15 20:15 20:22 Creatine Kinase 235 H Cancelled CK-MB (CK-2) 8.31 H Troponin I 0.119 10/14/16 10/14/16 10/14/16 01:45 01:45 08:20 Creatine Kinase 189 H 153 CK-MB (CK-2) 6.31 H Troponin I 0.031 10/14/16 08:20 Creatine Kinase CK-MB (CK-2) 4.54 Troponin I 0.019 Impressions: Abdomen/Pelvis CT 10/13/16 12:58 IMPRESSION: Colon wall thickening along the ascending colon, hepatic flexure, and sigmoid colon. Findings are nonspecific, worrisome for colitis. Profound fatty infiltration of the liver Question early or developing left lower lobe airspace disease Chest CT 10/13/16 12:58 IMPRESSION: Patchy airspace disease in the posterior left lower lobe worrisome for early or developing pneumonia. Venous Doppler Study 10/16/16 00:00 IMPRESSION: NO EVIDENCE DVT OR SVT IN THE LEFT ARM. Chest X-Ray 10/18/16 06:00 IMPRESSION: Small left pleural effusion with ground-glass opacity at the left lung base, may represent atelectasis or pneumonia. Support devices in expected locations. Assessment & Plan - Diagnosis (1) Acute hypoxemic respiratory failure Is this a current diagnosis for this admission?: YesPlan: Patient is status post intubation and on the ventilator. Management per pulmonary service. Continue weaning trials as appropriate. PH is 7.5. (2) Severe sepsis with septic shock Plan: This is multifactorial due to colitis, pneumonia, and DTs and now strep bacteremia.. There is also some question as to whether or not the patient has consumed substances such as ethylene glycol. This test came back negative, however. Blood pressures are in the 150s. Levophed off. Shock is resolved. (3) Pneumonia Qualifiers: Pneumonia type: aspiration pneumonia Laterality: right Lung location: upper lobe of lung Is this a current diagnosis for this admission?: YesPlan: I do have concern for aspiration in this patient. He was found unresponsive, covered in his own feces. he has had blackout spells in the past which may or may not be related to sleepwalking. Infiltrate is present. Tracheal aspirate is growing out to candidal species and Escherichia coli. Continue Diflucan and Ancef. This will cover for both the Escherichia coli as well as the strep in the blood. (4) High anion gap metabolic acidosis Is this a current diagnosis for this admission?: YesPlan: Lactic acid was normal. A filling glycol level was negative. I suspect the blue substance in his stomach and in the back of his throat was due to a blue colored pill that he receives down in the ED. Gap has closed. Acetaminophen level was normal. Patient is currently off bicarbonate drip. Continue lactated Ringer's until tube feeds are at goal on with free water flushes. (5) Alcohol dependency Qualifiers: Substance use status: with intoxication Complication of substance- induced condition: with unspecified complication Qualified Code(s): F10.229 - Alcohol dependence with intoxication, unspecified Plan: Alcohol cessation is highly recommended. This was discussed minimally before the patient failed in the ER. (6) Abnormal liver function tests Is this a current diagnosis for this admission?: YesPlan: Resolved and likely from sepsis with hypotension. (7) Hypokalemia Plan: Replace per protocol. Suspect this is due to profuse diarrhea from C. difficile. (8) Hypocalcemia Plan: Improved with replacement. Continue to replace as per protocol. (9) Severe malnutrition Plan: Patient is nothing by mouth for now as he is on the ventilator. Will consult dietary for tube feed needs. Await their recommendations. At this point I don' t know why the patient is so severely malnourished. We did not have an opportunity to discuss this before he failed in the ER. Albumin is currently 1.5. Status post 25 g of albumin yesterday. (10) DTs (delirium tremens) Plan: The patient is through the worst of his withdrawal. Ethylene glycol level was negative. Continue propofol and Ativan. (11) Anemia of chronic disease Plan: Stable. Likely secondary to underlying excessive alcohol consumption of multiple comorbid problems. (12) C. difficile colitis Plan: CT shows colitis. C. difficile is positive. Stools are liquid. Continue rectal tube. Continue by mouth flank and IV Flagyl for now. He will need at least 14 day course. (13) Pancytopenia Plan: Likely secondary to sepsis as well as alcohol consumption. White blood cell count is currently elevated. It is now up from 3 to12. Anemia stable. Thrombocytopenia is likely secondary to sepsis and alcohol consumption and is stable. Continue to monitor. (14) Sacral decubitus ulcer, stage II Plan: Present on admission. The patient is having multiple bowel movements secondary to C. difficile colitis. The area should be kept covered as to avoid any fecal material entering into the wound. Continue wound care. (15) Fall Qualifiers: Encounter type: initial encounter Qualified Code(s): W19.XXXA - Unspecified fall, initial encounter Plan: Fall precautions once awake. Patient had a fall the day prior to admission. It is uncertain as to whether or not this is mechanical versus stuporous state from intoxication. (16) Bacteremia Plan: Strep is growing in the patient's blood in 1 out of 2 bottles. Continue Ancef. Await identification and susceptibilities. This should cover for both strep and Escherichia coli. (17) Left upper extremity swelling Plan: This appears asymmetric to me. Upper extremity Doppler was negative for acute DVT or SVT. - Time Critical Time spent with patient: 15-24 minutes - Inpatient Certification Medical Necessity: Significant Comorbidiites Make Outpatient Treatment Too Risky , Need Close Monitoring Due to Risk of Patient Decompensation
[2016-10-18] MEDS: FLUCONAZOLE 200 MG/NS RTU 100 ML IV SCH (10:11)
[2016-10-18 10:47] LABS: HEMATOCRIT 28.3 % (37.9-51.0); HEMOGLOBIN 9.6 g/dL (13.5-17.0); HGB HCT DIFFERENCE 0.5; MEAN CORPUSCULAR HEMOGLOBIN 32.3 pg (27.0-33.4); MEAN CORPUSCULAR HGB CONC 33.9 g/dL (32.0-36.0); MEAN CORPUSCULAR VOLUME 95 fl (80-97); RED BLOOD COUNT 2.97 10^6/uL (4.35-5.55); RED CELL DISTRIBUTION WIDTH 16.2 % (11.5-14.0); WHITE BLOOD COUNT 11.8 10^3/uL (4.0-10.5)
[2016-10-18 11:02] LABS: BAND NEUTROPHILS % (MANUAL) 2 % (3-5); BASOPHILS % (MANUAL) 0 % (0-2); EOSINOPHILS % (MANUAL) 0 % (0-6); LYMPHOCYTES % (MANUAL) 5 % (13-45); TOTAL CELLS COUNTED 100
[2016-10-18 11:06] LABS: POIKILOCYTOSIS 2+; TOXIC GRANULATION 1+
[2016-10-18 11:07] LABS: ANISOCYTOSIS 1+; HELMET CELLS SLIGHT; HYPOCHROMASIA 1+; POLYCHROMASIA SLIGHT; TARGET CELLS 2+
[2016-10-18 13:11] LABS: BLOOD UREA NITROGEN 15 mg/dL (7-20); CALCIUM 7.2 mg/dL (8.4-10.2); CARBON DIOXIDE 35 mmol/L (22-30); CHLORIDE 103 mmol/L (98-107); CREATININE RESULT 0.35 mg/dL (0.52-1.25); GLUCOSE 152 mg/dL (75-110)
[2016-10-18 13:21] LABS: ANION GAP 5 (5-19); SODIUM 143.4 mmol/L (137-145)
[2016-10-18 13:24] LABS: POTASSIUM 2.8 mmol/L (3.6-5.0)
[2016-10-18] MEDS ORDERED: ACETYLCYSTEINE 20% SOLN 800 MG/4 ML VIAL.NEB NEB ONE (13:30)
[2016-10-18] MEDS ORDERED: POTASSI CL 20 MEQ/50 ML RIDER 20 MEQ/50 ML RTUPB IV ONE (13:34)
--- NOTE | 2016-10-18 14:34 | PDOC PROGRESS REPORT ---
Subjective Progress Note for:: 10/18/16 Subjective:: Intubated and sedated unchanged Physical Exam Vital Signs: Temp Pulse Resp BP Pulse Ox 99.1 F 88 18 121/80 94 10/18/16 06:11 10/18/16 01:21 10/18/16 06:11 10/18/16 06:11 10/18/16 06:11 Intake & Output 10/17/16 10/18/16 10/19/16 06:59 06:59 06:59 Intake Total 3031 2938 Output Total 4048 1464 Balance -1011 -952 Weight 63.6 kg 63.1 kg General appearance: PRESENT: no acute distress, disheveled, thin, well-developed Head exam: PRESENT: atraumatic, normocephalic Eye exam: PRESENT: conjunctiva pale Mouth exam: PRESENT: dry mucosa, neck supple, other - ET tube Neck exam: PRESENT: carotid bruit Respiratory exam: PRESENT: crackles, decreased breath sounds, prolonged expiratory phas, rhonchi, symmetrical, unlabored Cardiovascular exam: PRESENT: RRR, +S1, +S2 Pulses: PRESENT: normal radial pulses GI/Abdominal exam: PRESENT: normal bowel sounds, soft. ABSENT: distended, guarding, mass, organolmegaly, rebound, tenderness Rectal exam: PRESENT: deferred Gentrourinary exam: PRESENT: indwelling catheter Musculoskeletal exam: PRESENT: normal inspection Skin exam: PRESENT: dry, warm Results Laboratory Results: 10/18/16 06:50 10/18/16 05:40 10/17/16 10/17/16 10/17/16 08:10 08:10 08:10 WBC 10.2 RBC 3.18 L Hgb 10.3 L Hct 30.5 L MCV 96 MCH 32.3 MCHC 33.7 RDW 16.1 H Plt Count 112 L Seg Neutrophils % Not Reportable Lymphocytes % Not Reportable Monocytes % Not Reportable Eosinophils % Not Reportable Basophils % Not Reportable Absolute Neutrophils Not Reportable Absolute Lymphocytes Not Reportable Absolute Monocytes Not Reportable Absolute Eosinophils Not Reportable Absolute Basophils Not Reportable Carbonic Acid 0.84 L HCO3/H2CO3 Ratio 33:1 ABG pH 7.62 H* ABG pCO2 28.0 L ABG pO2 63.4 L ABG HCO3 27.9 H ABG O2 Saturation 95.7 ABG Base Excess 6.7 FiO2 30% Sodium Cancelled Potassium Cancelled Chloride Cancelled Carbon Dioxide Cancelled Anion Gap Cancelled BUN Cancelled Creatinine Cancelled Est GFR ( Amer) Cancelled Est GFR (Non-Af Amer) Cancelled Glucose Cancelled Calcium Cancelled Magnesium 10/17/16 10/17/16 10/17/16 08:10 09:20 12:10 WBC RBC Hgb Hct MCV MCH MCHC RDW Plt Count Seg Neutrophils % Lymphocytes % Monocytes % Eosinophils % Basophils % Absolute Neutrophils Absolute Lymphocytes Absolute Monocytes Absolute Eosinophils Absolute Basophils Carbonic Acid 1.10 HCO3/H2CO3 Ratio 29:1 ABG pH 7.56 H ABG pCO2 36.5 ABG pO2 44.5 L ABG HCO3 32.0 H ABG O2 Saturation 86.7 L ABG Base Excess 9.3 FiO2 30% Sodium 143.2 Potassium 2.1 L* Chloride 103 Carbon Dioxide 33 H Anion Gap 7 BUN 10 Creatinine 0.39 L Est GFR ( Amer) > 60 Est GFR (Non-Af Amer) > 60 Glucose 131 H Calcium 7.4 L Magnesium 1.9 10/17/16 10/17/16 10/18/16 15:20 16:45 00:50 WBC RBC Hgb Hct MCV MCH MCHC RDW Plt Count Seg Neutrophils % Lymphocytes % Monocytes % Eosinophils % Basophils % Absolute Neutrophils Absolute Lymphocytes Absolute Monocytes Absolute Eosinophils Absolute Basophils Carbonic Acid 1.13 HCO3/H2CO3 Ratio 25:1 ABG pH 7.50 H ABG pCO2 37.4 ABG pO2 67.0 L ABG HCO3 28.6 H ABG O2 Saturation 94.9 ABG Base Excess 5.3 FiO2 40% Sodium 143.3 Potassium 2.5 L* 2.8 L* Chloride 104 Carbon Dioxide 32 H Anion Gap 7 BUN 11 Creatinine 0.41 L Est GFR ( Amer) > 60 Est GFR (Non-Af Amer) > 60 Glucose 109 Calcium 7.3 L Magnesium 10/18/16 10/18/16 10/18/16 00:50 05:40 05:40 WBC RBC Hgb Hct MCV MCH MCHC RDW Plt Count Seg Neutrophils % Lymphocytes % Monocytes % Eosinophils % Basophils % Absolute Neutrophils Absolute Lymphocytes Absolute Monocytes Absolute Eosinophils Absolute Basophils Carbonic Acid 1.35 HCO3/H2CO3 Ratio 26:1 ABG pH 7.52 H ABG pCO2 45.0 ABG pO2 75.4 L ABG HCO3 36.2 H ABG O2 Saturation 96.2 ABG Base Excess 12.1 FiO2 40% Sodium 141.1 Potassium 3.1 L Chloride 104 Carbon Dioxide 31 H Anion Gap 6 BUN 13 Creatinine 0.27 L Est GFR ( Amer) > 60 Est GFR (Non-Af Amer) > 60 Glucose 159 H Calcium 7.1 L Magnesium 1.8 1.7 10/18/16 10/18/16 05:40 06:50 WBC Cancelled 12.3 H RBC Cancelled 2.92 L Hgb Cancelled 9.5 L Hct Cancelled 28.4 L MCV Cancelled 97 MCH Cancelled 32.5 MCHC Cancelled 33.4 RDW Cancelled 16.3 H Plt Count Cancelled 82 L Seg Neutrophils % Cancelled Not Reportable Lymphocytes % Cancelled Not Reportable Monocytes % Cancelled Not Reportable Eosinophils % Cancelled Not Reportable Basophils % Cancelled Not Reportable Absolute Neutrophils Cancelled Not Reportable Absolute Lymphocytes Cancelled Not Reportable Absolute Monocytes Cancelled Not Reportable Absolute Eosinophils Cancelled Not Reportable Absolute Basophils Cancelled Not Reportable Carbonic Acid HCO3/H2CO3 Ratio ABG pH ABG pCO2 ABG pO2 ABG HCO3 ABG O2 Saturation ABG Base Excess FiO2 Sodium Potassium Chloride Carbon Dioxide Anion Gap BUN Creatinine Est GFR ( Amer) Est GFR (Non-Af Amer) Glucose Calcium Magnesium 10/13/16 10/13/16 10/13/16 20:15 20:15 20:22 Creatine Kinase 235 H Cancelled CK-MB (CK-2) 8.31 H Troponin I 0.119 10/14/16 10/14/16 10/14/16 01:45 01:45 08:20 Creatine Kinase 189 H 153 CK-MB (CK-2) 6.31 H Troponin I 0.031 10/14/16 08:20 Creatine Kinase CK-MB (CK-2) 4.54 Troponin I 0.019 Impressions: Abdomen/Pelvis CT 10/13/16 12:58 IMPRESSION: Colon wall thickening along the ascending colon, hepatic flexure, and sigmoid colon. Findings are nonspecific, worrisome for colitis. Profound fatty infiltration of the liver Question early or developing left lower lobe airspace disease Chest CT 10/13/16 12:58 IMPRESSION: Patchy airspace disease in the posterior left lower lobe worrisome for early or developing pneumonia. Venous Doppler Study 10/16/16 00:00 IMPRESSION: NO EVIDENCE DVT OR SVT IN THE LEFT ARM. Chest X-Ray 10/18/16 06:00 IMPRESSION: Small left pleural effusion with ground-glass opacity at the left lung base, may represent atelectasis or pneumonia. Support devices in expected locations. Assessment & Plan - Diagnosis (1) Acute hypoxemic respiratory failure Is this a current diagnosis for this admission?: YesPlan: improving (2) Pneumonia Qualifiers: Pneumonia type: aspiration pneumonia Laterality: right Lung location: upper lobe of lung Is this a current diagnosis for this admission?: YesPlan: improving (3) Hypotension Qualifiers: Hypotension type: unspecified hypotension type Qualified Code(s): I95.9 - Hypotension, unspecified Is this a current diagnosis for this admission?: No (4) High anion gap metabolic acidosis Is this a current diagnosis for this admission?: No (5) Abnormal liver function tests Is this a current diagnosis for this admission?: No (6) Tobacco dependency Is this a current diagnosis for this admission?: Yes (7) COPD (chronic obstructive pulmonary disease) Qualifiers: COPD type: unspecified COPD Qualified Code(s): J44.9 - Chronic obstructive pulmonary disease, unspecified Is this a current diagnosis for this admission?: Yes - Time Critical Time spent with patient: 35 or more minutes
[2016-10-18] MEDS: POTASSIUM CHLORIDE 20 MEQ/15 ML UDCUP NG SCH (17:24)
[2016-10-18] MEDS: ACETYLCYSTEINE 20% SOLN 800 MG/4 ML VIAL.NEB NEB SCH (20:17)
[2016-10-18] MEDS: FENTANYL CITRATE INJ/PF 100 MCG/2 ML AMPUL IV PRN (20:45)
[2016-10-18 20:50] LABS: BLOOD UREA NITROGEN 15 mg/dL (7-20); CALCIUM 7.2 mg/dL (8.4-10.2); CARBON DIOXIDE 33 mmol/L (22-30); CHLORIDE 105 mmol/L (98-107); CREATININE RESULT 0.36 mg/dL (0.52-1.25); GLUCOSE 154 mg/dL (75-110); POTASSIUM 3.7 mmol/L (3.6-5.0); SODIUM 141.6 mmol/L (137-145)
[2016-10-18 20:54] LABS: ANION GAP 4 (5-19)
[2016-10-18] MEDS: THIAMINE HCL 100 MG, FOLIC ACID 1 MG in NORMAL SALINE 50 ML IV SCH (22:07)
[2016-10-19] MEDS: IPRATROPIUM/ALBUTEROL 0.5-2.5 MG/3 ML AMPUL NEB SCH ×4 (01:16→20:17)
[2016-10-19] MEDS: HYDROCORTISONE SOD SUCCINATE INJ/PF 100 MG/2 ML SDV IV SCH ×3 (02:47→17:43)
[2016-10-19] MEDS: CEFAZOLIN 1 GM/D5W RTU 1 GM/50 ML RTUPB IV SCH ×3 (02:47→17:43)
[2016-10-19] MEDS: PROPOFOL 100 ML IV PRN (05:32)
[2016-10-19] MEDS: METRONIDAZOLE 500 MG/NS RTU 100 ML IV SCH ×3 (05:32→21:31)
[2016-10-19] MEDS: POTASSI CL 20 MEQ/NS 1L 1000 ML IV PRN (05:33)
[2016-10-19] MEDS: VANCOMYCIN HCL INJ 500 MG VIAL PO SCH ×4 (05:33→23:03)
[2016-10-19] MEDS: PANTOPRAZOLE SODIUM 40 MG VIAL IV SCH ×2 (05:33→17:43)
[2016-10-19 05:47] LABS: BLOOD UREA NITROGEN 16 mg/dL (7-20); CALCIUM 7.1 mg/dL (8.4-10.2); CARBON DIOXIDE 32 mmol/L (22-30); CHLORIDE 106 mmol/L (98-107); CREATININE RESULT 0.34 mg/dL (0.52-1.25); GLUCOSE 149 mg/dL (75-110); MAGNESIUM 1.8 mg/dL (1.6-2.3); POTASSIUM 3.2 mmol/L (3.6-5.0)
[2016-10-19 05:56] LABS: ARTERIAL BLOOD BASE EXCESS 8.6 mmol/L; ARTERIAL BLOOD O2 SATURATION 99.1 % (94-98)
[2016-10-19 06:01] LABS: ANION GAP 6 (5-19); SODIUM 143.8 mmol/L (137-145)
[2016-10-19] MEDS: ACETYLCYSTEINE 20% SOLN 800 MG/4 ML VIAL.NEB NEB SCH ×2 (08:28→20:17)
[2016-10-19] MEDS: ENOXAPARIN SODIUM INJ 40 MG/0.4 ML DISP.SYRIN SUBCUT SCH (08:35)
--- NOTE | 2016-10-19 09:02 | PDOC PROGRESS REPORT ---
Subjective Progress Note for:: 10/19/16 Subjective:: Please see initial H&P for details of admission. In short this is a 56-year- old white male with a past medical history significant for alcohol abuse who presented to the ED in respiratory distress secondary to pneumonia. Initially the patient wanted to leave AMA but his brother was able to convince him to stay via phone. 20 minutes after convincing the patient to stay a decompensated and required rapid sequence intubation and admission to the ICU. Since admission he has been found to have acute respiratory failure, sepsis with shock complicated by mild shock liver, strep bacteremia, C. difficile colitis present on admission, and presumed coli aspiration pneumonia. There is been a question regarding who was making medical decisions for this patient. He is but estranged from his and he has a brother, Mr. Jaden Jones. The patient wanted assistance at the time he decompensated in the ED (recall that he was encouraged to get full assistance by his brother), however, his brother expressed shortly after intubation that he would like to make the patient comfort care. Because of the discrepancy, the patient has remained intubated and full code. His brother is in the process of trying to locate his . Patient seen today at the bedside. He remains intubated. Review of systems cannot be obtained. I did ask if he had any pain patient tried to respond colon but his response cannot be accurately interpreted. Overnight the patient desaturated again. There was one instance where he had to be bagged. She has copious thick white mucus and continues to develop mucus plugging that is causing the issue. According to the nurse's report, they received no phone calls from his brother about whether or not he could contact his . Nor did I. Physical Exam Vital Signs: Temp Pulse Resp BP Pulse Ox 99.9 F 88 14 162/89 H 100 10/19/16 07:51 10/19/16 07:51 10/19/16 07:51 10/19/16 07:51 10/19/16 07:51 Intake & Output 10/18/16 10/19/16 10/20/16 06:59 06:59 06:59 Intake Total 2933 3752 Output Total 8625 1575 40 Balance -952 2177 -40 Weight 63.1 kg 66.5 kg Physical exam: Ventilator: SVIM: FiO2 50%, respiratory rate 10, PEEP 10 tidal volume 500. Actual respiratory rate 20 Patient was switched to CPAP mode at the bedside. Lines: Right IJ, right A-line Drips: Levophed off, propofol decrease, Ativan decrease Antibiotics: Zosyn, Flagyl, by mouth vancomycin General: Well-developed, malnourished, cachectic appearing white male resting in bed on the ventilator. HEENT: Normocephalic/traumatic. Ecchymoses are resolving Heart: Regular rate and rhythm. no murmurs rubs or gallops. Lungs: Clear from the anterior perspective bilaterally. Patient is currently on ventilator. OG tube is present. Copious thick mucus suctioned at the bedside. Abdomen: Soft, nontender nondistended hypoactive bowel sounds. Stools are now liquid and brown with rectal tube in place. Tube feeds are running at 50 mL per hour Extremities: Muscle wasting is evident. No clubbing cyanosis. 1+ ankle edema. Warm and dry. 1+ dorsalis pedis pulses. Right upper extremity is less swollen. The left upper extremity has a cockup and bandage in place to support his A-line, But it does not appear swollen. Telfa pads applied to both heels. Patient is developing blisters. Neuro: Patient is awake and trying to talk on both ventilator modes. We attempted to ask him questions based on I believe. He seems to get confused as to which going to use. We switched to hand squeezes to communicate. Our discussion included him being on the ventilator and whether or not he wanted to remain on a ventilator. One incident the patient squeezes my hand to indicate that he did not want to remain on the ventilator and during another instance he squeezed to indicate that he would want to stay on the ventilator. During a separate instance he did not squeeze at all to this question. : Browne catheter is present with gume urine draining. Skin: Multiple ecchymoses present. Left raccoon eye nearly resolved. Cigarette appearing burn in the suprapubic area. Stage II sacral decubitus ulcer not examined today. Bilateral heels are covered with tefla pad Results Laboratory Results: 10/18/16 10:15 10/19/16 04:45 10/18/16 10/18/16 10/18/16 10:15 12:30 20:15 WBC 11.8 H RBC 2.97 L Hgb 9.6 L Hct 28.3 L MCV 95 MCH 32.3 MCHC 33.9 RDW 16.2 H Plt Count 78 L Seg Neutrophils % Not Reportable Lymphocytes % Not Reportable Monocytes % Not Reportable Eosinophils % Not Reportable Basophils % Not Reportable Absolute Neutrophils Not Reportable Absolute Lymphocytes Not Reportable Absolute Monocytes Not Reportable Absolute Eosinophils Not Reportable Absolute Basophils Not Reportable Carbonic Acid HCO3/H2CO3 Ratio ABG pH ABG pCO2 ABG pO2 ABG HCO3 ABG O2 Saturation ABG Base Excess FiO2 Sodium 143.4 141.6 Potassium 2.8 L* 3.7 Chloride 103 105 Carbon Dioxide 35 H 33 H Anion Gap 5 4 L BUN 15 15 Creatinine 0.35 L 0.36 L Est GFR ( Amer) > 60 > 60 Est GFR (Non-Af Amer) > 60 > 60 Glucose 152 H 154 H Calcium 7.2 L 7.2 L Magnesium 10/19/16 10/19/16 04:45 05:45 WBC RBC Hgb Hct MCV MCH MCHC RDW Plt Count Seg Neutrophils % Lymphocytes % Monocytes % Eosinophils % Basophils % Absolute Neutrophils Absolute Lymphocytes Absolute Monocytes Absolute Eosinophils Absolute Basophils Carbonic Acid 1.13 HCO3/H2CO3 Ratio 27:1 ABG pH 7.54 H ABG pCO2 37.6 ABG pO2 143.6 H ABG HCO3 31.6 H ABG O2 Saturation 99.1 H ABG Base Excess 8.6 FiO2 50% Sodium 143.8 Potassium 3.2 L Chloride 106 Carbon Dioxide 32 H Anion Gap 6 BUN 16 Creatinine 0.34 L Est GFR ( Amer) > 60 Est GFR (Non-Af Amer) > 60 Glucose 149 H Calcium 7.1 L Magnesium 1.8 10/13/16 10/13/16 10/13/16 20:15 20:15 20:22 Creatine Kinase 235 H Cancelled CK-MB (CK-2) 8.31 H Troponin I 0.119 10/14/16 10/14/16 10/14/16 01:45 01:45 08:20 Creatine Kinase 189 H 153 CK-MB (CK-2) 6.31 H Troponin I 0.031 10/14/16 08:20 Creatine Kinase CK-MB (CK-2) 4.54 Troponin I 0.019 Impressions: Abdomen/Pelvis CT 10/13/16 12:58 IMPRESSION: Colon wall thickening along the ascending colon, hepatic flexure, and sigmoid colon. Findings are nonspecific, worrisome for colitis. Profound fatty infiltration of the liver Question early or developing left lower lobe airspace disease Chest CT 10/13/16 12:58 IMPRESSION: Patchy airspace disease in the posterior left lower lobe worrisome for early or developing pneumonia. Venous Doppler Study 10/16/16 00:00 IMPRESSION: NO EVIDENCE DVT OR SVT IN THE LEFT ARM. Chest X-Ray 10/19/16 06:00 IMPRESSION: Left lower lobar haziness-effusion, stable. Lines and tubes. Assessment & Plan - Diagnosis (1) Acute hypoxemic respiratory failure Is this a current diagnosis for this admission?: YesPlan: Patient is status post intubation and on the ventilator. Management per pulmonary service. Continue weaning trials as appropriate. Chest x-ray reviewed and small infiltrate persist. Overall the patient is progressing. I think with more time he will do well off of the ventilator. For now he continues to have desats. Question of bronchoscopy would be of any help. I'll need to discuss this with pulmonology service. (2) Severe sepsis with septic shock Plan: This is multifactorial due to colitis, pneumonia, and DTs and now strep bacteremia.. There was also some question as to whether or not the patient has consumed substances such as ethylene glycol. This test came back negative, however. Blood pressures are in the 150s. Levophed off. Shock is resolved. (3) Pneumonia Qualifiers: Pneumonia type: aspiration pneumonia Laterality: right Lung location: upper lobe of lung Is this a current diagnosis for this admission?: YesPlan: I do have concern for aspiration in this patient. He was found unresponsive, covered in his own feces. he has had blackout spells in the past which may or may not be related to sleepwalking (habits for sleepwalking given by patient during the ED interview and confirmed by brother via telephone conversation). Infiltrate is present. Tracheal aspirate is growing out to candidal species and Escherichia coli. Continue Diflucan and Ancef. This will cover for both the Escherichia coli as well as the strep in the blood. (4) High anion gap metabolic acidosis Is this a current diagnosis for this admission?: YesPlan: Lactic acid was normal. Ethylene glycol level was negative. I suspect the blue substance in his stomach and in the back of his throat was due to a blue colored pill that he received down in the ED. Gap has closed. Acetaminophen level was normal. Patient is status post bicarbonate drip. Patient was switched from lactated Ringer's to normal saline with 20 mEq of potassium yesterday. Now that he is at goal with tube feeds and free flushes we can consider discontinuing IV fluids tomorrow. (5) Alcohol dependency Qualifiers: Substance use status: with intoxication Complication of substance- induced condition: with unspecified complication Qualified Code(s): F10.229 - Alcohol dependence with intoxication, unspecified Plan: Alcohol cessation is highly recommended. This was discussed minimally before the patient failed in the ER. (6) Abnormal liver function tests Is this a current diagnosis for this admission?: YesPlan: Resolved and likely from sepsis with hypotension. (7) Hypokalemia Plan: Replace per protocol. Suspect this is due to profuse diarrhea from C. difficile. Currently he is receiving 40 mEq NG twice a day in addition to the replacements done per protocol and 20 mEq in his IV fluids. With all of this he is still consistently low with his potassium. Magnesium is within expected limits. We'll monitor today and adjust NG replacement as necessary. (8) Hypocalcemia Plan: Improved with replacement. Continue to replace as per protocol. (9) Severe malnutrition Plan: Patient is nothing by mouth for now as he is on the ventilator. Will consult dietary for tube feed needs. Await their recommendations. At this point I don' t know why the patient is so severely malnourished. We did not have an opportunity to discuss this before he failed in the ER. Albumin is currently 1.5. Status post 25 g of albumin yesterday. (10) DTs (delirium tremens) Plan: The patient is through the worst of his withdrawal. Ethylene glycol level was negative. Continue propofol and Ativan. (11) Anemia of chronic disease Plan: Stable. Likely secondary to underlying excessive alcohol consumption of multiple comorbid problems. (12) C. difficile colitis Plan: CT shows colitis. C. difficile is positive. Stools are liquid. Continue rectal tube. Continue by mouth flank and IV Flagyl for now. He will need at least 14 day course. (13) Pancytopenia Plan: Likely secondary to sepsis as well as alcohol consumption. Leukopenia is resolved. White blood cell count is currently elevated. Anemia stable. Thrombocytopenia is likely secondary to sepsis and alcohol consumption and is stable. Continue to monitor. (14) Sacral decubitus ulcer, stage II Plan: Present on admission. The patient is having multiple bowel movements secondary to C. difficile colitis. The area should be kept covered as to avoid any fecal material entering into the wound. Continue wound care. (15) Fall Qualifiers: Encounter type: initial encounter Qualified Code(s): W19.XXXA - Unspecified fall, initial encounter Plan: Fall precautions once awake. Patient had a fall the day prior to admission. It is uncertain as to whether or not this is mechanical versus stuporous state from intoxication. (16) Bacteremia Plan: Multiple strep species is growing in the patient's blood in 1 out of 2 bottles. Also growing as clostridium which is likely a contaminant. Continue Ancef. This should cover for both strep and Escherichia coli. Repeat blood cultures have been done and are negative to date. (17) Left upper extremity swelling Plan: This appears asymmetric to me. Upper extremity Doppler was negative for acute DVT or SVT. - Time Critical Time spent with patient: 25-34 minutes Anticipated discharge: SNF - Inpatient Certification Medical Necessity: Need Close Monitoring Due to Risk of Patient Decompensation, Need for IV Antibiotics
[2016-10-19] MEDS: FLUCONAZOLE 200 MG/NS RTU 100 ML IV SCH (09:58)
[2016-10-19] MEDS: POTASSIUM CHLORIDE 20 MEQ/15 ML UDCUP NG SCH ×2 (09:58→17:43)
[2016-10-19 10:53] LABS: ABSOLUTE LYMPHOCYTES (AUTO) 0.5 10^3/uL (0.5-4.7); ABSOLUTE MONOCYTES (AUTO) 0.9 10^3/uL (0.1-1.4); ABSOLUTE NEUT (AUTO) 7.7 10^3/uL (1.7-8.2); BASOPHILS % (AUTO) 0.2 % (0-2); HEMATOCRIT 27.6 % (37.9-51.0); HEMOGLOBIN 9.5 g/dL (13.5-17.0); HGB HCT DIFFERENCE 0.9; LYMPHOCYTES % (AUTO) 5.5 % (13-45); MEAN CORPUSCULAR HGB CONC 34.5 g/dL (32.0-36.0); MEAN CORPUSCULAR VOLUME 96 fl (80-97); MONOCYTES % (AUTO) 9.8 % (3-13); RED BLOOD COUNT 2.89 10^6/uL (4.35-5.55); RED CELL DISTRIBUTION WIDTH 16.1 % (11.5-14.0); SEGMENTED NEUTROPHILS % (AUTO) 84.5 % (42-78); WHITE BLOOD COUNT 9.1 10^3/uL (4.0-10.5)
[2016-10-19 11:27] LABS: TOXIC GRANULATION SLIGHT
[2016-10-19 11:28] LABS: HYPOCHROMASIA 1+; OVALOCYTES 1+; POIKILOCYTOSIS 1+; POLYCHROMASIA SLIGHT
[2016-10-19 11:29] LABS: RBC MORPHOLOGY COMMENT QD; TARGET CELLS 2+
--- NOTE | 2016-10-19 18:02 | Progress Note ---
Provider Note Provider Note: Back to the patient's room at around 1:30 to see him since the sedation have been turned off. Is much more awake. Thus with him about coming off of the ventilator and his wishes for any further resuscitation efforts. We communicated by hand squeezing-1 squeeze for yes. The patient expressed to me that he would like to come off of mechanical ventilation with 1 hand squeeze. He also expressed with one hand squeeze that he would like to continue all other efforts such as antibiotics and the like. The patient through a series of hand squeezes was able to indicate to me that it is 2017. When asked if his name was Thuy Tian, he began laughing on the ventilator. When asked if his name was Adolfo Jones to respond with one hand squeeze. The patient will shortly thereafter extubated. And is tolerating being off the ventilator. I contacted his brother at [phone] to notify him of this update.
[2016-10-19] MEDS: POTASSIUM CHLORIDE 20 MEQ/50 ML RTU IV SCH ×2 (20:51→23:00)
--- NOTE | 2016-10-19 21:07 | PDOC PROGRESS REPORT ---
Subjective Progress Note for:: 10/19/16 Subjective:: Intubated and sedated but arousable Physical Exam Vital Signs: Temp Pulse Resp BP Pulse Ox 99.0 F 94 22 H 172/86 H 98 10/19/16 19:00 10/19/16 19:00 10/19/16 19:00 10/19/16 19:00 10/19/16 19:00 Intake & Output 10/18/16 10/19/16 10/20/16 06:59 06:59 06:59 Intake Total 2937 4612 896 Output Total 3885 1575 1080 Balance -952 2177 -184 Weight 63.1 kg 66.5 kg General appearance: PRESENT: disheveled, thin, well-developed Head exam: PRESENT: atraumatic, normocephalic Eye exam: PRESENT: conjunctiva pale, EOMI Mouth exam: PRESENT: dry mucosa, neck supple, other - ET tube Neck exam: ABSENT: carotid bruit, JVD, lymphadenopathy, thyromegaly Respiratory exam: PRESENT: decreased breath sounds, prolonged expiratory phas, rhonchi, symmetrical, unlabored Cardiovascular exam: PRESENT: RRR, +S1, +S2 Pulses: PRESENT: normal radial pulses GI/Abdominal exam: PRESENT: normal bowel sounds, soft. ABSENT: distended, guarding, mass, organolmegaly, rebound, tenderness Rectal exam: PRESENT: deferred Gentrourinary exam: PRESENT: indwelling catheter Musculoskeletal exam: PRESENT: normal inspection Neurological exam: PRESENT: awake Skin exam: PRESENT: dry Results Laboratory Results: 10/19/16 10:05 10/19/16 04:45 10/19/16 10/19/16 10/19/16 04:45 05:45 10:05 WBC 9.1 RBC 2.89 L Hgb 9.5 L Hct 27.6 L MCV 96 MCH 33.0 MCHC 34.5 RDW 16.1 H Plt Count 85 L Seg Neutrophils % 84.5 H Lymphocytes % 5.5 L Monocytes % 9.8 Eosinophils % 0.0 Basophils % 0.2 Absolute Neutrophils 7.7 Absolute Lymphocytes 0.5 Absolute Monocytes 0.9 Absolute Eosinophils 0.0 Absolute Basophils 0.0 Carbonic Acid 1.13 HCO3/H2CO3 Ratio 27:1 ABG pH 7.54 H ABG pCO2 37.6 ABG pO2 143.6 H ABG HCO3 31.6 H ABG O2 Saturation 99.1 H ABG Base Excess 8.6 FiO2 50% Sodium 143.8 Potassium 3.2 L Chloride 106 Carbon Dioxide 32 H Anion Gap 6 BUN 16 Creatinine 0.34 L Est GFR ( Amer) > 60 Est GFR (Non-Af Amer) > 60 Glucose 149 H Calcium 7.1 L Magnesium 1.8 10/13/16 10/13/16 10/13/16 20:15 20:15 20:22 Creatine Kinase 235 H Cancelled CK-MB (CK-2) 8.31 H Troponin I 0.119 10/14/16 10/14/16 10/14/16 01:45 01:45 08:20 Creatine Kinase 189 H 153 CK-MB (CK-2) 6.31 H Troponin I 0.031 10/14/16 08:20 Creatine Kinase CK-MB (CK-2) 4.54 Troponin I 0.019 Impressions: Abdomen/Pelvis CT 10/13/16 12:58 IMPRESSION: Colon wall thickening along the ascending colon, hepatic flexure, and sigmoid colon. Findings are nonspecific, worrisome for colitis. Profound fatty infiltration of the liver Question early or developing left lower lobe airspace disease Chest CT 10/13/16 12:58 IMPRESSION: Patchy airspace disease in the posterior left lower lobe worrisome for early or developing pneumonia. Venous Doppler Study 10/16/16 00:00 IMPRESSION: NO EVIDENCE DVT OR SVT IN THE LEFT ARM. Chest X-Ray 10/19/16 06:00 IMPRESSION: Left lower lobar haziness-effusion, stable. Lines and tubes. Assessment & Plan - Diagnosis (1) Acute hypoxemic respiratory failure Is this a current diagnosis for this admission?: YesPlan: copious secretions (2) Pneumonia Qualifiers: Pneumonia type: aspiration pneumonia Laterality: right Lung location: upper lobe of lung Is this a current diagnosis for this admission?: YesPlan: episodic desaturations (3) Hypotension Qualifiers: Hypotension type: unspecified hypotension type Qualified Code(s): I95.9 - Hypotension, unspecified Is this a current diagnosis for this admission?: No (4) High anion gap metabolic acidosis Is this a current diagnosis for this admission?: No (5) Abnormal liver function tests Is this a current diagnosis for this admission?: No (6) Tobacco dependency Is this a current diagnosis for this admission?: Yes (7) COPD (chronic obstructive pulmonary disease) Qualifiers: COPD type: unspecified COPD Qualified Code(s): J44.9 - Chronic obstructive pulmonary disease, unspecified Is this a current diagnosis for this admission?: YesPlan: extubated by pcp at patienys request - Time Critical Time spent with patient: 35 or more minutes
[2016-10-19] MEDS: THIAMINE HCL 100 MG, FOLIC ACID 1 MG in NORMAL SALINE 50 ML IV SCH (21:31)
[2016-10-20] MEDS: HYDROCORTISONE SOD SUCCINATE INJ/PF 100 MG/2 ML SDV IV SCH ×3 (02:09→19:00)
[2016-10-20] MEDS: CEFAZOLIN 1 GM/D5W RTU 1 GM/50 ML RTUPB IV SCH ×3 (02:10→18:59)
[2016-10-20] MEDS: POTASSI CL 20 MEQ/NS 1L 1000 ML IV PRN (02:10)
[2016-10-20] MEDS: IPRATROPIUM/ALBUTEROL 0.5-2.5 MG/3 ML AMPUL NEB SCH ×4 (02:52→19:45)
[2016-10-20 04:18] LABS: MEAN CORPUSCULAR HEMOGLOBIN 32.5 pg (27.0-33.4)
[2016-10-20 04:23] LABS: HEMATOCRIT 29.1 % (37.9-51.0); HEMOGLOBIN 9.8 g/dL (13.5-17.0); HGB HCT DIFFERENCE 0.3; MEAN CORPUSCULAR HGB CONC 33.8 g/dL (32.0-36.0); MEAN CORPUSCULAR VOLUME 96 fl (80-97); RED BLOOD COUNT 3.03 10^6/uL (4.35-5.55); RED CELL DISTRIBUTION WIDTH 16.2 % (11.5-14.0); WHITE BLOOD COUNT 11.3 10^3/uL (4.0-10.5)
[2016-10-20 04:24] LABS: ARTERIAL BLOOD BASE EXCESS 9.3 mmol/L; ARTERIAL BLOOD O2 SATURATION 92.1 % (94-98)
[2016-10-20 04:33] LABS: BLOOD UREA NITROGEN 12 mg/dL (7-20); CALCIUM 7.3 mg/dL (8.4-10.2); CARBON DIOXIDE 36 mmol/L (22-30); CHLORIDE 104 mmol/L (98-107); CREATININE RESULT 0.34 mg/dL (0.52-1.25); GLUCOSE 95 mg/dL (75-110); MAGNESIUM 1.7 mg/dL (1.6-2.3); SODIUM 143.1 mmol/L (137-145)
[2016-10-20 04:42] LABS: ANION GAP 3 (5-19)
[2016-10-20 04:43] LABS: POTASSIUM 2.7 mmol/L (3.6-5.0)
[2016-10-20 04:48] LABS: BAND NEUTROPHILS % (MANUAL) 1 % (3-5); BASOPHILS % (MANUAL) 0 % (0-2); EOSINOPHILS % (MANUAL) 0 % (0-6); LYMPHOCYTES % (MANUAL) 5 % (13-45); TOTAL CELLS COUNTED 100
[2016-10-20 04:50] LABS: POLYCHROMASIA SLIGHT; TOXIC GRANULATION 1+
[2016-10-20 04:51] LABS: TARGET CELLS 2+
[2016-10-20 04:53] LABS: HELMET CELLS SLIGHT; POIKILOCYTOSIS SLIGHT
[2016-10-20] MEDS: POTASSI CL 20 MEQ/50 ML RIDER 20 MEQ/50 ML RTUPB IV SCH ×3 (06:02→11:37)
[2016-10-20] MEDS: PANTOPRAZOLE SODIUM 40 MG VIAL IV SCH (06:02)
[2016-10-20] MEDS: METRONIDAZOLE 500 MG/NS RTU 100 ML IV SCH ×3 (06:03→21:01)
[2016-10-20] MEDS: VANCOMYCIN HCL INJ 500 MG VIAL PO SCH (06:03)
[2016-10-20] MEDS: ACETYLCYSTEINE 20% SOLN 800 MG/4 ML VIAL.NEB NEB SCH ×2 (08:31→19:45)
[2016-10-20] MEDS ORDERED: MAGNESIUM SULFATE/D5W 1 GM/100 ML RTUPB IV SCH (09:00)
[2016-10-20] MEDS ORDERED: PHARMACY COMMUNICATION ORDER MC NR (09:30)
[2016-10-20] MEDS ORDERED: DEXTROSE 40% GEL 15 GM TUBE NG PRN ×2 (09:41→09:42)
[2016-10-20] MEDS: PROPOFOL 100 ML IV PRN ×6 (10:18→23:20)
[2016-10-20] MEDS: FLUCONAZOLE 200 MG/NS RTU 100 ML IV SCH (10:24)
[2016-10-20] MEDS: ENOXAPARIN SODIUM INJ 40 MG/0.4 ML DISP.SYRIN SUBCUT SCH (10:25)
[2016-10-20] MEDS: POTASSIUM CHLORIDE 20 MEQ/15 ML UDCUP NG SCH ×2 (10:27→19:15)
--- NOTE | 2016-10-20 10:58 | PDOC PROGRESS REPORT ---
Subjective Progress Note for:: 10/20/16 Subjective:: extubated x14 hrs via PCP Physical Exam Vital Signs: Temp Pulse Resp BP Pulse Ox 98.2 F 94 18 168/89 H 97 10/20/16 08:00 10/20/16 08:00 10/20/16 08:00 10/20/16 08:00 10/20/16 08:00 Intake & Output 10/19/16 10/20/16 10/21/16 06:59 06:59 06:59 Intake Total 3752 2011 Output Total 1570 4725 150 Balance 2177 -1343 -150 Weight 66.5 kg 65.9 kg General appearance: PRESENT: disheveled, thin Head exam: PRESENT: atraumatic, normocephalic Eye exam: PRESENT: conjunctiva pale Mouth exam: PRESENT: moist, neck supple, other Neck exam: ABSENT: carotid bruit, JVD, lymphadenopathy, thyromegaly Respiratory exam: PRESENT: decreased breath sounds, prolonged expiratory phas, rhonchi, wheezes Cardiovascular exam: PRESENT: RRR, +S1, +S2 Pulses: PRESENT: normal radial pulses GI/Abdominal exam: PRESENT: normal bowel sounds, soft. ABSENT: distended, guarding, mass, organolmegaly, rebound, tenderness Rectal exam: PRESENT: deferred Gentrourinary exam: PRESENT: indwelling catheter Musculoskeletal exam: PRESENT: normal inspection Skin exam: PRESENT: dry Results Laboratory Results: 10/20/16 04:10 10/20/16 04:10 10/19/16 10/20/16 10/20/16 10:05 04:10 04:10 WBC 9.1 RBC 2.89 L Hgb 9.5 L Hct 27.6 L MCV 96 MCH 33.0 MCHC 34.5 RDW 16.1 H Plt Count 85 L Seg Neutrophils % 84.5 H Lymphocytes % 5.5 L Monocytes % 9.8 Eosinophils % 0.0 Basophils % 0.2 Absolute Neutrophils 7.7 Absolute Lymphocytes 0.5 Absolute Monocytes 0.9 Absolute Eosinophils 0.0 Absolute Basophils 0.0 Carbonic Acid 1.55 H HCO3/H2CO3 Ratio 22:1 ABG pH 7.45 ABG pCO2 51.4 H ABG pO2 61.3 L ABG HCO3 34.7 H ABG O2 Saturation 92.1 L ABG Base Excess 9.3 FiO2 5 LITERS Sodium 143.1 Potassium 2.7 L* Chloride 104 Carbon Dioxide 36 H Anion Gap 3 L BUN 12 Creatinine 0.34 L Est GFR ( Amer) > 60 Est GFR (Non-Af Amer) > 60 Glucose 95 Calcium 7.3 L Magnesium 1.7 10/20/16 04:10 WBC 11.3 H RBC 3.03 L Hgb 9.8 L Hct 29.1 L MCV 96 MCH 32.5 MCHC 33.8 RDW 16.2 H Plt Count 92 L Seg Neutrophils % Not Reportable Lymphocytes % Not Reportable Monocytes % Not Reportable Eosinophils % Not Reportable Basophils % Not Reportable Absolute Neutrophils Not Reportable Absolute Lymphocytes Not Reportable Absolute Monocytes Not Reportable Absolute Eosinophils Not Reportable Absolute Basophils Not Reportable Carbonic Acid HCO3/H2CO3 Ratio ABG pH ABG pCO2 ABG pO2 ABG HCO3 ABG O2 Saturation ABG Base Excess FiO2 Sodium Potassium Chloride Carbon Dioxide Anion Gap BUN Creatinine Est GFR ( Amer) Est GFR (Non-Af Amer) Glucose Calcium Magnesium 10/13/16 10/13/16 10/13/16 20:15 20:15 20:22 Creatine Kinase 235 H Cancelled CK-MB (CK-2) 8.31 H Troponin I 0.119 10/14/16 10/14/16 10/14/16 01:45 01:45 08:20 Creatine Kinase 189 H 153 CK-MB (CK-2) 6.31 H Troponin I 0.031 10/14/16 08:20 Creatine Kinase CK-MB (CK-2) 4.54 Troponin I 0.019 Impressions: Abdomen/Pelvis CT 10/13/16 12:58 IMPRESSION: Colon wall thickening along the ascending colon, hepatic flexure, and sigmoid colon. Findings are nonspecific, worrisome for colitis. Profound fatty infiltration of the liver Question early or developing left lower lobe airspace disease Chest CT 10/13/16 12:58 IMPRESSION: Patchy airspace disease in the posterior left lower lobe worrisome for early or developing pneumonia. Venous Doppler Study 10/16/16 00:00 IMPRESSION: NO EVIDENCE DVT OR SVT IN THE LEFT ARM. Chest X-Ray 10/20/16 06:00 IMPRESSION: New severe left lung collapse. Assessment & Plan - Diagnosis (1) Acute hypoxemic respiratory failure Is this a current diagnosis for this admission?: YesPlan: white out L lung with shift of midlie structures (2) Pneumonia Qualifiers: Pneumonia type: aspiration pneumonia Laterality: right Lung location: upper lobe of lung Is this a current diagnosis for this admission?: Yes (3) Hypotension Qualifiers: Hypotension type: unspecified hypotension type Qualified Code(s): I95.9 - Hypotension, unspecified Is this a current diagnosis for this admission?: No (4) High anion gap metabolic acidosis Is this a current diagnosis for this admission?: No (5) Abnormal liver function tests Is this a current diagnosis for this admission?: No (6) Tobacco dependency Is this a current diagnosis for this admission?: Yes (7) COPD (chronic obstructive pulmonary disease) Qualifiers: COPD type: unspecified COPD Qualified Code(s): J44.9 - Chronic obstructive pulmonary disease, unspecified Is this a current diagnosis for this admission?: Yes - Time Critical Time spent with patient: 35 or more minutes
--- NOTE | 2016-10-20 11:07 | Operative Report ---
Operative Report DATE OF SURGERY: 10/20/16 Operative Report: L lung collapse with shift of midline structures patient intubated and sedated using*T* sized bronchoscope distal trache L main stem, demi lingila and multiple subsegments of the L lower lobe copious secretions and mucous plugs PREOPERATIVE DIAGNOSIS: L lung collapse POSTOPERATIVE DIAGNOSIS: same OPERATION: fiberoptic broncchoscopy with lavage SURGEON: ADÁN VENTURA ANESTHESIA: GA TISSUE REMOVED OR ALTERED: l lung lavage fluid COMPLICATIONS: none ESTIMATED BLOOD LOSS: 0ml
[2016-10-20] MEDS ORDERED: MAGNESIUM SULFATE/D5W 1 GM/100 ML RTUPB IV ONE (12:00)
[2016-10-20] MEDS: VANCOMYCIN HCL INJ 500 MG VIAL NG SCH ×2 (12:30→19:16)
--- NOTE | 2016-10-20 12:36 | PDOC PROGRESS REPORT ---
Subjective Progress Note for:: 10/20/16 Subjective:: REASON FOR VISIT: f/u pneumonia with resp failure, hypokalemia, cdiff colitis HOSPITAL COURSE: per other providers: "Please see initial H&P for details of admission. In short this is a 56-year-old white male with a past medical history significant for alcohol abuse who presented to the ED in respiratory distress secondary to pneumonia. Initially the patient wanted to leave AMA but his brother was able to convince him to stay via phone. 20 minutes after convincing the patient to stay a decompensated and required rapid sequence intubation and admission to the ICU. Since admission he has been found to have acute respiratory failure, sepsis with shock complicated by mild shock liver, strep bacteremia, C. difficile colitis present on admission, and presumed coli aspiration pneumonia. There is been a question regarding who was making medical decisions for this patient. He is but estranged from his and he has a brother, Mr. Jaden Jones. The patient wanted assistance at the time he decompensated in the ED (recall that he was encouraged to get full assistance by his brother), however, his brother expressed shortly after intubation that he would like to make the patient comfort care. Because of the discrepancy, the patient has remained intubated and full code. His brother is in the process of trying to locate his . Patient seen today at the bedside. He remains intubated. Review of systems cannot be obtained. I did ask if he had any pain patient tried to respond colon but his response cannot be accurately interpreted. Overnight the patient desaturated again. There was one instance where he had to be bagged. She has copious thick white mucus and continues to develop mucus plugging that is causing the issue. According to the nurse's report, they received no phone calls from his brother about whether or not he could contact his . Nor did I." I inherited his care Friday 10/20 as he was decompensating once again with respiratory distress, SVT and cxr showing near total collapse of the left lung worrisome for mucus plugging and resultant atelectasis. he was urgently re- intubated by anesthesiology and urgently bronch'd with Dr Manning removing copious secretions but without improvement in his cxr. stat ct chest shows massive left effusion and thoracentesis now scheduled for later today. he remains ventilated and sedated and unable to provide a medical history or ROS at this time. no family present. ROS: unobtainable for reasons noted above Physical Exam Vital Signs: Temp Pulse Resp BP Pulse Ox 98.2 F 94 18 168/89 H 97 10/20/16 08:00 10/20/16 08:00 10/20/16 08:00 10/20/16 08:00 10/20/16 08:00 Intake & Output 10/19/16 10/20/16 10/21/16 06:59 06:59 06:59 Intake Total 3752 2011 Output Total 1576 4488 325 Balance 1116 -3099 -904 Weight 66.5 kg 65.9 kg EXAM GENERAL: NAD; well developed, well nourished; no obese; sedated HEENT: normocephalic, atraumatic; no conjunctival injection, no scleral icterus ; oral mucosa moist; RESPIRATORY: no accessory muscle use, no increased WOB, good air entry bilaterally; no wheezes or rhonchi; trachea deviates to the left; absent breath sounds on the left, coarse breath sounds throughout the right. CARDIO: no JVD; RRR; no systolic murmur; tachycardia GI: soft; nondistended; normal bowel sounds; no involuntary guarding VASCULAR: no pallor; 2+ radial, DP pulse; decreased capillary refill EXTREMITIES: no palpable cords in calf; no pedal edema SKIN: warm; moist; no petechiae; no telengectasias; no jaundice; subpubic dry shallow yellow eschar, Results Laboratory Results: 10/20/16 04:10 10/20/16 04:10 10/19/16 10/20/16 10/20/16 10:05 04:10 04:10 WBC 9.1 RBC 2.89 L Hgb 9.5 L Hct 27.6 L MCV 96 MCH 33.0 MCHC 34.5 RDW 16.1 H Plt Count 85 L Seg Neutrophils % 84.5 H Lymphocytes % 5.5 L Monocytes % 9.8 Eosinophils % 0.0 Basophils % 0.2 Absolute Neutrophils 7.7 Absolute Lymphocytes 0.5 Absolute Monocytes 0.9 Absolute Eosinophils 0.0 Absolute Basophils 0.0 Carbonic Acid 1.55 H HCO3/H2CO3 Ratio 22:1 ABG pH 7.45 ABG pCO2 51.4 H ABG pO2 61.3 L ABG HCO3 34.7 H ABG O2 Saturation 92.1 L ABG Base Excess 9.3 FiO2 5 LITERS Sodium 143.1 Potassium 2.7 L* Chloride 104 Carbon Dioxide 36 H Anion Gap 3 L BUN 12 Creatinine 0.34 L Est GFR ( Amer) > 60 Est GFR (Non-Af Amer) > 60 Glucose 95 Calcium 7.3 L Magnesium 1.7 10/20/16 04:10 WBC 11.3 H RBC 3.03 L Hgb 9.8 L Hct 29.1 L MCV 96 MCH 32.5 MCHC 33.8 RDW 16.2 H Plt Count 92 L Seg Neutrophils % Not Reportable Lymphocytes % Not Reportable Monocytes % Not Reportable Eosinophils % Not Reportable Basophils % Not Reportable Absolute Neutrophils Not Reportable Absolute Lymphocytes Not Reportable Absolute Monocytes Not Reportable Absolute Eosinophils Not Reportable Absolute Basophils Not Reportable Carbonic Acid HCO3/H2CO3 Ratio ABG pH ABG pCO2 ABG pO2 ABG HCO3 ABG O2 Saturation ABG Base Excess FiO2 Sodium Potassium Chloride Carbon Dioxide Anion Gap BUN Creatinine Est GFR ( Amer) Est GFR (Non-Af Amer) Glucose Calcium Magnesium 10/13/16 10/13/16 10/13/16 20:15 20:15 20:22 Creatine Kinase 235 H Cancelled CK-MB (CK-2) 8.31 H Troponin I 0.119 10/14/16 10/14/16 10/14/16 01:45 01:45 08:20 Creatine Kinase 189 H 153 CK-MB (CK-2) 6.31 H Troponin I 0.031 10/14/16 08:20 Creatine Kinase CK-MB (CK-2) 4.54 Troponin I 0.019 Impressions: Abdomen/Pelvis CT 10/13/16 12:58 IMPRESSION: Colon wall thickening along the ascending colon, hepatic flexure, and sigmoid colon. Findings are nonspecific, worrisome for colitis. Profound fatty infiltration of the liver Question early or developing left lower lobe airspace disease Venous Doppler Study 10/16/16 00:00 IMPRESSION: NO EVIDENCE DVT OR SVT IN THE LEFT ARM. Chest CT 10/20/16 00:00 IMPRESSION: 1. There is almost complete atelectasis in the left lung with a significant pleural effusion and shift of mediastinum to the left. 2. There is a small right pleural effusion. Chest X-Ray 10/20/16 06:00 IMPRESSION: New severe left lung collapse. Status: Image reviewed by me - Agree with radiology Assessment & Plan - Diagnosis (1) Acute hypoxemic respiratory failure Is this a current diagnosis for this admission?: YesPlan: Worse; now reintubated. (2) Pneumonia Qualifiers: Pneumonia type: aspiration pneumonia Laterality: right Lung location: upper lobe of lung Is this a current diagnosis for this admission?: YesPlan: Worse. Now With complex parapneumonic effusion (3) Hypokalemia Is this a current diagnosis for this admission?: YesPlan: Worse (4) C. difficile colitis Is this a current diagnosis for this admission?: YesPlan: Unchanged (5) Alcohol dependency Qualifiers: Substance use status: with intoxication Complication of substance- induced condition: with unspecified complication Qualified Code(s): F10.229 - Alcohol dependence with intoxication, unspecified Is this a current diagnosis for this admission?: YesPlan: Unchanged (6) DTs (delirium tremens) Is this a current diagnosis for this admission?: YesPlan: Improved (7) Pancytopenia Is this a current diagnosis for this admission?: YesPlan: Unchanged (8) Sacral decubitus ulcer, stage II Is this a current diagnosis for this admission?: YesPlan: Present on admission. Unchanged (9) Severe malnutrition Is this a current diagnosis for this admission?: YesPlan: Worse due to critical illness (10) COPD (chronic obstructive pulmonary disease) Qualifiers: COPD type: unspecified COPD Qualified Code(s): J44.9 - Chronic obstructive pulmonary disease, unspecified Is this a current diagnosis for this admission?: YesPlan: Unchanged (11) Tobacco dependency Is this a current diagnosis for this admission?: YesPlan: Unchanged - Time Time Spent with patient: 35 or more minutes Medications reviewed and adjusted accordingly: Yes - Plan Summary Plan Summary: - For thoracentesis today; send fluid for appropriate studies. - Repeat chest x-ray in the morning. Defer further evaluation and treatment after discussion with pulmonary. - Continue antibiotics. - Replenish magnesium to level greater than 2.0, and continue to replenish potassium per protocol - Still trying to clarify the patient's CODE STATUS, previous providers notes are inconclusive and no family available at this time.
[2016-10-20] MEDS ORDERED: SUCCINYLCHOLINE CHLORIDE INJ 200 MG/10 ML VIAL ONE (13:00)
[2016-10-20 13:20] LABS: ARTERIAL BLOOD BASE EXCESS 9.4 mmol/L; ARTERIAL BLOOD O2 SATURATION 96.7 % (94-98)
[2016-10-20] MEDS ORDERED: POTASSIUM CHLORIDE 20 MEQ/50 ML RTU IV ONE (15:00)
[2016-10-20] MEDS: FENTANYL CITRATE INJ/PF 100 MCG/2 ML AMPUL IV PRN (19:48)
[2016-10-20] MEDS: THIAMINE HCL 100 MG, FOLIC ACID 1 MG in NORMAL SALINE 50 ML IV SCH (21:01)
[2016-10-20 21:41] LABS: BLOOD UREA NITROGEN 12 mg/dL (7-20); CALCIUM 7.2 mg/dL (8.4-10.2); CHLORIDE 105 mmol/L (98-107); CREATININE RESULT 0.27 mg/dL (0.52-1.25); GLUCOSE 86 mg/dL (75-110); POTASSIUM 3.5 mmol/L (3.6-5.0)
[2016-10-20 21:48] LABS: CARBON DIOXIDE 32 mmol/L (22-30); SODIUM 138.2 mmol/L (137-145)
[2016-10-20 21:52] LABS: ANION GAP 1 (5-19)
[2016-10-21] MEDS: VANCOMYCIN HCL INJ 500 MG VIAL NG SCH (00:10)
[2016-10-21] MEDS: IPRATROPIUM/ALBUTEROL 0.5-2.5 MG/3 ML AMPUL NEB SCH ×4 (01:31→21:04)
[2016-10-21] MEDS: CEFAZOLIN 1 GM/D5W RTU 1 GM/50 ML RTUPB IV SCH ×3 (02:29→18:00)
[2016-10-21] MEDS: HYDROCORTISONE SOD SUCCINATE INJ/PF 100 MG/2 ML SDV IV SCH ×3 (02:29→18:00)
[2016-10-21] MEDS: PROPOFOL 100 ML IV PRN ×2 (03:49→23:31)
[2016-10-21] MEDS: ACETYLCYSTEINE 20% SOLN 800 MG/4 ML VIAL.NEB NEB SCH ×2 (08:00→21:04)
[2016-10-21] MEDS: ENOXAPARIN SODIUM INJ 40 MG/0.4 ML DISP.SYRIN SUBCUT SCH (08:00)
[2016-10-21] MEDS ORDERED: LORAZEPAM INJ 2 MG/1 ML VIAL ONE ×2 (09:26→16:05)
[2016-10-21] MEDS: FLUCONAZOLE 200 MG/NS RTU 100 ML IV SCH (10:00)
[2016-10-21] MEDS: POTASSIUM CHLORIDE 20 MEQ/15 ML UDCUP NG SCH ×2 (10:00→18:00)
--- NOTE | 2016-10-21 16:41 | PROGRESS NOTE E ---
Progress Note NAME: DEO CORTÉS : 1960 AGE: 56Y DATE: 10/21/2016 ROOM: 607 SUBJECTIVE: The patient remains intubated on mechanical ventilation. He is alert and attempting to communicate verbally in spite of Diprivan at 60 mcg. He is clearly in no distress other than the fact that he wants the tube removed; beyond that, it is difficult for me to say what he is trying to communicate. He is unable to write effectively and I cannot read his lips. Nurses report no new events overnight. He has had approximately 400 mL of liquid stool through the rectal tube in the last 2 hours. He continues to make good urine in his Browne catheter. OBJECTIVE: VITAL SIGNS: Stable. Case is reviewed with the nurse at the bedside. GENERAL: He is currently alert and talkative. As noted above, communication is limited by the ET tube and I suspect clouded by the sedation. NECK: ET tube is in good position with fog in the tube. His trachea remains slightly deviated to the base. LUNGS: He has absent breath sounds at the left base; however, there is more air movement throughout the left hemithorax today than before. The right side has just coarse breath sounds. CARDIAC: Regular, borderline tachycardic. ABDOMEN: Soft, thin, nondistended. No grimace on deep palpation. EXTREMITIES: Show no edema and no palpable cords in the calves. LABORATORY DATA: Labs reviewed without significant change other than his potassium is finally at low limit of normal after a rather aggressive replacement on the protocol. ASSESSMENT: 1. ALCOHOLISM WITH ACUTE INTOXICATION RESULTING IN FALL AT HOME WITH ASPIRATION PNEUMONIA. 2. E COLI PNEUMONIA. 3. COMPLEX PARAPNEUMONIC EFFUSION WITH TOTAL LEFT LUNG COLLAPSE. 4. ALCOHOL-INDUCED CIRRHOSIS. PLAN: To continue mechanical ventilation until such time as we can get a thoracentesis to liberate the vast majority of this effusion that appears to be free-flowing on imaging and occurred since admission, so hopefully we will be able to do so sometime later today. I am hoping this will free up the lung and allow for reexpansion enough that he can be extubated successfully yet again. The case was discussed with Dr. Manning at the bedside. In the meantime we will continue his current treatment otherwise. We will add Ativan therapy to help tolerate the vent and maintain his sedation to adequate levels to allow the procedure its best chance of success. DICTATING PHYSICIAN: JUSTINE FRAZIER M.D. [id number] PHY#: [id number] ID: [id number] JOB#: [id number] ACCT: [id number] cc: >
[2016-10-21] MEDS: LORAZEPAM INJ 2 MG/1 ML VIAL IV PRN (21:20)
[2016-10-21] MEDS: METRONIDAZOLE 500 MG/NS RTU 100 ML IV SCH (21:20)
[2016-10-21] MEDS: THIAMINE HCL 100 MG, FOLIC ACID 1 MG in NORMAL SALINE 50 ML IV SCH (21:20)
[2016-10-21] MEDS: VANCOMYCIN HCL INJ 500 MG VIAL PO SCH (23:30)
[2016-10-22] MEDS ORDERED: VANCOMYCIN HCL 500 MG in DEXTROSE 5%-WATER 100 ML IV SCH ×2
[2016-10-22] MEDS: CEFAZOLIN 1 GM/D5W RTU 1 GM/50 ML RTUPB IV SCH ×3 (01:48→17:20)
[2016-10-22] MEDS: HYDROCORTISONE SOD SUCCINATE INJ/PF 100 MG/2 ML SDV IV SCH ×3 (01:48→17:20)
[2016-10-22] MEDS: IPRATROPIUM/ALBUTEROL 0.5-2.5 MG/3 ML AMPUL NEB SCH ×4 (01:56→20:04)
[2016-10-22] MEDS: METRONIDAZOLE 500 MG/NS RTU 100 ML IV SCH ×3 (05:26→22:11)
[2016-10-22] MEDS: VANCOMYCIN HCL INJ 500 MG VIAL PO SCH ×4 (05:27→23:31)
[2016-10-22 06:22] LABS: ARTERIAL BLOOD BASE EXCESS 7.3 mmol/L; ARTERIAL BLOOD O2 SATURATION 95.2 % (94-98)
[2016-10-22 06:29] LABS: PROTHROMBIN TIME 12.9 SEC (11.4-15.4)
[2016-10-22 06:30] LABS: PARTIAL THROMBOPLASTIN TIME 25.4 SEC (23.5-35.8)
[2016-10-22 06:37] LABS: ANION GAP 5 (5-19); BLOOD UREA NITROGEN 12 mg/dL (7-20); CALCIUM 7.5 mg/dL (8.4-10.2); CARBON DIOXIDE 30 mmol/L (22-30); CHLORIDE 106 mmol/L (98-107); CREATININE RESULT 0.31 mg/dL (0.52-1.25); GLUCOSE 106 mg/dL (75-110); PHOSPHORUS 3.6 mg/dL (2.5-4.5); POTASSIUM 3.4 mmol/L (3.6-5.0); SODIUM 141.3 mmol/L (137-145); TRIGLYCERIDES 213 mg/dL (<150)
[2016-10-22 07:10] LABS: HEMOGLOBIN 9.1 g/dL (13.5-17.0); HGB HCT DIFFERENCE 0.3; MEAN CORPUSCULAR HEMOGLOBIN 32.9 pg (27.0-33.4); MEAN CORPUSCULAR HGB CONC 33.7 g/dL (32.0-36.0); MEAN CORPUSCULAR VOLUME 98 fl (80-97); RED BLOOD COUNT 2.77 10^6/uL (4.35-5.55); RED CELL DISTRIBUTION WIDTH 16.8 % (11.5-14.0); WHITE BLOOD COUNT 16.2 10^3/uL (4.0-10.5)
[2016-10-22 07:18] LABS: ANISOCYTOSIS 1+; BASOPHILS % (MANUAL) 0 % (0-2); EOSINOPHILS % (MANUAL) 0 % (0-6); HYPOCHROMASIA 1+; LYMPHOCYTES % (MANUAL) 1 % (13-45); POLYCHROMASIA SLIGHT; TARGET CELLS SLIGHT; TOTAL CELLS COUNTED 100; TOXIC GRANULATION 1+
[2016-10-22] MEDS: PROPOFOL 100 ML IV PRN ×5 (07:39→22:39)
[2016-10-22] MEDS: POTASSIUM CHLORIDE 20 MEQ/50 ML RTU IV SCH ×2 (07:39→09:10)
[2016-10-22 07:59] LABS: HEMATOCRIT 26.9 % (37.9-51.0); HEMOGLOBIN 9.1 g/dL (13.5-17.0); HGB HCT DIFFERENCE 0.4; MEAN CORPUSCULAR HEMOGLOBIN 32.8 pg (27.0-33.4); MEAN CORPUSCULAR VOLUME 96 fl (80-97); RED BLOOD COUNT 2.79 10^6/uL (4.35-5.55); RED CELL DISTRIBUTION WIDTH 16.8 % (11.5-14.0); WHITE BLOOD COUNT 15.1 10^3/uL (4.0-10.5)
[2016-10-22] MEDS: ACETYLCYSTEINE 20% SOLN 800 MG/4 ML VIAL.NEB NEB SCH ×2 (08:22→20:04)
[2016-10-22] MEDS ORDERED: POTASSI CL 20 MEQ/NS 1L 1,000 ML IV PRN (08:35)
[2016-10-22] MEDS: LORAZEPAM INJ 2 MG/1 ML VIAL IV PRN ×3 (08:51→23:31)
[2016-10-22] MEDS: FLUCONAZOLE 200 MG/NS RTU 100 ML IV SCH (09:10)
[2016-10-22] MEDS: POTASSIUM CHLORIDE 20 MEQ/15 ML UDCUP NG SCH ×2 (09:10→17:20)
--- NOTE | 2016-10-22 10:38 | PDOC PROGRESS REPORT ---
Subjective Progress Note for:: 10/21/16 Subjective:: Reintubated respiratory distress white out of left lung shift of mediastinal structures Physical Exam Vital Signs: Temp Pulse Resp BP Pulse Ox 99.7 F 91 15 121/80 96 10/22/16 06:13 10/22/16 05:26 10/22/16 06:13 10/22/16 06:13 10/22/16 06:13 Intake & Output 10/21/16 10/22/16 10/23/16 06:59 06:59 06:59 Intake Total 1638 1424 Output Total 1775 625 Balance -137 799 Weight 64.1 kg General appearance: PRESENT: no acute distress, disheveled, thin, well-developed Head exam: PRESENT: normocephalic Eye exam: PRESENT: conjunctiva pale Mouth exam: PRESENT: dry mucosa, neck supple, other - ET tube in place Neck exam: ABSENT: carotid bruit, JVD, lymphadenopathy, thyromegaly Respiratory exam: PRESENT: decreased breath sounds, prolonged expiratory phas, symmetrical, unlabored, other - Breath sounds extremely diminished left hemithorax Cardiovascular exam: PRESENT: RRR, +S1, +S2 Pulses: PRESENT: normal radial pulses GI/Abdominal exam: PRESENT: normal bowel sounds, soft. ABSENT: distended, guarding, mass, organolmegaly, rebound, tenderness Rectal exam: PRESENT: deferred Gentrourinary exam: PRESENT: indwelling catheter Musculoskeletal exam: PRESENT: normal inspection Skin exam: PRESENT: abrasion, dry, warm Results Laboratory Results: 10/22/16 05:52 10/22/16 05:52 10/22/16 10/22/16 10/22/16 05:52 05:52 05:52 WBC 16.2 H RBC 2.77 L Hgb 9.1 L Hct 27.0 L MCV 98 H MCH 32.9 MCHC 33.7 RDW 16.8 H Plt Count 150 Seg Neutrophils % Not Reportable Lymphocytes % Not Reportable Monocytes % Not Reportable Eosinophils % Not Reportable Basophils % Not Reportable Absolute Neutrophils Not Reportable Absolute Lymphocytes Not Reportable Absolute Monocytes Not Reportable Absolute Eosinophils Not Reportable Absolute Basophils Not Reportable Carbonic Acid 1.19 HCO3/H2CO3 Ratio 25:1 ABG pH 7.51 H ABG pCO2 39.7 ABG pO2 68.7 L ABG HCO3 30.9 H ABG O2 Saturation 95.2 ABG Base Excess 7.3 FiO2 40% Sodium 141.3 Potassium 3.4 L Chloride 106 Carbon Dioxide 30 Anion Gap 5 BUN 12 Creatinine 0.31 L Est GFR ( Amer) > 60 Est GFR (Non-Af Amer) > 60 Glucose 106 Calcium 7.5 L Phosphorus 3.6 Magnesium 2.0 Triglycerides 213 H 10/16/16 14:28 Blood Blood Culture - Final NO GROWTH IN 5 DAYS 10/16/16 10:26 Blood Blood Culture - Final NO GROWTH IN 5 DAYS 10/13/16 10/13/16 10/13/16 20:15 20:15 20:22 Creatine Kinase 235 H Cancelled CK-MB (CK-2) 8.31 H Troponin I 0.119 10/14/16 10/14/16 10/14/16 01:45 01:45 08:20 Creatine Kinase 189 H 153 CK-MB (CK-2) 6.31 H Troponin I 0.031 10/14/16 08:20 Creatine Kinase CK-MB (CK-2) 4.54 Troponin I 0.019 Impressions: Abdomen/Pelvis CT 10/13/16 12:58 IMPRESSION: Colon wall thickening along the ascending colon, hepatic flexure, and sigmoid colon. Findings are nonspecific, worrisome for colitis. Profound fatty infiltration of the liver Question early or developing left lower lobe airspace disease Venous Doppler Study 10/16/16 00:00 IMPRESSION: NO EVIDENCE DVT OR SVT IN THE LEFT ARM. Chest CT 10/20/16 00:00 IMPRESSION: 1. There is almost complete atelectasis in the left lung with a significant pleural effusion and shift of mediastinum to the left. 2. There is a small right pleural effusion. KUB X-Ray 10/20/16 18:13 IMPRESSION: Nasogastric catheter is present with tip overlying the body of the stomach, side-port is approximately 5 cm past the GE junction. Chest X-Ray 10/21/16 00:00 IMPRESSION: Moderate -severe left lung collapse and effusion, with slight improvement. Lines and tubes. Assessment & Plan - Diagnosis (1) Acute hypoxemic respiratory failure Is this a current diagnosis for this admission?: YesPlan: white out L lung with shift of midline structures. This did not improve after bronchoscopy (2) Pneumonia Qualifiers: Pneumonia type: aspiration pneumonia Laterality: right Lung location: upper lobe of lung Is this a current diagnosis for this admission?: YesPlan: Status post extubation 18 hours opacification of left hemithorax with shift of midline structures patient underwent fiberoptic bronchoscopy showed copious amounts of secretions but no definitive mucous plugging after bronchoscopy no change in chest x-ray patient sent for CT scan shows large pleural effusion on the left small effusion on the right.Awaiting thoracentesis (3) Hypotension Qualifiers: Hypotension type: unspecified hypotension type Qualified Code(s): I95.9 - Hypotension, unspecified Is this a current diagnosis for this admission?: No (4) High anion gap metabolic acidosis Is this a current diagnosis for this admission?: No (5) Abnormal liver function tests Is this a current diagnosis for this admission?: No (6) Tobacco dependency Is this a current diagnosis for this admission?: Yes (7) COPD (chronic obstructive pulmonary disease) Qualifiers: COPD type: unspecified COPD Qualified Code(s): J44.9 - Chronic obstructive pulmonary disease, unspecified Is this a current diagnosis for this admission?: Yes - Time Critical Time spent with patient: 35 or more minutes
--- NOTE | 2016-10-22 10:41 | PDOC PROGRESS REPORT ---
Subjective Progress Note for:: 10/22/16 Subjective:: Intubated and sedated Physical Exam Vital Signs: Temp Pulse Resp BP Pulse Ox 99.7 F 91 15 121/80 96 10/22/16 06:13 10/22/16 05:26 10/22/16 06:13 10/22/16 06:13 10/22/16 06:13 Intake & Output 10/21/16 10/22/16 10/23/16 06:59 06:59 06:59 Intake Total 1638 1424 Output Total 1775 625 Balance -137 799 Weight 64.1 kg General appearance: PRESENT: no acute distress, disheveled, thin, well-developed Head exam: PRESENT: atraumatic, normocephalic Eye exam: PRESENT: conjunctiva pale Mouth exam: PRESENT: dry mucosa, neck supple, other - ET tube in place Teeth exam: PRESENT: poor dentation Neck exam: ABSENT: carotid bruit, JVD, lymphadenopathy, thyromegaly Respiratory exam: PRESENT: decreased breath sounds, prolonged expiratory phas, rhonchi, other - Breath sounds extremely decreased over the left hemithorax Cardiovascular exam: PRESENT: RRR, +S1, +S2 Pulses: PRESENT: normal radial pulses GI/Abdominal exam: PRESENT: normal bowel sounds, soft. ABSENT: distended, guarding, mass, organolmegaly, rebound, tenderness Rectal exam: PRESENT: deferred Gentrourinary exam: PRESENT: indwelling catheter Musculoskeletal exam: PRESENT: normal inspection Skin exam: PRESENT: dry Results Laboratory Results: 10/22/16 05:52 10/22/16 05:52 10/22/16 10/22/16 10/22/16 05:52 05:52 05:52 WBC 16.2 H RBC 2.77 L Hgb 9.1 L Hct 27.0 L MCV 98 H MCH 32.9 MCHC 33.7 RDW 16.8 H Plt Count 150 Seg Neutrophils % Not Reportable Lymphocytes % Not Reportable Monocytes % Not Reportable Eosinophils % Not Reportable Basophils % Not Reportable Absolute Neutrophils Not Reportable Absolute Lymphocytes Not Reportable Absolute Monocytes Not Reportable Absolute Eosinophils Not Reportable Absolute Basophils Not Reportable Carbonic Acid 1.19 HCO3/H2CO3 Ratio 25:1 ABG pH 7.51 H ABG pCO2 39.7 ABG pO2 68.7 L ABG HCO3 30.9 H ABG O2 Saturation 95.2 ABG Base Excess 7.3 FiO2 40% Sodium 141.3 Potassium 3.4 L Chloride 106 Carbon Dioxide 30 Anion Gap 5 BUN 12 Creatinine 0.31 L Est GFR ( Amer) > 60 Est GFR (Non-Af Amer) > 60 Glucose 106 Calcium 7.5 L Phosphorus 3.6 Magnesium 2.0 Triglycerides 213 H 10/16/16 14:28 Blood Blood Culture - Final NO GROWTH IN 5 DAYS 10/16/16 10:26 Blood Blood Culture - Final NO GROWTH IN 5 DAYS 10/13/16 10/13/16 10/13/16 20:15 20:15 20:22 Creatine Kinase 235 H Cancelled CK-MB (CK-2) 8.31 H Troponin I 0.119 10/14/16 10/14/16 10/14/16 01:45 01:45 08:20 Creatine Kinase 189 H 153 CK-MB (CK-2) 6.31 H Troponin I 0.031 10/14/16 08:20 Creatine Kinase CK-MB (CK-2) 4.54 Troponin I 0.019 Impressions: Abdomen/Pelvis CT 10/13/16 12:58 IMPRESSION: Colon wall thickening along the ascending colon, hepatic flexure, and sigmoid colon. Findings are nonspecific, worrisome for colitis. Profound fatty infiltration of the liver Question early or developing left lower lobe airspace disease Venous Doppler Study 10/16/16 00:00 IMPRESSION: NO EVIDENCE DVT OR SVT IN THE LEFT ARM. Chest CT 10/20/16 00:00 IMPRESSION: 1. There is almost complete atelectasis in the left lung with a significant pleural effusion and shift of mediastinum to the left. 2. There is a small right pleural effusion. KUB X-Ray 10/20/16 18:13 IMPRESSION: Nasogastric catheter is present with tip overlying the body of the stomach, side-port is approximately 5 cm past the GE junction. Chest X-Ray 10/21/16 00:00 IMPRESSION: Moderate -severe left lung collapse and effusion, with slight improvement. Lines and tubes. Assessment & Plan - Diagnosis (1) Acute hypoxemic respiratory failure Is this a current diagnosis for this admission?: YesPlan: Awaiting thoracentesis reexpansion of the left lung (2) Pneumonia Qualifiers: Pneumonia type: aspiration pneumonia Laterality: right Lung location: upper lobe of lung Is this a current diagnosis for this admission?: Yes (3) Hypotension Qualifiers: Hypotension type: unspecified hypotension type Qualified Code(s): I95.9 - Hypotension, unspecified Is this a current diagnosis for this admission?: No (4) High anion gap metabolic acidosis Is this a current diagnosis for this admission?: No (5) Abnormal liver function tests Is this a current diagnosis for this admission?: No (6) Tobacco dependency Is this a current diagnosis for this admission?: Yes (7) COPD (chronic obstructive pulmonary disease) Qualifiers: COPD type: unspecified COPD Qualified Code(s): J44.9 - Chronic obstructive pulmonary disease, unspecified Is this a current diagnosis for this admission?: Yes - Time Critical Time spent with patient: 35 or more minutes
[2016-10-22 11:22] LABS: LYMPHOCYTES % (MANUAL) 3 % (13-45); TOTAL CELLS COUNTED 100
[2016-10-22 11:22] LABS: FLUID APPEARANCE CLEAR; FLUID TYPE PLEURAL
[2016-10-22 11:23] LABS: FLUID RBC DILUENT USED NONE USED; FLUID RBC DILUTION FACTOR 1; FLUID RBC SIDE 1 55; FLUID RBC SIDE 2 51; TOTAL RBC SQUARES COUNTED FLD 225
[2016-10-22 11:23] LABS: ANISOCYTOSIS 1+; BASOPHILS % (MANUAL) 0 % (0-2); EOSINOPHILS % (MANUAL) 1 % (0-6); OVALOCYTES SLIGHT; POIKILOCYTOSIS SLIGHT; TARGET CELLS 1+
--- NOTE | 2016-10-22 14:31 | PDOC PROGRESS REPORT ---
Subjective Progress Note for:: 10/22/16 Subjective:: REASON FOR VISIT: f/u pneumonia with resp failure, hypokalemia, cdiff colitis HOSPITAL COURSE: per other providers: "Please see initial H&P for details of admission. In short this is a 56-year-old white male with a past medical history significant for alcohol abuse who presented to the ED in respiratory distress secondary to pneumonia. Initially the patient wanted to leave AMA but his brother was able to convince him to stay via phone. 20 minutes after convincing the patient to stay a decompensated and required rapid sequence intubation and admission to the ICU. Since admission he has been found to have acute respiratory failure, sepsis with shock complicated by mild shock liver, strep bacteremia, C. difficile colitis present on admission, and presumed coli aspiration pneumonia. There is been a question regarding who was making medical decisions for this patient. He is but estranged from his and he has a brother, Mr. Jaden Jones. The patient wanted assistance at the time he decompensated in the ED (recall that he was encouraged to get full assistance by his brother), however, his brother expressed shortly after intubation that he would like to make the patient comfort care. Because of the discrepancy, the patient has remained intubated and full code. His brother is in the process of trying to locate his . Patient seen today at the bedside. He remains intubated. Review of systems cannot be obtained. I did ask if he had any pain patient tried to respond colon but his response cannot be accurately interpreted. Overnight the patient desaturated again. There was one instance where he had to be bagged. She has copious thick white mucus and continues to develop mucus plugging that is causing the issue. According to the nurse's report, they received no phone calls from his brother about whether or not he could contact his . Nor did I." I inherited his care Friday 10/20 as he was decompensating once again with respiratory distress, SVT and cxr showing near total collapse of the left lung worrisome for mucus plugging and resultant atelectasis. he was urgently re- intubated by anesthesiology and urgently bronch'd with Dr Manning removing copious secretions but without improvement in his cxr. stat ct chest shows massive left effusion and thoracentesis performed . he remains ventilated and sedated and unable to provide a medical history or ROS at this time. no family present. ROS: unobtainable for reasons noted above Physical Exam Vital Signs: Temp Pulse Resp BP Pulse Ox 99.3 F 85 17 126/82 H 97 10/22/16 14:00 10/22/16 14:09 10/22/16 14:09 10/22/16 13:14 10/22/16 14:09 Intake & Output 10/21/16 10/22/16 10/23/16 06:59 06:59 06:59 Intake Total 1638 1424 Output Total 1775 625 185 Balance -137 799 -185 Weight 64.1 kg General appearance: PRESENT: no acute distress, other - sedated Head exam: ABSENT: atraumatic Eye exam: ABSENT: conjunctival injection, scleral icterus Mouth exam: PRESENT: moist, neck supple Neck exam: PRESENT: tracheal deviation - slightly left. ABSENT: JVD Respiratory exam: PRESENT: other - absent BSs on left, coarse on Rt. ABSENT: accessory muscle use Cardiovascular exam: PRESENT: RRR. ABSENT: systolic murmur, tachycardia GI/Abdominal exam: PRESENT: normal bowel sounds, soft Gentrourinary exam: PRESENT: indwelling catheter. ABSENT: scrotal swelling Extremities exam: PRESENT: +1 edema - diffuse pitting edema of all extremeties Neurological exam: PRESENT: other - sedated on diprivan with ativan prn Psychiatric exam: PRESENT: other - calm Skin exam: PRESENT: warm, other - shallow ulcer with purulent bed with yellow exudate just proximal to base of the penis Results Laboratory Results: 10/22/16 05:52 10/22/16 10:16 10/21/16 10/22/16 10/22/16 06:15 05:52 05:52 WBC 15.1 H RBC 2.79 L Hgb 9.1 L Hct 26.9 L MCV 96 MCH 32.8 MCHC 34.0 RDW 16.8 H Plt Count 120 L Seg Neutrophils % Not Reportable Lymphocytes % Not Reportable Monocytes % Not Reportable Eosinophils % Not Reportable Basophils % Not Reportable Absolute Neutrophils Not Reportable Absolute Lymphocytes Not Reportable Absolute Monocytes Not Reportable Absolute Eosinophils Not Reportable Absolute Basophils Not Reportable Carbonic Acid 1.19 HCO3/H2CO3 Ratio 25:1 ABG pH 7.51 H ABG pCO2 39.7 ABG pO2 68.7 L ABG HCO3 30.9 H ABG O2 Saturation 95.2 ABG Base Excess 7.3 FiO2 40% Sodium 141.3 Potassium 3.4 L Chloride 106 Carbon Dioxide 30 Anion Gap 5 BUN 12 Creatinine 0.31 L Est GFR ( Amer) > 60 Est GFR (Non-Af Amer) > 60 Glucose 106 Calcium 7.5 L Phosphorus 3.6 Magnesium 2.0 Total Protein Triglycerides 213 H Fluid Type Fluid Source Fluid Color Fluid Appearance Fluid Viscosity Fluid WBC Fluid RBC 10/22/16 10/22/16 10/22/16 05:52 09:45 10:16 WBC 16.2 H RBC 2.77 L Hgb 9.1 L Hct 27.0 L MCV 98 H MCH 32.9 MCHC 33.7 RDW 16.8 H Plt Count 150 Seg Neutrophils % Not Reportable Lymphocytes % Not Reportable Monocytes % Not Reportable Eosinophils % Not Reportable Basophils % Not Reportable Absolute Neutrophils Not Reportable Absolute Lymphocytes Not Reportable Absolute Monocytes Not Reportable Absolute Eosinophils Not Reportable Absolute Basophils Not Reportable Carbonic Acid HCO3/H2CO3 Ratio ABG pH ABG pCO2 ABG pO2 ABG HCO3 ABG O2 Saturation ABG Base Excess FiO2 Sodium Potassium Chloride Carbon Dioxide Anion Gap BUN Creatinine Est GFR ( Amer) Est GFR (Non-Af Amer) Glucose Cancelled Calcium Phosphorus Magnesium Total Protein 4.0 L Triglycerides Fluid Type PLEURAL Fluid Source LUNG Fluid Color LIGHT YELLOW Fluid Appearance CLEAR Fluid Viscosity LIQUID Fluid WBC 111 Fluid RBC 58 10/16/16 14:28 Blood Blood Culture - Final NO GROWTH IN 5 DAYS 10/16/16 10:26 Blood Blood Culture - Final NO GROWTH IN 5 DAYS 10/13/16 10/13/16 10/13/16 20:15 20:15 20:22 Creatine Kinase 235 H Cancelled CK-MB (CK-2) 8.31 H Troponin I 0.119 10/14/16 10/14/16 10/14/16 01:45 01:45 08:20 Creatine Kinase 189 H 153 CK-MB (CK-2) 6.31 H Troponin I 0.031 10/14/16 08:20 Creatine Kinase CK-MB (CK-2) 4.54 Troponin I 0.019 Impressions: Chest X-Ray 10/22/16 11:48 IMPRESSION: No evidence for pneumothorax post thoracentesis. A small residual left pleural effusion is identified. Other findings as noted above Status: Image reviewed by me Assessment & Plan - Diagnosis (1) Acute hypoxemic respiratory failure Is this a current diagnosis for this admission?: YesPlan: stable; now reintubated. (2) Pneumonia Qualifiers: Pneumonia type: aspiration pneumonia Laterality: right Lung location: upper lobe of lung Is this a current diagnosis for this admission?: YesPlan: stable. Now With complex parapneumonic effusion (3) Hypokalemia Is this a current diagnosis for this admission?: YesPlan: improved with aggressive replacement per protocol (4) C. difficile colitis Is this a current diagnosis for this admission?: YesPlan: Unchanged - stools perhaps slowing somewhat; continue abx and resume TFs while intubated (5) Alcohol dependency Qualifiers: Substance use status: with intoxication Complication of substance- induced condition: with unspecified complication Qualified Code(s): F10.229 - Alcohol dependence with intoxication, unspecified Is this a current diagnosis for this admission?: YesPlan: Unchanged (6) DTs (delirium tremens) Is this a current diagnosis for this admission?: YesPlan: Improved (7) Pancytopenia Is this a current diagnosis for this admission?: YesPlan: Unchanged (8) Sacral decubitus ulcer, stage II Is this a current diagnosis for this admission?: YesPlan: Present on admission. Unchanged (9) Severe malnutrition Is this a current diagnosis for this admission?: YesPlan: Worse due to critical illness (10) COPD (chronic obstructive pulmonary disease) Qualifiers: COPD type: unspecified COPD Qualified Code(s): J44.9 - Chronic obstructive pulmonary disease, unspecified Is this a current diagnosis for this admission?: YesPlan: Unchanged (11) Tobacco dependency Is this a current diagnosis for this admission?: Yes - Time Time Spent with patient: 25-34 minutes - Plan Summary Plan Summary: hopefully his lung will re-expand after thoracentesis facilitating extubation, appreciate dr manning's assistance with his ventilator and management.
[2016-10-22] MEDS: THIAMINE HCL 100 MG, FOLIC ACID 1 MG in NORMAL SALINE 50 ML IV SCH (22:11)
[2016-10-23] MEDS: CEFAZOLIN 1 GM/D5W RTU 1 GM/50 ML RTUPB IV SCH ×3 (01:49→17:40)
[2016-10-23] MEDS: HYDROCORTISONE SOD SUCCINATE INJ/PF 100 MG/2 ML SDV IV SCH ×3 (01:49→17:41)
[2016-10-23] MEDS: IPRATROPIUM/ALBUTEROL 0.5-2.5 MG/3 ML AMPUL NEB SCH ×4 (02:11→20:10)
[2016-10-23] MEDS: PROPOFOL 100 ML IV PRN ×4 (03:30→19:35)
[2016-10-23] MEDS: VANCOMYCIN HCL INJ 500 MG VIAL PO SCH ×3 (05:01→17:41)
[2016-10-23] MEDS: METRONIDAZOLE 500 MG/NS RTU 100 ML IV SCH ×3 (05:02→21:51)
[2016-10-23 05:20] LABS: ARTERIAL BLOOD BASE EXCESS 5.6 mmol/L; ARTERIAL BLOOD O2 SATURATION 92.8 % (94-98)
[2016-10-23 05:34] LABS: BLOOD UREA NITROGEN 11 mg/dL (7-20); CALCIUM 7.3 mg/dL (8.4-10.2); CARBON DIOXIDE 30 mmol/L (22-30); CHLORIDE 106 mmol/L (98-107); CREATININE RESULT 0.27 mg/dL (0.52-1.25); GLUCOSE 117 mg/dL (75-110); MAGNESIUM 1.9 mg/dL (1.6-2.3); PHOSPHORUS 3.6 mg/dL (2.5-4.5); POTASSIUM 3.1 mmol/L (3.6-5.0)
[2016-10-23 05:48] LABS: SODIUM 140.1 mmol/L (137-145)
[2016-10-23 05:51] LABS: ANION GAP 4 (5-19)
[2016-10-23] MEDS: POTASSIUM CHLORIDE 20 MEQ/50 ML RTU IV SCH ×2 (06:35→08:45)
[2016-10-23] MEDS: ACETYLCYSTEINE 20% SOLN 800 MG/4 ML VIAL.NEB NEB SCH ×2 (08:26→20:10)
[2016-10-23] MEDS: POTASSIUM CHLORIDE 20 MEQ/15 ML UDCUP NG SCH ×2 (09:14→17:40)
[2016-10-23] MEDS: FLUCONAZOLE 200 MG/NS RTU 100 ML IV SCH (09:15)
[2016-10-23] MEDS: LORAZEPAM INJ 2 MG/1 ML VIAL IV PRN ×2 (10:16→21:52)
[2016-10-23 10:29] LABS: BLOOD UREA NITROGEN 13 mg/dL (7-20); CALCIUM 7.2 mg/dL (8.4-10.2); CHLORIDE 105 mmol/L (98-107); CREATININE RESULT 0.31 mg/dL (0.52-1.25); GLUCOSE 90 mg/dL (75-110); POTASSIUM 3.3 mmol/L (3.6-5.0)
[2016-10-23 10:30] LABS: ANION GAP 5 (5-19); CARBON DIOXIDE 32 mmol/L (22-30); SODIUM 141.8 mmol/L (137-145)
[2016-10-23 10:31] LABS: ARTERIAL BLOOD BASE EXCESS 10.7 mmol/L; ARTERIAL BLOOD O2 SATURATION 93.8 % (94-98)
--- NOTE | 2016-10-23 13:40 | PDOC PROGRESS REPORT ---
Subjective Progress Note for:: 10/23/16 Subjective:: REASON FOR VISIT: f/u pneumonia with resp failure, hypokalemia, cdiff colitis HOSPITAL COURSE: per other providers: "Please see initial H&P for details of admission. In short this is a 56-year-old white male with a past medical history significant for alcohol abuse who presented to the ED in respiratory distress secondary to pneumonia. Initially the patient wanted to leave AMA but his brother was able to convince him to stay via phone. 20 minutes after convincing the patient to stay a decompensated and required rapid sequence intubation and admission to the ICU. Since admission he has been found to have acute respiratory failure, sepsis with shock complicated by mild shock liver, strep bacteremia, C. difficile colitis present on admission, and presumed coli aspiration pneumonia. There is been a question regarding who was making medical decisions for this patient. He is but estranged from his and he has a brother, Mr. Jaden Jones. The patient wanted assistance at the time he decompensated in the ED (recall that he was encouraged to get full assistance by his brother), however, his brother expressed shortly after intubation that he would like to make the patient comfort care. Because of the discrepancy, the patient has remained intubated and full code. His brother is in the process of trying to locate his . Patient seen today at the bedside. He remains intubated. Review of systems cannot be obtained. I did ask if he had any pain patient tried to respond colon but his response cannot be accurately interpreted. Overnight the patient desaturated again. There was one instance where he had to be bagged. She has copious thick white mucus and continues to develop mucus plugging that is causing the issue. According to the nurse's report, they received no phone calls from his brother about whether or not he could contact his . Nor did I." I inherited his care Friday 10/20 as he was decompensating once again with respiratory distress, SVT and cxr showing near total collapse of the left lung worrisome for mucus plugging and resultant atelectasis. he was urgently re- intubated by anesthesiology and urgently bronch'd with Dr Manning removing copious secretions but without improvement in his cxr. stat ct chest shows massive left effusion and thoracentesis performed with good improvement without recurrence as of Wednesday. he remains ventilated and sedated and unable to provide a medical history or ROS at this time. no family present. ROS: unobtainable for reasons noted above Physical Exam Vital Signs: Temp Pulse Resp BP Pulse Ox 98.4 F 87 28 H 158/88 H 100 10/23/16 12:00 10/23/16 12:00 10/23/16 12:00 10/23/16 12:00 10/23/16 12:00 Intake & Output 10/22/16 10/23/16 10/24/16 06:59 06:59 06:59 Intake Total 1424 2275 Output Total 625 1310 150 Balance 799 965 -150 Weight 64.1 kg 64.2 kg General appearance: PRESENT: no acute distress, other - sedated Head exam: ABSENT: atraumatic Eye exam: ABSENT: conjunctival injection, scleral icterus Mouth exam: PRESENT: moist, neck supple Neck exam: ABSENT: JVD, tracheal deviation Respiratory exam: PRESENT: crackles - coarse BSs bilat. ABSENT: rales, wheezes Cardiovascular exam: PRESENT: RRR. ABSENT: systolic murmur GI/Abdominal exam: PRESENT: normal bowel sounds, soft, other - rectal tube in place, liquid stools persist Extremities exam: PRESENT: +1 edema - pitting edema diffusely Neurological exam: ABSENT: alert, awake - sedated on diprivan and ativan prn Skin exam: PRESENT: warm. ABSENT: dry - moist Results Laboratory Results: 10/22/16 05:52 10/23/16 05:11 10/21/16 10/21/16 10/23/16 06:15 06:15 05:11 Carbonic Acid 1.26 1.16 HCO3/H2CO3 Ratio 27:1 25:1 ABG pH 7.53 H 7.50 H ABG pCO2 41.8 38.7 ABG pO2 61.5 L 59.6 L ABG HCO3 34.3 H 29.2 H ABG O2 Saturation 93.8 L 92.8 L ABG Base Excess 10.7 5.6 FiO2 50% 30% Sodium 141.8 Potassium 3.3 L Chloride 105 Carbon Dioxide 32 H Anion Gap 5 BUN 13 Creatinine 0.31 L Est GFR ( Amer) > 60 Est GFR (Non-Af Amer) > 60 Glucose 90 Calcium 7.2 L Phosphorus Magnesium 10/23/16 05:11 Carbonic Acid HCO3/H2CO3 Ratio ABG pH ABG pCO2 ABG pO2 ABG HCO3 ABG O2 Saturation ABG Base Excess FiO2 Sodium 140.1 Potassium 3.1 L Chloride 106 Carbon Dioxide 30 Anion Gap 4 L BUN 11 Creatinine 0.27 L Est GFR ( Amer) > 60 Est GFR (Non-Af Amer) > 60 Glucose 117 H Calcium 7.3 L Phosphorus 3.6 Magnesium 1.9 10/13/16 10/13/16 10/13/16 20:15 20:15 20:22 Creatine Kinase 235 H Cancelled CK-MB (CK-2) 8.31 H Troponin I 0.119 10/14/16 10/14/16 10/14/16 01:45 01:45 08:20 Creatine Kinase 189 H 153 CK-MB (CK-2) 6.31 H Troponin I 0.031 10/14/16 08:20 Creatine Kinase CK-MB (CK-2) 4.54 Troponin I 0.019 Impressions: Thoracentesis Ultrasound 10/21/16 00:00 IMPRESSION: SUCCESSFUL THORACENTESIS USING ULTRASOUND GUIDANCE. Chest X-Ray 10/23/16 06:00 IMPRESSION: [id number] pulmonary edema, small left effusion, and lines/ tubes. Interval worsening. Assessment & Plan - Diagnosis (1) Acute hypoxemic respiratory failure Is this a current diagnosis for this admission?: YesPlan: stable; remains intubated. (2) Pneumonia Qualifiers: Pneumonia type: aspiration pneumonia Laterality: right Lung location: upper lobe of lung Is this a current diagnosis for this admission?: YesPlan: stable. Now With complex parapneumonic effusion s/p thoracentesis (3) Hypokalemia Is this a current diagnosis for this admission?: YesPlan: improved with aggressive replacement per protocol (4) C. difficile colitis Is this a current diagnosis for this admission?: YesPlan: Unchanged - stools perhaps slowing somewhat; continue abx and resume TFs while intubated (5) Alcohol dependency Qualifiers: Substance use status: with intoxication Complication of substance- induced condition: with unspecified complication Qualified Code(s): F10.229 - Alcohol dependence with intoxication, unspecified Is this a current diagnosis for this admission?: Yes (6) DTs (delirium tremens) Is this a current diagnosis for this admission?: Yes (7) Pancytopenia Is this a current diagnosis for this admission?: Yes (8) Sacral decubitus ulcer, stage II Is this a current diagnosis for this admission?: YesPlan: Present on admission. Unchanged (9) Severe malnutrition Is this a current diagnosis for this admission?: YesPlan: Worse due to critical illness (10) COPD (chronic obstructive pulmonary disease) Qualifiers: COPD type: unspecified COPD Qualified Code(s): J44.9 - Chronic obstructive pulmonary disease, unspecified Is this a current diagnosis for this admission?: Yes (11) Tobacco dependency Is this a current diagnosis for this admission?: Yes - Time Time Spent with patient: 25-34 minutes - Plan Summary Plan Summary: seems to have stabilized, resting comfortably on CPAP settings on the vent and I suspect he could be extubated but will defer to pulmonary, appreciate dr manning's assistance. continue IV abx
[2016-10-23 13:54] LABS: ANION GAP 5 (5-19); BLOOD UREA NITROGEN 9 mg/dL (7-20); CALCIUM 7.4 mg/dL (8.4-10.2); CARBON DIOXIDE 30 mmol/L (22-30); CHLORIDE 105 mmol/L (98-107); CREATININE RESULT 0.25 mg/dL (0.52-1.25); GLUCOSE 109 mg/dL (75-110); POTASSIUM 3.5 mmol/L (3.6-5.0); SODIUM 139.9 mmol/L (137-145)
[2016-10-23] MEDS ORDERED: CEFAZOLIN 1 GM/D5W RTU 1 GM/50 ML RTUPB IV SCH (18:00)
[2016-10-23] MEDS: THIAMINE HCL 100 MG, FOLIC ACID 1 MG in NORMAL SALINE 50 ML IV SCH (21:51)
[2016-10-24] MEDS: PROPOFOL 100 ML IV PRN ×2 (00:38→05:28)
[2016-10-24] MEDS: VANCOMYCIN HCL INJ 500 MG VIAL PO SCH ×5 (00:39→23:38)
[2016-10-24] MEDS: IPRATROPIUM/ALBUTEROL 0.5-2.5 MG/3 ML AMPUL NEB SCH ×4 (01:52→20:29)
[2016-10-24] MEDS: HYDROCORTISONE SOD SUCCINATE INJ/PF 100 MG/2 ML SDV IV SCH ×3 (02:29→17:38)
[2016-10-24] MEDS: CEFAZOLIN 1 GM/D5W RTU 1 GM/50 ML RTUPB IV SCH ×3 (02:30→17:40)
[2016-10-24] MEDS: METRONIDAZOLE 500 MG/NS RTU 100 ML IV SCH ×3 (05:29→22:55)
[2016-10-24 05:54] LABS: ABSOLUTE MONOCYTES (AUTO) 0.6 10^3/uL (0.1-1.4); ABSOLUTE NEUT (AUTO) 9.9 10^3/uL (1.7-8.2); BASOPHILS % (AUTO) 0.4 % (0-2); EOSINOPHILS % (AUTO) 0.4 % (0-6); HEMATOCRIT 24.8 % (37.9-51.0); HEMOGLOBIN 8.2 g/dL (13.5-17.0); HGB HCT DIFFERENCE -0.2; LYMPHOCYTES % (AUTO) 8.8 % (13-45); MEAN CORPUSCULAR HEMOGLOBIN 32.6 pg (27.0-33.4); MEAN CORPUSCULAR HGB CONC 33.2 g/dL (32.0-36.0); MEAN CORPUSCULAR VOLUME 98 fl (80-97); MONOCYTES % (AUTO) 5.3 % (3-13); RED BLOOD COUNT 2.52 10^6/uL (4.35-5.55); SEGMENTED NEUTROPHILS % (AUTO) 85.1 % (42-78); WHITE BLOOD COUNT 11.7 10^3/uL (4.0-10.5)
[2016-10-24 06:00] LABS: ARTERIAL BLOOD BASE EXCESS 5.4 mmol/L; ARTERIAL BLOOD O2 SATURATION 98.1 % (94-98)
[2016-10-24 06:06] LABS: ANION GAP 6 (5-19); BLOOD UREA NITROGEN 11 mg/dL (7-20); CALCIUM 7.4 mg/dL (8.4-10.2); CARBON DIOXIDE 30 mmol/L (22-30); CHLORIDE 105 mmol/L (98-107); GLUCOSE 95 mg/dL (75-110); MAGNESIUM 1.9 mg/dL (1.6-2.3); PHOSPHORUS 3.3 mg/dL (2.5-4.5); SODIUM 140.5 mmol/L (137-145)
[2016-10-24] MEDS: POTASSIUM CHLORIDE 20 MEQ/50 ML RTU IV SCH ×4 (08:05→23:37)
[2016-10-24] MEDS: ACETYLCYSTEINE 20% SOLN 800 MG/4 ML VIAL.NEB NEB SCH ×2 (08:06→20:29)
[2016-10-24] MEDS: ENOXAPARIN SODIUM INJ 40 MG/0.4 ML DISP.SYRIN SUBCUT SCH (08:15)
[2016-10-24] MEDS: POTASSIUM CHLORIDE 20 MEQ/15 ML UDCUP NG SCH ×2 (10:01→19:05)
[2016-10-24] MEDS: FLUCONAZOLE 200 MG/NS RTU 100 ML IV SCH (10:03)
--- NOTE | 2016-10-24 10:51 | PDOC PROGRESS REPORT ---
Subjective Progress Note for:: 10/24/16 Subjective:: REASON FOR VISIT: f/u pneumonia with resp failure, hypokalemia, cdiff colitis HOSPITAL COURSE: per other providers: "Please see initial H&P for details of admission. In short this is a 56-year-old white male with a past medical history significant for alcohol abuse who presented to the ED in respiratory distress secondary to pneumonia. Initially the patient wanted to leave AMA but his brother was able to convince him to stay via phone. 20 minutes after convincing the patient to stay a decompensated and required rapid sequence intubation and admission to the ICU. Since admission he has been found to have acute respiratory failure, sepsis with shock complicated by mild shock liver, strep bacteremia, C. difficile colitis present on admission, and presumed coli aspiration pneumonia. There is been a question regarding who was making medical decisions for this patient. He is but estranged from his and he has a brother, Mr. Jaden Jones. The patient wanted assistance at the time he decompensated in the ED (recall that he was encouraged to get full assistance by his brother), however, his brother expressed shortly after intubation that he would like to make the patient comfort care. Because of the discrepancy, the patient has remained intubated and full code. His brother is in the process of trying to locate his . Patient seen today at the bedside. He remains intubated. Review of systems cannot be obtained. I did ask if he had any pain patient tried to respond colon but his response cannot be accurately interpreted. Overnight the patient desaturated again. There was one instance where he had to be bagged. She has copious thick white mucus and continues to develop mucus plugging that is causing the issue. According to the nurse's report, they received no phone calls from his brother about whether or not he could contact his . Nor did I." I inherited his care Friday 10/20 as he was decompensating once again with respiratory distress, SVT and cxr showing near total collapse of the left lung worrisome for mucus plugging and resultant atelectasis. he was urgently re- intubated by anesthesiology and urgently bronch'd with Dr Manning removing copious secretions but without improvement in his cxr. stat ct chest shows massive left effusion and thoracentesis performed with good improvement without recurrence as of Wednesday. he remains ventilated but is able to answer yes/no questions and seems appropriate. no family present. He very clearly indicates he wants to be extubated and does NOT want that intervention again regardless of the circumstances. ROS: denies chest pain, abdominal pain; just wants the tube out Physical Exam Vital Signs: Temp Pulse Resp BP Pulse Ox 98.2 F 94 13 114/73 96 10/24/16 03:15 10/24/16 08:06 10/24/16 10:00 10/24/16 09:15 10/24/16 10:00 Intake & Output 10/23/16 10/24/16 10/25/16 06:59 06:59 06:59 Intake Total 2275 1629 Output Total 1310 1300 325 Balance 965 329 -325 Weight 64.2 kg 65.2 kg General appearance: PRESENT: no acute distress, well-developed Head exam: PRESENT: atraumatic, normocephalic Eye exam: ABSENT: conjunctival injection, scleral icterus Mouth exam: PRESENT: moist Neck exam: PRESENT: full ROM. ABSENT: JVD, tracheal deviation Respiratory exam: PRESENT: clear to auscultation alexandrea - tolerating SIMV wihtout difficulty, unlabored. ABSENT: accessory muscle use Cardiovascular exam: PRESENT: RRR. ABSENT: systolic murmur Pulses: PRESENT: normal radial pulses Vascular exam: PRESENT: normal capillary refill GI/Abdominal exam: PRESENT: normal bowel sounds, soft, other - rectal tube remains in place. ABSENT: tenderness Gentrourinary exam: PRESENT: indwelling catheter. ABSENT: scrotal swelling - positive penile swelling; f Extremities exam: PRESENT: +1 edema. ABSENT: calf tenderness Neurological exam: PRESENT: alert, awake, oriented to person, oriented to situation Psychiatric exam: ABSENT: agitated, anxious Skin exam: PRESENT: warm. ABSENT: dry Results Laboratory Results: 10/24/16 05:25 10/24/16 05:25 10/22/16 10/22/16 10/22/16 09:45 09:45 09:45 WBC RBC Hgb Hct MCV MCH MCHC RDW Plt Count Seg Neutrophils % Lymphocytes % Monocytes % Eosinophils % Basophils % Absolute Neutrophils Absolute Lymphocytes Absolute Monocytes Absolute Eosinophils Absolute Basophils Carbonic Acid HCO3/H2CO3 Ratio ABG pH ABG pCO2 ABG pO2 ABG HCO3 ABG O2 Saturation ABG Base Excess FiO2 Sodium Potassium Chloride Carbon Dioxide Anion Gap BUN Creatinine Est GFR ( Amer) Est GFR (Non-Af Amer) Glucose Calcium Phosphorus Magnesium Fluid Glucose 117 Fluid Total Protein 1.0 Fluid LDH 58 10/23/16 10/24/16 10/24/16 13:30 05:25 05:25 WBC RBC Hgb Hct MCV MCH MCHC RDW Plt Count Seg Neutrophils % Lymphocytes % Monocytes % Eosinophils % Basophils % Absolute Neutrophils Absolute Lymphocytes Absolute Monocytes Absolute Eosinophils Absolute Basophils Carbonic Acid 1.29 HCO3/H2CO3 Ratio 23:1 ABG pH 7.46 H ABG pCO2 42.7 ABG pO2 106.5 H ABG HCO3 29.8 H ABG O2 Saturation 98.1 H ABG Base Excess 5.4 FiO2 35% Sodium 139.9 140.5 Potassium 3.5 L 3.0 L* Chloride 105 105 Carbon Dioxide 30 30 Anion Gap 5 6 BUN 9 11 Creatinine 0.25 L 0.20 L Est GFR ( Amer) > 60 > 60 Est GFR (Non-Af Amer) > 60 > 60 Glucose 109 95 Calcium 7.4 L 7.4 L Phosphorus 3.3 Magnesium 1.9 Fluid Glucose Fluid Total Protein Fluid LDH 10/24/16 05:25 WBC 11.7 H RBC 2.52 L Hgb 8.2 L Hct 24.8 L MCV 98 H MCH 32.6 MCHC 33.2 RDW 17.0 H Plt Count 192 Seg Neutrophils % 85.1 H Lymphocytes % 8.8 L Monocytes % 5.3 Eosinophils % 0.4 Basophils % 0.4 Absolute Neutrophils 9.9 H Absolute Lymphocytes 1.0 Absolute Monocytes 0.6 Absolute Eosinophils 0.0 Absolute Basophils 0.0 Carbonic Acid HCO3/H2CO3 Ratio ABG pH ABG pCO2 ABG pO2 ABG HCO3 ABG O2 Saturation ABG Base Excess FiO2 Sodium Potassium Chloride Carbon Dioxide Anion Gap BUN Creatinine Est GFR ( Amer) Est GFR (Non-Af Amer) Glucose Calcium Phosphorus Magnesium Fluid Glucose Fluid Total Protein Fluid LDH 10/13/16 10/13/16 10/13/16 20:15 20:15 20:22 Creatine Kinase 235 H Cancelled CK-MB (CK-2) 8.31 H Troponin I 0.119 10/14/16 10/14/16 10/14/16 01:45 01:45 08:20 Creatine Kinase 189 H 153 CK-MB (CK-2) 6.31 H Troponin I 0.031 10/14/16 08:20 Creatine Kinase CK-MB (CK-2) 4.54 Troponin I 0.019 Impressions: Abdomen/Pelvis CT 10/13/16 12:58 IMPRESSION: Colon wall thickening along the ascending colon, hepatic flexure, and sigmoid colon. Findings are nonspecific, worrisome for colitis. Profound fatty infiltration of the liver Question early or developing left lower lobe airspace disease Venous Doppler Study 10/16/16 00:00 IMPRESSION: NO EVIDENCE DVT OR SVT IN THE LEFT ARM. Chest CT 10/20/16 00:00 IMPRESSION: 1. There is almost complete atelectasis in the left lung with a significant pleural effusion and shift of mediastinum to the left. 2. There is a small right pleural effusion. KUB X-Ray 10/20/16 18:13 IMPRESSION: Nasogastric catheter is present with tip overlying the body of the stomach, side-port is approximately 5 cm past the GE junction. Thoracentesis Ultrasound 10/21/16 00:00 IMPRESSION: SUCCESSFUL THORACENTESIS USING ULTRASOUND GUIDANCE. Chest X-Ray 10/24/16 06:00 IMPRESSION: No significant change including a [id number] pulmonary edema pattern. Lines and tubes. Assessment & Plan - Diagnosis (1) Acute hypoxemic respiratory failure Is this a current diagnosis for this admission?: YesPlan: stable; remains intubated but I think can be extubated if dr manning agrees. will be terminal extubation as he does NOT wish to be on the life support again. (2) Pneumonia Qualifiers: Pneumonia type: aspiration pneumonia Laterality: right Lung location: upper lobe of lung Is this a current diagnosis for this admission?: YesPlan: stable. Now With complex parapneumonic effusion s/p thoracentesis which is improved without recurrence to date/ (3) Hypokalemia Is this a current diagnosis for this admission?: YesPlan: worse again, continue aggressive replacement per protocol (4) C. difficile colitis Is this a current diagnosis for this admission?: YesPlan: Unchanged ; continue abx and resume TFs while intubated (5) Alcohol dependency Qualifiers: Substance use status: with intoxication Complication of substance- induced condition: with unspecified complication Qualified Code(s): F10.229 - Alcohol dependence with intoxication, unspecified Is this a current diagnosis for this admission?: Yes (6) DTs (delirium tremens) Is this a current diagnosis for this admission?: Yes (7) Pancytopenia Is this a current diagnosis for this admission?: Yes (8) Sacral decubitus ulcer, stage II Is this a current diagnosis for this admission?: Yes (9) Severe malnutrition Is this a current diagnosis for this admission?: Yes (10) COPD (chronic obstructive pulmonary disease) Qualifiers: COPD type: unspecified COPD Qualified Code(s): J44.9 - Chronic obstructive pulmonary disease, unspecified Is this a current diagnosis for this admission?: Yes (11) Tobacco dependency Is this a current diagnosis for this admission?: Yes - Time Time Spent with patient: 25-34 minutes
--- NOTE | 2016-10-24 16:23 | PDOC PROGRESS REPORT ---
Subjective Progress Note for:: 10/24/16 Subjective:: Intubated awake responsive Physical Exam Vital Signs: Temp Pulse Resp BP Pulse Ox 98.2 F 94 17 124/74 99 10/24/16 03:15 10/24/16 08:06 10/24/16 08:06 10/24/16 06:14 10/24/16 08:06 Intake & Output 10/23/16 10/24/16 10/25/16 06:59 06:59 06:59 Intake Total 2275 1629 Output Total 1310 1300 225 Balance 965 329 -225 Weight 64.2 kg 65.2 kg General appearance: PRESENT: no acute distress, cooperative, disheveled, thin, well-developed Head exam: PRESENT: atraumatic, normocephalic Eye exam: PRESENT: conjunctiva pale, EOMI Mouth exam: PRESENT: dry mucosa, neck supple, other - Endotracheal tube in place Teeth exam: PRESENT: poor dentation Neck exam: ABSENT: carotid bruit, JVD, lymphadenopathy, thyromegaly Respiratory exam: PRESENT: decreased breath sounds, prolonged expiratory phas, rhonchi, symmetrical, unlabored Cardiovascular exam: PRESENT: RRR, +S1, +S2 Pulses: PRESENT: normal radial pulses GI/Abdominal exam: PRESENT: normal bowel sounds, soft. ABSENT: distended, guarding, mass, organolmegaly, rebound, tenderness Rectal exam: PRESENT: deferred Gentrourinary exam: PRESENT: indwelling catheter Musculoskeletal exam: PRESENT: normal inspection Neurological exam: PRESENT: alert, awake Psychiatric exam: PRESENT: normal mood Skin exam: PRESENT: abrasion, dry, warm, other - Excoriations Results Laboratory Results: 10/24/16 05:25 10/24/16 05:25 10/21/16 10/21/16 10/22/16 06:15 06:15 09:45 WBC RBC Hgb Hct MCV MCH MCHC RDW Plt Count Seg Neutrophils % Lymphocytes % Monocytes % Eosinophils % Basophils % Absolute Neutrophils Absolute Lymphocytes Absolute Monocytes Absolute Eosinophils Absolute Basophils Carbonic Acid 1.26 HCO3/H2CO3 Ratio 27:1 ABG pH 7.53 H ABG pCO2 41.8 ABG pO2 61.5 L ABG HCO3 34.3 H ABG O2 Saturation 93.8 L ABG Base Excess 10.7 FiO2 50% Sodium 141.8 Potassium 3.3 L Chloride 105 Carbon Dioxide 32 H Anion Gap 5 BUN 13 Creatinine 0.31 L Est GFR ( Amer) > 60 Est GFR (Non-Af Amer) > 60 Glucose 90 Calcium 7.2 L Phosphorus Magnesium Fluid Glucose 117 Fluid Total Protein Fluid LDH 10/22/16 10/22/16 10/23/16 09:45 09:45 13:30 WBC RBC Hgb Hct MCV MCH MCHC RDW Plt Count Seg Neutrophils % Lymphocytes % Monocytes % Eosinophils % Basophils % Absolute Neutrophils Absolute Lymphocytes Absolute Monocytes Absolute Eosinophils Absolute Basophils Carbonic Acid HCO3/H2CO3 Ratio ABG pH ABG pCO2 ABG pO2 ABG HCO3 ABG O2 Saturation ABG Base Excess FiO2 Sodium 139.9 Potassium 3.5 L Chloride 105 Carbon Dioxide 30 Anion Gap 5 BUN 9 Creatinine 0.25 L Est GFR ( Amer) > 60 Est GFR (Non-Af Amer) > 60 Glucose 109 Calcium 7.4 L Phosphorus Magnesium Fluid Glucose Fluid Total Protein 1.0 Fluid LDH 58 10/24/16 10/24/16 10/24/16 05:25 05:25 05:25 WBC 11.7 H RBC 2.52 L Hgb 8.2 L Hct 24.8 L MCV 98 H MCH 32.6 MCHC 33.2 RDW 17.0 H Plt Count 192 Seg Neutrophils % 85.1 H Lymphocytes % 8.8 L Monocytes % 5.3 Eosinophils % 0.4 Basophils % 0.4 Absolute Neutrophils 9.9 H Absolute Lymphocytes 1.0 Absolute Monocytes 0.6 Absolute Eosinophils 0.0 Absolute Basophils 0.0 Carbonic Acid 1.29 HCO3/H2CO3 Ratio 23:1 ABG pH 7.46 H ABG pCO2 42.7 ABG pO2 106.5 H ABG HCO3 29.8 H ABG O2 Saturation 98.1 H ABG Base Excess 5.4 FiO2 35% Sodium 140.5 Potassium 3.0 L* Chloride 105 Carbon Dioxide 30 Anion Gap 6 BUN 11 Creatinine 0.20 L Est GFR ( Amer) > 60 Est GFR (Non-Af Amer) > 60 Glucose 95 Calcium 7.4 L Phosphorus 3.3 Magnesium 1.9 Fluid Glucose Fluid Total Protein Fluid LDH 10/13/16 10/13/16 10/13/16 20:15 20:15 20:22 Creatine Kinase 235 H Cancelled CK-MB (CK-2) 8.31 H Troponin I 0.119 10/14/16 10/14/1610/14/17 01:45 01:45 08:20 Creatine Kinase 189 H 153 CK-MB (CK-2) 6.31 H Troponin I 0.031 10/14/16 08:20 Creatine Kinase CK-MB (CK-2) 4.54 Troponin I 0.019 Impressions: Abdomen/Pelvis CT 10/13/16 12:58 IMPRESSION: Colon wall thickening along the ascending colon, hepatic flexure, and sigmoid colon. Findings are nonspecific, worrisome for colitis. Profound fatty infiltration of the liver Question early or developing left lower lobe airspace disease Venous Doppler Study 10/16/16 00:00 IMPRESSION: NO EVIDENCE DVT OR SVT IN THE LEFT ARM. Chest CT 10/20/16 00:00 IMPRESSION: 1. There is almost complete atelectasis in the left lung with a significant pleural effusion and shift of mediastinum to the left. 2. There is a small right pleural effusion. KUB X-Ray 10/20/16 18:13 IMPRESSION: Nasogastric catheter is present with tip overlying the body of the stomach, side-port is approximately 5 cm past the GE junction. Thoracentesis Ultrasound 10/21/16 00:00 IMPRESSION: SUCCESSFUL THORACENTESIS USING ULTRASOUND GUIDANCE. Chest X-Ray 10/24/16 06:00 IMPRESSION: No significant change including a [id number] pulmonary edema pattern. Lines and tubes. Assessment & Plan - Diagnosis (1) Acute hypoxemic respiratory failure Is this a current diagnosis for this admission?: YesPlan: Respiratory rate, FiO2, minute ventilation, airway pressures, mental status all suggest successful extubation we will proceed with extubation (2) Pneumonia Qualifiers: Pneumonia type: aspiration pneumonia Laterality: right Lung location: upper lobe of lung Is this a current diagnosis for this admission?: Yes (3) Hypotension Qualifiers: Hypotension type: unspecified hypotension type Qualified Code(s): I95.9 - Hypotension, unspecified Is this a current diagnosis for this admission?: No (4) High anion gap metabolic acidosis Is this a current diagnosis for this admission?: No (5) Abnormal liver function tests Is this a current diagnosis for this admission?: No (6) Tobacco dependency Is this a current diagnosis for this admission?: Yes (7) COPD (chronic obstructive pulmonary disease) Qualifiers: COPD type: unspecified COPD Qualified Code(s): J44.9 - Chronic obstructive pulmonary disease, unspecified Is this a current diagnosis for this admission?: Yes - Time Critical Time spent with patient: 35 or more minutes - 55 minutes extubation
--- NOTE | 2016-10-24 16:25 | PDOC PROGRESS REPORT ---
Subjective Progress Note for:: 10/23/16 Subjective:: Intubated and sedated Physical Exam Vital Signs: Temp Pulse Resp BP Pulse Ox 98.8 F 80 17 110/70 97 10/23/16 08:00 10/23/16 08:00 10/23/16 08:00 10/23/16 08:00 10/23/16 08:00 Intake & Output 10/22/16 10/23/16 10/24/16 06:59 06:59 06:59 Intake Total 1424 2275 Output Total 625 1310 Balance 799 965 Weight 64.1 kg 64.2 kg General appearance: PRESENT: no acute distress, disheveled, thin, well-developed Head exam: PRESENT: atraumatic, normocephalic Eye exam: PRESENT: conjunctiva pale Mouth exam: PRESENT: dry mucosa, neck supple, other - ET tube in place Teeth exam: PRESENT: poor dentation Neck exam: ABSENT: carotid bruit, JVD, lymphadenopathy, thyromegaly Respiratory exam: PRESENT: decreased breath sounds, prolonged expiratory phas, rhonchi, symmetrical, unlabored Cardiovascular exam: PRESENT: RRR, +S1, +S2 Pulses: PRESENT: normal radial pulses GI/Abdominal exam: PRESENT: normal bowel sounds, soft. ABSENT: distended, guarding, mass, organolmegaly, rebound, tenderness Rectal exam: PRESENT: deferred Gentrourinary exam: PRESENT: indwelling catheter Musculoskeletal exam: PRESENT: normal inspection Skin exam: PRESENT: abrasion, dry, other - Excoriations Results Laboratory Results: 10/22/16 05:52 10/23/16 05:11 10/21/16 10/22/16 10/22/16 06:15 09:45 10:16 WBC 15.1 H RBC 2.79 L Hgb 9.1 L Hct 26.9 L MCV 96 MCH 32.8 MCHC 34.0 RDW 16.8 H Plt Count 120 L Seg Neutrophils % Not Reportable Lymphocytes % Not Reportable Monocytes % Not Reportable Eosinophils % Not Reportable Basophils % Not Reportable Absolute Neutrophils Not Reportable Absolute Lymphocytes Not Reportable Absolute Monocytes Not Reportable Absolute Eosinophils Not Reportable Absolute Basophils Not Reportable Carbonic Acid HCO3/H2CO3 Ratio ABG pH ABG pCO2 ABG pO2 ABG HCO3 ABG O2 Saturation ABG Base Excess FiO2 Sodium Potassium Chloride Carbon Dioxide Anion Gap BUN Creatinine Est GFR ( Amer) Est GFR (Non-Af Amer) Glucose Cancelled Calcium Phosphorus Magnesium Total Protein 4.0 L Fluid Type PLEURAL Fluid Source LUNG Fluid Color LIGHT YELLOW Fluid Appearance CLEAR Fluid Viscosity LIQUID Fluid WBC 111 Fluid RBC 58 10/23/16 10/23/16 05:11 05:11 WBC RBC Hgb Hct MCV MCH MCHC RDW Plt Count Seg Neutrophils % Lymphocytes % Monocytes % Eosinophils % Basophils % Absolute Neutrophils Absolute Lymphocytes Absolute Monocytes Absolute Eosinophils Absolute Basophils Carbonic Acid 1.16 HCO3/H2CO3 Ratio 25:1 ABG pH 7.50 H ABG pCO2 38.7 ABG pO2 59.6 L ABG HCO3 29.2 H ABG O2 Saturation 92.8 L ABG Base Excess 5.6 FiO2 30% Sodium 140.1 Potassium 3.1 L Chloride 106 Carbon Dioxide 30 Anion Gap 4 L BUN 11 Creatinine 0.27 L Est GFR ( Amer) > 60 Est GFR (Non-Af Amer) > 60 Glucose 117 H Calcium 7.3 L Phosphorus 3.6 Magnesium 1.9 Total Protein Fluid Type Fluid Source Fluid Color Fluid Appearance Fluid Viscosity Fluid WBC Fluid RBC 10/13/16 10/13/16 10/13/16 20:15 20:15 20:22 Creatine Kinase 235 H Cancelled CK-MB (CK-2) 8.31 H Troponin I 0.119 10/14/16 10/14/16 10/14/16 01:45 01:45 08:20 Creatine Kinase 189 H 153 CK-MB (CK-2) 6.31 H Troponin I 0.031 10/14/16 08:20 Creatine Kinase CK-MB (CK-2) 4.54 Troponin I 0.019 Impressions: Abdomen/Pelvis CT 10/13/16 12:58 IMPRESSION: Colon wall thickening along the ascending colon, hepatic flexure, and sigmoid colon. Findings are nonspecific, worrisome for colitis. Profound fatty infiltration of the liver Question early or developing left lower lobe airspace disease Venous Doppler Study 10/16/16 00:00 IMPRESSION: NO EVIDENCE DVT OR SVT IN THE LEFT ARM. Chest CT 10/20/16 00:00 IMPRESSION: 1. There is almost complete atelectasis in the left lung with a significant pleural effusion and shift of mediastinum to the left. 2. There is a small right pleural effusion. KUB X-Ray 10/20/16 18:13 IMPRESSION: Nasogastric catheter is present with tip overlying the body of the stomach, side-port is approximately 5 cm past the GE junction. Thoracentesis Ultrasound 10/21/16 00:00 IMPRESSION: SUCCESSFUL THORACENTESIS USING ULTRASOUND GUIDANCE. Chest X-Ray 10/23/16 06:00 IMPRESSION: [id number] pulmonary edema, small left effusion, and lines/ tubes. Interval worsening. Assessment & Plan - Diagnosis (1) Acute hypoxemic respiratory failure Is this a current diagnosis for this admission?: Yes (2) Pneumonia Qualifiers: Pneumonia type: aspiration pneumonia Laterality: right Lung location: upper lobe of lung Is this a current diagnosis for this admission?: Yes (3) Hypotension Qualifiers: Hypotension type: unspecified hypotension type Qualified Code(s): I95.9 - Hypotension, unspecified Is this a current diagnosis for this admission?: No (4) High anion gap metabolic acidosis Is this a current diagnosis for this admission?: No (5) Abnormal liver function tests Is this a current diagnosis for this admission?: No (6) Tobacco dependency Is this a current diagnosis for this admission?: Yes (7) COPD (chronic obstructive pulmonary disease) Qualifiers: COPD type: unspecified COPD Qualified Code(s): J44.9 - Chronic obstructive pulmonary disease, unspecified Is this a current diagnosis for this admission?: Yes - Time Critical Time spent with patient: 35 or more minutes
[2016-10-24] MEDS ORDERED: ALTEPLASE INJ 2 MG VIAL (CATH CLEARANCE) IV ONE (16:47)
--- NOTE | 2016-10-24 16:59 | Progress Note ---
Provider Note Provider Note: called to the bedside by nursing, while they were cleaning and rotating the patient he suddenly became dyspneic followed by rapid rise in his RR and HR and drop in his BP to 90/60's. When I arrived I find him clearly in distress recruiting abdominal and accessory muscles to assist with breathing, he has a wild look in his eyes and is diaphoretic. His lungs have audible rales R>L and absent BSs at left base once again. HR down to [address] on monitor with hi- flow mask in place but sats at his finger only reading 77% and falling. He is awake and alert and answering questions appropriately and is now reconsidering his decision against re-intubation. I explained the situation and high likelihood of this happening again the next time we extubate him and he is wavering at this point. He is willing to try BiPAP first and will consider his options as time allows. He was previously on 12/5 and 30% FiO2 just prior to extubation. He is placed on BiPAP 20/8 and 100% FiO2 with sats jumping up to 96% and rising and much less WOB, he appears much more comfortable. stat CXR show rapid reaccumulation of left pleural effusion with tracheal deviation and mediastinal shift to left once again, not as bad as before but clearly bad enough to bring us back to this point. He simply has no oncotic pressures to maintain intravascular volume once a positive pressure is removed due to his liver disease and resultant low albumin. case discussed [facility] rubin. agrees with current plan and is available if he decompensates further.
[2016-10-24 18:18] LABS: ALANINE AMINOTRANSFERASE 51 U/L (21-72); ALKALINE PHOSPHATASE 90 U/L (38-126); ANION GAP 5 (5-19); ASPARTATE AMINO TRANSFERASE 65 U/L (17-59); BILIRUBIN,DIRECT 0.4 mg/dL (0.0-0.4); BILIRUBIN,TOTAL 0.7 mg/dL (0.2-1.3); BLOOD UREA NITROGEN 7 mg/dL (7-20); CALCIUM 7.5 mg/dL (8.4-10.2); CARBON DIOXIDE 33 mmol/L (22-30); CHLORIDE 104 mmol/L (98-107); CREATININE RESULT 0.28 mg/dL (0.52-1.25); GLUCOSE 103 mg/dL (75-110); POTASSIUM 3.1 mmol/L (3.6-5.0); SODIUM 141.8 mmol/L (137-145); TOTAL PROTEIN 4.1 g/dL (6.3-8.2)
[2016-10-24] MEDS ORDERED: FUROSEMIDE INJ/PF 20 MG/2 ML SDV IV ONE (19:00)
[2016-10-24] MEDS ORDERED: POTASSI CL 20 MEQ/50 ML RIDER 20 MEQ/50 ML RTUPB IV ONE (19:00)
[2016-10-24 20:51] LABS: ARTERIAL BLOOD BASE EXCESS 10.6 mmol/L; ARTERIAL BLOOD O2 SATURATION 98.3 % (94-98)
--- NOTE | 2016-10-24 21:05 | Progress Note ---
Provider Note Provider Note: October 24, 2016: 9 PM Shortly before 8 PM, I was called to the patient's bedside by patient's ICU nurse, stating his oxygen saturation had dropped, necessitating increase in his FiO2 to 100%. I went to the patient's bedside shortly thereafter. 94% saturation on 100% FiO2, BiPAP in place. Mild respiratory distress, but not too significant. Patient awake and alert. 2 ICU nurses, including Moraima present. CODE STATUS discussed with patient. He has elected to change his CODE STATUS to full code. Answers are lucid and appropriate. We will honor his wishes. Arterial blood gas pending. Repeat chest x-ray reveals complete opacification of the left hemithorax. 2 prior studies earlier today reviewed, revealing reaccumulation of his left pleural effusion just today. Films and reports reviewed. Several minutes ago, I discussed the patient by phone with Dr. Manning, front desk worker, who has managed the patient closely during his hospital stay. He agrees with plans for chest tube insertion. Surgery consult for same has been entered into the electronic health record. Patient's ICU nurse Moraima is aware.
[2016-10-24] MEDS ORDERED: LIDOCAINE 0.5% INJ-PF (5 MG/ML) 50 ML SDV ONE (21:47)
[2016-10-24] MEDS ORDERED: MORPHINE SULFATE 10 MG/ML INJ IV ONE (22:45)
[2016-10-24] MEDS: THIAMINE HCL 100 MG, FOLIC ACID 1 MG in NORMAL SALINE 50 ML IV SCH (22:55)
--- NOTE | 2016-10-24 22:58 | OPERATIVE REPORT E ---
Operative Report NAME: DEO CORTÉS : 1960 AGE: 56Y DATE OF SURGERY: 10/24/2016 ROOM: 607 PREOPERATIVE DIAGNOSIS: Severe left lung effusion. POSTOPERATIVE DIAGNOSIS: Severe left lung effusion. OPERATION: Insertion of left chest tube. SURGEON: TAMARA MALCOLM M.D. ANESTHESIA: Local. INDICATION: This is a 56-year-old male with liver cirrhosis, who had a left pleural effusion drained a couple of days ago only to recur with a more severe effusion and now with shortness of breath and decreased pulse oxygenation. DESCRIPTION OF PROCEDURE: The patient was placed in a semi-erect position and the left chest prepped and draped in the usual sterile fashion. Local anesthesia infiltrated just below the left nipple and a 2 cm incision made. Further local anesthesia infiltrated and the incision deepened with hemostat to the pleura with a gush of clear fluid. A 32-Marshallese chest tube was then placed into the left chest up to about 10 cm. It was then anchored to the skin with #0-silk on each side of the tube. The tube was then connected to a Pleur Evac and immediately drained about 450 mL of clear fluid. Sterile Vaseline gauze dressing around the tube was placed and an adhesive tape placed around the tube and connector. A chest x-ray will be obtained for tube positioning. DICTATING PHYSICIAN: TAMARA MALCOLM M.D. [id number] PHY#: [id number] ID: [id number] JOB#: [id number] ACCT: [id number] cc:TAMARA MALCOLM M.D. >
[2016-10-25] MEDS: POTASSIUM CHLORIDE 20 MEQ/50 ML RTU IV SCH ×3 (00:49→13:11)
[2016-10-25] MEDS: IPRATROPIUM/ALBUTEROL 0.5-2.5 MG/3 ML AMPUL NEB SCH ×4 (01:57→20:21)
[2016-10-25] MEDS: CEFAZOLIN 1 GM/D5W RTU 1 GM/50 ML RTUPB IV SCH ×3 (02:48→18:00)
[2016-10-25] MEDS: HYDROCORTISONE SOD SUCCINATE INJ/PF 100 MG/2 ML SDV IV SCH ×3 (02:49→18:01)
[2016-10-25] MEDS: VANCOMYCIN HCL INJ 500 MG VIAL PO SCH ×3 (06:29→17:10)
[2016-10-25] MEDS: METRONIDAZOLE 500 MG/NS RTU 100 ML IV SCH ×3 (06:29→22:12)
[2016-10-25 06:53] LABS: ABSOLUTE BASOPHILS # (AUTO) 0.1 10^3/uL (0.0-0.2); ABSOLUTE LYMPHOCYTES (AUTO) 1.2 10^3/uL (0.5-4.7); ABSOLUTE MONOCYTES (AUTO) 0.6 10^3/uL (0.1-1.4); ABSOLUTE NEUT (AUTO) 8.1 10^3/uL (1.7-8.2); BASOPHILS % (AUTO) 0.6 % (0-2); EOSINOPHILS % (AUTO) 0.2 % (0-6); HEMATOCRIT 29.6 % (37.9-51.0); HEMOGLOBIN 9.8 g/dL (13.5-17.0); HGB HCT DIFFERENCE -0.2; LYMPHOCYTES % (AUTO) 12.4 % (13-45); MEAN CORPUSCULAR HEMOGLOBIN 32.4 pg (27.0-33.4); MEAN CORPUSCULAR VOLUME 98 fl (80-97); MONOCYTES % (AUTO) 5.6 % (3-13); RED BLOOD COUNT 3.02 10^6/uL (4.35-5.55); RED CELL DISTRIBUTION WIDTH 16.7 % (11.5-14.0); SEGMENTED NEUTROPHILS % (AUTO) 81.2 % (42-78)
[2016-10-25] MEDS ORDERED: FUROSEMIDE INJ/PF 20 MG/2 ML SDV IV ONE (07:00)
[2016-10-25 07:17] LABS: BLOOD UREA NITROGEN 8 mg/dL (7-20); CALCIUM 7.9 mg/dL (8.4-10.2); CHLORIDE 102 mmol/L (98-107); CREATININE RESULT 0.29 mg/dL (0.52-1.25); GLUCOSE 75 mg/dL (75-110); MAGNESIUM 1.8 mg/dL (1.6-2.3); POTASSIUM 3.1 mmol/L (3.6-5.0); TRIGLYCERIDES 173 mg/dL (<150)
[2016-10-25 07:43] LABS: ANION GAP 5 (5-19); CARBON DIOXIDE 34 mmol/L (22-30); SODIUM 140.9 mmol/L (137-145)
[2016-10-25 07:48] LABS: ARTERIAL BLOOD BASE EXCESS 13.3 mmol/L; ARTERIAL BLOOD O2 SATURATION 91.3 % (94-98)
[2016-10-25] MEDS: ACETYLCYSTEINE 20% SOLN 800 MG/4 ML VIAL.NEB NEB SCH ×2 (08:29→20:21)
[2016-10-25] MEDS ORDERED: POTASSI CL 20 MEQ/50 ML RIDER 20 MEQ/50 ML RTUPB IV ONE (10:00)
[2016-10-25] MEDS: POTASSIUM CHLORIDE 20 MEQ/15 ML UDCUP NG SCH ×2 (10:15→17:10)
[2016-10-25] MEDS: FLUCONAZOLE 200 MG/NS RTU 100 ML IV SCH (10:16)
--- NOTE | 2016-10-25 11:16 | PDOC PROGRESS REPORT ---
Subjective Progress Note for:: 10/25/16 Subjective:: REASON FOR VISIT: f/u pneumonia with resp failure, hypokalemia, cdiff colitis HOSPITAL COURSE: per other providers: "Please see initial H&P for details of admission. In short this is a 56-year-old white male with a past medical history significant for alcohol abuse who presented to the ED in respiratory distress secondary to pneumonia. Initially the patient wanted to leave AMA but his brother was able to convince him to stay via phone. 20 minutes after convincing the patient to stay a decompensated and required rapid sequence intubation and admission to the ICU. Since admission he has been found to have acute respiratory failure, sepsis with shock complicated by mild shock liver, strep bacteremia, C. difficile colitis present on admission, and presumed coli aspiration pneumonia. There is been a question regarding who was making medical decisions for this patient. He is but estranged from his and he has a brother, Mr. Jaden Jones. The patient wanted assistance at the time he decompensated in the ED (recall that he was encouraged to get full assistance by his brother), however, his brother expressed shortly after intubation that he would like to make the patient comfort care. Because of the discrepancy, the patient has remained intubated and full code. His brother is in the process of trying to locate his . Patient seen today at the bedside. He remains intubated. Review of systems cannot be obtained. I did ask if he had any pain patient tried to respond colon but his response cannot be accurately interpreted. Overnight the patient desaturated again. There was one instance where he had to be bagged. She has copious thick white mucus and continues to develop mucus plugging that is causing the issue. According to the nurse's report, they received no phone calls from his brother about whether or not he could contact his . Nor did I." I inherited his care Friday 10/20 as he was decompensating once again with respiratory distress, SVT and cxr showing near total collapse of the left lung worrisome for mucus plugging and resultant atelectasis. he was urgently re- intubated by anesthesiology and urgently bronch'd with Dr Manning removing copious secretions but without improvement in his cxr. stat ct chest shows massive left effusion and thoracentesis performed with good improvement and he was successfully extubated Wednesday. However, his effusion rapidly reaccumulated through the course of the day with worsening respiratory distress requiring a course of BiPAP until urgent chest tube placed by surgery Wednesday night with production of nearly 2L serous fluid and finally some improvement in his resp and hemodynamic status. furthermore he has rescinded his DNR with dr robb and is now FULL CODE once again. ROS: denies chest pain in spite of the tube and states his breathing is better, he is hungry and wants to eat, no abdominal pain, N/V/D, total 10 systems reviewed, remaining systems negative. Physical Exam Vital Signs: Temp Pulse Resp BP Pulse Ox 99.0 F 113 H 24 H 119/73 87 L 10/25/16 10:00 10/25/16 08:30 10/25/16 10:00 10/25/16 09:15 10/25/16 10:00 Intake & Output 10/24/16 10/25/16 10/26/16 06:59 06:59 06:59 Intake Total 1629 1595 Output Total 1300 6225 1000 Balance 329 -4630 -1000 Weight 65.2 kg 61.2 kg General appearance: PRESENT: no acute distress, well-developed. ABSENT: well- nourished Head exam: PRESENT: atraumatic, normocephalic Eye exam: PRESENT: EOMI. ABSENT: conjunctival injection, scleral icterus Mouth exam: PRESENT: moist, neck supple Teeth exam: PRESENT: poor dentation Neck exam: PRESENT: full ROM. ABSENT: JVD Respiratory exam: PRESENT: rales, unlabored. ABSENT: accessory muscle use, rhonchi, wheezes Cardiovascular exam: PRESENT: RRR, tachycardia - sinus tach on monitor Pulses: PRESENT: normal carotid pulses, normal radial pulses GI/Abdominal exam: PRESENT: normal bowel sounds, soft. ABSENT: tenderness Rectal exam: PRESENT: other - rectal tube in place with about 400ml of liquid gren stool Gentrourinary exam: PRESENT: indwelling catheter - plenty of clear yellow urine in the bag Extremities exam: PRESENT: +1 edema. ABSENT: calf tenderness Musculoskeletal exam: PRESENT: other - very weak, can only lift his hand against gravity and cannot lift his legs or knees off the bed Neurological exam: PRESENT: alert, awake, oriented to person, oriented to place , oriented to situation Psychiatric exam: PRESENT: appropriate affect, normal mood Skin exam: PRESENT: pallor, warm. ABSENT: dry Results Laboratory Results: 10/25/16 06:30 10/25/16 06:30 10/24/16 10/24/16 10/25/16 17:30 20:40 06:30 WBC RBC Hgb Hct MCV MCH MCHC RDW Plt Count Seg Neutrophils % Lymphocytes % Monocytes % Eosinophils % Basophils % Absolute Neutrophils Absolute Lymphocytes Absolute Monocytes Absolute Eosinophils Absolute Basophils Carbonic Acid 1.12 HCO3/H2CO3 Ratio 29:1 ABG pH 7.57 H ABG pCO2 37.1 ABG pO2 100.0 ABG HCO3 33.3 H ABG O2 Saturation 98.3 H ABG Base Excess 10.6 FiO2 100% Sodium 141.8 140.9 Potassium 3.1 L 3.1 L Chloride 104 102 Carbon Dioxide 33 H 34 H Anion Gap 5 5 BUN 7 8 Creatinine 0.28 L 0.29 L Est GFR ( Amer) > 60 > 60 Est GFR (Non-Af Amer) > 60 > 60 Glucose 103 75 Calcium 7.5 L 7.9 L Magnesium 1.8 Total Bilirubin 0.7 AST 65 H ALT 51 Alkaline Phosphatase 90 Total Protein 4.1 L Albumin 2.0 L Triglycerides 173 H 10/25/16 10/25/16 06:30 07:30 WBC 10.0 RBC 3.02 L Hgb 9.8 L Hct 29.6 L MCV 98 H MCH 32.4 MCHC 33.0 RDW 16.7 H Plt Count 238 Seg Neutrophils % 81.2 H Lymphocytes % 12.4 L Monocytes % 5.6 Eosinophils % 0.2 Basophils % 0.6 Absolute Neutrophils 8.1 Absolute Lymphocytes 1.2 Absolute Monocytes 0.6 Absolute Eosinophils 0.0 Absolute Basophils 0.1 Carbonic Acid 1.47 H HCO3/H2CO3 Ratio 25:1 ABG pH 7.51 H ABG pCO2 48.9 H ABG pO2 56.0 L ABG HCO3 38.0 H ABG O2 Saturation 91.3 L ABG Base Excess 13.3 FiO2 3.5L Sodium Potassium Chloride Carbon Dioxide Anion Gap BUN Creatinine Est GFR ( Amer) Est GFR (Non-Af Amer) Glucose Calcium Magnesium Total Bilirubin AST ALT Alkaline Phosphatase Total Protein Albumin Triglycerides 10/13/16 10/13/16 10/13/16 20:15 20:15 20:22 Creatine Kinase 235 H Cancelled CK-MB (CK-2) 8.31 H Troponin I 0.119 10/14/16 10/14/16 10/14/16 01:45 01:45 08:20 Creatine Kinase 189 H 153 CK-MB (CK-2) 6.31 H Troponin I 0.031 10/14/16 08:20 Creatine Kinase CK-MB (CK-2) 4.54 Troponin I 0.019 Impressions: Abdomen/Pelvis CT 10/13/16 12:58 IMPRESSION: Colon wall thickening along the ascending colon, hepatic flexure, and sigmoid colon. Findings are nonspecific, worrisome for colitis. Profound fatty infiltration of the liver Question early or developing left lower lobe airspace disease Venous Doppler Study 10/16/16 00:00 IMPRESSION: NO EVIDENCE DVT OR SVT IN THE LEFT ARM. Chest CT 10/20/16 00:00 IMPRESSION: 1. There is almost complete atelectasis in the left lung with a significant pleural effusion and shift of mediastinum to the left. 2. There is a small right pleural effusion. KUB X-Ray 10/20/16 18:13 IMPRESSION: Nasogastric catheter is present with tip overlying the body of the stomach, side-port is approximately 5 cm past the GE junction. Thoracentesis Ultrasound 10/21/16 00:00 IMPRESSION: SUCCESSFUL THORACENTESIS USING ULTRASOUND GUIDANCE. Chest X-Ray 10/25/16 06:00 IMPRESSION: Similar appearance of the left lung. Chest tube in place with shift of structures into the left hemithorax. Minimal patchy right basilar airspace disease. Assessment & Plan - Diagnosis (1) Acute hypoxemic respiratory failure Is this a current diagnosis for this admission?: YesPlan: improved with drainage of pleural effusion, continue chest tube management per surgery (2) Pneumonia Qualifiers: Pneumonia type: aspiration pneumonia Laterality: right Lung location: upper lobe of lung Is this a current diagnosis for this admission?: YesPlan: stable. Now With complex parapneumonic effusion s/p thoracentesis and thoracotomy (3) Hypokalemia Is this a current diagnosis for this admission?: YesPlan: worse again, continue aggressive replacement per protocol (4) C. difficile colitis Is this a current diagnosis for this admission?: YesPlan: Unchanged ; continue abx and resume TFs while intubated (5) Alcohol dependency Qualifiers: Substance use status: with intoxication Complication of substance- induced condition: with unspecified complication Qualified Code(s): F10.229 - Alcohol dependence with intoxication, unspecified Is this a current diagnosis for this admission?: Yes (6) DTs (delirium tremens) Is this a current diagnosis for this admission?: Yes (7) Pancytopenia Is this a current diagnosis for this admission?: Yes (8) Sacral decubitus ulcer, stage II Is this a current diagnosis for this admission?: Yes (9) Severe malnutrition Is this a current diagnosis for this admission?: YesPlan: worse with prolonged critical illness; advance diet as tolerated (10) COPD (chronic obstructive pulmonary disease) Qualifiers: COPD type: unspecified COPD Qualified Code(s): J44.9 - Chronic obstructive pulmonary disease, unspecified Is this a current diagnosis for this admission?: Yes (11) Tobacco dependency Is this a current diagnosis for this admission?: Yes (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
[2016-10-25] MEDS: ENOXAPARIN SODIUM INJ 40 MG/0.4 ML DISP.SYRIN SUBCUT SCH (11:20)
[2016-10-25 11:49] LABS: ARTERIAL BLOOD BASE EXCESS 11.2 mmol/L; ARTERIAL BLOOD O2 SATURATION 81.4 % (94-98)
[2016-10-25] MEDS ORDERED: MORPHINE SULFATE 10 MG/ML INJ ONE (12:23)
[2016-10-25] MEDS: LORAZEPAM INJ 2 MG/1 ML VIAL IV PRN (13:34)
--- NOTE | 2016-10-25 17:19 | PDOC PROGRESS REPORT ---
Subjective Progress Note for:: 10/25/16 Subjective:: extubated on bipap declined any addition attempt that require heroic or invasive measure this was confirmed by his brother via phone Physical Exam Vital Signs: Temp Pulse Resp BP Pulse Ox 97.7 F 101 H 15 96/76 L 95 10/25/16 15:45 10/25/16 14:17 10/25/16 15:45 10/25/16 15:22 10/25/16 15:45 Intake & Output 10/24/16 10/25/16 10/26/16 06:59 06:59 06:59 Intake Total 1629 1595 Output Total 8650 7689 8197 Balance 365 -4707 -0810 Weight 65.2 kg 61.2 kg General appearance: PRESENT: no acute distress, disheveled, thin, well-developed Head exam: PRESENT: atraumatic, normocephalic Eye exam: PRESENT: conjunctiva pale, EOMI Mouth exam: PRESENT: moist, neck supple Teeth exam: PRESENT: poor dentation Neck exam: PRESENT: carotid bruit Skin exam: PRESENT: abrasion, dry, other - excoriations Results Laboratory Results: 10/25/16 06:30 10/25/16 06:30 10/24/16 10/24/16 10/25/16 17:30 20:40 06:30 WBC RBC Hgb Hct MCV MCH MCHC RDW Plt Count Seg Neutrophils % Lymphocytes % Monocytes % Eosinophils % Basophils % Absolute Neutrophils Absolute Lymphocytes Absolute Monocytes Absolute Eosinophils Absolute Basophils Carbonic Acid 1.12 HCO3/H2CO3 Ratio 29:1 ABG pH 7.57 H ABG pCO2 37.1 ABG pO2 100.0 ABG HCO3 33.3 H ABG O2 Saturation 98.3 H ABG Base Excess 10.6 FiO2 100% Sodium 141.8 140.9 Potassium 3.1 L 3.1 L Chloride 104 102 Carbon Dioxide 33 H 34 H Anion Gap 5 5 BUN 7 8 Creatinine 0.28 L 0.29 L Est GFR ( Amer) > 60 > 60 Est GFR (Non-Af Amer) > 60 > 60 Glucose 103 75 Calcium 7.5 L 7.9 L Magnesium 1.8 Total Bilirubin 0.7 AST 65 H ALT 51 Alkaline Phosphatase 90 Total Protein 4.1 L Albumin 2.0 L Triglycerides 173 H 10/25/16 10/25/16 10/25/16 06:30 07:30 11:35 WBC 10.0 RBC 3.02 L Hgb 9.8 L Hct 29.6 L MCV 98 H MCH 32.4 MCHC 33.0 RDW 16.7 H Plt Count 238 Seg Neutrophils % 81.2 H Lymphocytes % 12.4 L Monocytes % 5.6 Eosinophils % 0.2 Basophils % 0.6 Absolute Neutrophils 8.1 Absolute Lymphocytes 1.2 Absolute Monocytes 0.6 Absolute Eosinophils 0.0 Absolute Basophils 0.1 Carbonic Acid 1.47 H 2.65 H HCO3/H2CO3 Ratio 25:1 15:1 ABG pH 7.51 H 7.29 L ABG pCO2 48.9 H 88.0 H* ABG pO2 56.0 L 53.1 L ABG HCO3 38.0 H 41.1 H ABG O2 Saturation 91.3 L 81.4 L ABG Base Excess 13.3 11.2 FiO2 3.5L 100% Sodium Potassium Chloride Carbon Dioxide Anion Gap BUN Creatinine Est GFR ( Amer) Est GFR (Non-Af Amer) Glucose Calcium Magnesium Total Bilirubin AST ALT Alkaline Phosphatase Total Protein Albumin Triglycerides 10/13/16 10/13/16 10/13/16 20:15 20:15 20:22 Creatine Kinase 235 H Cancelled CK-MB (CK-2) 8.31 H Troponin I 0.119 10/14/16 10/14/16 10/14/16 01:45 01:45 08:20 Creatine Kinase 189 H 153 CK-MB (CK-2) 6.31 H Troponin I 0.031 10/14/16 08:20 Creatine Kinase CK-MB (CK-2) 4.54 Troponin I 0.019 Impressions: Abdomen/Pelvis CT 10/13/16 12:58 IMPRESSION: Colon wall thickening along the ascending colon, hepatic flexure, and sigmoid colon. Findings are nonspecific, worrisome for colitis. Profound fatty infiltration of the liver Question early or developing left lower lobe airspace disease Venous Doppler Study 10/16/16 00:00 IMPRESSION: NO EVIDENCE DVT OR SVT IN THE LEFT ARM. Chest CT 10/20/16 00:00 IMPRESSION: 1. There is almost complete atelectasis in the left lung with a significant pleural effusion and shift of mediastinum to the left. 2. There is a small right pleural effusion. KUB X-Ray 05/16/17 18:13 IMPRESSION: Nasogastric catheter is present with tip overlying the body of the stomach, side-port is approximately 5 cm past the GE junction. Thoracentesis Ultrasound 10/21/16 00:00 IMPRESSION: SUCCESSFUL THORACENTESIS USING ULTRASOUND GUIDANCE. Chest X-Ray 10/25/16 11:31 IMPRESSION: No significant change. Assessment & Plan - Diagnosis (1) Acute hypoxemic respiratory failure Is this a current diagnosis for this admission?: YesPlan: unstable w/o pos pressure ventilation now on bipap but no intubation (2) Pneumonia Qualifiers: Pneumonia type: aspiration pneumonia Laterality: right Lung location: upper lobe of lung Is this a current diagnosis for this admission?: Yes (3) Hypotension Qualifiers: Hypotension type: unspecified hypotension type Qualified Code(s): I95.9 - Hypotension, unspecified Is this a current diagnosis for this admission?: No (4) High anion gap metabolic acidosis Is this a current diagnosis for this admission?: No (5) Abnormal liver function tests Is this a current diagnosis for this admission?: No (6) Tobacco dependency Is this a current diagnosis for this admission?: Yes (7) COPD (chronic obstructive pulmonary disease) Qualifiers: COPD type: unspecified COPD Qualified Code(s): J44.9 - Chronic obstructive pulmonary disease, unspecified Is this a current diagnosis for this admission?: Yes (8) Pleural effusion Is this a current diagnosis for this admission?: YesPlan: recurrent effusion L chest tube with air leak - Time Critical Time spent with patient: 35 or more minutes
[2016-10-25] MEDS: MORPHINE SULFATE 10 MG/ML INJ IV PRN ×2 (17:58→22:12)
[2016-10-25] MEDS: THIAMINE HCL 100 MG, FOLIC ACID 1 MG in NORMAL SALINE 50 ML IV SCH (22:12)
[2016-10-26] MEDS: VANCOMYCIN HCL INJ 500 MG VIAL PO SCH ×5 (00:33→23:53)
[2016-10-26] MEDS: HYDROCORTISONE SOD SUCCINATE INJ/PF 100 MG/2 ML SDV IV SCH ×3 (02:00→17:12)
[2016-10-26] MEDS: CEFAZOLIN 1 GM/D5W RTU 1 GM/50 ML RTUPB IV SCH ×3 (02:00→17:12)
[2016-10-26] MEDS: IPRATROPIUM/ALBUTEROL 0.5-2.5 MG/3 ML AMPUL NEB SCH ×4 (02:06→19:42)
[2016-10-26] MEDS: METRONIDAZOLE 500 MG/NS RTU 100 ML IV SCH (06:15)
[2016-10-26 06:17] LABS: ABSOLUTE LYMPHOCYTES (AUTO) 0.9 10^3/uL (0.5-4.7); ABSOLUTE MONOCYTES (AUTO) 0.5 10^3/uL (0.1-1.4); ABSOLUTE NEUT (AUTO) 8.5 10^3/uL (1.7-8.2); BASOPHILS % (AUTO) 0.3 % (0-2); EOSINOPHILS % (AUTO) 0.2 % (0-6); HEMATOCRIT 24.5 % (37.9-51.0); HEMOGLOBIN 8.3 g/dL (13.5-17.0); HGB HCT DIFFERENCE 0.4; LYMPHOCYTES % (AUTO) 8.7 % (13-45); MEAN CORPUSCULAR HEMOGLOBIN 33.3 pg (27.0-33.4); MEAN CORPUSCULAR HGB CONC 33.9 g/dL (32.0-36.0); MEAN CORPUSCULAR VOLUME 98 fl (80-97); MONOCYTES % (AUTO) 5.4 % (3-13); RED CELL DISTRIBUTION WIDTH 16.5 % (11.5-14.0); SEGMENTED NEUTROPHILS % (AUTO) 85.4 % (42-78); WHITE BLOOD COUNT 9.9 10^3/uL (4.0-10.5)
[2016-10-26] MEDS: ENOXAPARIN SODIUM INJ 40 MG/0.4 ML DISP.SYRIN SUBCUT SCH (08:26)
[2016-10-26] MEDS: ACETYLCYSTEINE 20% SOLN 800 MG/4 ML VIAL.NEB NEB SCH ×2 (08:51→19:42)
[2016-10-26] MEDS: POTASSIUM CHLORIDE 20 MEQ/15 ML UDCUP NG SCH ×2 (10:37→17:13)
[2016-10-26] MEDS: FLUCONAZOLE 200 MG/NS RTU 100 ML IV SCH (10:40)
--- NOTE | 2016-10-26 10:49 | PDOC PROGRESS REPORT ---
Subjective Progress Note for:: 10/26/16 Subjective:: REASON FOR VISIT: f/u pneumonia with resp failure, hypokalemia, cdiff colitis HOSPITAL COURSE: per other providers: "Please see initial H&P for details of admission. In short this is a 56-year-old white male with a past medical history significant for alcohol abuse who presented to the ED in respiratory distress secondary to pneumonia. Initially the patient wanted to leave AMA but his brother was able to convince him to stay via phone. 20 minutes after convincing the patient to stay a decompensated and required rapid sequence intubation and admission to the ICU. Since admission he has been found to have acute respiratory failure, sepsis with shock complicated by mild shock liver, strep bacteremia, C. difficile colitis present on admission, and presumed coli aspiration pneumonia. There is been a question regarding who was making medical decisions for this patient. He is but estranged from his and he has a brother, Mr. Jaden Jones. The patient wanted assistance at the time he decompensated in the ED (recall that he was encouraged to get full assistance by his brother), however, his brother expressed shortly after intubation that he would like to make the patient comfort care. Because of the discrepancy, the patient has remained intubated and full code. His brother is in the process of trying to locate his . Patient seen today at the bedside. He remains intubated. Review of systems cannot be obtained. I did ask if he had any pain patient tried to respond colon but his response cannot be accurately interpreted. Overnight the patient desaturated again. There was one instance where he had to be bagged. She has copious thick white mucus and continues to develop mucus plugging that is causing the issue. According to the nurse's report, they received no phone calls from his brother about whether or not he could contact his . Nor did I." I inherited his care Friday 10/20 as he was decompensating once again with respiratory distress, SVT and cxr showing near total collapse of the left lung worrisome for mucus plugging and resultant atelectasis. he was urgently re- intubated by anesthesiology and urgently bronch'd with Dr Manning removing copious secretions but without improvement in his cxr. stat ct chest shows massive left effusion and thoracentesis performed with good improvement and he was successfully extubated Wednesday. However, his effusion rapidly reaccumulated through the course of the day with worsening respiratory distress requiring a course of BiPAP until urgent chest tube placed by surgery Wednesday night with production of nearly 2L serous fluid and finally some improvement in his resp and hemodynamic status. In spite of these interventions , his effusion persists with collapse of most of the left lung and only small residual portion of GUERRERO still aerated; as a result his respiratory status becomes intermittently compromised requiring prn BiPAP bordering on liz collapse in need of intubation and mechanical ventilation. We were, with some difficulty, finally able to confirm his true and stated wishes to remain DO NOT RESUSCITATE, confirmed by his brother and so, in accordance with his clearly stated wishes, we are not going to advance his care beyond where we are meaning no further tubes or escalation of his care and if his condition were to deteriorate then we would change focus of our care to comfort measures. Unfortunately, he has a profound critical care myopathy and cannot feed himself or raise his arms even to reach the call armas to call for help when in distress; therefore he remains in ICU for nursing care. Surgery is managing his chest tube, Dr Manning is assisting with his critical illness and pulmonary issues. ROS: denies chest pain in spite of the tube and states his breathing is better, he is hungry and wants to eat, no abdominal pain, N/V and his stools have slowed , firming up slightly, total 10 systems reviewed, remaining systems negative. Physical Exam Vital Signs: Temp Pulse Resp BP Pulse Ox 99.7 F 115 H 28 H 117/61 96 10/26/16 09:45 10/26/16 08:51 10/26/16 09:45 10/26/16 09:21 10/26/16 09:45 Intake & Output 10/25/16 10/26/16 10/27/16 06:59 06:59 06:59 Intake Total 1595 1169 Output Total 6211 3295 275 Balance -4630 -2126 -275 Weight 61.2 kg 60.3 kg General appearance: PRESENT: no acute distress, well-developed. ABSENT: well- nourished Head exam: PRESENT: atraumatic, normocephalic Eye exam: PRESENT: EOMI. ABSENT: conjunctival injection, scleral icterus Teeth exam: PRESENT: poor dentation Neck exam: PRESENT: full ROM. ABSENT: JVD, tracheal deviation Respiratory exam: PRESENT: accessory muscle use - intercostal muscles, rales - throughout Rt lung; absent BSs left base, crackles at extreme apex only. ABSENT : retraction, wheezes Cardiovascular exam: PRESENT: RRR, tachycardia Pulses: PRESENT: normal radial pulses, +1 pedal pulses bilateral GI/Abdominal exam: PRESENT: normal bowel sounds, soft. ABSENT: tenderness Gentrourinary exam: ABSENT: scrotal swelling - mild penile sweling Extremities exam: PRESENT: +2 edema - diffuse. ABSENT: calf tenderness Musculoskeletal exam: ABSENT: full ROM - profound weakness, unable to lift his arms against gravity and can lift knees against gravity, can't get his feet off the bed, tenderness Neurological exam: PRESENT: alert, awake, oriented to person, oriented to place , oriented to situation Psychiatric exam: PRESENT: appropriate affect, normal mood Skin exam: PRESENT: pallor, warm. ABSENT: dry - moist Results Laboratory Results: 10/26/16 06:00 10/25/16 18:30 10/25/16 10/25/16 10/26/16 11:35 18:30 06:00 WBC 9.9 RBC 2.50 L Hgb 8.3 L Hct 24.5 L MCV 98 H MCH 33.3 MCHC 33.9 RDW 16.5 H Plt Count 213 Seg Neutrophils % 85.4 H Lymphocytes % 8.7 L Monocytes % 5.4 Eosinophils % 0.2 Basophils % 0.3 Absolute Neutrophils 8.5 H Absolute Lymphocytes 0.9 Absolute Monocytes 0.5 Absolute Eosinophils 0.0 Absolute Basophils 0.0 Carbonic Acid 2.65 H HCO3/H2CO3 Ratio 15:1 ABG pH 7.29 L ABG pCO2 88.0 H* ABG pO2 53.1 L ABG HCO3 41.1 H ABG O2 Saturation 81.4 L ABG Base Excess 11.2 FiO2 100% Potassium 3.5 L Magnesium 10/26/16 06:00 WBC RBC Hgb Hct MCV MCH MCHC RDW Plt Count Seg Neutrophils % Lymphocytes % Monocytes % Eosinophils % Basophils % Absolute Neutrophils Absolute Lymphocytes Absolute Monocytes Absolute Eosinophils Absolute Basophils Carbonic Acid HCO3/H2CO3 Ratio ABG pH ABG pCO2 ABG pO2 ABG HCO3 ABG O2 Saturation ABG Base Excess FiO2 Potassium Magnesium 1.7 10/22/16 09:45 Pleural Fluid - Left Pleural Effusion Gram Stain - Final 10/22/16 09:45 Pleural Fluid - Left Pleural Effusion Body Fluid Culture - Final NO AEROBIC OR ANAEROBIC ORGANISMS RECOVERED 10/22/16 09:45 Pleural Fluid - Left Pleural Effusion Fungal Smear - Final 10/22/16 09:45 Pleural Fluid - Left Pleural Effusion Fungal Smear - Final 10/22/16 09:45 Pleural Fluid - Left Pleural Effusion Fungal Smear - Final 10/22/16 09:45 Pleural Fluid - Left Pleural Effusion AFB Smear Concentration - Final 10/22/16 09:45 Pleural Fluid - Left Pleural Effusion Acid Fast Bacilli Smear - Final 10/13/16 10/13/16 10/13/16 20:15 20:15 20:22 Creatine Kinase 235 H Cancelled CK-MB (CK-2) 8.31 H Troponin I 0.119 10/14/16 10/14/16 10/14/16 01:45 01:45 08:20 Creatine Kinase 189 H 153 CK-MB (CK-2) 6.31 H Troponin I 0.031 10/14/16 08:20 Creatine Kinase CK-MB (CK-2) 4.54 Troponin I 0.019 Impressions: Abdomen/Pelvis CT 10/13/16 12:58 IMPRESSION: Colon wall thickening along the ascending colon, hepatic flexure, and sigmoid colon. Findings are nonspecific, worrisome for colitis. Profound fatty infiltration of the liver Question early or developing left lower lobe airspace disease Venous Doppler Study 10/16/16 00:00 IMPRESSION: NO EVIDENCE DVT OR SVT IN THE LEFT ARM. Chest CT 10/20/16 00:00 IMPRESSION: 1. There is almost complete atelectasis in the left lung with a significant pleural effusion and shift of mediastinum to the left. 2. There is a small right pleural effusion. KUB X-Ray 10/20/16 18:13 IMPRESSION: Nasogastric catheter is present with tip overlying the body of the stomach, side-port is approximately 5 cm past the GE junction. Thoracentesis Ultrasound 10/21/16 00:00 IMPRESSION: SUCCESSFUL THORACENTESIS USING ULTRASOUND GUIDANCE. Chest X-Ray 10/26/16 06:00 IMPRESSION: Moderate opacification of the left lower hemithorax and moderate left-sided cardiac shift. Left chest tube. Right central line. Assessment & Plan - Diagnosis (1) Acute hypoxemic respiratory failure Is this a current diagnosis for this admission?: YesPlan: stable, continue chest tube management per surgery. do not advance care beyond BiPAP (2) Pneumonia Qualifiers: Pneumonia type: aspiration pneumonia Laterality: right Lung location: upper lobe of lung Is this a current diagnosis for this admission?: YesPlan: stable. Now With Lf lung collapse and complex parapneumonic exudative effusion s/p thoracentesis and thoracostomy tube; continue abx as a result (3) Hypokalemia Is this a current diagnosis for this admission?: YesPlan: stable, continue monitor and aggressive replacement per protocol (4) C. difficile colitis Is this a current diagnosis for this admission?: YesPlan: maybe slightly improved ; continue abx and advance diet as tolerated (5) Alcohol dependency Qualifiers: Substance use status: with intoxication Complication of substance- induced condition: with unspecified complication Qualified Code(s): F10.229 - Alcohol dependence with intoxication, unspecified Is this a current diagnosis for this admission?: Yes (6) DTs (delirium tremens) Is this a current diagnosis for this admission?: Yes (7) Pancytopenia Is this a current diagnosis for this admission?: Yes (8) Sacral decubitus ulcer, stage II Is this a current diagnosis for this admission?: YesPlan: Present on admission. 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
[2016-10-26] MEDS: MORPHINE SULFATE 10 MG/ML INJ IV PRN ×2 (14:53→21:45)
--- NOTE | 2016-10-26 17:54 | PROGRESS NOTE E ---
Progress Note NAME: DEO CORTÉS : 1960 AGE: 56Y DATE: 10/26/2016 ROOM: 607 SUBJECTIVE: The patient is not complaining of any shortness of breath. OBJECTIVE: VITAL SIGNS: Stable. GENERAL: Patient remains extubated. CHEST: Left chest tube with fluctuation and sporadic air leak. Chest tube taken off of suction and onto water seal. DIAGNOSTIC DATA: Chest x-ray from this morning shows moderate opacification in left hemithorax with moderate left-sided cardiac shift, chest tube in adequate position. IMPRESSION: 1. PERSISTING ABNORMALITY OF THE LEFT CHEST DUE TO EXTREME MEDIASTINAL SHIFT. 2. CHEST TUBE APPARENTLY GOOD POSITION. PLAN: We will leave chest tube on water seal; follow clinical course. DICTATING PHYSICIAN: MOHAMUD RUSSELL M.D. [id number] PHY#: [id number] ID: [id number] JOB#: [id number] ACCT: [id number] cc:MOHAMUD RUSSELL M.D. >
[2016-10-26] MEDS: INSULIN REG, HUMAN 100 UNIT/ML 3 ML VIAL (PYX) SUBCUT PRN (18:06)
[2016-10-26] MEDS: LORAZEPAM INJ 2 MG/1 ML VIAL IV PRN (20:22)
[2016-10-26] MEDS: THIAMINE HCL 100 MG, FOLIC ACID 1 MG in NORMAL SALINE 50 ML IV SCH (21:41)
[2016-10-27] MEDS: HYDROCORTISONE SOD SUCCINATE INJ/PF 100 MG/2 ML SDV IV SCH ×3 (01:36→19:38)
[2016-10-27] MEDS: CEFAZOLIN 1 GM/D5W RTU 1 GM/50 ML RTUPB IV SCH ×3 (01:37→19:37)
[2016-10-27] MEDS: IPRATROPIUM/ALBUTEROL 0.5-2.5 MG/3 ML AMPUL NEB SCH ×4 (02:01→19:38)
[2016-10-27] MEDS: MORPHINE SULFATE 10 MG/ML INJ IV PRN (03:03)
[2016-10-27 04:49] LABS: HEMATOCRIT 23.1 % (37.9-51.0); MEAN CORPUSCULAR HEMOGLOBIN 32.5 pg (27.0-33.4); MEAN CORPUSCULAR HGB CONC 33.5 g/dL (32.0-36.0); MEAN CORPUSCULAR VOLUME 97 fl (80-97); RED BLOOD COUNT 2.38 10^6/uL (4.35-5.55); RED CELL DISTRIBUTION WIDTH 16.5 % (11.5-14.0); WHITE BLOOD COUNT 7.5 10^3/uL (4.0-10.5)
[2016-10-27 04:59] LABS: ARTERIAL BLOOD BASE EXCESS 16.9 mmol/L; ARTERIAL BLOOD O2 SATURATION 98.7 % (94-98)
[2016-10-27 05:04] LABS: HEMOGLOBIN 7.7 g/dL (13.5-17.0)
[2016-10-27 05:10] LABS: ALBUMIN 1.8 g/dL (3.5-5.0); CARBON DIOXIDE 36 mmol/L (22-30); CHLORIDE 97 mmol/L (98-107); GLUCOSE 96 mg/dL (75-110); SODIUM 137.3 mmol/L (137-145); TOTAL PROTEIN 4.1 g/dL (6.3-8.2)
[2016-10-27 05:12] LABS: ALANINE AMINOTRANSFERASE 38 U/L (21-72); ALKALINE PHOSPHATASE 67 U/L (38-126); ASPARTATE AMINO TRANSFERASE 17 U/L (17-59); BILIRUBIN,DIRECT 0.7 mg/dL (0.0-0.4); BILIRUBIN,TOTAL 1.3 mg/dL (0.2-1.3); BLOOD UREA NITROGEN 8 mg/dL (7-20); CALCIUM 7.4 mg/dL (8.4-10.2); CREATININE RESULT 0.29 mg/dL (0.52-1.25)
[2016-10-27 05:24] LABS: ANION GAP 4 (5-19)
[2016-10-27 05:25] LABS: POTASSIUM 2.8 mmol/L (3.6-5.0)
[2016-10-27 05:37] LABS: BASOPHILS % (MANUAL) 0 % (0-2); EOSINOPHILS % (MANUAL) 0 % (0-6); LYMPHOCYTES % (MANUAL) 1 % (13-45); TOTAL CELLS COUNTED 100
[2016-10-27 05:39] LABS: ANISOCYTOSIS 1+; OVALOCYTES SLIGHT; POIKILOCYTOSIS SLIGHT; POLYCHROMASIA SLIGHT; TARGET CELLS 2+; TOXIC GRANULATION SLIGHT
[2016-10-27 05:41] LABS: BAND NEUTROPHILS % (MANUAL) 15 % (3-5); PLATELET CLUMPS PRESENT
[2016-10-27] MEDS ORDERED: POTASSI CL 20 MEQ/50 ML RIDER 20 MEQ/50 ML RTUPB IV ONE (05:50)
[2016-10-27] MEDS: VANCOMYCIN HCL INJ 500 MG VIAL PO SCH ×4 (05:52→23:56)
[2016-10-27] MEDS: POTASSIUM CHLORIDE 20 MEQ/50 ML RTU IV SCH ×3 (06:01→09:31)
[2016-10-27] MEDS ORDERED: MAGNESIUM SULFATE/D5W 1 GM/100 ML RTUPB IV ONE (06:22)
--- NOTE | 2016-10-27 07:13 | RADIOLOGY REPORT (SQ) ---
EXAM DESCRIPTION: CHEST SINGLE VIEW COMPLETED DATE/TIME: 10/27/2016 6:48 am REASON FOR STUDY: f/u chest tube COMPARISON: 10/26/2016. EXAM PARAMETERS: NUMBER OF VIEWS: One view. TECHNIQUE: Single frontal radiographic view of the chest acquired. RADIATION DOSE: NA LIMITATIONS: None. FINDINGS: LUNGS AND PLEURA: Small left basilar opacity -effusion. Improved aeration of the left low er lung compared with prior exam from 1 day ago. MEDIASTINUM AND HILAR STRUCTURES: No masses. Contour normal. HEART AND VASCULAR STRUCTURES: Heart normal in size. Normal vasculature. BONES: No acute findings. HARDWARE: Adequate appearing right internal jugular central line. Left chest tube. OTHER: No other significant finding. IMPRESSION: Interval improvement. Small left basilar opacity -effusion. Lines and tubes. TECHNICAL DOCUMENTATION: JOB ID: [id number]
[2016-10-27] MEDS: ACETYLCYSTEINE 20% SOLN 800 MG/4 ML VIAL.NEB NEB SCH ×2 (08:18→19:38)
[2016-10-27] MEDS: ENOXAPARIN SODIUM INJ 40 MG/0.4 ML DISP.SYRIN SUBCUT SCH (08:37)
[2016-10-27] MEDS: FLUCONAZOLE 200 MG/NS RTU 100 ML IV SCH (09:29)
[2016-10-27] MEDS: POTASSIUM CHLORIDE 20 MEQ/15 ML UDCUP NG SCH ×2 (12:39→19:38)
[2016-10-27 13:18] LABS: PATH REVIEW PATHOLOGIST REVIEWED
--- NOTE | 2016-10-27 13:43 | PROGRESS NOTE E ---
Progress Note NAME: DEO CORTÉS : 1960 AGE: 56Y DATE: 10/27/2016 ROOM: 607 SUBJECTIVE: The patient feels a lot better this morning. He is able to eat regular food for the first time. Denies any shortness of breath. Chest tube drain less than 10 mL since this morning. Drainage is clear, light yellow. Chest x-rays showed dramatic improvement with no aeration of the left lung. PLAN: Will continue to leave the chest tube, and if the drainage continues to decrease, then it may be pulled out in the next 24-48 hours. DICTATING PHYSICIAN: TAMARA MALCOLM M.D. [id number] PHY#: [id number] ID: [id number] JOB#: [id number] ACCT: [id number] cc: >
[2016-10-27 14:51] LABS: ALANINE AMINOTRANSFERASE 35 U/L (21-72); ALBUMIN 1.8 g/dL (3.5-5.0); ALKALINE PHOSPHATASE 67 U/L (38-126); ASPARTATE AMINO TRANSFERASE 17 U/L (17-59); BILIRUBIN,DIRECT 0.5 mg/dL (0.0-0.4); BILIRUBIN,TOTAL 0.8 mg/dL (0.2-1.3); BLOOD UREA NITROGEN 8 mg/dL (7-20); CALCIUM 7.4 mg/dL (8.4-10.2); CHLORIDE 99 mmol/L (98-107); CREATININE RESULT 0.33 mg/dL (0.52-1.25); GLUCOSE 160 mg/dL (75-110); POTASSIUM 3.5 mmol/L (3.6-5.0); TOTAL PROTEIN 4.1 g/dL (6.3-8.2)
[2016-10-27 15:00] LABS: ANION GAP 5 (5-19); CARBON DIOXIDE 34 mmol/L (22-30)
--- NOTE | 2016-10-27 16:34 | PDOC PROGRESS REPORT ---
Subjective Progress Note for:: 10/27/16 Subjective:: Adolfo Jones is a 56-year-old man with a history of alcohol abuse was admitted on 02/24/2017 respiratory distress secondary to pneumonia. He initially wanted to leave AMA but his brother convinced him to stay. Subsequently the patient deteriorated requiring intubation, mechanical ventilation, and ICU care. She developed a sepsis syndrome with bacteremia, shock liver, aspiration pneumonia, and C. difficile colitis. Following day the brother suggested a comfort care status. The patient is but estranged from his . Eventually, patient was able to confirm his true and stated wishes of DO NOT RESUSCITATE, these were confirmed by the brother, and the was unable to be reached. Meanwhile, the patient was able to be extubated but then reintubated, then again extubated. And treated for pneumonia and left pleural effusion. Thoracentesis has been required. Endoscopy has been required for mucous plugging. There is oxygen support at times requires BiPAP. Today I found him very weak alert and able to follow commands. He had no new complaints. Physical Exam Vital Signs: Temp Pulse Resp BP Pulse Ox 99.5 F 110 H 22 H 124/83 100 10/27/16 14:15 10/27/16 14:29 10/27/16 14:29 10/27/16 13:23 10/27/16 14:29 Intake & Output 10/26/16 10/27/16 10/28/16 06:59 06:59 06:59 Intake Total 1169 469 Output Total 3295 1300 225 Balance -2126 -831 -225 Weight 60.3 kg 57.6 kg Additional comments: General appearance: PRESENT: no acute distress, well-developed. ABSENT: well- nourished Head exam: PRESENT: atraumatic, normocephalic Eye exam: PRESENT: EOMI. ABSENT: conjunctival injection, scleral icterus Teeth exam: PRESENT: poor dentation Neck exam: PRESENT: full ROM. ABSENT: JVD, tracheal deviation Respiratory exam: PRESENT: accessory muscle use - intercostal muscles, rales - throughout Rt lung; absent BSs left base, crackles at extreme apex only. ABSENT : retraction, wheezes Cardiovascular exam: PRESENT: RRR, tachycardia Pulses: PRESENT: normal radial pulses, +1 pedal pulses bilateral GI/Abdominal exam: PRESENT: normal bowel sounds, soft. ABSENT: tenderness Gentrourinary exam: ABSENT: scrotal swelling - mild penile sweling Extremities exam: PRESENT: +2 edema - diffuse. ABSENT: calf tenderness Musculoskeletal exam: ABSENT: full ROM - profound weakness, unable to lift his arms against gravity and can lift knees against gravity, can't get his feet off the bed, tenderness Neurological exam: PRESENT: alert, awake, oriented to person, oriented to place , oriented to situation Psychiatric exam: PRESENT: appropriate affect, normal mood Skin exam: PRESENT: pallor, warm. ABSENT: dry - moist Results Laboratory Results: 10/27/16 04:32 10/27/16 14:10 10/27/16 10/27/16 10/27/16 04:32 04:32 04:32 WBC 7.5 RBC 2.38 L Hgb 7.7 L Hct 23.1 L MCV 97 MCH 32.5 MCHC 33.5 RDW 16.5 H Plt Count 184 Seg Neutrophils % Not Reportable Lymphocytes % Not Reportable Monocytes % Not Reportable Eosinophils % Not Reportable Basophils % Not Reportable Absolute Neutrophils Not Reportable Absolute Lymphocytes Not Reportable Absolute Monocytes Not Reportable Absolute Eosinophils Not Reportable Absolute Basophils Not Reportable Carbonic Acid 1.40 H HCO3/H2CO3 Ratio 29:1 ABG pH 7.56 H ABG pCO2 46.5 H ABG pO2 118.6 H ABG HCO3 40.7 H ABG O2 Saturation 98.7 H ABG Base Excess 16.9 FiO2 40% Sodium 137.3 Potassium 2.8 L* Chloride 97 L Carbon Dioxide 36 H Anion Gap 4 L BUN 8 Creatinine 0.29 L Est GFR ( Amer) > 60 Est GFR (Non-Af Amer) > 60 Glucose 96 Calcium 7.4 L Magnesium Total Bilirubin 1.3 AST 17 ALT 38 Alkaline Phosphatase 67 Total Protein 4.1 L Albumin 1.8 L 10/27/16 10/27/16 04:32 14:10 WBC RBC Hgb Hct MCV MCH MCHC RDW Plt Count Seg Neutrophils % Lymphocytes % Monocytes % Eosinophils % Basophils % Absolute Neutrophils Absolute Lymphocytes Absolute Monocytes Absolute Eosinophils Absolute Basophils Carbonic Acid HCO3/H2CO3 Ratio ABG pH ABG pCO2 ABG pO2 ABG HCO3 ABG O2 Saturation ABG Base Excess FiO2 Sodium 138.0 Potassium 3.5 L Chloride 99 Carbon Dioxide 34 H Anion Gap 5 BUN 8 Creatinine 0.33 L Est GFR ( Amer) > 60 Est GFR (Non-Af Amer) > 60 Glucose 160 H Calcium 7.4 L Magnesium 1.5 L Total Bilirubin 0.8 AST 17 ALT 35 Alkaline Phosphatase 67 Total Protein 4.1 L Albumin 1.8 L 10/13/16 10/13/16 10/13/16 20:15 20:15 20:22 Creatine Kinase 235 H Cancelled CK-MB (CK-2) 8.31 H Troponin I 0.119 10/14/16 10/14/16 10/14/16 01:45 01:45 08:20 Creatine Kinase 189 H 153 CK-MB (CK-2) 6.31 H Troponin I 0.031 10/14/16 08:20 Creatine Kinase CK-MB (CK-2) 4.54 Troponin I 0.019 Impressions: Abdomen/Pelvis CT 10/13/16 12:58 IMPRESSION: Colon wall thickening along the ascending colon, hepatic flexure, and sigmoid colon. Findings are nonspecific, worrisome for colitis. Profound fatty infiltration of the liver Question early or developing left lower lobe airspace disease Venous Doppler Study 10/16/16 00:00 IMPRESSION: NO EVIDENCE DVT OR SVT IN THE LEFT ARM. Chest CT 10/20/16 00:00 IMPRESSION: 1. There is almost complete atelectasis in the left lung with a significant pleural effusion and shift of mediastinum to the left. 2. There is a small right pleural effusion. KUB X-Ray 10/20/16 18:13 IMPRESSION: Nasogastric catheter is present with tip overlying the body of the stomach, side-port is approximately 5 cm past the GE junction. Thoracentesis Ultrasound 10/21/16 00:00 IMPRESSION: SUCCESSFUL THORACENTESIS USING ULTRASOUND GUIDANCE. Chest X-Ray 10/27/16 06:00 IMPRESSION: Interval improvement. Small left basilar opacity -effusion. Lines and tubes. Assessment & Plan - Diagnosis (1) Acute hypoxemic respiratory failure Is this a current diagnosis for this admission?: YesPlan: Continue oxygen supplementation as needed. Today he is requiring intermittent BiPAP. He is now formally a DNR. He would not want to be reintubated or placed on mechanical ventilation. (2) Pneumonia Qualifiers: Pneumonia type: aspiration pneumonia Laterality: right Lung location: upper lobe of lung Is this a current diagnosis for this admission?: YesPlan: Continue Ancef through 10/30. (3) Pleural effusion Is this a current diagnosis for this admission?: YesPlan: Status post thoracentesis. (4) Severe sepsis with septic shock Is this a current diagnosis for this admission?: NoPlan: Resolved. (5) C. difficile colitis Is this a current diagnosis for this admission?: YesPlan: Continue vancomycin p.o. through 10/29. (6) Alcohol dependency Qualifiers: Substance use status: with intoxication Complication of substance- induced condition: with unspecified complication Qualified Code(s): F10.229 - Alcohol dependence with intoxication, unspecified Is this a current diagnosis for this admission?: Yes (7) Abnormal liver function tests Is this a current diagnosis for this admission?: NoPlan: These are probably related to alcoholic liver disease. Continue to monitor. 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
[2016-10-27] MEDS ORDERED: SPIRONOLACTONE 25 MG TABLET PO ONE (17:00)
[2016-10-27] MEDS: THIAMINE HCL 100 MG, FOLIC ACID 1 MG in NORMAL SALINE 50 ML IV SCH (22:04)
[2016-10-28] MEDS: IPRATROPIUM/ALBUTEROL 0.5-2.5 MG/3 ML AMPUL NEB SCH ×4 (01:40→19:57)
[2016-10-28] MEDS: HYDROCORTISONE SOD SUCCINATE INJ/PF 100 MG/2 ML SDV IV SCH ×3 (02:07→18:49)
[2016-10-28] MEDS: CEFAZOLIN 1 GM/D5W RTU 1 GM/50 ML RTUPB IV SCH ×3 (02:07→18:50)
[2016-10-28] MEDS: VANCOMYCIN HCL INJ 500 MG VIAL PO SCH ×4 (05:40→23:44)
[2016-10-28 06:53] LABS: HEMATOCRIT 22.5 % (37.9-51.0); HGB HCT DIFFERENCE 0.3; MEAN CORPUSCULAR HEMOGLOBIN 33.2 pg (27.0-33.4); MEAN CORPUSCULAR HGB CONC 33.7 g/dL (32.0-36.0); MEAN CORPUSCULAR VOLUME 99 fl (80-97); RED BLOOD COUNT 2.28 10^6/uL (4.35-5.55); RED CELL DISTRIBUTION WIDTH 16.7 % (11.5-14.0); WHITE BLOOD COUNT 5.3 10^3/uL (4.0-10.5)
[2016-10-28 06:56] LABS: ALANINE AMINOTRANSFERASE 37 U/L (21-72); ALBUMIN 1.9 g/dL (3.5-5.0); ALKALINE PHOSPHATASE 68 U/L (38-126); ASPARTATE AMINO TRANSFERASE 16 U/L (17-59); BILIRUBIN,DIRECT 0.4 mg/dL (0.0-0.4); BILIRUBIN,TOTAL 0.5 mg/dL (0.2-1.3); BLOOD UREA NITROGEN 10 mg/dL (7-20); CALCIUM 7.7 mg/dL (8.4-10.2); CHLORIDE 101 mmol/L (98-107); CREATININE RESULT 0.25 mg/dL (0.52-1.25); GLUCOSE 126 mg/dL (75-110); POTASSIUM 3.3 mmol/L (3.6-5.0); TOTAL PROTEIN 4.2 g/dL (6.3-8.2)
[2016-10-28 07:12] LABS: CARBON DIOXIDE 35 mmol/L (22-30); SODIUM 136.9 mmol/L (137-145)
[2016-10-28 07:16] LABS: ANION GAP 1 (5-19)
[2016-10-28 07:33] LABS: HEMOGLOBIN 7.6 g/dL (13.5-17.0)
[2016-10-28 07:39] LABS: ANISOCYTOSIS 1+; BAND NEUTROPHILS % (MANUAL) 5 % (3-5); BASOPHILS % (MANUAL) 0 % (0-2); EOSINOPHILS % (MANUAL) 0 % (0-6); LYMPHOCYTES % (MANUAL) 3 % (13-45); TOTAL CELLS COUNTED 100
[2016-10-28 07:42] LABS: POLYCHROMASIA SLIGHT; TARGET CELLS 1+; TEAR DROP CELLS SLIGHT
[2016-10-28] MEDS: ACETYLCYSTEINE 20% SOLN 800 MG/4 ML VIAL.NEB NEB SCH ×2 (07:44→19:56)
--- NOTE | 2016-10-28 07:46 | RADIOLOGY REPORT (SQ) ---
EXAM DESCRIPTION: CHEST SINGLE VIEW COMPLETED DATE/TIME: 10/28/2016 7:36 am REASON FOR STUDY: f/u chest tube COMPARISON: 10/27/2016. EXAM PARAMETERS: NUMBER OF VIEWS: One view. TECHNIQUE: Single frontal radiographic view of the chest acquired. RADIATION DOSE: NA LIMITATIONS: None. FINDINGS: LUNGS AND PLEURA: Moderate to large airspace patchiness of the left lower lobe. Rotated. MEDIASTINUM AND HILAR STRUCTURES: No masses. Contour normal. HEART AND VASCULAR STRUCTURES: Heart normal in size. Normal vasculature. BONES: No acute findings. HARDWARE: Adequate right internal jugular central line tip at the atrial caval junction. Left chest tube. OTHER: No other significant finding. IMPRESSION: Increased moderate to large left lower lobar opacity. Lines and tubes. TECHNICAL DOCUMENTATION: JOB ID: [id number]
[2016-10-28] MEDS: ENOXAPARIN SODIUM INJ 40 MG/0.4 ML DISP.SYRIN SUBCUT SCH (08:52)
[2016-10-28] MEDS: SPIRONOLACTONE 25 MG TABLET PO SCH (10:43)
[2016-10-28] MEDS ORDERED: POTASSIUM CHLORIDE 20 MEQ/15 ML UDCUP PO ONE (11:15)
--- NOTE | 2016-10-28 14:54 | PDOC PROGRESS REPORT ---
Subjective Progress Note for:: 10/28/16 Subjective:: Adolfo Jones is a 56-year-old man with a history of alcohol abuse who was admitted on 02/24/2017 in respiratory distress secondary to pneumonia. He initially wanted to leave AMA but his brother convinced him to stay. Subsequently the patient deteriorated requiring intubation, mechanical ventilation, and ICU care. He developed a sepsis syndrome with bacteremia, shock liver, aspiration pneumonia, and C. difficile colitis. On the following day the brother suggested a comfort care status. The patient is but estranged from his . Eventually, we were able to confirm the patient's true and stated wishes of DO NOT RESUSCITATE. These were confirmed by the brother as the was unable to be reached. Meanwhile, the patient was able to be extubated, but then reintubated, then again extubated. He has been treated for pneumonia and left pleural effusion. Thoracentesis was required, and then a left chest tube. Bronchoscopy was required for mucous plugging. There is oxygen support which at times requires BiPAP. Today he remains very weak, alert, and able to follow commands. He had no new complaints. Physical Exam Vital Signs: Temp Pulse Resp BP Pulse Ox 98.2 F 85 18 138/81 H 100 10/28/16 11:22 10/28/16 13:38 10/28/16 13:38 10/28/16 11:22 10/28/16 11:22 Intake & Output 10/27/16 10/28/16 10/29/16 06:59 06:59 06:59 Intake Total 469 2296 100 Output Total 1300 1245 Balance -831 1051 100 Weight 57.6 kg 64.7 kg Additional comments: General appearance: PRESENT: no acute distress, well-developed. On BiPAP this AM, and angry he hasn't gotten his breakfast. Head exam: PRESENT: atraumatic, normocephalic Eye exam: PRESENT: EOMI. ABSENT: conjunctival injection, scleral icterus Teeth exam: PRESENT: poor dentition Neck exam: PRESENT: full ROM. ABSENT: JVD, tracheal deviation Respiratory exam: coarse breath sounds in all lung stewart, diminished on the left, chest tube on the left, no wheezes Cardiovascular exam: PRESENT: RRR, tachycardia Pulses: PRESENT: normal radial pulses, +1 pedal pulses bilateral GI/Abdominal exam: PRESENT: normal bowel sounds, soft. ABSENT: tenderness Gentrourinary exam: ABSENT: scrotal swelling - mild penile sweling Extremities exam: PRESENT: +1 edema - diffuse. ABSENT: calf tenderness Musculoskeletal exam: ABSENT: full ROM - profound weakness, unable to lift his arms against gravity and can lift knees against gravity, can't get his feet off the bed, tenderness Neurological exam: PRESENT: alert, awake, oriented to person, oriented to place , oriented to situation Psychiatric exam: PRESENT: appropriate affect, normal mood Skin exam: PRESENT: pallor, warm. Results Laboratory Results: 10/28/16 06:00 10/28/16 06:00 10/27/16 10/28/16 10/28/16 14:10 06:00 06:00 WBC 5.3 RBC 2.28 L Hgb 7.6 L Hct 22.5 L MCV 99 H MCH 33.2 MCHC 33.7 RDW 16.7 H Plt Count 178 Seg Neutrophils % Not Reportable Lymphocytes % Not Reportable Monocytes % Not Reportable Eosinophils % Not Reportable Basophils % Not Reportable Absolute Neutrophils Not Reportable Absolute Lymphocytes Not Reportable Absolute Monocytes Not Reportable Absolute Eosinophils Not Reportable Absolute Basophils Not Reportable Sodium 138.0 136.9 L Potassium 3.5 L 3.3 L Chloride 99 101 Carbon Dioxide 34 H 35 H Anion Gap 5 1 L BUN 8 10 Creatinine 0.33 L 0.25 L Est GFR ( Amer) > 60 > 60 Est GFR (Non-Af Amer) > 60 > 60 Glucose 160 H 126 H Calcium 7.4 L 7.7 L Total Bilirubin 0.8 0.5 AST 17 16 L ALT 35 37 Alkaline Phosphatase 67 68 Total Protein 4.1 L 4.2 L Albumin 1.8 L 1.9 L 10/13/16 10/13/16 10/13/16 20:15 20:15 20:22 Creatine Kinase 235 H Cancelled CK-MB (CK-2) 8.31 H Troponin I 0.119 10/14/16 10/14/16 10/14/16 01:45 01:45 08:20 Creatine Kinase 189 H 153 CK-MB (CK-2) 6.31 H Troponin I 0.031 10/14/16 08:20 Creatine Kinase CK-MB (CK-2) 4.54 Troponin I 0.019 Impressions: Abdomen/Pelvis CT 10/13/16 12:58 IMPRESSION: Colon wall thickening along the ascending colon, hepatic flexure, and sigmoid colon. Findings are nonspecific, worrisome for colitis. Profound fatty infiltration of the liver Question early or developing left lower lobe airspace disease Venous Doppler Study 10/16/16 00:00 IMPRESSION: NO EVIDENCE DVT OR SVT IN THE LEFT ARM. Chest CT 10/20/16 00:00 IMPRESSION: 1. There is almost complete atelectasis in the left lung with a significant pleural effusion and shift of mediastinum to the left. 2. There is a small right pleural effusion. KUB X-Ray 10/20/16 18:13 IMPRESSION: Nasogastric catheter is present with tip overlying the body of the stomach, side-port is approximately 5 cm past the GE junction. Thoracentesis Ultrasound 10/21/16 00:00 IMPRESSION: SUCCESSFUL THORACENTESIS USING ULTRASOUND GUIDANCE. Chest X-Ray 10/28/16 06:00 IMPRESSION: Increased moderate to large left lower lobar opacity. Lines and tubes. Assessment & Plan - Diagnosis (1) Acute hypoxemic respiratory failure Is this a current diagnosis for this admission?: YesPlan: Continue oxygen supplementation as needed. He continues to require intermittent BiPAP. He is now formally a DNR. He would not want to be reintubated or placed on mechanical ventilation. (2) Pneumonia Qualifiers: Pneumonia type: aspiration pneumonia Laterality: right Lung location: upper lobe of lung Is this a current diagnosis for this admission?: YesPlan: Continue Ancef through 10/30. (3) Pleural effusion Is this a current diagnosis for this admission?: YesPlan: Status post thoracentesis. Left chest tube in place. (4) Severe sepsis with septic shock Is this a current diagnosis for this admission?: NoPlan: Resolved. (5) C. difficile colitis Is this a current diagnosis for this admission?: YesPlan: Continue vancomycin p.o. through 10/29. (6) Alcohol dependency Qualifiers: Substance use status: with intoxication Complication of substance- induced condition: with unspecified complication Qualified Code(s): F10.229 - Alcohol dependence with intoxication, unspecified Is this a current diagnosis for this admission?: Yes (7) Abnormal liver function tests Is this a current diagnosis for this admission?: NoPlan: These are probably related to alcoholic liver disease. Continue to monitor. 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
--- NOTE | 2016-10-28 15:29 | PROGRESS NOTE E ---
Progress Note NAME: DEO CORTÉS : 1960 AGE: 56Y DATE: ROOM: 435 The patient was transferred from the unit to the floor. His chest tube drained about 400 mL overnight of clear, likely yellow fluid. Chest x-ray this morning showed increased moderate to large left lower opacity. He feels better and is tolerating his diet quite well. The plan is to keep the chest tube and hopefully the drainage will slow down. However, if the drainage continues then question may be putting a PleurX catheter. DICTATING PHYSICIAN: TAMARA MALCOLM M.D. [id number] PHY#: [id number] ID: [id number] JOB#: [id number] ACCT: [id number] cc: >
[2016-10-28] MEDS ORDERED: POTASSIUM CHLORIDE 10 MEQ TABLET.SA PO SCH (18:00)
[2016-10-28] MEDS: POTASSIUM CHLORIDE 20 MEQ/15 ML UDCUP PO SCH (18:50)
[2016-10-28] MEDS: THIAMINE HCL 100 MG, FOLIC ACID 1 MG in NORMAL SALINE 50 ML IV SCH (21:34)
[2016-10-29] MEDS: IPRATROPIUM/ALBUTEROL 0.5-2.5 MG/3 ML AMPUL NEB SCH ×4 (01:48→20:53)
[2016-10-29] MEDS: CEFAZOLIN 1 GM/D5W RTU 1 GM/50 ML RTUPB IV SCH ×3 (02:13→17:45)
[2016-10-29] MEDS: HYDROCORTISONE SOD SUCCINATE INJ/PF 100 MG/2 ML SDV IV SCH ×2 (02:13→10:43)
[2016-10-29 07:03] LABS: ALANINE AMINOTRANSFERASE 42 U/L (21-72); ALBUMIN 2.1 g/dL (3.5-5.0); ALKALINE PHOSPHATASE 74 U/L (38-126); ANION GAP 8 (5-19); ASPARTATE AMINO TRANSFERASE 26 U/L (17-59); BILIRUBIN,DIRECT 0.3 mg/dL (0.0-0.4); BILIRUBIN,TOTAL 0.4 mg/dL (0.2-1.3); BLOOD UREA NITROGEN 6 mg/dL (7-20); CARBON DIOXIDE 33 mmol/L (22-30); CHLORIDE 98 mmol/L (98-107); CREATININE RESULT 0.24 mg/dL (0.52-1.25); GLUCOSE 93 mg/dL (75-110); SODIUM 138.7 mmol/L (137-145); TOTAL PROTEIN 4.4 g/dL (6.3-8.2)
[2016-10-29 07:05] LABS: POTASSIUM 2.9 mmol/L (3.6-5.0)
[2016-10-29 07:27] LABS: ABSOLUTE LYMPHOCYTES (AUTO) 0.5 10^3/uL (0.5-4.7); ABSOLUTE MONOCYTES (AUTO) 0.6 10^3/uL (0.1-1.4); ABSOLUTE NEUT (AUTO) 6.5 10^3/uL (1.7-8.2); EOSINOPHILS % (AUTO) 0.3 % (0-6); HEMATOCRIT 24.7 % (37.9-51.0); HEMOGLOBIN 8.1 g/dL (13.5-17.0); HGB HCT DIFFERENCE -0.4; LYMPHOCYTES % (AUTO) 6.1 % (13-45); MEAN CORPUSCULAR HEMOGLOBIN 32.2 pg (27.0-33.4); MEAN CORPUSCULAR HGB CONC 32.7 g/dL (32.0-36.0); MEAN CORPUSCULAR VOLUME 98 fl (80-97); MONOCYTES % (AUTO) 8.4 % (3-13); RED BLOOD COUNT 2.51 10^6/uL (4.35-5.55); SEGMENTED NEUTROPHILS % (AUTO) 85.2 % (42-78); WHITE BLOOD COUNT 7.6 10^3/uL (4.0-10.5)
[2016-10-29] MEDS ORDERED: POTASSIUM CHLORIDE 20 MEQ/50 ML RTU IV SCH (08:00)
[2016-10-29] MEDS ORDERED: POTASSIUM CHLORIDE 10 MEQ TABLET.SA PO ONE (08:00)
[2016-10-29] MEDS: POTASSI CL 20 MEQ/50 ML RIDER 50 ML IV SCH ×3 (08:14→13:07)
[2016-10-29] MEDS: ENOXAPARIN SODIUM INJ 40 MG/0.4 ML DISP.SYRIN SUBCUT SCH (08:18)
[2016-10-29] MEDS: ACETYLCYSTEINE 20% SOLN 800 MG/4 ML VIAL.NEB NEB SCH ×2 (08:42→20:53)
[2016-10-29] MEDS: POTASSIUM CHLORIDE 20 MEQ/15 ML UDCUP PO SCH ×2 (10:44→17:45)
[2016-10-29] MEDS: SPIRONOLACTONE 25 MG TABLET PO SCH (10:44)
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
[2016-10-29] MEDS ORDERED: ACETAMINOPHEN 325 MG TABLET PO PRN (14:58)
--- NOTE | 2016-10-29 15:08 | PDOC PROGRESS REPORT ---
Subjective Progress Note for:: 10/29/16 Subjective:: No complaints Physical Exam Vital Signs: Temp Pulse Resp BP Pulse Ox 98.7 F 90 20 153/90 H 99 10/29/16 12:00 10/29/16 13:48 10/29/16 13:48 10/29/16 12:00 10/29/16 13:48 Intake & Output 10/28/16 10/29/16 10/30/16 06:59 06:59 06:59 Intake Total 2296 880 150 Output Total 1245 4000 Balance 1051 -3120 150 Weight 64.7 kg 65.8 kg General appearance: PRESENT: no acute distress, cooperative Respiratory exam: PRESENT: decreased breath sounds - Left base, other - Chest tube in place. Drainage output is clear yellow. No air leak. Results Laboratory Results: 10/29/16 05:35 10/29/16 05:35 10/29/16 10/29/16 10/29/16 05:35 05:35 05:35 WBC 7.6 RBC 2.51 L Hgb 8.1 L Hct 24.7 L MCV 98 H MCH 32.2 MCHC 32.7 RDW 17.0 H Plt Count 179 Seg Neutrophils % 85.2 H Lymphocytes % 6.1 L Monocytes % 8.4 Eosinophils % 0.3 Basophils % 0.0 Absolute Neutrophils 6.5 Absolute Lymphocytes 0.5 Absolute Monocytes 0.6 Absolute Eosinophils 0.0 Absolute Basophils 0.0 Sodium 138.7 Potassium 2.9 L* Chloride 98 Carbon Dioxide 33 H Anion Gap 8 BUN 6 L Creatinine 0.24 L Est GFR ( Amer) > 60 Est GFR (Non-Af Amer) > 60 Glucose 93 Calcium 8.0 L Magnesium 1.8 Total Bilirubin 0.4 AST 26 ALT 42 Alkaline Phosphatase 74 Total Protein 4.4 L Albumin 2.1 L 10/13/16 10/13/16 10/13/16 20:15 20:15 20:22 Creatine Kinase 235 H Cancelled CK-MB (CK-2) 8.31 H Troponin I 0.119 10/14/16 10/14/16 10/14/16 01:45 01:45 08:20 Creatine Kinase 189 H 153 CK-MB (CK-2) 6.31 H Troponin I 0.031 10/14/16 08:20 Creatine Kinase CK-MB (CK-2) 4.54 Troponin I 0.019 Impressions: Abdomen/Pelvis CT 10/13/16 12:58 IMPRESSION: Colon wall thickening along the ascending colon, hepatic flexure, and sigmoid colon. Findings are nonspecific, worrisome for colitis. Profound fatty infiltration of the liver Question early or developing left lower lobe airspace disease Venous Doppler Study 10/16/16 00:00 IMPRESSION: NO EVIDENCE DVT OR SVT IN THE LEFT ARM. Chest CT 10/20/16 00:00 IMPRESSION: 1. There is almost complete atelectasis in the left lung with a significant pleural effusion and shift of mediastinum to the left. 2. There is a small right pleural effusion. KUB X-Ray 10/20/16 18:13 IMPRESSION: Nasogastric catheter is present with tip overlying the body of the stomach, side-port is approximately 5 cm past the GE junction. Thoracentesis Ultrasound 10/21/16 00:00 IMPRESSION: SUCCESSFUL THORACENTESIS USING ULTRASOUND GUIDANCE. Chest X-Ray 10/28/16 06:00 IMPRESSION: Increased moderate to large left lower lobar opacity. Lines and tubes. Assessment & Plan - Diagnosis (1) Pleural effusion Is this a current diagnosis for this admission?: YesPlan: Status post left-sided chest tube placement. Patient still has significant serous output. Keep the chest tube in place for now.
[2016-10-29] MEDS: PREDNISONE 20 MG TABLET PO SCH (17:44)
[2016-10-30] MEDS: CEFAZOLIN 1 GM/D5W RTU 1 GM/50 ML RTUPB IV SCH ×2 (01:58→09:54)
[2016-10-30] MEDS: IPRATROPIUM/ALBUTEROL 0.5-2.5 MG/3 ML AMPUL NEB SCH ×4 (02:29→20:01)
[2016-10-30 05:39] LABS: ABSOLUTE EOSINOPHILS # (AUTO) 0.1 10^3/uL (0.0-0.6); ABSOLUTE LYMPHOCYTES (AUTO) 1.5 10^3/uL (0.5-4.7); ABSOLUTE MONOCYTES (AUTO) 0.8 10^3/uL (0.1-1.4); ABSOLUTE NEUT (AUTO) 6.6 10^3/uL (1.7-8.2); BASOPHILS % (AUTO) 0.2 % (0-2); EOSINOPHILS % (AUTO) 1.3 % (0-6); HEMATOCRIT 25.8 % (37.9-51.0); HEMOGLOBIN 8.5 g/dL (13.5-17.0); HGB HCT DIFFERENCE -0.3; LYMPHOCYTES % (AUTO) 16.6 % (13-45); MEAN CORPUSCULAR HEMOGLOBIN 32.6 pg (27.0-33.4); MEAN CORPUSCULAR VOLUME 99 fl (80-97); MONOCYTES % (AUTO) 9.2 % (3-13); RED BLOOD COUNT 2.61 10^6/uL (4.35-5.55); RED CELL DISTRIBUTION WIDTH 16.5 % (11.5-14.0); SEGMENTED NEUTROPHILS % (AUTO) 72.7 % (42-78); WHITE BLOOD COUNT 9.1 10^3/uL (4.0-10.5)
[2016-10-30 06:00] LABS: ANION GAP 6 (5-19); BLOOD UREA NITROGEN 8 mg/dL (7-20); CALCIUM 8.2 mg/dL (8.4-10.2); CARBON DIOXIDE 34 mmol/L (22-30); CHLORIDE 100 mmol/L (98-107); CREATININE RESULT 0.29 mg/dL (0.52-1.25); GLUCOSE 84 mg/dL (75-110); POTASSIUM 3.5 mmol/L (3.6-5.0); SODIUM 139.8 mmol/L (137-145)
[2016-10-30] MEDS: ACETYLCYSTEINE 20% SOLN 800 MG/4 ML VIAL.NEB NEB SCH ×2 (08:06→20:00)
[2016-10-30] MEDS: ENOXAPARIN SODIUM INJ 40 MG/0.4 ML DISP.SYRIN SUBCUT SCH (08:18)
[2016-10-30] MEDS: PREDNISONE 20 MG TABLET PO SCH ×2 (09:55→17:10)
[2016-10-30] MEDS: SPIRONOLACTONE 25 MG TABLET PO SCH (09:55)
[2016-10-30] MEDS: THIAMINE HCL 100 MG TABLET PO SCH (09:55)
[2016-10-30] MEDS: POTASSIUM CHLORIDE 20 MEQ/15 ML UDCUP PO SCH ×2 (09:55→17:10)
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
--- NOTE | 2016-10-30 14:57 | Operative Report ---
Nonrecallable Operative Report DATE OF SURGERY: 10/30/16 PREOPERATIVE DIAGNOSIS: Full-thickness necrotic ulcer pubic region POSTOPERATIVE DIAGNOSIS: Same OPERATION: Sharp excisional debridement with pickups and tenotomy scissors, removal of skin and subcutaneous tissue and fascia and nonviable skin. SURGEON: MOHAMUD RUSSELL ANESTHESIA: Other - None TISSUE REMOVED OR ALTERED: tissue nonviable subcutaneous tissue COMPLICATIONS: None ESTIMATED BLOOD LOSS: Scant INTRAOPERATIVE FINDINGS: See below PROCEDURE: The patient super pubic and pubic area was inspected. There was a 3-1/2 cm wide full thickness necrotic ulcerated area centrally, that tapered off along the perimeter with some granulation tissue. We washed the area thoroughly, then using a combination of pickups and tenotomy scissors, sharply debrided approximately 2 by 2 x 2 centimeter section of nonviable tissue. We got down to 2 small vessels which were preserved. We were now down to fascia overlying the pubic symphysis. There is no foreign body or drainage. Suitable dressings are being ordered. We will monitor this very carefully
[2016-10-31] MEDS: IPRATROPIUM/ALBUTEROL 0.5-2.5 MG/3 ML AMPUL NEB SCH ×4 (02:02→19:59)
[2016-10-31 05:10] VITALS: BP 135/87
[2016-10-31] MEDS ORDERED: LORAZEPAM INJ 2 MG/1 ML VIAL ONE (05:24)
[2016-10-31] MEDS ORDERED: LORAZEPAM INJ 2 MG/1 ML VIAL IV ONE (05:30)
[2016-10-31] MEDS ORDERED: MORPHINE SULFATE 10 MG/ML INJ IV ONE ×2 (06:10→07:00)
[2016-10-31] MEDS ORDERED: MORPHINE SULFATE 10 MG/ML INJ ONE (06:15)
[2016-10-31] MEDS ORDERED: METOPROLOL TARTRATE PF/INJ 5 MG/5 ML SDV IV ONE ×2 (06:20→06:45)
[2016-10-31] MEDS ORDERED: MAGNESIUM SULFATE/D5W 100 ML IV ONE (06:31)
[2016-10-31] MEDS ORDERED: MORPHINE SULFATE 10 MG/ML INJ IV PRN (06:35)
[2016-10-31] MEDS: ACETYLCYSTEINE 20% SOLN 800 MG/4 ML VIAL.NEB NEB SCH ×2 (09:09→19:59)
[2016-10-31] MEDS: SPIRONOLACTONE 25 MG TABLET PO SCH (09:15)
[2016-10-31] MEDS: THIAMINE HCL 100 MG TABLET PO SCH (09:15)
[2016-10-31] MEDS: PREDNISONE 20 MG TABLET PO SCH ×2 (09:15→17:13)
[2016-10-31] MEDS: POTASSIUM CHLORIDE 20 MEQ/15 ML UDCUP PO SCH ×2 (09:15→17:13)
--- NOTE | 2016-10-31 09:55 | PDOC PROGRESS REPORT ---
Subjective Progress Note for:: 10/31/16 Subjective:: Patient's level of care has been at the palliative level as the patient is deteriorating clinically. Physical Exam Vital Signs: Temp Pulse Resp BP Pulse Ox 98.0 F 71 30 H 135/87 H 100 10/31/16 05:06 10/31/16 05:06 10/31/16 09:13 10/31/16 05:06 10/31/16 05:06 Intake & Output 10/30/16 10/31/16 11/01/16 06:59 06:59 06:59 Intake Total 1180 1250 Output Total 4891 0360 Balance -7269 -6120 Weight 64.1 kg General appearance: PRESENT: other - Significant respiratory distress Respiratory exam: PRESENT: other - Shortness of breath with accessory muscles of respiration utilized. Left thoracostomy tube with fluctuation in fluid chamber. GI/Abdominal exam: PRESENT: other - Pubic wall dressing dry and intact. Results Laboratory Results: 10/30/16 05:10 10/30/16 05:10 10/13/16 10/13/16 10/13/16 20:15 20:15 20:22 Creatine Kinase 235 H Cancelled CK-MB (CK-2) 8.31 H Troponin I 0.119 10/14/16 10/14/16 10/14/16 01:45 01:45 08:20 Creatine Kinase 189 H 153 CK-MB (CK-2) 6.31 H Troponin I 0.031 10/14/16 08:20 Creatine Kinase CK-MB (CK-2) 4.54 Troponin I 0.019 Impressions: Abdomen/Pelvis CT 10/13/16 12:58 IMPRESSION: Colon wall thickening along the ascending colon, hepatic flexure, and sigmoid colon. Findings are nonspecific, worrisome for colitis. Profound fatty infiltration of the liver Question early or developing left lower lobe airspace disease Venous Doppler Study 10/16/16 00:00 IMPRESSION: NO EVIDENCE DVT OR SVT IN THE LEFT ARM. Chest CT 10/20/16 00:00 IMPRESSION: 1. There is almost complete atelectasis in the left lung with a significant pleural effusion and shift of mediastinum to the left. 2. There is a small right pleural effusion. KUB X-Ray 10/20/16 18:13 IMPRESSION: Nasogastric catheter is present with tip overlying the body of the stomach, side-port is approximately 5 cm past the GE junction. Thoracentesis Ultrasound 10/21/16 00:00 IMPRESSION: SUCCESSFUL THORACENTESIS USING ULTRASOUND GUIDANCE. Chest X-Ray 10/28/16 06:00 IMPRESSION: Increased moderate to large left lower lobar opacity. Lines and tubes. Assessment & Plan - Diagnosis (1) Severe sepsis with septic shock Is this a current diagnosis for this admission?: NoPlan: 1. Continue daily dressings to super pubic area abdominal wall wound 2. Continue left chest tube on waterseal 3. Surgery will sign off for now; reconsult if needed.
--- NOTE | 2016-10-31 10:31 | RADIOLOGY REPORT (SQ) ---
EXAM DESCRIPTION: ABDOMEN 2 VIEWS COMPLETED DATE/TIME: 10/31/2016 10:09 am REASON FOR STUDY: sob COMPARISON: None. NUMBER OF VIEWS: Two views. TECHNIQUE: Supine and erect/decubitus radiographic images of the abdomen acquired. LIMITATIONS: Motion. FINDINGS: FREE AIR: None. No abnormal gas collections. LUNG BASES: Small left pleural effusion. Airspace disease left lower lobe. BOWEL GAS PATTERN: Nonobstructive pattern. No dilated loops or air fluid levels. CALCIFICATIONS: No suspicious calcifications. SOFT TISSUES: No gross mass or suggestion of organomegaly. HARDWARE: Right-sided central line tip overlying SVC. Left-sided chest tube side hole overlying lowe r 3rd chest just medial to lateral chest wall. Browne catheter overlying urinary bladder. BONES: No acute fracture. No worrisome bone lesions. OTHER: No other significant finding. IMPRESSION: Appropriate position of support apparatus. No evidence of bowel obstruction. TECHNICAL DOCUMENTATION: JOB ID: [id number] [employer]- All Rights Reserved
[2016-10-31] MEDS ORDERED: LORAZEPAM INJ 2 MG/1 ML VIAL IV PRN (10:43)
--- NOTE | 2016-10-31 10:43 | PDOC PROGRESS REPORT ---
Subjective Progress Note for:: 10/30/16 Subjective:: Awake but confused Physical Exam Vital Signs: Temp Pulse Resp BP Pulse Ox 98.0 F 71 30 H 135/87 H 100 10/31/16 05:06 10/31/16 05:06 10/31/16 09:13 10/31/16 05:06 10/31/16 05:06 Intake & Output 10/30/16 10/31/16 11/01/16 06:59 06:59 06:59 Intake Total 1180 1250 Output Total 4817 6600 Balance -3645 -2700 Weight 64.1 kg General appearance: PRESENT: no acute distress, cooperative, disheveled, thin, well-developed Head exam: PRESENT: atraumatic, normocephalic Eye exam: PRESENT: conjunctiva pale, EOMI Mouth exam: PRESENT: dry mucosa, neck supple, tongue midline Teeth exam: PRESENT: poor dentation Neck exam: ABSENT: carotid bruit, JVD, lymphadenopathy, thyromegaly Respiratory exam: PRESENT: decreased breath sounds, prolonged expiratory phas, rhonchi, symmetrical, unlabored Cardiovascular exam: PRESENT: RRR, +S1, +S2 Pulses: PRESENT: normal radial pulses GI/Abdominal exam: PRESENT: normal bowel sounds, soft. ABSENT: distended, guarding, mass, organolmegaly, rebound, tenderness Rectal exam: PRESENT: deferred Gentrourinary exam: PRESENT: indwelling catheter Musculoskeletal exam: PRESENT: normal inspection Neurological exam: PRESENT: awake Psychiatric exam: PRESENT: unusual affect Skin exam: PRESENT: dry Results Laboratory Results: 10/30/16 05:10 10/30/16 05:10 10/13/16 10/13/16 10/13/16 20:15 20:15 20:22 Creatine Kinase 235 H Cancelled CK-MB (CK-2) 8.31 H Troponin I 0.119 10/14/16 10/14/16 10/14/16 01:45 01:45 08:20 Creatine Kinase 189 H 153 CK-MB (CK-2) 6.31 H Troponin I 0.031 10/14/16 08:20 Creatine Kinase CK-MB (CK-2) 4.54 Troponin I 0.019 Impressions: Abdomen/Pelvis CT 10/13/16 12:58 IMPRESSION: Colon wall thickening along the ascending colon, hepatic flexure, and sigmoid colon. Findings are nonspecific, worrisome for colitis. Profound fatty infiltration of the liver Question early or developing left lower lobe airspace disease Venous Doppler Study 10/16/16 00:00 IMPRESSION: NO EVIDENCE DVT OR SVT IN THE LEFT ARM. Chest CT 10/20/16 00:00 IMPRESSION: 1. There is almost complete atelectasis in the left lung with a significant pleural effusion and shift of mediastinum to the left. 2. There is a small right pleural effusion. KUB X-Ray 10/20/16 18:13 IMPRESSION: Nasogastric catheter is present with tip overlying the body of the stomach, side-port is approximately 5 cm past the GE junction. Thoracentesis Ultrasound 10/21/16 00:00 IMPRESSION: SUCCESSFUL THORACENTESIS USING ULTRASOUND GUIDANCE. Chest X-Ray 10/28/16 06:00 IMPRESSION: Increased moderate to large left lower lobar opacity. Lines and tubes. Abdomen X-Ray 10/31/16 06:09 IMPRESSION: Appropriate position of support apparatus. No evidence of bowel obstruction. Assessment & Plan - Diagnosis (1) Acute hypoxemic respiratory failure Is this a current diagnosis for this admission?: No (2) Pneumonia Qualifiers: Pneumonia type: aspiration pneumonia Laterality: right Lung location: upper lobe of lung Is this a current diagnosis for this admission?: No (3) Hypotension Qualifiers: Hypotension type: unspecified hypotension type Qualified Code(s): I95.9 - Hypotension, unspecified Is this a current diagnosis for this admission?: No (4) High anion gap metabolic acidosis Is this a current diagnosis for this admission?: No (5) Abnormal liver function tests Is this a current diagnosis for this admission?: No (6) Tobacco dependency Is this a current diagnosis for this admission?: Yes (7) COPD (chronic obstructive pulmonary disease) Qualifiers: COPD type: unspecified COPD Qualified Code(s): J44.9 - Chronic obstructive pulmonary disease, unspecified Is this a current diagnosis for this admission?: YesPlan: extubated by pcp at patienys request (8) Pleural effusion Is this a current diagnosis for this admission?: YesPlan: Chest tube remains no leak noted observing Pleur-evac
--- NOTE | 2016-10-31 10:45 | PDOC PROGRESS REPORT ---
Subjective Progress Note for:: 10/29/16 Subjective:: Awake but confused Physical Exam Vital Signs: Temp Pulse Resp BP Pulse Ox 97.5 F 96 18 139/73 H 96 10/29/16 04:00 10/29/16 07:36 10/29/16 07:36 10/29/16 07:36 10/29/16 07:36 Intake & Output 10/28/16 10/29/16 10/30/16 06:59 06:59 06:59 Intake Total 2296 880 Output Total 1245 4000 Balance 1051 -3120 Weight 64.7 kg 65.8 kg General appearance: PRESENT: no acute distress, cooperative, disheveled, thin, well-developed Head exam: PRESENT: atraumatic, normocephalic Eye exam: PRESENT: conjunctiva pale, EOMI Mouth exam: PRESENT: dry mucosa, neck supple, tongue midline Teeth exam: PRESENT: poor dentation Neck exam: ABSENT: carotid bruit, JVD, lymphadenopathy, thyromegaly Respiratory exam: PRESENT: decreased breath sounds, prolonged expiratory phas, rhonchi, symmetrical, unlabored Cardiovascular exam: PRESENT: RRR, +S1, +S2 Pulses: PRESENT: normal radial pulses GI/Abdominal exam: PRESENT: normal bowel sounds, soft. ABSENT: distended, guarding, mass, organolmegaly, rebound, tenderness Rectal exam: PRESENT: deferred Gentrourinary exam: PRESENT: indwelling catheter Musculoskeletal exam: PRESENT: normal inspection Neurological exam: PRESENT: awake Skin exam: PRESENT: dry Results Laboratory Results: 10/29/16 05:35 10/29/16 05:35 10/29/16 10/29/16 05:35 05:35 WBC 7.6 RBC 2.51 L Hgb 8.1 L Hct 24.7 L MCV 98 H MCH 32.2 MCHC 32.7 RDW 17.0 H Plt Count 179 Seg Neutrophils % 85.2 H Lymphocytes % 6.1 L Monocytes % 8.4 Eosinophils % 0.3 Basophils % 0.0 Absolute Neutrophils 6.5 Absolute Lymphocytes 0.5 Absolute Monocytes 0.6 Absolute Eosinophils 0.0 Absolute Basophils 0.0 Sodium 138.7 Potassium 2.9 L* Chloride 98 Carbon Dioxide 33 H Anion Gap 8 BUN 6 L Creatinine 0.24 L Est GFR ( Amer) > 60 Est GFR (Non-Af Amer) > 60 Glucose 93 Calcium 8.0 L Total Bilirubin 0.4 AST 26 ALT 42 Alkaline Phosphatase 74 Total Protein 4.4 L Albumin 2.1 L 10/13/16 10/13/16 10/13/16 20:15 20:15 20:22 Creatine Kinase 235 H Cancelled CK-MB (CK-2) 8.31 H Troponin I 0.119 10/14/16 10/14/16 10/14/16 01:45 01:45 08:20 Creatine Kinase 189 H 153 CK-MB (CK-2) 6.31 H Troponin I 0.031 10/14/16 08:20 Creatine Kinase CK-MB (CK-2) 4.54 Troponin I 0.019 Impressions: Abdomen/Pelvis CT 10/13/16 12:58 IMPRESSION: Colon wall thickening along the ascending colon, hepatic flexure, and sigmoid colon. Findings are nonspecific, worrisome for colitis. Profound fatty infiltration of the liver Question early or developing left lower lobe airspace disease Venous Doppler Study 10/16/16 00:00 IMPRESSION: NO EVIDENCE DVT OR SVT IN THE LEFT ARM. Chest CT 10/20/16 00:00 IMPRESSION: 1. There is almost complete atelectasis in the left lung with a significant pleural effusion and shift of mediastinum to the left. 2. There is a small right pleural effusion. KUB X-Ray 10/20/16 18:13 IMPRESSION: Nasogastric catheter is present with tip overlying the body of the stomach, side-port is approximately 5 cm past the GE junction. Thoracentesis Ultrasound 10/21/16 00:00 IMPRESSION: SUCCESSFUL THORACENTESIS USING ULTRASOUND GUIDANCE. Chest X-Ray 10/28/16 06:00 IMPRESSION: Increased moderate to large left lower lobar opacity. Lines and tubes. Assessment & Plan - Diagnosis (1) Acute hypoxemic respiratory failure Is this a current diagnosis for this admission?: No (2) Pneumonia Qualifiers: Pneumonia type: aspiration pneumonia Laterality: right Lung location: upper lobe of lung Is this a current diagnosis for this admission?: No (3) Hypotension Qualifiers: Hypotension type: unspecified hypotension type Qualified Code(s): I95.9 - Hypotension, unspecified Is this a current diagnosis for this admission?: No (4) High anion gap metabolic acidosis Is this a current diagnosis for this admission?: No (5) Abnormal liver function tests Is this a current diagnosis for this admission?: No (6) Tobacco dependency Is this a current diagnosis for this admission?: Yes (7) COPD (chronic obstructive pulmonary disease) Qualifiers: COPD type: unspecified COPD Qualified Code(s): J44.9 - Chronic obstructive pulmonary disease, unspecified Is this a current diagnosis for this admission?: Yes (8) Pleural effusion Is this a current diagnosis for this admission?: YesPlan: Chest tube remains no leak noted observing Pleur-evac
--- NOTE | 2016-10-31 10:50 | PDOC PROGRESS REPORT ---
Subjective Subjective:: Intubated and sedated Physical Exam Vital Signs: Temp Pulse Resp BP Pulse Ox 98.2 F 113 H 22 H 140/92 H 95 10/25/16 06:15 10/25/16 08:30 10/25/16 08:30 10/25/16 06:15 10/25/16 08:30 Intake & Output 10/24/16 10/25/16 10/26/16 06:59 06:59 06:59 Intake Total 1629 1595 Output Total 1300 6225 1000 Balance 329 -6430 -1000 Weight 65.2 kg 61.2 kg General appearance: PRESENT: no acute distress, disheveled, thin, well-developed Head exam: PRESENT: atraumatic, normocephalic Eye exam: PRESENT: conjunctiva pale Mouth exam: PRESENT: dry mucosa, neck supple, other - ET tube in place Neck exam: ABSENT: carotid bruit, JVD, lymphadenopathy, thyromegaly Respiratory exam: PRESENT: decreased breath sounds - Right hemithorax greater than left, prolonged expiratory phas Cardiovascular exam: PRESENT: RRR, +S1, +S2 Pulses: PRESENT: normal radial pulses GI/Abdominal exam: PRESENT: normal bowel sounds, soft. ABSENT: distended, guarding, mass, organolmegaly, rebound, tenderness Rectal exam: PRESENT: deferred Gentrourinary exam: PRESENT: indwelling catheter Musculoskeletal exam: PRESENT: normal inspection Skin exam: PRESENT: dry Results Laboratory Results: 10/25/16 06:30 10/25/16 06:30 10/24/16 10/24/16 10/25/16 17:30 20:40 06:30 WBC RBC Hgb Hct MCV MCH MCHC RDW Plt Count Seg Neutrophils % Lymphocytes % Monocytes % Eosinophils % Basophils % Absolute Neutrophils Absolute Lymphocytes Absolute Monocytes Absolute Eosinophils Absolute Basophils Carbonic Acid 1.12 HCO3/H2CO3 Ratio 29:1 ABG pH 7.57 H ABG pCO2 37.1 ABG pO2 100.0 ABG HCO3 33.3 H ABG O2 Saturation 98.3 H ABG Base Excess 10.6 FiO2 100% Sodium 141.8 140.9 Potassium 3.1 L 3.1 L Chloride 104 102 Carbon Dioxide 33 H 34 H Anion Gap 5 5 BUN 7 8 Creatinine 0.28 L 0.29 L Est GFR ( Amer) > 60 > 60 Est GFR (Non-Af Amer) > 60 > 60 Glucose 103 75 Calcium 7.5 L 7.9 L Magnesium 1.8 Total Bilirubin 0.7 AST 65 H ALT 51 Alkaline Phosphatase 90 Total Protein 4.1 L Albumin 2.0 L Triglycerides 173 H 10/25/16 10/25/16 06:30 07:30 WBC 10.0 RBC 3.02 L Hgb 9.8 L Hct 29.6 L MCV 98 H MCH 32.4 MCHC 33.0 RDW 16.7 H Plt Count 238 Seg Neutrophils % 81.2 H Lymphocytes % 12.4 L Monocytes % 5.6 Eosinophils % 0.2 Basophils % 0.6 Absolute Neutrophils 8.1 Absolute Lymphocytes 1.2 Absolute Monocytes 0.6 Absolute Eosinophils 0.0 Absolute Basophils 0.1 Carbonic Acid 1.47 H HCO3/H2CO3 Ratio 25:1 ABG pH 7.51 H ABG pCO2 48.9 H ABG pO2 56.0 L ABG HCO3 38.0 H ABG O2 Saturation 91.3 L ABG Base Excess 13.3 FiO2 3.5L Sodium Potassium Chloride Carbon Dioxide Anion Gap BUN Creatinine Est GFR ( Amer) Est GFR (Non-Af Amer) Glucose Calcium Magnesium Total Bilirubin AST ALT Alkaline Phosphatase Total Protein Albumin Triglycerides 10/13/16 10/13/16 10/13/16 20:15 20:15 20:22 Creatine Kinase 235 H Cancelled CK-MB (CK-2) 8.31 H Troponin I 0.119 10/14/16 10/14/16 10/14/16 01:45 01:45 08:20 Creatine Kinase 189 H 153 CK-MB (CK-2) 6.31 H Troponin I 0.031 10/14/16 08:20 Creatine Kinase CK-MB (CK-2) 4.54 Troponin I 0.019 Impressions: Abdomen/Pelvis CT 10/13/16 12:58 IMPRESSION: Colon wall thickening along the ascending colon, hepatic flexure, and sigmoid colon. Findings are nonspecific, worrisome for colitis. Profound fatty infiltration of the liver Question early or developing left lower lobe airspace disease Venous Doppler Study 10/16/16 00:00 IMPRESSION: NO EVIDENCE DVT OR SVT IN THE LEFT ARM. Chest CT 10/20/16 00:00 IMPRESSION: 1. There is almost complete atelectasis in the left lung with a significant pleural effusion and shift of mediastinum to the left. 2. There is a small right pleural effusion. KUB X-Ray 10/20/16 18:13 IMPRESSION: Nasogastric catheter is present with tip overlying the body of the stomach, side-port is approximately 5 cm past the GE junction. Thoracentesis Ultrasound 10/21/16 00:00 IMPRESSION: SUCCESSFUL THORACENTESIS USING ULTRASOUND GUIDANCE. Chest X-Ray 10/25/16 06:00 IMPRESSION: Similar appearance of the left lung. Chest tube in place with shift of structures into the left hemithorax. Minimal patchy right basilar airspace disease. Assessment & Plan - Diagnosis (1) Acute hypoxemic respiratory failure Is this a current diagnosis for this admission?: Yes (2) Pneumonia Qualifiers: Pneumonia type: aspiration pneumonia Laterality: right Lung location: upper lobe of lung Is this a current diagnosis for this admission?: Yes (3) Hypotension Qualifiers: Hypotension type: unspecified hypotension type Qualified Code(s): I95.9 - Hypotension, unspecified Is this a current diagnosis for this admission?: No (4) High anion gap metabolic acidosis Is this a current diagnosis for this admission?: No (5) Abnormal liver function tests Is this a current diagnosis for this admission?: No (6) Tobacco dependency Is this a current diagnosis for this admission?: Yes (7) COPD (chronic obstructive pulmonary disease) Qualifiers: COPD type: unspecified COPD Qualified Code(s): J44.9 - Chronic obstructive pulmonary disease, unspecified Is this a current diagnosis for this admission?: Yes (8) Pleural effusion on right Is this a current diagnosis for this admission?: YesPlan: Massive effusion with mediastinal shift recurred after thoracentesis requesting chest tube placed - Time Critical Time spent with patient: 35 or more minutes
--- NOTE | 2016-10-31 10:52 | PDOC PROGRESS REPORT ---
Subjective Progress Note for:: 10/28/16 Subjective:: Intubated and sedated Physical Exam Vital Signs: Temp Pulse Resp BP Pulse Ox 97.5 F 96 18 139/73 H 96 10/29/16 04:00 10/29/16 07:36 10/29/16 07:36 10/29/16 07:36 10/29/16 07:36 Intake & Output 10/28/16 10/29/16 10/30/16 06:59 06:59 06:59 Intake Total 2296 880 Output Total 1245 4000 Balance 1051 -3120 Weight 64.7 kg 65.8 kg General appearance: PRESENT: no acute distress, disheveled, thin, well-developed Head exam: PRESENT: atraumatic, normocephalic Eye exam: PRESENT: conjunctiva pale Mouth exam: PRESENT: dry mucosa, neck supple, other - ET tube in place Neck exam: ABSENT: carotid bruit, JVD, lymphadenopathy, thyromegaly Respiratory exam: PRESENT: decreased breath sounds, prolonged expiratory phas, rales, unlabored, other - Breath sounds decreased both bases right dramatically greater than left Cardiovascular exam: PRESENT: RRR, +S1, +S2 Pulses: PRESENT: normal radial pulses GI/Abdominal exam: PRESENT: normal bowel sounds, soft. ABSENT: distended, guarding, mass, organolmegaly, rebound, tenderness Rectal exam: PRESENT: deferred Gentrourinary exam: PRESENT: indwelling catheter Musculoskeletal exam: PRESENT: normal inspection Skin exam: PRESENT: dry Results Laboratory Results: 10/29/16 05:35 10/29/16 05:35 10/29/16 10/29/16 05:35 05:35 WBC 7.6 RBC 2.51 L Hgb 8.1 L Hct 24.7 L MCV 98 H MCH 32.2 MCHC 32.7 RDW 17.0 H Plt Count 179 Seg Neutrophils % 85.2 H Lymphocytes % 6.1 L Monocytes % 8.4 Eosinophils % 0.3 Basophils % 0.0 Absolute Neutrophils 6.5 Absolute Lymphocytes 0.5 Absolute Monocytes 0.6 Absolute Eosinophils 0.0 Absolute Basophils 0.0 Sodium 138.7 Potassium 2.9 L* Chloride 98 Carbon Dioxide 33 H Anion Gap 8 BUN 6 L Creatinine 0.24 L Est GFR ( Amer) > 60 Est GFR (Non-Af Amer) > 60 Glucose 93 Calcium 8.0 L Total Bilirubin 0.4 AST 26 ALT 42 Alkaline Phosphatase 74 Total Protein 4.4 L Albumin 2.1 L 10/13/16 10/13/16 10/13/16 20:15 20:15 20:22 Creatine Kinase 235 H Cancelled CK-MB (CK-2) 8.31 H Troponin I 0.119 10/14/16 10/14/16 10/14/16 01:45 01:45 08:20 Creatine Kinase 189 H 153 CK-MB (CK-2) 6.31 H Troponin I 0.031 10/14/16 08:20 Creatine Kinase CK-MB (CK-2) 4.54 Troponin I 0.019 Impressions: Abdomen/Pelvis CT 10/13/16 12:58 IMPRESSION: Colon wall thickening along the ascending colon, hepatic flexure, and sigmoid colon. Findings are nonspecific, worrisome for colitis. Profound fatty infiltration of the liver Question early or developing left lower lobe airspace disease Venous Doppler Study 10/16/16 00:00 IMPRESSION: NO EVIDENCE DVT OR SVT IN THE LEFT ARM. Chest CT 10/20/16 00:00 IMPRESSION: 1. There is almost complete atelectasis in the left lung with a significant pleural effusion and shift of mediastinum to the left. 2. There is a small right pleural effusion. KUB X-Ray 10/20/16 18:13 IMPRESSION: Nasogastric catheter is present with tip overlying the body of the stomach, side-port is approximately 5 cm past the GE junction. Thoracentesis Ultrasound 10/21/16 00:00 IMPRESSION: SUCCESSFUL THORACENTESIS USING ULTRASOUND GUIDANCE. Chest X-Ray 10/28/16 06:00 IMPRESSION: Increased moderate to large left lower lobar opacity. Lines and tubes. Assessment & Plan - Diagnosis (1) Acute hypoxemic respiratory failure Is this a current diagnosis for this admission?: Yes (2) Pneumonia Qualifiers: Pneumonia type: aspiration pneumonia Laterality: right Lung location: upper lobe of lung Is this a current diagnosis for this admission?: Yes (3) Hypotension Qualifiers: Hypotension type: unspecified hypotension type Qualified Code(s): I95.9 - Hypotension, unspecified Is this a current diagnosis for this admission?: No (4) High anion gap metabolic acidosis Is this a current diagnosis for this admission?: No (5) Abnormal liver function tests Is this a current diagnosis for this admission?: No (6) Tobacco dependency Is this a current diagnosis for this admission?: Yes (7) COPD (chronic obstructive pulmonary disease) Qualifiers: COPD type: unspecified COPD Qualified Code(s): J44.9 - Chronic obstructive pulmonary disease, unspecified Is this a current diagnosis for this admission?: Yes (8) Pleural effusion Is this a current diagnosis for this admission?: Yes - Time Critical Time spent with patient: 35 or more minutes
--- NOTE | 2016-10-31 10:54 | PDOC PROGRESS REPORT ---
Subjective Progress Note for:: 10/27/16 Subjective:: Intubated and sedated Physical Exam Vital Signs: Temp Pulse Resp BP Pulse Ox 99.7 F 102 H 23 H 117/74 99 10/27/16 07:43 10/27/16 07:43 10/27/16 07:43 10/27/16 07:43 10/27/16 07:43 Intake & Output 10/26/16 10/27/16 10/28/16 06:59 06:59 06:59 Intake Total 1169 469 Output Total 3295 1300 100 Balance -2126 -831 -100 Weight 60.3 kg 57.6 kg General appearance: PRESENT: no acute distress, disheveled, thin, well-developed Head exam: PRESENT: atraumatic, normocephalic Eye exam: PRESENT: conjunctiva pale Mouth exam: PRESENT: dry mucosa, neck supple, other - ET tube in place Teeth exam: PRESENT: poor dentation Neck exam: PRESENT: carotid bruit Respiratory exam: PRESENT: decreased breath sounds - Right Hemithorax greater than left, prolonged expiratory phas, rales, rhonchi, unlabored Cardiovascular exam: PRESENT: RRR, +S1, systolic murmur Pulses: PRESENT: normal radial pulses GI/Abdominal exam: PRESENT: normal bowel sounds, soft. ABSENT: distended, guarding, mass, organolmegaly, rebound, tenderness Rectal exam: PRESENT: deferred Gentrourinary exam: PRESENT: indwelling catheter Musculoskeletal exam: PRESENT: normal inspection Skin exam: PRESENT: dry Results Laboratory Results: 10/27/16 04:32 10/27/16 04:32 10/27/16 10/27/16 10/27/16 04:32 04:32 04:32 WBC 7.5 RBC 2.38 L Hgb 7.7 L Hct 23.1 L MCV 97 MCH 32.5 MCHC 33.5 RDW 16.5 H Plt Count 184 Seg Neutrophils % Not Reportable Lymphocytes % Not Reportable Monocytes % Not Reportable Eosinophils % Not Reportable Basophils % Not Reportable Absolute Neutrophils Not Reportable Absolute Lymphocytes Not Reportable Absolute Monocytes Not Reportable Absolute Eosinophils Not Reportable Absolute Basophils Not Reportable Carbonic Acid 1.40 H HCO3/H2CO3 Ratio 29:1 ABG pH 7.56 H ABG pCO2 46.5 H ABG pO2 118.6 H ABG HCO3 40.7 H ABG O2 Saturation 98.7 H ABG Base Excess 16.9 FiO2 40% Sodium 137.3 Potassium 2.8 L* Chloride 97 L Carbon Dioxide 36 H Anion Gap 4 L BUN 8 Creatinine 0.29 L Est GFR ( Amer) > 60 Est GFR (Non-Af Amer) > 60 Glucose 96 Calcium 7.4 L Magnesium Total Bilirubin 1.3 AST 17 ALT 38 Alkaline Phosphatase 67 Total Protein 4.1 L Albumin 1.8 L 10/27/16 04:32 WBC RBC Hgb Hct MCV MCH MCHC RDW Plt Count Seg Neutrophils % Lymphocytes % Monocytes % Eosinophils % Basophils % Absolute Neutrophils Absolute Lymphocytes Absolute Monocytes Absolute Eosinophils Absolute Basophils Carbonic Acid HCO3/H2CO3 Ratio ABG pH ABG pCO2 ABG pO2 ABG HCO3 ABG O2 Saturation ABG Base Excess FiO2 Sodium Potassium Chloride Carbon Dioxide Anion Gap BUN Creatinine Est GFR ( Amer) Est GFR (Non-Af Amer) Glucose Calcium Magnesium 1.5 L Total Bilirubin AST ALT Alkaline Phosphatase Total Protein Albumin 10/22/16 09:45 Pleural Fluid - Left Pleural Effusion Gram Stain - Final 10/22/16 09:45 Pleural Fluid - Left Pleural Effusion Body Fluid Culture - Final NO AEROBIC OR ANAEROBIC ORGANISMS RECOVERED 10/22/16 09:45 Pleural Fluid - Left Pleural Effusion Fungal Smear - Final 10/22/16 09:45 Pleural Fluid - Left Pleural Effusion Fungal Smear - Final 10/22/16 09:45 Pleural Fluid - Left Pleural Effusion Fungal Smear - Final 10/22/16 09:45 Pleural Fluid - Left Pleural Effusion AFB Smear Concentration - Final 10/22/16 09:45 Pleural Fluid - Left Pleural Effusion Acid Fast Bacilli Smear - Final 10/13/16 10/13/16 10/13/16 20:15 20:15 20:22 Creatine Kinase 235 H Cancelled CK-MB (CK-2) 8.31 H Troponin I 0.119 10/14/16 10/14/16 10/14/16 01:45 01:45 08:20 Creatine Kinase 189 H 153 CK-MB (CK-2) 6.31 H Troponin I 0.031 10/14/16 08:20 Creatine Kinase CK-MB (CK-2) 4.54 Troponin I 0.019 Impressions: Abdomen/Pelvis CT 10/13/16 12:58 IMPRESSION: Colon wall thickening along the ascending colon, hepatic flexure, and sigmoid colon. Findings are nonspecific, worrisome for colitis. Profound fatty infiltration of the liver Question early or developing left lower lobe airspace disease Venous Doppler Study 10/16/16 00:00 IMPRESSION: NO EVIDENCE DVT OR SVT IN THE LEFT ARM. Chest CT 10/20/16 00:00 IMPRESSION: 1. There is almost complete atelectasis in the left lung with a significant pleural effusion and shift of mediastinum to the left. 2. There is a small right pleural effusion. KUB X-Ray 10/20/16 18:13 IMPRESSION: Nasogastric catheter is present with tip overlying the body of the stomach, side-port is approximately 5 cm past the GE junction. Thoracentesis Ultrasound 10/21/16 00:00 IMPRESSION: SUCCESSFUL THORACENTESIS USING ULTRASOUND GUIDANCE. Chest X-Ray 10/27/16 06:00 IMPRESSION: Interval improvement. Small left basilar opacity -effusion. Lines and tubes. Assessment & Plan - Diagnosis (1) Acute hypoxemic respiratory failure Is this a current diagnosis for this admission?: Yes (2) Pneumonia Qualifiers: Pneumonia type: aspiration pneumonia Laterality: right Lung location: upper lobe of lung Is this a current diagnosis for this admission?: Yes (3) Hypotension Qualifiers: Hypotension type: unspecified hypotension type Qualified Code(s): I95.9 - Hypotension, unspecified Is this a current diagnosis for this admission?: No (4) High anion gap metabolic acidosis Is this a current diagnosis for this admission?: No (5) Abnormal liver function tests Is this a current diagnosis for this admission?: No (6) Tobacco dependency Is this a current diagnosis for this admission?: Yes (7) COPD (chronic obstructive pulmonary disease) Qualifiers: COPD type: unspecified COPD Qualified Code(s): J44.9 - Chronic obstructive pulmonary disease, unspecified Is this a current diagnosis for this admission?: Yes (8) Pleural effusion Is this a current diagnosis for this admission?: Yes - Time Critical Time spent with patient: 35 or more minutes
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
--- NOTE | 2016-10-31 10:58 | PDOC PROGRESS REPORT ---
Subjective Progress Note for:: 10/26/16 Subjective:: Intubated and sedated Physical Exam Vital Signs: Temp Pulse Resp BP Pulse Ox 98.8 F 100 21 H 123/69 100 10/26/16 06:00 10/26/16 02:05 10/26/16 06:00 10/26/16 05:21 10/26/16 06:00 Intake & Output 10/25/16 10/26/16 10/27/16 06:59 06:59 06:59 Intake Total 1595 1169 Output Total 6225 3295 275 Balance -4630 -2126 -275 Weight 61.2 kg 60.3 kg General appearance: PRESENT: no acute distress, disheveled, thin, well-developed Head exam: PRESENT: atraumatic, normocephalic Eye exam: PRESENT: conjunctiva pale Mouth exam: PRESENT: dry mucosa, neck supple, other - Endotracheal tube in place Neck exam: PRESENT: carotid bruit Respiratory exam: PRESENT: decreased breath sounds - Right greater than left, prolonged expiratory phas, rhonchi, unlabored Cardiovascular exam: PRESENT: RRR, +S1, +S2 Pulses: PRESENT: normal radial pulses GI/Abdominal exam: PRESENT: normal bowel sounds, soft. ABSENT: distended, guarding, mass, organolmegaly, rebound, tenderness Rectal exam: PRESENT: deferred Gentrourinary exam: PRESENT: indwelling catheter Musculoskeletal exam: PRESENT: normal inspection Results Laboratory Results: 10/26/16 06:00 10/25/16 18:30 10/25/16 10/25/16 10/26/16 11:35 18:30 06:00 WBC 9.9 RBC 2.50 L Hgb 8.3 L Hct 24.5 L MCV 98 H MCH 33.3 MCHC 33.9 RDW 16.5 H Plt Count 213 Seg Neutrophils % 85.4 H Lymphocytes % 8.7 L Monocytes % 5.4 Eosinophils % 0.2 Basophils % 0.3 Absolute Neutrophils 8.5 H Absolute Lymphocytes 0.9 Absolute Monocytes 0.5 Absolute Eosinophils 0.0 Absolute Basophils 0.0 Carbonic Acid 2.65 H HCO3/H2CO3 Ratio 15:1 ABG pH 7.29 L ABG pCO2 88.0 H* ABG pO2 53.1 L ABG HCO3 41.1 H ABG O2 Saturation 81.4 L ABG Base Excess 11.2 FiO2 100% Potassium 3.5 L Magnesium 10/26/16 06:00 WBC RBC Hgb Hct MCV MCH MCHC RDW Plt Count Seg Neutrophils % Lymphocytes % Monocytes % Eosinophils % Basophils % Absolute Neutrophils Absolute Lymphocytes Absolute Monocytes Absolute Eosinophils Absolute Basophils Carbonic Acid HCO3/H2CO3 Ratio ABG pH ABG pCO2 ABG pO2 ABG HCO3 ABG O2 Saturation ABG Base Excess FiO2 Potassium Magnesium 1.7 10/22/16 09:45 Pleural Fluid - Left Pleural Effusion Gram Stain - Final 10/22/16 09:45 Pleural Fluid - Left Pleural Effusion Body Fluid Culture - Final NO AEROBIC OR ANAEROBIC ORGANISMS RECOVERED 10/22/16 09:45 Pleural Fluid - Left Pleural Effusion Fungal Smear - Final 10/22/16 09:45 Pleural Fluid - Left Pleural Effusion Fungal Smear - Final 10/22/16 09:45 Pleural Fluid - Left Pleural Effusion Fungal Smear - Final 10/22/16 09:45 Pleural Fluid - Left Pleural Effusion AFB Smear Concentration - Final 10/22/16 09:45 Pleural Fluid - Left Pleural Effusion Acid Fast Bacilli Smear - Final 10/13/16 10/13/16 10/13/16 20:15 20:15 20:22 Creatine Kinase 235 H Cancelled CK-MB (CK-2) 8.31 H Troponin I 0.119 10/14/16 10/14/16 10/14/16 01:45 01:45 08:20 Creatine Kinase 189 H 153 CK-MB (CK-2) 6.31 H Troponin I 0.031 10/14/16 08:20 Creatine Kinase CK-MB (CK-2) 4.54 Troponin I 0.019 Impressions: Abdomen/Pelvis CT 10/13/16 12:58 IMPRESSION: Colon wall thickening along the ascending colon, hepatic flexure, and sigmoid colon. Findings are nonspecific, worrisome for colitis. Profound fatty infiltration of the liver Question early or developing left lower lobe airspace disease Venous Doppler Study 10/16/16 00:00 IMPRESSION: NO EVIDENCE DVT OR SVT IN THE LEFT ARM. Chest CT 10/20/16 00:00 IMPRESSION: 1. There is almost complete atelectasis in the left lung with a significant pleural effusion and shift of mediastinum to the left. 2. There is a small right pleural effusion. KUB X-Ray 10/20/16 18:13 IMPRESSION: Nasogastric catheter is present with tip overlying the body of the stomach, side-port is approximately 5 cm past the GE junction. Thoracentesis Ultrasound 10/21/16 00:00 IMPRESSION: SUCCESSFUL THORACENTESIS USING ULTRASOUND GUIDANCE. Chest X-Ray 10/26/16 06:00 IMPRESSION: Moderate opacification of the left lower hemithorax and moderate left-sided cardiac shift. Left chest tube. Right central line. Assessment & Plan - Diagnosis (1) Acute hypoxemic respiratory failure Is this a current diagnosis for this admission?: Yes (2) Pneumonia Qualifiers: Pneumonia type: aspiration pneumonia Laterality: right Lung location: upper lobe of lung Is this a current diagnosis for this admission?: Yes (3) Hypotension Qualifiers: Hypotension type: unspecified hypotension type Qualified Code(s): I95.9 - Hypotension, unspecified Is this a current diagnosis for this admission?: No (4) High anion gap metabolic acidosis Is this a current diagnosis for this admission?: No (5) Abnormal liver function tests Is this a current diagnosis for this admission?: No (6) Tobacco dependency Is this a current diagnosis for this admission?: Yes (7) COPD (chronic obstructive pulmonary disease) Qualifiers: COPD type: unspecified COPD Qualified Code(s): J44.9 - Chronic obstructive pulmonary disease, unspecified Is this a current diagnosis for this admission?: Yes (8) Pleural effusion Is this a current diagnosis for this admission?: YesPlan: Unchanged - Time Critical Time spent with patient: 35 or more minutes
[2016-10-31] MEDS: ENOXAPARIN SODIUM INJ 40 MG/0.4 ML DISP.SYRIN SUBCUT SCH (11:49)
[2016-10-31] MEDS: MORPHINE SULFATE 10 MG/ML INJ IV PRN ×2 (13:09→17:16)
[2016-11-01] MEDS: IPRATROPIUM/ALBUTEROL 0.5-2.5 MG/3 ML AMPUL NEB SCH ×4 (02:36→20:01)
[2016-11-01] MEDS: ACETYLCYSTEINE 20% SOLN 800 MG/4 ML VIAL.NEB NEB SCH ×2 (08:59→20:01)
[2016-11-01] MEDS: THIAMINE HCL 100 MG TABLET PO SCH (10:22)
[2016-11-01] MEDS: PREDNISONE 20 MG TABLET PO SCH ×2 (10:22→18:13)
[2016-11-01] MEDS: SPIRONOLACTONE 25 MG TABLET PO SCH (10:23)
[2016-11-01] MEDS: MORPHINE SULFATE 10 MG/ML INJ IV PRN (10:24)
[2016-11-01] MEDS: POTASSIUM CHLORIDE 20 MEQ/15 ML UDCUP PO SCH ×2 (10:25→18:13)
[2016-11-01] MEDS: ENOXAPARIN SODIUM INJ 40 MG/0.4 ML DISP.SYRIN SUBCUT SCH (10:25)
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
[2016-11-02] MEDS: IPRATROPIUM/ALBUTEROL 0.5-2.5 MG/3 ML AMPUL NEB SCH (02:07)
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
== END 2016-11-02 02:35 | DRG 853 ==
LOC: ER 09:21 → UNDOADMIN 14:49 → EH 14:49 → UNDOADMIN 15:28 → EH 15:35 → ICU 17:50 → 4S 10-27 19:00
PROVIDERS: ADMIT Hospitalist; ATTEND Hospitalist
PROC: 0BH17EZ Insertion of Endotracheal Airway into Trachea, Via Natural or Artificial Opening (ICD-10-PCS; 2016-10-13)
PROC: 5A1955Z Respiratory Ventilation, Greater than 96 Consecutive Hours (ICD-10-PCS; 2016-10-13)
PROC: 02HV33Z Insertion of Infusion Device into Superior Vena Cava, Percutaneous Approach (ICD-10-PCS; 2016-10-13)
PROC: 03HY32Z Insertion of Monitoring Device into Upper Artery, Percutaneous Approach (ICD-10-PCS; 2016-10-14)
PROC: 3E1F88Z Irrigation of Respiratory Tract using Irrigating Substance, Via Natural or Artificial Opening Endoscopic (ICD-10-PCS; 2016-10-20)
PROC: 0BH17EZ Insertion of Endotracheal Airway into Trachea, Via Natural or Artificial Opening (ICD-10-PCS; 2016-10-20)
PROC: 5A1955Z Respiratory Ventilation, Greater than 96 Consecutive Hours (ICD-10-PCS; 2016-10-20)
PROC: 0W9B3ZZ Drainage of Left Pleural Cavity, Percutaneous Approach (ICD-10-PCS; 2016-10-22)
PROC: 0W9B00Z Drainage of Left Pleural Cavity with Drainage Device, Open Approach (ICD-10-PCS; 2016-10-24)
PROC: 0JBC0ZZ Excision of Pelvic Region Subcutaneous Tissue and Fascia, Open Approach (ICD-10-PCS; principal; 2016-10-30)
DX: A41.9 Sepsis, unspecified organism (principal); J96.01 Acute respiratory failure with hypoxia; R65.21 Severe sepsis with septic shock; J69.0 Pneumonitis due to inhalation of food and vomit; K72.00 Acute and subacute hepatic failure without coma; E43 Unspecified severe protein-calorie malnutrition; F10.231 Alcohol dependence with withdrawal delirium; E87.2 Acidosis; J98.19 Other pulmonary collapse; J90 Pleural effusion, not elsewhere classified; Z68.1 Body mass index [BMI] 19.9 or less, adult; A04.7 Enterocolitis due to Clostridium difficile; D61.818 Other pancytopenia; Z66 Do not resuscitate; F10.229 Alcohol dependence with intoxication, unspecified; I95.9 Hypotension, unspecified; I50.9 Heart failure, unspecified; I11.0 Hypertensive heart disease with heart failure; J44.9 Chronic obstructive pulmonary disease, unspecified; E87.6 Hypokalemia; E83.51 Hypocalcemia; D63.8 Anemia in other chronic diseases classified elsewhere; B96.20 Unspecified Escherichia coli [E. coli] as the cause of diseases classified elsewhere; K70.30 Alcoholic cirrhosis of liver without ascites; L89.891 Pressure ulcer of other site, stage 1; L89.152 Pressure ulcer of sacral region, stage 2; M79.89 Other specified soft tissue disorders; G70.89 Other specified myoneural disorders; F90.9 Attention-deficit hyperactivity disorder, unspecified type; F31.9 Bipolar disorder, unspecified; F25.9 Schizoaffective disorder, unspecified; S00.12XA Contusion of left eyelid and periocular area, initial encounter; S00.11XA Contusion of right eyelid and periocular area, initial encounter; S80.02XA Contusion of left knee, initial encounter; S80.01XA Contusion of right knee, initial encounter; S00.33XA Contusion of nose, initial encounter; F17.210 Nicotine dependence, cigarettes, uncomplicated; W19.XXXA Unspecified fall, initial encounter; Y90.0 Blood alcohol level of less than 20 mg/100 ml; Y93.9 Activity, unspecified; Y92.9 Unspecified place or not applicable; Z86.718 Personal history of other venous thrombosis and embolism
CPT/HCPCS: 31500; 31624; 32555; 36415; 51702; 71010; 71260; 74000; 74020; 74177; 80048; 80053; 80076; 80202; 80307; 81001; 82040; 82533; 82550; 82553; 82693; 82803; 82945; 82962; 83605; 83615; 83735; 84100; 84132; 84155; 84157; 84443; 84478; 84484; 85025; 85610; 85730; 87015; 87040; 87070; 87075; 87077; 87086; 87101; 87116; 87186; 87205; 87206; 87493; 88104; 88305; 89050; 93005; 93010; 93971; 94002; 94003; 94660; 94668; 94799; 96361; 96365; 99285; C1751; J0330; J0610; J0690; J1450; J1644; J1650; J1720; J1815; J1940; J1956; J2060; J2270; J2543; J2704; J2997; J3010; J3370; J3411; J3475; J3480; J3490; J7030; J7060; J7120; J7512; J7620; P9047; S0164